=== PATIENT | male | born 1935 | race Caucasian/White ===

== ENCOUNTER 2019-11-14 10:29 | Outpatient (CLI) | payer MEDICARE, SELFPAY ==
--- NOTE | ~2019-11-14 | XR_ITS ---
XR chest 2V DATE: 11/14/2019 11:33 INDICATION: Dyspnea on exertion TECHNIQUE: 2 views COMPARISON: 03/11/2019 portable AP chest FINDINGS: Bilateral hyperinflation. No pulmonary infiltrate or consolidation, pleural effusion or pulmonary vascular congestion or pneumo thorax. Heart size is borderline. Coronary artery calcification. Aortic calcification. No hilar or mediastina l enlargement. 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 Osteopenia. IMPRESSION: Bilateral hyperinflation; no active pulmonary disease Reviewed, dictated and finalized at location A.
[2019-11-14 11:09] LABS: Basophils Percent Auto 0.4 % (0.2-1.2); Eosinophils Absolute Auto 0.3 K/mm3 (0-0.3); Eosinophils Percent Auto 4.1 % (0-4.4); Hematocrit 40.1 % (42.0-52.0); Hemoglobin 13.2 g/dL (14.0-18.0); Immature Granulocyte Absolute 0.03 K/mm3 (0.00-0.031); Immature Granulocyte Percent A 0.4 % (0-0.5); Immature Platelet Fraction Pct 6.4 % (0.9-11.2); Lymphocytes Absolute Auto 1.26 K/mm3 (0.9-3.2); Lymphocytes Percent Auto 17.1 % (18.3-44.2); Mean Corpuscular HGB Conc 32.9 g/dl (32-36); Mean Corpuscular Hemoglobin 31.7 pg (26-34); Mean Corpuscular Volume 96.2 fl (80-100); Mean Platelet Volume 11.7 fl (7.4-10.4); Monocytes Absolute Auto 0.7 K/mm3 (0.1-0.6); Monocytes Percent Auto 9.9 % (2.6-8.5); Neutrophils Percent Auto 68.1 % (45.5-73.1); Platelet Count Result 137 k/mm3 (150-375); Red Blood Count 4.17 M/mm3 (4.6-6.20); Red Cell Distribution Width 14.1 % (11.5-14.5); White Blood Count 7.4 K/mm3 (4.5-10.0)
[2019-11-14 11:25] LABS: Blood Urea Nitrogen 59 mg/dL (9-20); Calcium 9.7 mg/dL (8.4-10.2); Carbon Dioxide 24 mmol/L (22-30); Chloride 111 mmol/L (98-107); Estimated Glomerular Filt Rate 41; Glucose 109 mg/dL (75-110); Potassium 5.2 mmol/L (3.4-5.0); Sodium 141 mmol/L (137-145)
[2019-11-14 11:31] LABS: NT Pro B Type Natriuretic Pept 401 PG/ML (5-100)
== END 2019-11-14 10:30 | disposition home or self-care (01) ==
PROVIDERS: PCP Family Medicine; Visit Provider Internal Medicine Cardiovascular Disease
DX: R06.00 Dyspnea, unspecified (principal); R53.83 Other fatigue; N18.3 Chronic kidney disease, stage 3 (moderate)
CPT/HCPCS: 36415; 71046; 80048; 83880; 85025; 85055

== ENCOUNTER 2022-11-03 19:31 | Emergency (ER) | payer MEDICARE, SELFPAY ==
--- NOTE | ~2022-11-03 | CT_ITS ---
Non-contrast Head CT History: Tremor COMPARISON: 03/19/2019 Technique: Axial non-contrast imaging of the brain was performed. Dose reduction technique was used on this scan by utilizing automated exposure control and iterative reconstruction technique. The dose -length product (DLP) was 605.33 mGy-cm. Findings: There is no evidence of intracranial hemorrhage, mass lesion, or acute infarct. Brain par enchyma appears normal. The ventricles and subarachnoid spaces are normal in size. The calvarium ap pears normal. The visualized paranasal sinuses and mastoid air cells are clear. Impression: No significant abnormality seen. Reviewed, dictated and finalized at location . Impression: No significant abnormality seen.
--- NOTE | ~2022-11-03 | CT_ITS ---
EXAMINATION: CT abdomen pelvis w con DATE: 11/03/2022 23:35 INDICATION: Low back pain. Hypotension. TECHNIQUE: Computed tomography (CT) of the abdomen and pelvis was performed with 100 cc Omnipaque 350 intravenous contrast. The dose-length product was 652.30 mGy-cm. Automated exposure control and iter ative reconstruction technique were employed. COMPARISON: CT dated 11/03/2022 FINDINGS: Lung bases are unremarkable. Heart size normal. No significant pleural or pericardial effus ion. There are changes of left total hip arthroplasty with gas in the overlying soft tissues, consist ent with recent surgery. Moderate colonic fecal loading. No obstruction. The liver, pancreas, adrenal glands are unremarkable. There is bilateral renal atrophy. There are zonia cified granulomas of the spleen. Nonobstructive bowel gas pattern. There are bilateral hip arthroplas ties. No free air or free fluid. There is atherosclerosis of the aorta without aneurysm. No lymphaden opathy. No free air or free fluid. Bladder is moderately distended. IMPRESSION: 1. No acute abdominal abnormality. Reviewed, dictated and finalized at location L.
[2022-11-03 20:07] VITALS: BP 100/54; PULSE 57; RESP 20; TEMP 36.7; O2SAT 98
[2022-11-03 20:48] VITALS: BP 110/52; PULSE 56; RESP 18; O2SAT 98
--- NOTE | 2022-11-03 21:43 | ED.GENADULT ---
HPI - General Adult General Chief complaint: Neuro Symptoms/Deficit Stated complaint: tremors in upper extremities Time Seen by Provider: 11/03/22 21:29 History of Present Illness HPI narrative: Patient is a 87-year-old male here for evaluation of bilateral finger twitching x1 day. No known trigger. He states that at random, the finger will have a twitch and then resolved without intervention. Denies history of previous similar sensation. Denies any unilateral weakness, visual changes, headache, nausea, vomiting, seizures, twitching of the face. He also has been having some low back pain underneath his scapula bilaterally. Patient did have a hip replacement yesterday at outside hospital, he received an epidural which was reportedly unsuccessful and he then received propofol. Denies history of reaction to anesthesia. Related Data Home Medications Medication Instructions Recorded Confirmed aspirin 81 mg tablet,delayed 81 mg PO DAILY 03/26/19 09/29/22 release (Adult Low Dose Aspirin) clopidogrel 75 mg tablet 75 mg PO DAILY 03/26/19 09/29/22 metoprolol tartrate 50 mg tablet 50 mg PO Q12H 03/26/19 09/29/22 atorvastatin 80 mg tablet 40 mg PO DAILY 09/27/19 09/29/22 Allergies Allergy/AdvReac Type Severity Reaction Status Date / Time No Known Allergies Allergy Unknown Verified 09/29/22 13:40 Review of Systems Review of Systems: Gen.: Denies fevers or chills Eyes: Denies eye pain or visual change ENT: Denies congestion Respiratory: Denies shortness of breath or cough CV: Denies chest pain or palpitations GI: Denies abdominal pain nausea, emesis or diarrhea denies burning, urgency, frequency or hematuria Musculoskeletal: Denies back pain or muscle pain Neuro: Reports tremors to bilateral hands. Denies numbness, tingling, weakness or focal weakness Skin: Denies rash Except as documented, all other systems reviewed and negative [facility] Past Medical History Medical History BMI 24.0-24.9, adult BMI 25.0-25.9,adult BMI 27.0-27.9,adult Family History Family History Father , JACKLYN WW 2 No problems noted. Mother , Failure to thrive No problems noted. Other Diabetes mellitus Hypertension Social History Social History Smoking status: Former smoker Second hand tobacco smoke exposure: No Alcohol intake: current Substance use: never Substance use type: does not use Living arrangements: with family Occupation/Education: retired Additional occupation/education comments: [employer] Gender identity (if verbalized by the patient): Male Exam Narrative: APPEARANCE: Well appearing, no pain in distress, well-nourished. Head: Normocephalic and atraumatic. EYES: PERRLA/EOMI, conjunctivae clear NOSE: No nasal drainage EARS: External ear normal in appearance THROAT: Oropharynx is clear. Mucous membranes are moist. NECK: Supple. No adenopathy, no masses. RESPIRATORY: Airway patent, respirations nonlabored. Clear to auscultation bilaterally, no rales, rhonchi, wheezing. CARDIOVASCULAR: Regular rate and rhythm without murmurs, rubs, or gallops. ABDOMINAL: Normoactive bowel sounds. Soft, nontender, nondistended. No rebound tenderness or guarding. MUSCULOSKELETAL: There is no tenderness to palpation along the C, T or L-spine. Extremities are warm and well-perfused. Moves all extremities well. No edema. NEURO: Very faint intermittent twitch of the bilateral upper extremities at the fingers. SKIN: Skin is warm and dry. No rashes. PSYCHIATRIC: Normal affect/mood. Course Vital Signs Vital signs: Vital Signs Temperature 98.1 F 11/03/22 20:07 Pulse Rate 57 L 11/03/22 20:07 Respiratory Rate 20 11/03/22 20:07 Blood Pressure 100/54 L 11/03/22 20:07 Pulse Oxime
[2022-11-03 22:05] VITALS: BP 114/46; PULSE 62; RESP 19; O2SAT 98
[2022-11-03] MEDS: SODIUM CHLORIDE 0.9% IV 1,000 ML 999 ML IV CONT ×2 (22:09→23:03)
[2022-11-03 22:16] LABS: Basophils Percent Auto 0.3 % (0.2-1.2); Eosinophils Absolute Auto 0.3 K/mm3 (0-0.3); Eosinophils Percent Auto 2.6 % (0-4.4); Hematocrit 31.2 % (42.0-52.0); Hemoglobin 10.3 g/dL (14.0-18.0); Immature Granulocyte Absolute 0.03 K/mm3 (0.00-0.031); Immature Granulocyte Percent A 0.3 % (0-0.5); Lymphocytes Absolute Auto 1.15 K/mm3 (0.9-3.2); Mean Corpuscular Volume 96.9 fl (80-100); Mean Platelet Volume 11.2 fl (7.4-10.4); Neutrophils Absolute Auto 7.2 K/mm3 (1.3-6.7); Neutrophils Percent Auto 74.8 % (45.5-73.1); Platelet Count Result 109 k/mm3 (150-375); Red Blood Count 3.22 M/mm3 (4.6-6.20); Red Cell Distribution Width 14.4 % (11.5-14.5); White Blood Count 9.6 K/mm3 (4.5-10.0)
[2022-11-03 22:33] LABS: Alanine Aminotransferase 18 U/L (6-50); Albumin Level 3.5 g/dL (3.5-5.1); Alkaline Phosphatase 69 U/L (38-126); Anion Gap 7 mmol/L (8-16); Aspartate Amino Transferase 35 U/L (17-59); Bilirubin,Total 0.8 mg/dL (0.2-1.3); Blood Urea Nitrogen 35 mg/dL (9-20); Calcium 8.1 mg/dL (8.4-10.2); Carbon Dioxide 22 mmol/L (22-30); Chloride 107 mmol/L (98-107); Estimated CRCL calculation 25 ml/min; Estimated Glomerular Filt Rate 34; Glucose 114 mg/dL (65-110); Phosphorus 4.6 mg/dL (2.5-4.5); Potassium 4.2 mmol/L (3.4-5.0); Sodium 136 mmol/L (137-145)
[2022-11-03 22:42] LABS: INR 1.2; Prothrombin Time 15.8 Seconds (11.1-14.7)
[2022-11-03 23:51] VITALS: BP 120/63; PULSE 77; RESP 14; TEMP 36.6; O2SAT 98
[2022-11-04 01:26] VITALS: BP 119/58; PULSE 73; RESP 12; TEMP 37.1; O2SAT 98
== END 2022-11-04 01:27 | disposition home or self-care (01) ==
PROVIDERS: Emergency Provider Physician Assistant; PCP Family Medicine
DX: R25.3 Fasciculation (principal); Z98.890 Other specified postprocedural states; Z96.642 Presence of left artificial hip joint; Z79.82 Long term (current) use of aspirin; Z79.02 Long term (current) use of antithrombotics/antiplatelets; Z87.891 Personal history of nicotine dependence
CPT/HCPCS: 36415; 70450; 74177; 80053; 83735; 84100; 85025; 85610; 85730; 86850; 86900; 86901; 96360; 96361; 99284; J7030; Q9967

== ENCOUNTER 2022-11-10 10:26 | Outpatient (CLI) | payer MEDICARE, SELFPAY ==
--- NOTE | ~2022-11-10 | US_ITS ---
EXAMINATION: US venous doppler [facility] DATE: 11/10/2022 11:03 INDICATION: Left lower limb pain one week post hip surgery TECHNIQUE: Grayscale ultrasound images without and with compression and Doppler ultrasound images of the left lower extremity veins were obtained. COMPARISON: None. FINDINGS: The visualized portions of left common femoral vein, profunda (deep) femoral vein, femoral vein, popl iteal vein, posterior tibial veins, gastrocnemius vein, lesser saphenous vein and greater saphenous v ein outflow are patent. IMPRESSION: 1. No deep venous thrombosis in the left lower limb. Reviewed, dictated and finalized at location A.
== END 2022-11-10 10:27 | disposition home or self-care (01) ==
PROVIDERS: PCP Family Medicine; Visit Provider Orthopaedic Surgery
DX: M79.662 Pain in left lower leg (principal)
CPT/HCPCS: 93971

== ENCOUNTER 2022-11-14 15:20 | Emergency (ER) | payer MEDICARE, SELFPAY ==
[2022-11-14] VITALS (8 sets, daily range): BP systolic 113–158; BP diastolic 38–99; PULSE 82–94; RESP 17–19; TEMP 36.9–37.1; O2SAT 98–100
--- NOTE | ~2022-11-14 | XR_ITS ---
Left Hip Technique: Portable AP view Clinical History: Status post reduction Findings: Patient is status post left hip arthroplasty. Previously noted arthroplasty dislocation has been successfully reduced. Hardware alignment is now satisfactory. No acute osseous fracture seen. S urgical skin denisa are noted. Impression: Successful reduction of previously noted left hip arthroplasty dislocation. Reviewed, dictated and finalized at location M. Impression: Successful reduction of previously noted left hip arthroplasty dislocation.
--- NOTE | ~2022-11-14 | XR_ITS ---
AP view of the pelvis Clinical history: Pain Findings: Bilateral hip arthroplasties are present. There is superior dislocation of the left femoral head component from the left acetabular cup component. No dislocation of the right arthroplasty seen . No acute osseous fracture identified. Soft tissues are unremarkable. Impression: Superior dislocation of the left femoral arthroplasty component from the left acetabular cup. Right hip arthroplasty appears unremarkable. No acute osseous fracture. Reviewed, dictated and finalized at location M. Impression: Superior dislocation of the left femoral arthroplasty component from the left a cetabular cup. Right hip arthroplasty appears unremarkable. No acute osseous fracture.
[2022-11-14] MEDS: fentaNYL CITRATE INJ (*CRX) 100 MCG/2 ML VIAL 50 MCG IV PUSH (15:42)
[2022-11-14 15:51] LABS: Basophils Absolute Auto 0.1 K/mm3 (0.0-0.1); Basophils Percent Auto 0.3 % (0.2-1.2); Eosinophils Absolute Auto 0.4 K/mm3 (0-0.3); Eosinophils Percent Auto 2.3 % (0-4.4); Hematocrit 25.9 % (42.0-52.0); Hemoglobin 8.3 g/dL (14.0-18.0); Immature Granulocyte Absolute 0.18 K/mm3 (0.00-0.031); Lymphocytes Absolute Auto 0.74 K/mm3 (0.9-3.2); Lymphocytes Percent Auto 4.3 % (18.3-44.2); Mean Corpuscular Hemoglobin 31.8 pg (26-34); Mean Corpuscular Volume 99.2 fl (80-100); Mean Platelet Volume 9.3 fl (7.4-10.4); Monocytes Absolute Auto 1.2 K/mm3 (0.1-0.6); Monocytes Percent Auto 6.6 % (2.6-8.5); Neutrophils Absolute Auto 14.9 K/mm3 (1.3-6.7); Neutrophils Percent Auto 85.5 % (45.5-73.1); Platelet Count Result 213 k/mm3 (150-375); Red Blood Count 2.61 M/mm3 (4.6-6.20); Red Cell Distribution Width 15.6 % (11.5-14.5); White Blood Count 17.4 K/mm3 (4.5-10.0)
--- NOTE | 2022-11-14 15:57 | ED.GENADULT ---
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 Coronel, who is brought in by EMS with left hip pain and possible dislocation. The patient states he was seated on the toilet when he bent forward and felt a pop and severe pain in the left hip. He describes it as dull, rated 8/10 and without radiation. He denies weakness/numbness of the leg. Related Data Home Medications Medication Instructions Recorded Confirmed aspirin 81 mg tablet,delayed 81 mg PO DAILY 03/26/19 09/29/22 release (Adult Low Dose Aspirin) clopidogrel 75 mg tablet 75 mg PO DAILY 03/26/19 09/29/22 metoprolol tartrate 50 mg tablet 50 mg PO Q12H 03/26/19 09/29/22 atorvastatin 80 mg tablet 40 mg PO DAILY 09/27/19 09/29/22 Allergies Allergy/AdvReac Type Severity Reaction Status Date / Time No Known Allergies Allergy Unknown Verified 09/29/22 13:40 Review of Systems Review of Systems: CONSTITUTIONAL: Denies fever, chills, or sweats. CARDIOVASCULAR: Denies chest pain, palpitations, or edema. RESPIRATORY: Denies cough or dyspnea. GASTROINTESTINAL: Denies abdominal pain, nausea, vomiting, or diarrhea. GENITOURINARY: Denies dysuria or hematuria. SKIN: Denies rash or itching. MUSCULOSKELETAL: Left hip pain denies back pain, or myalgia. NEUROLOGIC: Denies headache, numbness, dizziness, or weakness. PSYCHIATRIC: Denies anxiety or depression. [facility] Past Medical History Medical History (Updated 11/14/22 @ 18:53 by Jean Lund MD) BMI 24.0-24.9, adult BMI 25.0-25.9,adult BMI 27.0-27.9,adult CKD (chronic kidney disease) CVA (cerebral vascular accident) Hypothyroidism Screening for prostate cancer Surgical History Surgical History (Updated 11/14/22 @ 16:00 by Jean Lund MD) Status post left hip replacement Status post right hip replacement Family History Family History Father , JACKLYN WW 2 No problems noted. Mother , Failure to thrive No problems noted. Other Diabetes mellitus Hypertension Social History Social History Smoking status: Former smoker Second hand tobacco smoke exposure: No Alcohol intake: current Substance use: never Substance use type: does not use Living arrangements: with family Occupation/Education: retired Additional occupation/education comments: [employer] Gender identity (if verbalized by the patient): Male Exam Narrative: GENERAL: Well-developed, well-nourished, in moderate distress due to pain HEAD: Normocephalic, atraumatic. EYES: PERRLA and EOMI. ENT: Nares clear, no rhinorrhea or epistaxis. Mucous membranes moist. Oropharynx without tonsillar hypertrophy exudate or other lesions. CHEST: Clear to auscultation. No respiratory distress. No wheezes rales or rhonchi HEART: Regular rate and rhythm. No murmur heard. Normal peripheral pulses. ABDOMEN: Soft, nontender, nondistended, normal active bowel sounds. EXTREMITIES: Left hip shortened and internally rotated compared to the right. There are bandages with small amount of dried blood noted to the posterior lateral aspect of the left hip. Range of motion at the toes, ankle and knee intact. No edema. SKIN: Warm, dry, no rash. NEURO: No focal deficits. Alert and oriented x3. Sensation intact bilaterally PSYCH: Normal mood and affect. Course Course Emergency Course: 16:40 - X-ray demonstrates a posteriorly dislocated left prosthetic hip. I discussed the findings with the patient's surgeon, Dr. Coronel and [facility], who agrees with attempt to reduce the hip in the emergency dep
[2022-11-14 16:00] LABS: Alanine Aminotransferase 21 U/L (6-50); Albumin Level 3.4 g/dL (3.5-5.1); Alkaline Phosphatase 91 U/L (38-126); Anion Gap 5 mmol/L (8-16); Aspartate Amino Transferase 23 U/L (17-59); Blood Urea Nitrogen 24 mg/dL (9-20); Calcium 8.2 mg/dL (8.4-10.2); Carbon Dioxide 22 mmol/L (22-30); Chloride 110 mmol/L (98-107); Estimated CRCL calculation 31 ml/min; Estimated Glomerular Filt Rate 44; Glucose 134 mg/dL (65-110); Potassium 4.3 mmol/L (3.4-5.0); Sodium 137 mmol/L (137-145)
[2022-11-14 16:04] LABS: INR 2.8; Prothrombin Time 31.4 Seconds (11.1-14.7)
[2022-11-14 16:11] LABS: Platelet Estimate Adequate (Adequate)
[2022-11-14 16:12] LABS: Anisocytosis 1+ (NORMAL); Poikilocytosis 1+ (NORMAL)
[2022-11-14 16:13] LABS: Schistocytes None Seen (NORMAL)
--- NOTE | 2022-11-14 18:17 | PC.NURSE ---
Conscious sedation started at 1732, Dr. Lund, this RN, and [facility], in room. Time out done at 173. 173: 25 mcg fentanyl given IVP. 1738: 40mg propofol IVP given by Dr. Lund. 1742: 20mg propofol given IVP. 174: 20mg propofol given IVP. 1748: reduction completed. Xray called to bedside. 1L NS bolus running. Pt tolerated procedure well. Upon finishing he was AOx4, awake and alert and in 0/10 pain.
== END 2022-11-14 19:29 | disposition home or self-care (01) ==
PROVIDERS: Emergency Provider Preventive Medicine Aerospace Medicine; PCP Family Medicine
DX: S73.015A Posterior dislocation of left hip, initial encounter (principal); M25.552 Pain in left hip; E03.9 Hypothyroidism, unspecified; N18.9 Chronic kidney disease, unspecified; Z96.643 Presence of artificial hip joint, bilateral; Z87.891 Personal history of nicotine dependence
CPT/HCPCS: 27265; 36415; 72170; 73501; 80053; 85025; 85610; 99285; J2704; J3010; J7030

== ENCOUNTER 2022-11-16 16:21 | Emergency (ER) | payer MEDICARE, SELFPAY ==
--- NOTE | ~2022-11-16 | XR_ITS ---
EXAM: XR abdomen obstructive series DATE: 11/16/2022 19:49 HISTORY: Abdominal distention POSSIBLE URINARY RETENTION . COMPARISON: CT abdomen pelvis 11/03/2022. FINDINGS: Bilateral interstitial opacities. Streaky bibasilar opacities, likely atelectasis/scar no organomegaly. Normal bowel gas pattern Pelvic phleboliths. Scattered vascular calcifications. Severe degenerative change in the lumbar spine. Partially visualized uncomplicated appearing bilateral hip a rthroplasties. IMPRESSION: No radiographic evidence of obstruction or ileus. Reviewed, dictated and finalized at location K.
[2022-11-16 16:25] VITALS: BP 102/50; PULSE 79; RESP 16; TEMP 36.8; O2SAT 99
--- NOTE | 2022-11-16 17:18 | PC.NURSE ---
flores cath irrigated by Deanna MORGAN. she reports non difficulty with irrigation and is draining via gravity without difficulty
--- NOTE | 2022-11-16 18:28 | ED.GENADULT ---
HPI - General Adult General Chief complaint: Urogenital-Male Stated complaint: flores cath not draining Time Seen by Provider: 11/16/22 17:18 History of Present Illness HPI narrative: 87-year-old male presented the ED for evaluation of his urinary Flores was not draining and patient was having abdominal bloating. Patient was recently seen in the ED for a dislocated hip and this was reduced. Related Data Home Medications Medication Instructions Recorded Confirmed aspirin 81 mg tablet,delayed 81 mg PO DAILY 03/26/19 09/29/22 release (Adult Low Dose Aspirin) clopidogrel 75 mg tablet 75 mg PO DAILY 03/26/19 09/29/22 metoprolol tartrate 50 mg tablet 50 mg PO Q12H 03/26/19 09/29/22 atorvastatin 80 mg tablet 40 mg PO DAILY 09/27/19 09/29/22 Allergies Allergy/AdvReac Type Severity Reaction Status Date / Time No Known Allergies Allergy Unknown Verified 09/29/22 13:40 Review of Systems Review of Systems: All systems reviewed & are unremarkable except as noted in HPI and below PMFSH Past Medical History Medical History BMI 24.0-24.9, adult BMI 25.0-25.9,adult BMI 27.0-27.9,adult CKD (chronic kidney disease) CVA (cerebral vascular accident) Hypothyroidism Screening for prostate cancer Surgical History Surgical History Status post left hip replacement Status post right hip replacement Family History Family History Father , JACKLYN WW 2 No problems noted. Mother , Failure to thrive No problems noted. Other Diabetes mellitus Hypertension Social History Social History Smoking status: Former smoker Second hand tobacco smoke exposure: No Alcohol intake: current Substance use: never Substance use type: does not use Living arrangements: with family Occupation/Education: retired Additional occupation/education comments: . [employer] Gender identity (if verbalized by the patient): Male Exam Narrative: APPEARANCE: Well appearing, no pain, no distress, well-nourished. HEAD: normocephalic, atraumatic. EYES: PERRLA/EOMI, conjunctivae clear. NOSE: Normal no drainage NECK: Supple. No adenopathy, no masses. RESPIRATORY: Airway patent, respirations nonlabored. Clear to auscultation bilaterally, no rales, rhonchi, wheezing. CARDIOVASCULAR: Regular rate and rhythm without murmurs rubs or gallops. ABDOMINAL: Abdominal distention without tenderness, normal bowel sounds MUSCULOSKELETAL: Moves all extremities. Strength/ROM intact, No edema, No calf tenderness. NEURO: Alert. Cranial nerves II through XII intact. Grossly intact SKIN: Warm, dry. Normal Color Course Course Emergency Course: 87-year-old male presented ED for evaluation of Flores catheter dysfunction. Patient's Flores catheter was exchanged, UA does show evidence of infection and patient was started on antibiotics. Patient was also complaining of some abdominal bloating. X-ray was ordered and showed no evidence of obstruction. Patient and family were updated on the results of the work-up and treatment plan. All questions concerns were addressed and patient was well-appearing at time of discharge from the emergency department. Vital Signs Vital signs: Vital Signs Temperature 98.3 F 11/16/22 16:25 Pulse Rate 79 11/16/22 16:25 Respiratory Rate 16 11/16/22 16:25 Blood Pressure 102/50 L 11/16/22 16:25 Pulse Oximetry 99 11/16/22 16:25 Oxygen Delivery Room Air 11/16/22 16:25 Temperature 98.3 F 11/16/22 16:25 Pulse Rate 83 11/16/22 20:53 Respiratory Rate 16 11/16/22 20:53 Blood Pressure 126/58 L 11/16/22 20:53 Pulse Oximetry 93 11/16/22 20:53 Oxygen Delivery Room Air 11/16/22 16:25 Medical Decision Making Differential Diagnosis Dif
[2022-11-16 18:54] LABS: Appearance Urine Turbid (Clear); Bacteria Urine 4+ /hpf; Bilirubin Urine Negative (Negative); Blood Urine 3+ (Negative); Color Urine Yellow (Yellow); Glucose Urine UA Negative (Negative); Ketones Urine Negative (Negative); Leukocyte Esterase Ur 3+ LEU/UL (Negative); Need Manual Microscopic Reviewed; Nitrate Urine Negative (Negative); Protein Urine 1+ mg/dL (Negative); Specific Grav Ur 1.018 (1.001-1.035); Squamous Epithelial Cell Urine None seen /hpf (Few); WBC Urine 21-50 /hpf
[2022-11-16 18:59] LABS: Add Urine Microscopic? YES
[2022-11-16 19:14] VITALS: BP 129/59; PULSE 79; RESP 15; O2SAT 93
[2022-11-16] MEDS: CEPHALEXIN 500 MG CAPSULE PO (20:05)
[2022-11-16 20:53] VITALS: BP 126/58; PULSE 83; RESP 16; O2SAT 93
== END 2022-11-16 20:57 | disposition home or self-care (01) ==
PROVIDERS: Emergency Provider Emergency Medicine; PCP Family Medicine
DX: T83.9XXA Unspecified complication of genitourinary prosthetic device, implant and graft, initial encounter (principal); N39.0 Urinary tract infection, site not specified; E03.9 Hypothyroidism, unspecified; N18.9 Chronic kidney disease, unspecified; Z86.73 Personal history of transient ischemic attack (TIA), and cerebral infarction without residual deficits; Z87.891 Personal history of nicotine dependence
CPT/HCPCS: 74019; 81001; 87077; 87086; 87186; 99283; A9270

== ENCOUNTER 2022-11-16 21:51 | Emergency (ER) | payer MEDICARE, SELFPAY ==
--- NOTE | ~2022-11-16 | XR_ITS ---
Left Hip Technique: Portable AP view Clinical History: Status post reduction COMPARISON: 11/16/2022 at 10:12 PM Findings: Previously noted left hip arthroplasty dislocation has been successfully reduced. Alignment of hardware is now satisfactory. No acute osseous fracture seen. Soft tissues are unremarkable. Impression: Successful reduction of previously noted left hip arthroplasty dislocation. Reviewed, dictated and finalized at location . Impression: Successful reduction of previously noted left hip arthroplasty dislocation.
--- NOTE | ~2022-11-16 | XR_ITS ---
EXAM: XR hip LT 2V w AP pelvis DATE: 11/16/2022 22:23 HISTORY: dislocation . COMPARISON: 11/14/2022. FINDINGS: Decreased mineralization. Degenerative changes in the lumbar spine and pubic symphysis. Th e femoral component of a left hip or blastic is dislocated superiorly. No hardware fracture. No perih ardware lucency or fracture. Partially visualized, uncomplicated appearing right hip arthroplasty. IMPRESSION: Dislocated left hip arthroplasty. Reviewed, dictated and finalized at location K.
--- NOTE | 2022-11-16 22:40 | ED.LOWEXIN ---
HPI - Extremity Injury (Lower) General Chief Complaint: Extremity Injury, Lower Stated Complaint: right hip dislocation Time Seen by Provider: 11/16/22 21:54 History of Present Illness HPI Narrative: Patient presents with left hip pain when he he was getting out of a car, felt a pop. He had just had his hip dislocation 2 days ago reduced here. Related Data Home Medications Medication Instructions Recorded Confirmed aspirin 81 mg tablet,delayed 81 mg PO DAILY 03/26/19 09/29/22 release (Adult Low Dose Aspirin) clopidogrel 75 mg tablet 75 mg PO DAILY 03/26/19 09/29/22 metoprolol tartrate 50 mg tablet 50 mg PO Q12H 03/26/19 09/29/22 atorvastatin 80 mg tablet 40 mg PO DAILY 09/27/19 09/29/22 Allergies Allergy/AdvReac Type Severity Reaction Status Date / Time No Known Allergies Allergy Unknown Verified 09/29/22 13:40 Review of Systems Review of Systems: CONST: No fever. HEENT: No sore throat C/V: No chest pain RESP: No cough GI: No abdominal pain : No dysuria. M/S: Left hip pain SKIN: No rash. NEURO: [No focal numbness or weakness] PSYCH: [No depression] [facility] Past Medical History Medical History BMI 24.0-24.9, adult BMI 25.0-25.9,adult BMI 27.0-27.9,adult CKD (chronic kidney disease) CVA (cerebral vascular accident) Hypothyroidism Screening for prostate cancer Surgical History Surgical History Status post left hip replacement Status post right hip replacement Family History Family History Father , JACKLYN WW 2 No problems noted. Mother , Failure to thrive No problems noted. Other Diabetes mellitus Hypertension Social History Social History Smoking status: Former smoker Second hand tobacco smoke exposure: No Alcohol intake: current Substance use: never Substance use type: does not use Living arrangements: with family Occupation/Education: retired Additional occupation/education comments: [employer] Gender identity (if verbalized by the patient): Male Exam Narrative: EXAMINATION OF ORGAN SYSTEMS/BODY AREAS: Constitutional: Vital signs per nursing GENERAL:[No acute distress, non-toxic appearing.] HEAD: Normal with no signs of head trauma. EYES: EOMI, conjunctiva normal ENT: Hearing grossly intact LUNGS: Nonlabored breathing. HEART: [Regular rate and rhythm] ABD: [Soft], [nontender to palpation] EXT: Obvious shortening of left leg with pain SKIN: [No rashes or lesions.] NEURO: [Alert and oriented x 3. No gross focal sensory or strength deficits.] PSYCH: Normal affect Course Vital Signs Vital signs: Vital Signs Pulse Rate 85 11/16/22 23:00 Respiratory Rate 18 11/16/22 23:00 Blood Pressure 147/62 H 11/16/22 23:00 Pulse Oximetry 98 11/16/22 23:00 Pulse Rate 85 11/16/22 23:37 Respiratory Rate 20 11/16/22 23:37 Blood Pressure 123/51 L 11/16/22 23:37 Pulse Oximetry 99 11/16/22 23:37 Oxygen Delivery Nasal Cannula 11/16/22 23:37 Oxygen Flow Rate 2 11/16/22 23:37 Procedures Orthopedic Joint Reduction Joint #1: Orthopedic Joint Reduction Date: 11/17/22 Orthopedic Joint Reduction Time: 23:00 Time Out Performed: Yes Side: left Joint Reduction Location: hip Analgesia: procedural sedation Pre-Procedure Neuro Vascular Exam: normal Technique used: other (Captain Smith) Post-reduction neuro exam: intact and no change Post-reduction vascular: intact and no change Post Reduction X-Ray Obtained: Yes Post Reduction X-Ray Results: reduced Splint Applied: Yes Patient Tolerated Procedure: well and no complications MDM - Extremity Injury (Lower) MDM Narrative Medical deci
[2022-11-16 22:47] LABS: Basophils Percent Auto 0.3 % (0.2-1.2); Eosinophils Absolute Auto 0.1 K/mm3 (0-0.3); Eosinophils Percent Auto 0.6 % (0-4.4); Hematocrit 22.7 % (42.0-52.0); Hemoglobin 7.4 g/dL (14.0-18.0); Immature Granulocyte Absolute 0.22 K/mm3 (0.00-0.031); Immature Granulocyte Percent A 1.7 % (0-0.5); Lymphocytes Absolute Auto 0.44 K/mm3 (0.9-3.2); Lymphocytes Percent Auto 3.3 % (18.3-44.2); Mean Corpuscular HGB Conc 32.6 g/dl (32-36); Mean Corpuscular Hemoglobin 32.3 pg (26-34); Mean Corpuscular Volume 99.1 fl (80-100); Mean Platelet Volume 10.1 fl (7.4-10.4); Monocytes Percent Auto 7.8 % (2.6-8.5); Neutrophils Absolute Auto 11.4 K/mm3 (1.3-6.7); Neutrophils Percent Auto 86.3 % (45.5-73.1); Platelet Count Result 193 k/mm3 (150-375); Red Blood Count 2.29 M/mm3 (4.6-6.20); Red Cell Distribution Width 15.4 % (11.5-14.5); White Blood Count 13.2 K/mm3 (4.5-10.0)
[2022-11-16] MEDS: fentaNYL CITRATE INJ (*CRX) 100 MCG/2 ML VIAL 50 MCG IV PUSH (22:49)
[2022-11-16 23:00] VITALS: BP 147/62; PULSE 85; RESP 18; O2SAT 98
[2022-11-16 23:01] LABS: Anion Gap 10 mmol/L (8-16); Blood Urea Nitrogen 35 mg/dL (9-20); Calcium 8.2 mg/dL (8.4-10.2); Carbon Dioxide 18 mmol/L (22-30); Chloride 100 mmol/L (98-107); Estimated CRCL calculation 33 ml/min; Estimated Glomerular Filt Rate 48; Glucose 135 mg/dL (65-110); Potassium 4.1 mmol/L (3.4-5.0); Sodium 128 mmol/L (137-145)
--- NOTE | 2022-11-16 23:01 | PC.NURSE ---
Pt to have reduction of left hip. Informed consent signed at this time.
--- NOTE | 2022-11-16 23:06 | PC.NURSE ---
Doctor Otto at bedside for pt signing of informed consent
[2022-11-16 23:15] VITALS: BP 125/52; PULSE 87; RESP 19; O2SAT 99
[2022-11-16 23:18] VITALS: BP 128/49; PULSE 82; RESP 17; O2SAT 98
--- NOTE | 2022-11-16 23:21 | PC.NURSE ---
60mg Propofol pushed 2317 by
[2022-11-16 23:22] VITALS: BP 121/51; PULSE 86; RESP 20; O2SAT 100
--- NOTE | 2022-11-16 23:27 | PC.NURSE ---
Hip was reduced and assumed to be in place by 2319 by
--- NOTE | 2022-11-16 23:28 | PC.NURSE ---
Robbi called at 2321 to do post procedure imaging.
[2022-11-16 23:37] VITALS: BP 123/51; PULSE 85; RESP 20; O2SAT 99
--- NOTE | 2022-11-16 23:41 | PC.NURSE ---
Pt fully awake at this time. Pt has no complaints of post procedure pain. Son at bedside.
--- NOTE | 2022-11-16 23:43 | PC.NURSE ---
Pt placed on 2L o2 before procedure. Pt taken off o2 at this time. O2 100%
[2022-11-16 23:52] VITALS: BP 128/59; PULSE 91; RESP 13; O2SAT 97
--- NOTE | 2022-11-17 00:47 | PC.NURSE ---
THIS TECH WENT IN TO PLACE KNEE IMMOBILIZER TO LEFT LEG PER EDP ORDER. PER PT SON, PT AND SON FEEL THE CURRENT HIP BRACE WORKS, THEY JUST DIDNT REALIZE IT WAS NOT TIGHTENED ENOUGH WHEN HIP WENT OUT OF PLACE AGAIN . PT WOULD PREFER TO CONTINUE USING THE CURRENT HIP BRACE VS KNEE IMMOBILIZER. RELAYED THIS INFORMATION TO EDP DR. VALLECILLO.
[2022-11-17 01:35] VITALS: BP 147/64; PULSE 96; RESP 20; O2SAT 94
== END 2022-11-17 01:40 | disposition home or self-care (01) ==
PROVIDERS: Emergency Provider Emergency Medicine; PCP Family Medicine
DX: S73.005A Unspecified dislocation of left hip, initial encounter (principal); N18.9 Chronic kidney disease, unspecified; E03.9 Hypothyroidism, unspecified; Z86.73 Personal history of transient ischemic attack (TIA), and cerebral infarction without residual deficits; Z87.891 Personal history of nicotine dependence; X50.0XXA Overexertion from strenuous movement or load, initial encounter
CPT/HCPCS: 27265; 36415; 73501; 73502; 74019; 80048; 81001; 85025; 87077; 87086; 87186; 99285; A9270; J3010; J7030

== ENCOUNTER 2022-11-19 10:22 | Observation (INO) | payer MEDICARE, SELFPAY ==
[2022-11-19] VITALS (11 sets, daily range): BP systolic 88–149; BP diastolic 41–65; PULSE 76–93; RESP 14–22; TEMP 36.6–36.9; O2SAT 95–99; BMI 25.8
--- NOTE | ~2022-11-19 | XR_ITS ---
EXAMINATION: XR small bowel follow through DATE: 11/22/2022 14:57 INDICATION: Anemia. TECHNIQUE: Oral contrast was administered, and a time course of radiographs of the abdomen was obtain ed. Fluoroscopy of the small bowel was performed. Fluoroscopy exposure time was 0.1 minutes. The tota l number of images was 12. COMPARISON: CT abdomen and pelvis 11/03/2022 FINDINGS: There are no dilated loops of bowel. There is no abnormal mass or stricture. The terminal ileum is no rmal. Transit time from the stomach to proximal colon was approximately 45 minutes. There are bilater al hip arthroplasties. IMPRESSION: 1. Normal small bowel series. Reviewed, dictated and finalized at location A.
--- NOTE | 2022-11-19 11:30 | ED.RECABL ---
HPI - Recheck/Abnormal Lab/Rx General Chief Complaint: Recheck/Abnormal Lab/Rx Stated Complaint: anemic Time Seen by Provider: 11/19/22 11:29 Source: patient and family Mode of arrival: ambulatory Limitations: no limitations History of Present Illness HPI narrative: Patient is a status post left hip replacement on November 02, [address] Coronel at [facility]. Patient had dislocated left hip twice since. Today patient was a scheduled for hip replacement at [facility], in the preop preparation, hemoglobin found to be 6.4, patient was asked to go to [facility] for further evaluation. Patient is on Xarelto which stopped 3 days ago for surgery. Patient also on baby aspirin once a day. He drinks alcohol occasionally he denied any history of GI bleed, last routine colonoscopy was a few months ago by Dr. Coates. Patient denies any fever, chills, nausea, vomiting, abdominal pain, dizziness, lightheadedness, shortness of breath or chest pain. Patient denied history of blood transfusion. Blood work-up today at [facility] showed hemoglobin of 6.4, hematocrit 19.3, RBCs of 2.09 Related Data Home Medications Medication Instructions Recorded Confirmed aspirin 81 mg tablet,delayed 81 mg PO DAILY 03/26/19 11/19/22 release (Adult Low Dose Aspirin) metoprolol tartrate 50 mg tablet 75 mg PO Q12H 03/26/19 11/19/22 atorvastatin 80 mg tablet 40 mg PO DAILY 09/27/19 11/19/22 Colace 100 mg PO BID 11/19/22 11/19/22 celecoxib 200 mg capsule 200 mg PO BID PRN Pain (Scale 11/19/22 11/19/22 Score 1-3) cyanocobalamin (vitamin B-12) 1,000 mcg PO DAILY 11/19/22 11/19/22 famotidine 20 mg tablet 20 mg PO BID 11/19/22 11/19/22 gabapentin 100 mg capsule 200 mg PO Q8-10H 11/19/22 11/19/22 lisinopril 20 mg tablet 20 mg PO DAILY 11/19/22 11/19/22 rivaroxaban 10 mg tablet (Xarelto) 10 mg PO DAILY 11/19/22 11/19/22 tamsulosin 0.4 mg capsule (Flomax) 0.4 mg PO BID 11/19/22 11/19/22 Allergies Allergy/AdvReac Type Severity Reaction Status Date / Time No Known Allergies Allergy Unknown Verified 11/19/22 11:15 Review of Systems Review of Systems: All systems reviewed & are unremarkable except as noted in HPI and below PMFSH Past Medical History Medical History (Updated 11/19/22 @ 19:06 by Cristopher Flores MD) Acute on chronic anemia Bladder retention BMI 24.0-24.9, adult BMI 25.0-25.9,adult BMI 27.0-27.9,adult CKD (chronic kidney disease) CVA (cerebral vascular accident) Hip dislocation, left Hypothyroidism Occult blood in stools Screening for prostate cancer Surgical History Surgical History Status post left hip replacement Status post right hip replacement Family History Family History Father , JACKLYN WW 2 No problems noted. Mother , Failure to thrive No problems noted. Other Diabetes mellitus Hypertension Social History Social History Years smoked: 40 Smoking status: Former smoker Second hand tobacco smoke exposure: No Alcohol intake: current Substance use: never Substance use type: does not use Lack of Transportation: No Lack of Food: Never True Current Housing: I Have Housing Concerned About Future Housing: No Difficulty Paying Gas/Electric Bills: No Difficulty Paying for Meds: No Currently Unemployed: YES Education: High School Diploma/GED Difficulty w/ Childcare or Family Care: No Living arrangements: with family Occupation/Education: retired Additional occupation/education comments: [employer] Gender identity (if verbalized by the patient): Male Spiritual care concerns: No Exam Narrative: General appearance: Well-developed, well-nourished Skin: Normal color Head: Normocephalic, nontraumatic Eyes: Clear conjunctiva ENT: Oropharynx norm
[2022-11-19] MEDS: PANTOPRAZOLE SODIUM IV 40 MG VIAL IV PUSH (11:58)
[2022-11-19] MEDS: ONDANSETRON INJ 4 MG/2 ML VIAL IV PUSH (11:58)
[2022-11-19 12:20] LABS: Basophils Percent Auto 0.5 % (0.2-1.2); Eosinophils Absolute Auto 0.3 K/mm3 (0-0.3); Eosinophils Percent Auto 4.3 % (0-4.4); Immature Granulocyte Absolute 0.28 K/mm3 (0.00-0.031); Immature Granulocyte Percent A 4.3 % (0-0.5); Lymphocytes Percent Auto 13.8 % (18.3-44.2); Mean Corpuscular Hemoglobin 31.5 pg (26-34); Mean Corpuscular Volume 98.5 fl (80-100); Monocytes Percent Auto 15.5 % (2.6-8.5); Neutrophils Percent Auto 61.6 % (45.5-73.1); Nucleated Red Blood Cells Absolute Auto 0.1 K/mm3 (0.0-0.012); Nucleated Red Blood Cells Perc 0.9 % (0.0-0.2); Platelet Count Result 226 k/mm3 (150-375); Red Blood Count 2.03 M/mm3 (4.6-6.20); Red Cell Distribution Width 16.1 % (11.5-14.5); White Blood Count 6.5 K/mm3 (4.5-10.0)
[2022-11-19 12:26] LABS: Hemoglobin 6.4 g/dL (14.0-18.0)
[2022-11-19 12:31] LABS: Alanine Aminotransferase 48 U/L (6-50); Albumin Level 3.3 g/dL (3.5-5.1); Alkaline Phosphatase 156 U/L (38-126); Anion Gap 7 mmol/L (8-16); Aspartate Amino Transferase 80 U/L (17-59); Bilirubin,Total 2.3 mg/dL (0.2-1.3); Blood Urea Nitrogen 34 mg/dL (9-20); Calcium 8.4 mg/dL (8.4-10.2); Carbon Dioxide 22 mmol/L (22-30); Chloride 109 mmol/L (98-107); Estimated CRCL calculation 33 ml/min; Estimated Glomerular Filt Rate 48; Glucose 128 mg/dL (65-110); INR 1.3; Magnesium 2.2 mg/dL (1.6-2.3); Potassium 4.1 mmol/L (3.4-5.0); Prothrombin Time 16.9 Seconds (11.1-14.7); Sodium 138 mmol/L (137-145)
[2022-11-19 13:31] LABS: Hematocrit 20.1 % (42.0-52.0)
[2022-11-19 13:33] LABS: Hemoglobin 6.4 g/dL (14.0-18.0)
[2022-11-19] MEDS: SODIUM CHLORIDE 0.9% IV 250 ML 30 ML IV CONT (14:07)
--- NOTE | 2022-11-19 14:12 | WPDGICN ---
Assessment and Plan Assessment and plan (1) Acute on chronic anemia: Code(s): D64.9 - Anemia, unspecified Status: Acute Assessment and Plan: symptomatic anemia and + FOBT xarelgay has been on hold iv protonix egd and colonoscopy Tuesday (bowel prep Tuesday) with Dr Munoz- he is requesting him as his provider since he has done his colonoscopies in the past. (2) Occult blood in stools: Code(s): R19.5 - Other fecal abnormalities Status: Acute Assessment and Plan: monitor for obvious signs of bleeding transfusion, keep hgb>7 (3) CKD (chronic kidney disease): Code(s): N18.9 - Chronic kidney disease, unspecified Status: Acute Assessment and Plan: creat 1.4 stable (4) Chronic left hip pain: Code(s): M25.552 - Pain in left hip; G89.29 - Other chronic pain Status: Acute (5) Hip dislocation, left: Code(s): S73.005A - Unspecified dislocation of left hip, initial encounter Status: Acute Assessment and Plan: at some point will require new surgery (6) Bladder retention: Code(s): R33.9 - Retention of urine, unspecified Status: Acute Assessment and Plan: flores in place GI Consult Note Consult date/time: 11/19/22 14:12 Reason for consult: acute on chronic anemia, FOBT HPI: Adama Villafuerte is a 87 year old male with post left hip replacement on November 02, [address] Coronel at [facility] since he had dislocated left hip twice and finally today he was scheduled for hip replacement at [facility] but preop evaluation noted hemoglobin 6.4 and he was told to come to [facility] for further evaluation.? Patient is on Xarelto which stopped 3 days ago for surgery, also baby aspirin once a day.? I found last colonoscopy [address] Munoz in records, no findings, patient thinks that had another one last year but could not find in records. He has seen senior technical program manager 2020 because normocytic anemia (hgb 12). He denies overt gib, no melena but occult blood in stools by ER was positive. He has been experiencing shortness of breath on admission, also bloated and not eating much since yesterday. He does not remember having EGD. Few days ago flores catheter placed because urinary retention. Review of Systems Constitutional: Constitutional: Reports fatigue Eyes: Eyes: Denies blurry vision ENT: Reports Normal hearing present Cardiovascular: Cardiovascular: Denies chest pain Respiratory: Respiratory: Reports dyspnea on exertion Gastrointestinal: Gastrointestinal: Denies melena and Reports bloating Genitourinary: Comments: urinary retention and now flores in place Musculoskeletal: Musculoskeletal: Reports arthralgias Integumentary/Breasts: Skin/Breast: Denies rash Neurologic: Denies Abnormal speech present Psychiatric: Psychiatric: Denies behavioral changes [facility] Past Medical History Medical History (Updated 11/19/22 @ 14:17 by Fer Julio MD) Acute on chronic anemia Bladder retention BMI 24.0-24.9, adult BMI 25.0-25.9,adult BMI 27.0-27.9,adult CKD (chronic kidney disease) CVA (cerebral vascular accident) Hip dislocation, left Hypothyroidism Occult blood in stools Screening for prostate cancer Surgical History Surgical History Status post left hip replacement Status post right hip replacement Family History Family History Father , JACKLYN WW 2 No problems noted. Mother , Failure to thrive No problems noted. Other Diabetes mellitus Hypertension Social History Social History Smoking status: Former smoker Second hand tobacco smoke exposure: No Alcohol intake: current Substance use: never Substance use type: does not use Living arrangements: with family Occupation/Education: retired
--- NOTE | 2022-11-19 17:59 | PM.IMHP ---
H&P: HPI History of Present Illness Date/Time: 11/19/22 17:59 Chief Complaint: Abnormal labs Narrative: This is an 87-year-old male patient who had a left hip replacement on November 02, [address] Coronel at [facility]. The patient came home from the hospital and twisted trying to get out of the car and dislocated his hip. The hip was put back into place and then the patient will back home and which can Danaed popped his hip out of place again. The patient was scheduled to have that same left hip replaced today by Dr. Coronel. The patient had preop labs drawn and his hemoglobin was found to be 6.4. The patient was on Xarelto which was stopped 3 days ago for surgery. The patient was also on a baby aspirin once a day. The patient denies any fever chills or any nausea vomiting. The patient denies having any history of any blood transfusion. Blood workup from [facility] showed hemoglobin was 6.4 hematocrit 19.3. GI has been consulted. His Xarelto was to be continued to be on hold. The patient was asymptomatic with his anemia and he was found to be positive for fecal occult blood. He has had colonoscopies by Dr. Rinaldi in the past and is scheduled to have colonoscopy on Tuesday. A Stratton catheter was placed because the patient was having urinary retention. The patient's last colonoscopy was 2014. The patient denies any shortness of breath or any nausea vomiting or diarrhea. Patient was given IV fluids, Zofran Protonix and received 2 units of packed red blood cells. His H&H was 6.4 and 20.1 upon arrival to ER today. After he had the blood transfusion he was 8.7 and 26.4. Will repeat the labs in the a.m.. His BUN is 34 and creatinine 1.4 which is comparable to his previous labs. GFR is 48 which is at his baseline. His blood sugars 128. AST is 80 alkaline phosphatase 156. On 11/16/2022 the patient was found have a UTI. The patient is being admitted to observation status on the date of service 11/19/2022 Review of Systems Review of Systems: All systems reviewed & are unremarkable except as noted in HPI and below Constitutional: Constitutional: Reports as per HPI and Reports no additional constitutional complaints Eyes: Eyes: Reports as per HPI and Reports no additional eye complaints ENT: Reports system reviewed and no additional complaints, except as documented and Reports Normal hearing present Cardiovascular: Cardiovascular: Reports no additional cardiovascular complaints Respiratory: Respiratory: Reports no additional respiratory complaints and Reports no additional respiratory complaints Gastrointestinal: Gastrointestinal: Reports as per HPI and Reports no additional gastrointestinal complaints Musculoskeletal: Musculoskeletal: Reports no additional musculoskeletal complaints Integumentary/Breasts: Skin/Breast: Reports system reviewed and no additional complaints, except as docu and Reports as per HPI Neurologic: Reports system reviewed and no additional complaints, except as documented, Reports as per HPI and Reports Normal hearing present Psychiatric: Psychiatric: Reports no additional psychiatric complaints and Reports as per HPI Endocrine: Endocrine: Reports no additional endocrine complaints Hematologic/Lymphatic: Hematologic/Lymphatic: Reports no additional hematologic/lymphatic complaints Allergic/Immunologic: Allergic/Immunologic: Reports no additional allergic/immunologic complaints [facility] Past Medical History Medical History (Updated 11/20/22 @ 00:34 by Nae Chau NP) Acute on chronic anemia Bladder retention BMI 24.0-24.9, adult BMI 25.0-25.9,adult BMI 27.0-27.9,adult BPH (benign prostatic hyperplasia) CKD (chronic kidney disease) CVA (cerebral vascular accident) Hip dislocation, left Hypertension Hypothyroidism Occult blood in stools Screening for prostate cancer Surgical History Surgical History (Updated 11/20/22 @ 00:26 by Nae Chau NP) H/O colonoscopy H/O heart artery kathie
[2022-11-19 20:56] LABS: Hematocrit 26.4 % (42.0-52.0); Hemoglobin 8.7 g/dL (14.0-18.0)
--- NOTE | 2022-11-19 21:21 | PC.NURSE ---
Pt HGB was 6.4. 4 units of blood were ordered with a H&H scheduled after the second unit finished. New HGB is 8.7. Nae Chau called and notified of new lab result. Verbal orders to hold off on other 2 units of blood at this time. H&H ordered to be checked at 0700.
[2022-11-20] VITALS (7 sets, daily range): BP systolic 113–139; BP diastolic 49–65; PULSE 74–90; RESP 16–20; TEMP 36.4–36.9; O2SAT 95–97
[2022-11-20 01:44] LABS: Hematocrit 26.5 % (42.0-52.0); Hemoglobin 8.8 g/dL (14.0-18.0)
[2022-11-20] MEDS: CEFEPIME 2 GM/NS 50 ML 2 GM/50 ML BAG IVPB ×3 (02:04→22:31)
[2022-11-20] MEDS: SODIUM CHLORIDE 0.9% IV 1,000 ML 125 ML IV CONT (02:04)
[2022-11-20 05:58] LABS: Hematocrit 25.3 % (42.0-52.0); Hemoglobin 8.3 g/dL (14.0-18.0)
[2022-11-20] MEDS: LEVOTHYROXINE SODIUM 50 MCG TABLET PO (06:21)
[2022-11-20] MEDS: GABAPENTIN 100 MG CAPSULE 200 MG PO ×3 (06:21→22:30)
[2022-11-20] MEDS: CYANOCOBALAMIN 1,000 MCG TABLET 1000 MCG PO (08:11)
[2022-11-20] MEDS: lisinopriL 20 MG TABLET PO (08:11)
[2022-11-20] MEDS: DOCUSATE SODIUM 100 MG CAPSULE PO ×2 (08:12→22:30)
[2022-11-20] MEDS: amLODIPine BESYLATE 5 MG TABLET 10 MG PO (08:12)
[2022-11-20] MEDS: TAMSULOSIN HCL 0.4 MG CAPSULE PO ×2 (08:12→17:25)
[2022-11-20] MEDS: METOPROLOL TARTRATE 25 MG TABLET 75 MG PO ×2 (08:12→22:30)
[2022-11-20] MEDS: ATORVASTATIN 40 MG TABLET PO (08:12)
[2022-11-20] MEDS: PANTOPRAZOLE SODIUM IV 40 MG VIAL IV PUSH (10:00)
--- NOTE | 2022-11-20 10:42 | P.PNIM_ITS ---
Progress Note: A&P Assessment and Plan (1) UTI (urinary tract infection): Qualifiers: Urinary tract infection type: site unspecified Hematuria presence: without hematuria Qualified Code(s): N39.0 - Urinary tract infection, site not specified Code(s): N39.0 - Urinary tract infection, site not specified Status: Acute Assessment and Plan: * UA from 11/16/22 was infectious, and did grown raoultella planticola, serratia marcescens * Was on Keflex. * Recollect urine * Continue cefepime for now * No complaints of urinary dysfunction * Trend urine output (2) Hip dislocation, left: Qualifiers: Encounter type: initial encounter Qualified Code(s): S73.005A - Unspecified dislocation of left hip, initial encounter Code(s): S73.005A - Unspecified dislocation of left hip, initial encounter Status: Acute Assessment and Plan: * dislocated his hip 2 times since his surgery. * Scheduled for surgical intervention on 11/19/22 however will need to reschedule * Steri-Strips are dry and intact to left hip without drainage. * Continue with brace * Fall precautions (3) Bladder retention: Code(s): R33.9 - Retention of urine, unspecified Status: Acute Assessment and Plan: * Notable retention * Stratton catheter is in place. * Trend urine output * Continue home flomax * Voiding trial before discharge (4) Hypothyroidism: Qualifiers: Hypothyroidism type: acquired Qualified Code(s): E03.9 - Hypothyroidism, unspecified Code(s): E03.9 - Hypothyroidism, unspecified Status: Acute Assessment and Plan: * Continue with levothyroxine. * Check thyroid level in am (5) BPH (benign prostatic hyperplasia): Qualifiers: Lower urinary tract symptom presence: symptoms present Lower urinary tract symptom detail: incomplete bladder emptying Qualified Code(s): N40.1 - Benign prostatic hyperplasia with lower urinary tract symptoms; R39.14 - Feeling of incomplete bladder emptying Code(s): N40.0 - Benign prostatic hyperplasia without lower urinary tract symptoms Status: Acute Assessment and Plan: * Continue with Flomax. * Trend urine ouput * the cause for the urinary retention * Void trial soon (6) Hypertension: Qualifiers: Hypertension type: primary hypertension Qualified Code(s): I10 - Essential (primary) hypertension Code(s): I10 - Essential (primary) hypertension Status: Acute Assessment and Plan: * BP is stable at 134/61 * Continue with amlodipine and lisinopril * Trend BP * Adjust therapy as indicated (7) Acute GI bleeding: Code(s): K92.2 - Gastrointestinal hemorrhage, unspecified Status: Acute Assessment and Plan: * H/H at admission was 6.4/20.1 * Currently stable at 8.3/25.3 * GI consulted * occult blood positive * hold Xarelto, Celebrex, and aspirin * 2 unis of PRBC given 11/19/22 * Continue protonix * Continue to trend H/H * EGD/Colonoscopy planned for Tuesday (8) Acute on chronic anemia: Code(s): D64.9 - Anemia, unspecified Status: Acute Assessment and Plan: * See above * Transfuse if Hemoglobin is <7.
--- NOTE | 2022-11-20 10:42 | PM.IMPN ---
Progress Note: A&P Assessment and Plan (1) UTI (urinary tract infection): Qualifiers: Urinary tract infection type: site unspecified Hematuria presence: without hematuria Qualified Code(s): N39.0 - Urinary tract infection, site not specified Code(s): N39.0 - Urinary tract infection, site not specified Status: Acute Assessment and Plan: UA from 11/16/22 was infectious, and did grown raoultella planticola, serratia marcescens Was on Keflex. Recollect urine Continue cefepime for now No complaints of urinary dysfunction Trend urine output (2) Hip dislocation, left: Qualifiers: Encounter type: initial encounter Qualified Code(s): S73.005A - Unspecified dislocation of left hip, initial encounter Code(s): S73.005A - Unspecified dislocation of left hip, initial encounter Status: Acute Assessment and Plan: dislocated his hip 2 times since his surgery. Scheduled for surgical intervention on 11/19/22 however will need to reschedule Steri-Strips are dry and intact to left hip without drainage. Continue with brace Fall precautions (3) Bladder retention: Code(s): R33.9 - Retention of urine, unspecified Status: Acute Assessment and Plan: Notable retention Stratton catheter is in place. Trend urine output Continue home flomax Voiding trial before discharge (4) Hypothyroidism: Qualifiers: Hypothyroidism type: acquired Qualified Code(s): E03.9 - Hypothyroidism, unspecified Code(s): E03.9 - Hypothyroidism, unspecified Status: Acute Assessment and Plan: Continue with levothyroxine. Check thyroid level in am (5) BPH (benign prostatic hyperplasia): Qualifiers: Lower urinary tract symptom presence: symptoms present Lower urinary tract symptom detail: incomplete bladder emptying Qualified Code(s): N40.1 - Benign prostatic hyperplasia with lower urinary tract symptoms; R39.14 - Feeling of incomplete bladder emptying Code(s): N40.0 - Benign prostatic hyperplasia without lower urinary tract symptoms Status: Acute Assessment and Plan: Continue with Flomax. Trend urine ouput the cause for the urinary retention Void trial soon (6) Hypertension: Qualifiers: Hypertension type: primary hypertension Qualified Code(s): I10 - Essential (primary) hypertension Code(s): I10 - Essential (primary) hypertension Status: Acute Assessment and Plan: BP is stable at 134/61 Continue with amlodipine and lisinopril Trend BP Adjust therapy as indicated (7) Acute GI bleeding: Code(s): K92.2 - Gastrointestinal hemorrhage, unspecified Status: Acute Assessment and Plan: H/H at admission was 6.4/20.1 Currently stable at 8.3/25.3 GI consulted occult blood positive hold Xarelto, Celebrex, and aspirin 2 unis of PRBC given 11/19/22 Continue protonix Continue to trend H/H EGD/Colonoscopy planned for Tuesday (8) Acute on chronic anemia: Code(s): D64.9 - Anemia, unspecified Status: Acute Assessment and Plan: See above Transfuse if Hemoglobin is <7.0 Time Spent With Patient Time: 56 minutes Time with patient: Greater than 35 minutes Subjective Date/time seen: 11/20/22 10:15 Interval history: 11/20/22 1015 Patient is doing ok today. He does have a urinary catheter which he stated was placed to see if he was having hematuria. He told the nurse it was for a UTI. However it is draining a clear yellow urine. He denies any chest pain, shortness of breath, nausea, vomiting, diarrhea, constipation. H/H is stable. Will get an EGD/Colonoscopy on Tuesday. Did walk patient to the bathroom and a wheeled walker. Gait steady. 11/19/22? 17:59 This is an 87-year-old male patient who had a
[2022-11-20 11:50] LABS: IFOB Positive Control Positive; Immunochemical Fecal Occult Bl Positive (N)
[2022-11-20 13:11] LABS: Hematocrit 25.7 % (42.0-52.0); Hemoglobin 8.3 g/dL (14.0-18.0)
[2022-11-20 13:22] LABS: Alanine Aminotransferase 41 U/L (6-50); Albumin Level 3.2 g/dL (3.5-5.1); Alkaline Phosphatase 122 U/L (38-126); Anion Gap 9 mmol/L (8-16); Aspartate Amino Transferase 58 U/L (17-59); Bilirubin,Total 2.2 mg/dL (0.2-1.3); Blood Urea Nitrogen 21 mg/dL (9-20); Calcium 8.1 mg/dL (8.4-10.2); Carbon Dioxide 21 mmol/L (22-30); Chloride 108 mmol/L (98-107); Estimated CRCL calculation 38 ml/min; Estimated Glomerular Filt Rate 57; Glucose 143 mg/dL (65-110); Potassium 3.9 mmol/L (3.4-5.0); Sodium 138 mmol/L (137-145)
[2022-11-20 13:29] LABS: Appearance Urine Clear (Clear); Bacteria Urine None Seen /hpf; Bilirubin Urine 1+ (Negative); Blood Urine Negative (Negative); Color Urine Dark Yellow (Yellow); Glucose Urine UA Negative (Negative); Ketones Urine Trace mg/dL (Negative); Leukocyte Esterase Ur 1+ LEU/UL (Negative); Nitrate Urine Negative (Negative); Protein Urine 1+ mg/dL (Negative); Specific Grav Ur 1.018 (1.001-1.035); Squamous Epithelial Cell Urine Occasional /hpf (Few); pH Urine 5.5 (5.0-9.0)
[2022-11-20 13:38] LABS: Add Urine Microscopic? YES
[2022-11-20 22:30] LABS: Hematocrit 25.9 % (42.0-52.0); Hemoglobin 8.5 g/dL (14.0-18.0)
[2022-11-21 05:58] VITALS: BP 132/62; PULSE 78; RESP 20; TEMP 36.7; O2SAT 93
[2022-11-21 06:09] LABS: Basophils Absolute Auto 0.1 K/mm3 (0.0-0.1); Basophils Percent Auto 0.5 % (0.2-1.2); Eosinophils Absolute Auto 0.6 K/mm3 (0-0.3); Hemoglobin 8.3 g/dL (14.0-18.0); Immature Granulocyte Percent A 6.4 % (0-0.5); Lymphocytes Absolute Auto 1.56 K/mm3 (0.9-3.2); Lymphocytes Percent Auto 16.7 % (18.3-44.2); Mean Corpuscular HGB Conc 31.9 g/dl (32-36); Mean Corpuscular Hemoglobin 30.4 pg (26-34); Mean Corpuscular Volume 95.2 fl (80-100); Mean Platelet Volume 9.6 fl (7.4-10.4); Neutrophils Absolute Auto 5.6 K/mm3 (1.3-6.7); Neutrophils Percent Auto 59.4 % (45.5-73.1); Nucleated Red Blood Cells Perc 0.2 % (0.0-0.2); Platelet Count Result 232 k/mm3 (150-375); Red Blood Count 2.73 M/mm3 (4.6-6.20); Red Cell Distribution Width 16.7 % (11.5-14.5); White Blood Count 9.4 K/mm3 (4.5-10.0)
[2022-11-21 06:21] LABS: Alanine Aminotransferase 39 U/L (6-50); Alkaline Phosphatase 115 U/L (38-126); Anion Gap 5 mmol/L (8-16); Aspartate Amino Transferase 51 U/L (17-59); Bilirubin,Total 2.1 mg/dL (0.2-1.3); Blood Urea Nitrogen 19 mg/dL (9-20); Calcium 8.1 mg/dL (8.4-10.2); Carbon Dioxide 25 mmol/L (22-30); Chloride 107 mmol/L (98-107); Estimated CRCL calculation 41 ml/min; Estimated Glomerular Filt Rate > 60; Glucose 107 mg/dL (65-110); Magnesium 1.9 mg/dL (1.6-2.3); Potassium 4.1 mmol/L (3.4-5.0); Sodium 137 mmol/L (137-145)
[2022-11-21] MEDS: GABAPENTIN 100 MG CAPSULE 200 MG PO ×3 (06:22→21:48)
[2022-11-21] MEDS: LEVOTHYROXINE SODIUM 50 MCG TABLET PO (06:22)
[2022-11-21 07:37] LABS: Free T4 Free Thyroxine Reflex 1.08 ng/dL (0.78-2.19)
[2022-11-21] MEDS: PANTOPRAZOLE SODIUM IV 40 MG VIAL IV PUSH (08:08)
[2022-11-21] MEDS: ATORVASTATIN 40 MG TABLET PO (08:08)
[2022-11-21] MEDS: METOPROLOL TARTRATE 25 MG TABLET 75 MG PO ×2 (08:08→20:37)
[2022-11-21] MEDS: amLODIPine BESYLATE 5 MG TABLET 10 MG PO (08:08)
[2022-11-21] MEDS: DOCUSATE SODIUM 100 MG CAPSULE PO ×2 (08:08→20:45)
[2022-11-21] MEDS: TAMSULOSIN HCL 0.4 MG CAPSULE PO ×2 (08:08→18:20)
[2022-11-21] MEDS: CEFEPIME 2 GM/NS 50 ML 2 GM/50 ML BAG IVPB ×2 (08:09→20:46)
[2022-11-21] MEDS: CYANOCOBALAMIN 1,000 MCG TABLET 1000 MCG PO (08:09)
[2022-11-21] MEDS: lisinopriL 20 MG TABLET PO (08:09)
[2022-11-21 08:45] LABS: Total Triiodothyronine (T3) 0.67 NG/ML (0.97-1.69)
--- NOTE | 2022-11-21 10:30 | PM.IMPN ---
Progress Note: A&P Assessment and Plan (1) UTI (urinary tract infection): Qualifiers: Urinary tract infection type: site unspecified Hematuria presence: without hematuria Qualified Code(s): N39.0 - Urinary tract infection, site not specified Code(s): N39.0 - Urinary tract infection, site not specified Status: Acute Assessment and Plan: UA from 11/16/22 was infectious, and did grown raoultella planticola, serratia marcescens Was on Keflex. Recollect urine Repeat UA appears to be better, does show 1+ leukocyte esterase, 6-10 WBC, no bacteria Did take 3 days of outpatient antibiotics Continue cefepime for now No complaints of urinary dysfunction Trend urine output (2) Hip dislocation, left: Qualifiers: Encounter type: initial encounter Qualified Code(s): S73.005A - Unspecified dislocation of left hip, initial encounter Code(s): S73.005A - Unspecified dislocation of left hip, initial encounter Status: Acute Assessment and Plan: dislocated his hip 2 times since his surgery. Scheduled for surgical intervention on 11/19/22 however will need to reschedule Steri-Strips are dry and intact to left hip without drainage. Continue with brace Fall precautions (3) Bladder retention: Code(s): R33.9 - Retention of urine, unspecified Status: Acute Assessment and Plan: Notable retention Stratton catheter is in place. Trend urine output Continue home flomax Voiding trial underway today Bladder scan as indicated (4) Hypothyroidism: Qualifiers: Hypothyroidism type: acquired Qualified Code(s): E03.9 - Hypothyroidism, unspecified Code(s): E03.9 - Hypothyroidism, unspecified Status: Acute Assessment and Plan: Continue with levothyroxine. TSH 6.440, T4-1.08, T3 0.67 increase levothyroxine to 75 mcg daily Recheck TSH in 6 weeks (5) BPH (benign prostatic hyperplasia): Qualifiers: Lower urinary tract symptom presence: symptoms present Lower urinary tract symptom detail: incomplete bladder emptying Qualified Code(s): N40.1 - Benign prostatic hyperplasia with lower urinary tract symptoms; R39.14 - Feeling of incomplete bladder emptying Code(s): N40.0 - Benign prostatic hyperplasia without lower urinary tract symptoms Status: Acute Assessment and Plan: Continue with Flomax. Trend urine ouput the cause for the urinary retention Void trial underway (6) Hypertension: Qualifiers: Hypertension type: primary hypertension Qualified Code(s): I10 - Essential (primary) hypertension Code(s): I10 - Essential (primary) hypertension Status: Acute Assessment and Plan: BP is stable at 132/62 Continue with amlodipine and lisinopril Trend BP Adjust therapy as indicated (7) Acute GI bleeding: Code(s): K92.2 - Gastrointestinal hemorrhage, unspecified Status: Acute Assessment and Plan: H/H at admission was 6.4/20.1 Currently stable at 8.3/26.0 GI consulted occult blood positive hold Xarelto, Celebrex, and aspirin 2 unis of PRBC given 11/19/22 Continue protonix Continue to trend H/H EGD/Colonoscopy planned for Tuesday (8) Acute on chronic anemia: Code(s): D64.9 - Anemia, unspecified Status: Acute Assessment and Plan: See above Transfuse if Hemoglobin is <7.0 Received 2 unit of PRBC on admission 11/19/22 Time Spent With Patient Time: 53 minutes Time with patient: Greater than 35 minutes Subjective Date/time seen: 11/21/22 10:30 Interval history: 11/21/22 1030 Patient is resting in bed comfortably. When I walked in his son was in there and patient was sleeping. Patient did agree to allow me to talk to him while his son was present. Currently the sal
--- NOTE | 2022-11-21 10:30 | P.PNIM_ITS ---
Progress Note: A&P Assessment and Plan (1) UTI (urinary tract infection): Qualifiers: Urinary tract infection type: site unspecified Hematuria presence: without hematuria Qualified Code(s): N39.0 - Urinary tract infection, site not specified Code(s): N39.0 - Urinary tract infection, site not specified Status: Acute Assessment and Plan: * UA from 11/16/22 was infectious, and did grown raoultella planticola, serratia marcescens * Was on Keflex. * Recollect urine * Repeat UA appears to be better, does show 1+ leukocyte esterase, 6-10 WBC, no bacteria * Did take 3 days of outpatient antibiotics * Continue cefepime for now * No complaints of urinary dysfunction * Trend urine output (2) Hip dislocation, left: Qualifiers: Encounter type: initial encounter Qualified Code(s): S73.005A - Unspecified dislocation of left hip, initial encounter Code(s): S73.005A - Unspecified dislocation of left hip, initial encounter Status: Acute Assessment and Plan: * dislocated his hip 2 times since his surgery. * Scheduled for surgical intervention on 11/19/22 however will need to reschedule * Steri-Strips are dry and intact to left hip without drainage. * Continue with brace * Fall precautions (3) Bladder retention: Code(s): R33.9 - Retention of urine, unspecified Status: Acute Assessment and Plan: * Notable retention * Stratton catheter is in place. * Trend urine output * Continue home flomax * Voiding trial underway today * Bladder scan as indicated (4) Hypothyroidism: Qualifiers: Hypothyroidism type: acquired Qualified Code(s): E03.9 - Hypothyroidism, unspecified Code(s): E03.9 - Hypothyroidism, unspecified Status: Acute Assessment and Plan: * Continue with levothyroxine. * TSH 6.440, T4-1.08, T3 0.67 * increase levothyroxine to 75 mcg daily * Recheck TSH in 6 weeks (5) BPH (benign prostatic hyperplasia): Qualifiers: Lower urinary tract symptom presence: symptoms present Lower urinary tract symptom detail: incomplete bladder emptying Qualified Code(s): N40.1 - Benign prostatic hyperplasia with lower urinary tract symptoms; R39.14 - Feeling of incomplete bladder emptying Code(s): N40.0 - Benign prostatic hyperplasia without lower urinary tract symptoms Status: Acute Assessment and Plan: * Continue with Flomax. * Trend urine ouput * the cause for the urinary retention * Void trial underway (6) Hypertension: Qualifiers: Hypertension type: primary hypertension Qualified Code(s): I10 - Essential (primary) hypertension Code(s): I10 - Essential (primary) hypertension Status: Acute Assessment and Plan: * BP is stable at 132/62 * Continue with amlodipine and lisinopril * Trend BP * Adjust therapy as indicated (7) Acute GI bleeding: Code(s): K92.2 - Gastrointestinal hemorrhage, unspecified Status: Acute Assessment and Plan: * H/H at admission was 6.4/20.1 * Currently stable at 8.3/26.0 * GI consulted * occult blood positive * hold Xarelto, Celebrex, and aspirin * 2 unis of PRBC given 11/19/22 * Continue protonix * Continue to trend H/H * EGD/Colonosc
[2022-11-21 14:00] VITALS: BP 119/54; PULSE 66; RESP 16; TEMP 36.7; O2SAT 96
[2022-11-21] MEDS: BISACODYL 5 MG TABLET EC 20 MG PO (18:20)
[2022-11-21] MEDS: polyethylene glycoL 3350 238 GM BOTTLE PO (18:32)
[2022-11-21 20:00] VITALS: PULSE 82; RESP 16; O2SAT 97
[2022-11-21 20:37] VITALS: PULSE 66
[2022-11-21 21:17] VITALS: BP 126/56; PULSE 82; RESP 16; TEMP 37.5; O2SAT 97
[2022-11-22] VITALS (8 sets, daily range): BP systolic 92–151; BP diastolic 46–76; PULSE 77–95; RESP 16–21; TEMP 36.6–38; O2SAT 96–98
[2022-11-22] MEDS: GABAPENTIN 100 MG CAPSULE 200 MG PO ×3 (06:26→21:30)
[2022-11-22] MEDS: LEVOTHYROXINE SODIUM 75 MCG TABLET PO (06:26)
[2022-11-22 06:42] LABS: Basophils Absolute Auto 0.1 K/mm3 (0.0-0.1); Basophils Percent Auto 0.6 % (0.2-1.2); Eosinophils Absolute Auto 0.7 K/mm3 (0-0.3); Eosinophils Percent Auto 7.1 % (0-4.4); Hematocrit 30.2 % (42.0-52.0); Hemoglobin 9.5 g/dL (14.0-18.0); Immature Granulocyte Absolute 0.62 K/mm3 (0.00-0.031); Lymphocytes Absolute Auto 1.27 K/mm3 (0.9-3.2); Lymphocytes Percent Auto 12.3 % (18.3-44.2); Mean Corpuscular HGB Conc 31.5 g/dl (32-36); Mean Corpuscular Hemoglobin 30.6 pg (26-34); Mean Corpuscular Volume 97.4 fl (80-100); Mean Platelet Volume 9.6 fl (7.4-10.4); Monocytes Absolute Auto 0.9 K/mm3 (0.1-0.6); Monocytes Percent Auto 8.8 % (2.6-8.5); Neutrophils Absolute Auto 6.7 K/mm3 (1.3-6.7); Neutrophils Percent Auto 65.2 % (45.5-73.1); Platelet Count Result 270 k/mm3 (150-375); White Blood Count 10.3 K/mm3 (4.5-10.0)
[2022-11-22 06:52] LABS: Alanine Aminotransferase 46 U/L (6-50); Albumin Level 3.5 g/dL (3.5-5.1); Alkaline Phosphatase 135 U/L (38-126); Anion Gap 7 mmol/L (8-16); Aspartate Amino Transferase 60 U/L (17-59); Bilirubin,Total 2.1 mg/dL (0.2-1.3); Blood Urea Nitrogen 16 mg/dL (9-20); Carbon Dioxide 23 mmol/L (22-30); Chloride 109 mmol/L (98-107); Estimated CRCL calculation 41 ml/min; Estimated Glomerular Filt Rate > 60; Glucose 120 mg/dL (65-110); Potassium 3.8 mmol/L (3.4-5.0); Sodium 139 mmol/L (137-145)
[2022-11-22] MEDS: CEFEPIME 2 GM/NS 50 ML 2 GM/50 ML BAG IVPB ×2 (08:37→21:32)
--- NOTE | 2022-11-22 10:30 | P.PNIM_ITS ---
Progress Note: A&P Assessment and Plan (1) UTI (urinary tract infection): Qualifiers: Urinary tract infection type: site unspecified Hematuria presence: without hematuria Qualified Code(s): N39.0 - Urinary tract infection, site not specified Code(s): N39.0 - Urinary tract infection, site not specified Status: Acute Assessment and Plan: * UA from 11/16/22 was infectious, and did grown raoultella planticola, serratia marcescens * Was on Keflex. * Recollect urine * Repeat UA appears to be better, does show 1+ leukocyte esterase, 6-10 WBC, no bacteria * urine culture still pending * Did take 3 days of outpatient antibiotics * Continue cefepime for now * No complaints of urinary dysfunction * Trend urine output (2) Hip dislocation, left: Qualifiers: Encounter type: initial encounter Qualified Code(s): S73.005A - Unspecified dislocation of left hip, initial encounter Code(s): S73.005A - Unspecified dislocation of left hip, initial encounter Status: Acute Assessment and Plan: * dislocated his hip 2 times since his surgery. * Scheduled for surgical intervention on 11/19/22 however will need to reschedule * Steri-Strips are dry and intact to left hip without drainage. * Continue with brace * Fall precautions (3) Bladder retention: Code(s): R33.9 - Retention of urine, unspecified Status: Acute Assessment and Plan: * Notable retention * Stratton catheter is in place. * Trend urine output * Continue home flomax * Voiding trial unsuccessful * Bladder scan as indicated * Add proscar (4) Hypothyroidism: Qualifiers: Hypothyroidism type: acquired Qualified Code(s): E03.9 - Hypothyroidism, unspecified Code(s): E03.9 - Hypothyroidism, unspecified Status: Acute Assessment and Plan: * Continue with levothyroxine. * TSH 6.440, T4-1.08, T3 0.67 * increase levothyroxine to 75 mcg daily * Recheck TSH in 6 weeks (5) BPH (benign prostatic hyperplasia): Qualifiers: Lower urinary tract symptom presence: symptoms present Lower urinary tract symptom detail: incomplete bladder emptying Qualified Code(s): N40.1 - Be nign prostatic hyperplasia with lower urinary tract symptoms; R39.14 - Feeling of incomplete bladder emptying Code(s): N40.0 - Benign prostatic hyperplasia without lower urinary tract symptoms Status: Acute Assessment and Plan: * Continue with Flomax. * Trend urine ouput * the cause for the urinary retention * Void trial unsuccessful * add proscar (6) Hypertension: Qualifiers: Hypertension type: primary hypertension Qualified Code(s): I10 - Essential (primary) hypertension Code(s): I10 - Essential (primary) hypertension Status: Acute Assessment and Plan: * BP is stable at 116/50 * Continue with amlodipine and lisinopril * Trend BP * Adjust therapy as indicated (7) Acute GI bleeding: Code(s): K92.2 - Gastrointestinal hemorrhage, unspecified Status: Acute Assessment and Plan: * H/H at admission was 6.4/20.1 * Currently stable at 9.5/30.2 * GI consulted * occult blood positive * hold Xarelto, Celebrex, and aspirin * 2 unis of PRBC given 11/19/
--- NOTE | 2022-11-22 10:30 | PM.IMPN ---
Progress Note: A&P Assessment and Plan (1) UTI (urinary tract infection): Qualifiers: Urinary tract infection type: site unspecified Hematuria presence: without hematuria Qualified Code(s): N39.0 - Urinary tract infection, site not specified Code(s): N39.0 - Urinary tract infection, site not specified Status: Acute Assessment and Plan: UA from 11/16/22 was infectious, and did grown raoultella planticola, serratia marcescens Was on Keflex. Recollect urine Repeat UA appears to be better, does show 1+ leukocyte esterase, 6-10 WBC, no bacteria urine culture still pending Did take 3 days of outpatient antibiotics Continue cefepime for now No complaints of urinary dysfunction Trend urine output (2) Hip dislocation, left: Qualifiers: Encounter type: initial encounter Qualified Code(s): S73.005A - Unspecified dislocation of left hip, initial encounter Code(s): S73.005A - Unspecified dislocation of left hip, initial encounter Status: Acute Assessment and Plan: dislocated his hip 2 times since his surgery. Scheduled for surgical intervention on 11/19/22 however will need to reschedule Steri-Strips are dry and intact to left hip without drainage. Continue with brace Fall precautions (3) Bladder retention: Code(s): R33.9 - Retention of urine, unspecified Status: Acute Assessment and Plan: Notable retention Stratton catheter is in place. Trend urine output Continue home flomax Voiding trial unsuccessful Bladder scan as indicated Add proscar (4) Hypothyroidism: Qualifiers: Hypothyroidism type: acquired Qualified Code(s): E03.9 - Hypothyroidism, unspecified Code(s): E03.9 - Hypothyroidism, unspecified Status: Acute Assessment and Plan: Continue with levothyroxine. TSH 6.440, T4-1.08, T3 0.67 increase levothyroxine to 75 mcg daily Recheck TSH in 6 weeks (5) BPH (benign prostatic hyperplasia): Qualifiers: Lower urinary tract symptom presence: symptoms present Lower urinary tract symptom detail: incomplete bladder emptying Qualified Code(s): N40.1 - Benign prostatic hyperplasia with lower urinary tract symptoms; R39.14 - Feeling of incomplete bladder emptying Code(s): N40.0 - Benign prostatic hyperplasia without lower urinary tract symptoms Status: Acute Assessment and Plan: Continue with Flomax. Trend urine ouput the cause for the urinary retention Void trial unsuccessful add proscar (6) Hypertension: Qualifiers: Hypertension type: primary hypertension Qualified Code(s): I10 - Essential (primary) hypertension Code(s): I10 - Essential (primary) hypertension Status: Acute Assessment and Plan: BP is stable at 116/50 Continue with amlodipine and lisinopril Trend BP Adjust therapy as indicated (7) Acute GI bleeding: Code(s): K92.2 - Gastrointestinal hemorrhage, unspecified Status: Acute Assessment and Plan: H/H at admission was 6.4/20.1 Currently stable at 9.5/30.2 GI consulted occult blood positive hold Xarelto, Celebrex, and aspirin 2 unis of PRBC given 11/19/22 Continue protonix Continue to trend H/H EGD/Colonoscopy planned for Tuesday (8) Acute on chronic anemia: Code(s): D64.9 - Anemia, unspecified Status: Acute Assessment and Plan: See above Transfuse if Hemoglobin is <7.0 Received 2 unit of PRBC on admission 11/19/22 Time Spent With Patient Time: 38 minutes Time with patient: Greater than 35 minutes Subjective Date/time seen: 11/22/22 14:33 Interval history: 11/22/22 1030 Patient is doing now. Patient was unsuccessful with voiding trial. He denies any current chest pain, shortness a breath, nausea, v
--- NOTE | 2022-11-22 12:18 | WPDANESEPPF ---
Anes - Initial Pre Proc Eval Procedure: Operation Date: 11/22/22 13:00 Proposed Procedures p Esophagogastroduodenoscopy & Colonoscopy - Rigoberto Munoz MD Date/Time: 11/22/22 12:18 Surgeon: Connie Mcarthur DO Pre Op Diagnosis: GI Bleed/Anemia/Anticoagulated Patient Data Age: 87 Gender: M Height: 1.73 m Weight: 77 kg Last Vital Signs Temp 100.4 F H 11/22/22 05:22 Pulse 79 11/22/22 05:22 Resp 16 11/22/22 05:22 BP 110/49 L 11/22/22 05:22 Pulse Ox 97 11/22/22 05:22 O2 Del Method Room Air 11/21/22 20:00 FiO2 21 11/21/22 20:00 Allergies Allergy/AdvReac Type Severity Reaction Status Date / Time No Known Allergies Allergy Unknown Verified 11/22/22 12:12 Home Medications Medication Instructions Recorded Confirmed Type aspirin 81 mg tablet,delayed 81 mg PO DAILY 03/26/19 11/22/22 History release (Adult Low Dose Aspirin) metoprolol tartrate 50 mg tablet 75 mg PO Q12H 03/26/19 11/22/22 History atorvastatin 80 mg tablet 40 mg PO DAILY 09/27/19 11/22/22 History amlodipine 5 mg tablet 10 mg PO DAILY #1 tablet 11/21/19 11/22/22 Rx levothyroxine 50 mcg tablet 50 mcg PO DAILY #90 tabs 11/17/21 11/22/22 Rx cephalexin 500 mg capsule 500 mg PO Q8H 7 days #21 caps 11/16/22 11/22/22 Rx Colace 100 mg PO BID 11/19/22 11/22/22 History celecoxib 200 mg capsule 200 mg PO BID PRN Pain (Scale 11/19/22 11/22/22 History Score 1-3) cyanocobalamin (vitamin B-12) 1,000 mcg PO DAILY 11/19/22 11/22/22 History famotidine 20 mg tablet 20 mg PO BID 11/19/22 11/22/22 History gabapentin 100 mg capsule 200 mg PO Q8-10H 11/19/22 11/22/22 History lisinopril 20 mg tablet 20 mg PO DAILY 11/19/22 11/22/22 History rivaroxaban 10 mg tablet (Xarelto) 10 mg PO DAILY 11/19/22 11/22/22 History tamsulosin 0.4 mg capsule (Flomax) 0.4 mg PO BID 11/19/22 11/22/22 History Laboratory Tests 11/19/22 11/22/22 12:10 06:20 WBC 10.3 H K/mm3 (4.5-10.0) RBC 3.10 L M/mm3 (4.6-6.20) Hgb 9.5 L g/dL (14.0-18.0) Hct 30.2 L % (42.0-52.0) MCV 97.4 fl (80-100) MCH 30.6 pg (26-34) MCHC 31.5 L g/dl (32-36) RDW 17.0 H % (11.5-14.5) Plt Count 270 k/mm3 (150-375) MPV 9.6 fl (7.4-10.4) Immature Gran % (Auto) 6.0 H % (0-0.5) Neut % (Auto) 65.2 % (45.5-73.1) Lymph % (Auto) 12.3 L % (18.3-44.2) [place] % (Auto) 8.8 H % (2.6-8.5) Eos % (Auto) 7.1 H % (0-4.4) Baso % (Auto) 0.6 % (0.2-1.2) Lymph # (Auto) 1.27 K/mm3 (0.9-3.2) Gooding # (Auto) 0.9 H K/mm3 (0.1-0.6) Eos # (Auto) 0.7 H K/mm3 (0-0.3) Baso # (Auto) 0.1 K/mm3 (0.0-0.1) Abs Immat Gran (auto) 0.62 H K/mm3 (0.00-0.031) Absolute Neuts (auto) 6.7 K/mm3 (1.3-6.7) Absolute Nucleated RBC 0.0 K/mm3 (0.0-0.012) Nucleated RBC % 0.0 % (0.0-0.2) Sodium 139 mmol/L (137-145) Potassium 3.8 mmol/L (3.4-5.0) Chloride 109 H mmol/L (98-107) Carbon Dioxide 23 mmol/L (22-30) Anion Gap 7 L mmol/L (8-16) BUN 16 mg/dL (9-20) Creatinine 1.10 mg/dL (0.7-1.3) Estim Creat Clear Calc 41 ml/min Estimated GFR > 60 (59 - ) Glucose 120 H mg/dL (65-110) Calcium 9.0 mg/dL (8.4-10.2) Magnesium 2.0 mg/dL (1.6-2.3) Total Bilirubin 2.1 H mg/dL (0.2-1.3) AST 60 H U/L (17-59) ALT 46 U/L (6-50) Alkaline Phosphatase 135 H U/L (38-126) Total Protein 7.0 g/dL (6.3-8.2) Albumin 3.5 g/dL (3.5-5.1) Crossmatch See Detail Patient hx anesthesia problems: none Family hx anesthesia problems: none Results Review: All pre-operative results and documents have been reviewed as part of the pre-operative evaluation. [facility] Past Medical History Medical History (Updated 11/20/22 @ 11:26 by ANDERSON Bautista) Acute on chronic anemia Bladder retention BMI
[2022-11-22] MEDS: LACTATED RINGERS 1,000 ML 150 ML IV CONT (12:21)
--- NOTE | 2022-11-22 12:40 | SUR.OPER ---
EGD start 1242 end 1243, Colonoscopy start 1242
[2022-11-22 13:27] LABS: Iron 71 ug/dL (49-181)
[2022-11-22 13:36] LABS: Percent Iron Saturation 27 % (20-50)
[2022-11-22 14:37] LABS: Folic Acid 6.8 ng/mL (2.76->20); Vitamin B12 > 1000.0 pg/mL (239-931)
[2022-11-22] MEDS: TAMSULOSIN HCL 0.4 MG CAPSULE PO (16:07)
[2022-11-22] MEDS: FINASTERIDE 5 MG TABLET PO (16:08)
[2022-11-22] MEDS: CYANOCOBALAMIN 1,000 MCG TABLET 1000 MCG PO (16:08)
[2022-11-22] MEDS: amLODIPine BESYLATE 5 MG TABLET 10 MG PO (16:08)
[2022-11-22] MEDS: ATORVASTATIN 40 MG TABLET PO (16:08)
[2022-11-22] MEDS: DOCUSATE SODIUM 100 MG CAPSULE PO ×2 (16:08→21:30)
[2022-11-22] MEDS: lisinopriL 20 MG TABLET PO (16:09)
[2022-11-22] MEDS: PANTOPRAZOLE SODIUM IV 40 MG VIAL IV PUSH (16:09)
[2022-11-22] MEDS: METOPROLOL TARTRATE 25 MG TABLET 75 MG PO (21:30)
[2022-11-22] MEDS: ACETAMINOPHEN 325 MG TABLET 650 MG PO (21:30)
[2022-11-23 06:00] VITALS: BP 136/78; PULSE 86; RESP 18; TEMP 37.7; O2SAT 97
[2022-11-23] MEDS: LEVOTHYROXINE SODIUM 75 MCG TABLET PO (06:18)
[2022-11-23] MEDS: GABAPENTIN 100 MG CAPSULE 200 MG PO (06:18)
--- NOTE | 2022-11-23 08:30 | WPDGIPROGNO ---
Progress Note: A&P Assessment and Plan (1) Anemia: Qualifiers: Anemia type: unspecified type Qualified Code(s): D64.9 - Anemia, unspecified Code(s): D64.9 - Anemia, unspecified Status: Acute Assessment and Plan: Anemia appears to be from non GI source. Small-bowel follow-through was unremarkable. As were colonoscopy an EGD. Internal hemorrhoids may account for occult blood in stool but unlikely to contribute to anemia. Hematology evaluation may be considered. Okay to discharge from GI perspective. (2) Occult blood in stools: Code(s): R19.5 - Other fecal abnormalities Status: Acute Assessment and Plan: No significant active bleeding. Occult blood in stool likely from internal hemorrhoids. Subjective Date/time seen: 11/23/22 08:30 Interval history: Patient alert comfortable this morning. Tolerating diet. Offers no complaints. Review of Systems Review of Systems: Review of systems noncontributory. Exam Narrative: Physical exam reveals patient be lying in bed comfortable at rest. HEENT exam with no icterus. Lungs are clear. Heart without murmur. Abdomen bowel sounds present soft nontender. Objective Data Vital Signs Vital Signs: Vital Signs - 24 hr 11/22/22 12:00 11/22/22 13:02 11/22/22 13:12 Temperature 97.8 F Pulse Rate 85 77 85 Respiratory Rate 18 21 H 19 Blood Pressure 151/63 H 92/47 L 107/76 Pulse Oximetry 98 98 98 Oxygen Delivery Room Air Room Air Room Air 11/22/22 13:22 11/22/22 20:55 11/22/22 21:30 Temperature 100.3 F H 100.3 F H Pulse Rate 80 95 Respiratory Rate 17 16 Blood Pressure 116/50 L 118/46 L Pulse Oximetry 96 97 Oxygen Delivery Room Air 11/22/22 21:30 11/22/22 22:20 11/23/22 06:00 Temperature 99.7 F H 100 F H Pulse Rate 95 86 Respiratory Rate 18 Blood Pressure 136/78 Pulse Oximetry 97 Oxygen Delivery Intake/Output Intake/Output: Intake & Output 11/20/22 11/21/22 11/22/22 11/23/22 23:59 23:59 23:59 23:59 Intake Total 710 1610 300 550 Output Total 6690 9885 2725 800 Balance -1140 155 -6435 -250 Meds/Results Medications: Active Medications Generic Name Dose Route Start Last Admin Trade Name Freq PRN Reason Stop Dose Admin Acetaminophen 650 mg 11/19/22 12:44 11/22/22 21:30 Acetaminophen 325 Mg Tablet PO 650 mg Q4H PRN Administration Mild Pain (1-3) or Fever Amlodipine Besylate 10 mg 11/20/22 09:00 11/22/22 16:08 Amlodipine Besylate 5 Mg Tablet PO 10 mg DAILY RADHA Administration Atorvastatin Calcium 40 mg 11/20/22 09:00 11/22/22 16:08 Atorvastatin 40 Mg Tablet PO 40 mg DAILY RADHA Administration Cyanocobalamin 1,000 mcg 11/20/22 09:00 11/22/22 16:08 Cyanocobalamin 1,000 Mcg Tablet PO 1,000 mcg QAM RADHA Administration Docusate Sodium 100 mg 11/20/22 09:00 11/22/22 21:30 Docusate Sodium 100 Mg Capsule PO 100 mg Q12HR RADHA Administration Finasteride 5 mg 11/22/22 09:00 11/22/22 16:08 Finasteride 5 Mg Tablet PO 5 mg QAM RADHA Administration Gabapentin 200 mg 11/20/22 06:00 11/23/22 06:18 Gabapentin 100 Mg Capsule PO 200 mg Q8HR RADHA Administration Cefepime HCl 2 gm in 50 mls @ 100 mls/hr 11/20/22 01:00 11/22/22 21:32 Maxipime 2 Gm/Ns 50 Ml IVPB 100 mls/hr Q12HR RADHA Administration Levothyroxine Sodium 75 mcg 11/22/22 06:30 11/23/22 06:18 Levothyroxine Sodium 75 Mcg Tablet PO 75 mcg DAILY@0630 RADHA Administration Lisinopril 20 mg 11/20/22 09:00 11/22/22 16:09 Lisinopril 20 Mg Tablet PO 20 mg DAILY RADHA Administration Metoprolol Tartrate 75 mg 11/20/22 09:00 11/22/22 21:30 Metoprolol Tartrate 25 Mg Tablet PO 75 mg Q12HR RADHA Administration Ondansetron HCl 4 mg 11/19/22 12:44 Ondansetron Inj 4 Mg/2 Ml Vial IV PUSH Q4H PRN Nausea Pantoprazole Sodium 40 mg 11/20/22 09:00 11/22/22 16:09 Pantoprazole Sodium Iv 40 Mg Vial IV
[2022-11-23 08:57] VITALS: PULSE 92
[2022-11-23] MEDS: METOPROLOL TARTRATE 25 MG TABLET 75 MG PO (08:57)
[2022-11-23] MEDS: TAMSULOSIN HCL 0.4 MG CAPSULE PO (08:57)
[2022-11-23] MEDS: DOCUSATE SODIUM 100 MG CAPSULE PO (08:57)
[2022-11-23] MEDS: CEFEPIME 2 GM/NS 50 ML 2 GM/50 ML BAG IVPB (09:05)
[2022-11-23] MEDS: lisinopriL 20 MG TABLET PO (09:49)
[2022-11-23] MEDS: amLODIPine BESYLATE 5 MG TABLET 10 MG PO (09:49)
[2022-11-23] MEDS: FINASTERIDE 5 MG TABLET PO (09:50)
[2022-11-23] MEDS: ATORVASTATIN 40 MG TABLET PO (09:50)
[2022-11-23] MEDS: CYANOCOBALAMIN 1,000 MCG TABLET 1000 MCG PO (09:50)
[2022-11-23] MEDS: PANTOPRAZOLE SODIUM IV 40 MG VIAL IV PUSH (09:50)
--- NOTE | 2022-11-23 10:00 | P.DS_ITS ---
DS: Admitting Diagnosis Discharge Date 11/23/22 1000 Admitting Diagnosis Hip dislocation, Anemia, Gi bleed, BPH with retention DS: Discharge Diagnosis Discharge Diagnosis (1) UTI (urinary tract infection): Qualifiers: Hematuria presence: without hematuria Urinary tract infection type: site unspecified Qualified Code(s): N39.0 - Urinary tract infection, site not specified Code(s): N39.0 - Urinary tract infection, site not specified Status: Acute Assessment and Plan: * UA from 11/16/22 was infectious, and did grown raoultella planticola, serratia marcescens * Was on Keflex. * Recollect urine * Repeat UA appears to be better, does show 1+ leukocyte esterase, 6-10 WBC, no bacteria * urine culture still pending * Did take 3 days of outpatient antibiotics * Continue cefepime for now * No complaints of urinary dysfunction * Trend urine output (2) Hip dislocation, left: Qualifiers: Encounter type: initial encounter Qualified Code(s): S73.005A - Unspecified dislocation of left hip, initial encounter Code(s): S73.005A - Unspecified dislocation of left hip, initial encounter Status: Acute Assessment and Plan: * dislocated his hip 2 times since his surgery. * Scheduled for surgical intervention on 11/19/22 however will need to reschedule * Steri-Strips are dry and intact to left hip without drainage. * Continue with brace * Fall precautions (3) Bladder retention: Code(s): R33.9 - Retention of urine, unspecified Status: Acute Assessment and Plan: * Notable retention * Stratton catheter is in place. * Trend urine output * Continue home flomax * Voiding trial unsuccessful * Bladder scan as indicated * Add proscar (4) Hypothyroidism: Qualifiers: Hypothyroidism type: acquired Qualified Code(s): E03.9 - Hypothyroidism, unspecified Code(s): E03.9 - Hypothyroidism, unspecified Status: Acute Assessment and Plan: * Continue with levothyroxine. * TSH 6.440, T4-1.08, T3 0.67 * increase levothyroxine to 75 mcg daily * Recheck TSH in 6 weeks (5) BPH (benign prostatic hyperplasia): Qualifiers: Lower urinary tract symptom detail: incomplete bladder emptying Lower urinary tract symptom presence: symptoms present Qualified Code(s): N40.1 - Benign prostatic hyperplasia with lower urinary tract symptoms; R39.14 - Feeling of incomplete bladder emptying Code(s): N40.0 - Benign prostatic hyperplasia without lower urinary tract symptoms Status: Acute Assessment and Plan: * Continue with Flomax. * Trend urine ouput * the cause for the urinary retention * Void trial unsuccessful * add proscar (6) Hypertension: Qualifiers: Hypertension type: primary hypertension Qualified Code(s): I10 - Essential (primary) hypertension Code(s): I10 - Essential (primary) hypertension Status: Acute Assessment and Plan: * BP is stable at 116/50 * Continue with amlodipine and lisinopril * Trend BP * Adjust therapy as indicated (7) Acute GI bleeding: Code(s): K92.2 - Gastrointestinal hemorrhage, unspecified Status: Acute Assessment and Plan: * H/H at admission was 6.4/20.1
--- NOTE | 2022-11-23 10:00 | PM.DS ---
DS: Admitting Diagnosis Discharge Date 11/23/22 1000 Admitting Diagnosis Hip dislocation, Anemia, Gi bleed, BPH with retention DS: Discharge Diagnosis Discharge Diagnosis (1) UTI (urinary tract infection): Qualifiers: Hematuria presence: without hematuria Urinary tract infection type: site unspecified Qualified Code(s): N39.0 - Urinary tract infection, site not specified Code(s): N39.0 - Urinary tract infection, site not specified Status: Acute Assessment and Plan: UA from 11/16/22 was infectious, and did grown raoultella planticola, serratia marcescens Was on Keflex. Recollect urine Repeat UA appears to be better, does show 1+ leukocyte esterase, 6-10 WBC, no bacteria urine culture still pending Did take 3 days of outpatient antibiotics Continue cefepime for now No complaints of urinary dysfunction Trend urine output (2) Hip dislocation, left: Qualifiers: Encounter type: initial encounter Qualified Code(s): S73.005A - Unspecified dislocation of left hip, initial encounter Code(s): S73.005A - Unspecified dislocation of left hip, initial encounter Status: Acute Assessment and Plan: dislocated his hip 2 times since his surgery. Scheduled for surgical intervention on 11/19/22 however will need to reschedule Steri-Strips are dry and intact to left hip without drainage. Continue with brace Fall precautions (3) Bladder retention: Code(s): R33.9 - Retention of urine, unspecified Status: Acute Assessment and Plan: Notable retention Stratton catheter is in place. Trend urine output Continue home flomax Voiding trial unsuccessful Bladder scan as indicated Add proscar (4) Hypothyroidism: Qualifiers: Hypothyroidism type: acquired Qualified Code(s): E03.9 - Hypothyroidism, unspecified Code(s): E03.9 - Hypothyroidism, unspecified Status: Acute Assessment and Plan: Continue with levothyroxine. TSH 6.440, T4-1.08, T3 0.67 increase levothyroxine to 75 mcg daily Recheck TSH in 6 weeks (5) BPH (benign prostatic hyperplasia): Qualifiers: Lower urinary tract symptom detail: incomplete bladder emptying Lower urinary tract symptom presence: symptoms present Qualified Code(s): N40.1 - Benign prostatic hyperplasia with lower urinary tract symptoms; R39.14 - Feeling of incomplete bladder emptying Code(s): N40.0 - Benign prostatic hyperplasia without lower urinary tract symptoms Status: Acute Assessment and Plan: Continue with Flomax. Trend urine ouput the cause for the urinary retention Void trial unsuccessful add proscar (6) Hypertension: Qualifiers: Hypertension type: primary hypertension Qualified Code(s): I10 - Essential (primary) hypertension Code(s): I10 - Essential (primary) hypertension Status: Acute Assessment and Plan: BP is stable at 116/50 Continue with amlodipine and lisinopril Trend BP Adjust therapy as indicated (7) Acute GI bleeding: Code(s): K92.2 - Gastrointestinal hemorrhage, unspecified Status: Acute Assessment and Plan: H/H at admission was 6.4/20.1 Currently stable at 9.5/30.2 GI consulted occult blood positive hold Xarelto, Celebrex, and aspirin 2 unis of PRBC given 11/19/22 Continue protonix Continue to trend H/H EGD/Colonoscopy planned for Tuesday (8) Acute on chronic anemia: Code(s): D64.9 - Anemia, unspecified Status: Acute Assessment and Plan: See above Transfuse if Hemoglobin is <7.0 Received 2 unit of PRBC on admission 11/19/22 DS: Summary Hospital Course Hospital Course: patient is an 87-year-old male with past medical history of 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
== END 2022-11-23 12:25 | disposition home or self-care (01) ==
LOC: ANHED 11:40 → ANH3MEDSUR 15:15
PROVIDERS: Internal Medicine Gastroenterology; Nurse Practitioner; Physician Assistant; Admitting Provider Student in an Organized Health Care Education/Training Program; Emergency Provider Emergency Medicine; PCP Family Medicine; Visit Provider Chiropractor
PROC: 0DJ08ZZ Inspection of Upper Intestinal Tract, Via Natural or Artificial Opening Endoscopic (ICD-10-PCS; CPT 43235; principal; 2022-11-22 13:00)
DX: I12.9 Hypertensive chronic kidney disease with stage 1 through stage 4 chronic kidney disease, or unspecified chronic kidney disease (principal); D63.1 Anemia in chronic kidney disease; N18.9 Chronic kidney disease, unspecified; R19.5 Other fecal abnormalities; K64.8 Other hemorrhoids; S73.005A Unspecified dislocation of left hip, initial encounter; K92.2 Gastrointestinal hemorrhage, unspecified; N39.0 Urinary tract infection, site not specified; N40.1 Benign prostatic hyperplasia with lower urinary tract symptoms; R33.9 Retention of urine, unspecified; Z96.0 Presence of urogenital implants; E03.9 Hypothyroidism, unspecified; G89.29 Other chronic pain; M25.552 Pain in left hip; F10.90 Alcohol use, unspecified, uncomplicated; Z79.01 Long term (current) use of anticoagulants; Z79.891 Long term (current) use of opiate analgesic; Z79.82 Long term (current) use of aspirin; Z79.899 Other long term (current) drug therapy; Z86.73 Personal history of transient ischemic attack (TIA), and cerebral infarction without residual deficits
CPT/HCPCS: 43235; 45378; 36415; 36430; 74250; 80053; 81001; 82274; 82607; 82728; 82746; 83540; 83550; 83605; 83735; 84439; 84443; 84480; 85014; 85018; 85025; 85610; 85730; 86850; 86900; 86901; 86923; 87086; 96365; 96366; 96375; 96376; 97161; 97165; 99285; A9270; C9113; G0378; J0692; J2405; J2704; J7030; J7050; J7120; P9016

== ENCOUNTER 2022-12-02 17:43 | Emergency (ER) | payer MEDICARE, SELFPAY ==
[2022-12-02] VITALS (14 sets, daily range): BP systolic 119–163; BP diastolic 50–110; PULSE 76–84; RESP 11–21; TEMP 36.6–37.2; O2SAT 99–100
--- NOTE | ~2022-12-02 | XR_ITS ---
EXAMINATION: XR hip LT 2V w AP pelvis DATE: 12/02/2022 18:06 INDICATION: Left hip dislocation. Left hip pain. TECHNIQUE: An anteroposterior view of the pelvis and 2 views of left hip were obtained. COMPARISON: Left hip radiograph 11/16/2022 FINDINGS: There is a total right hip arthroplasty in near-anatomic alignment. There is a dislocated t otal left hip arthroplasty. The femoral component demonstrates lateral and proximal displacement rela tive to the acetabular cup. No periprosthetic lucency to suggest loosening or infection. No fracture. There is moderate lumbar spondylosis. IMPRESSION: 1. Dislocated total left hip arthroplasty. 2. Total right hip arthroplasty in near-anatomic alignment. Reviewed, dictated and finalized at location E.
--- NOTE | ~2022-12-02 | XR_ITS ---
EXAMINATION: XR hip LT 1V DATE: 12/02/2022 18:49 INDICATION: Left hip dislocation status post reduction. TECHNIQUE: A single view of left hip was obtained. COMPARISON: Left hip radiographs at 5:59 PM FINDINGS: There is a total left hip arthroplasty in near-anatomic alignment. No fracture. No peripros thetic lucency to suggest loosening or infection. There is moderate lumbar spondylosis. IMPRESSION: 1. Total left hip arthroplasty in near-anatomic alignment. Reviewed, dictated and finalized at location E.
--- NOTE | 2022-12-02 18:11 | ED.LOWEXIN ---
HPI - Extremity Injury (Lower) General Chief Complaint: Extremity Injury, Lower <Abby Wyatt PA-C - Last Filed: 12/02/22 19:45> Stated Complaint: poss hip dislocation <Abby Wyatt PA-C - Last Filed: 12/02/22 19:45> Time Seen by Provider: 12/02/22 17:54 <Abby Wyatt PA-C - Last Filed: 12/02/22 19:45> Source: patient and family <Abby Wyatt PA-C - Last Filed: 12/02/22 19:45> Mode of arrival: EMS <RAFAEL Donovan Last Filed: 12/02/22 19:45> Limitations: no limitations <Abby Wyatt PA-C - Last Filed: 12/02/22 19:45> History of Present Illness HPI Narrative: This is an 87-year-old male that presents to the emergency department for left hip injury sustained just prior to arrival. Reports he had shifted his weight while on the toilet and felt a pop in his left hip. He recently had this hip replaced and has had several dislocations since. Reports this feels similar. Denies numbness. <Abby Wyatt PA-C - Last Filed: 12/02/22 19:45> Related Data Home Medications: Home Medications Medication Instructions Recorded Confirmed aspirin 81 mg tablet,delayed 81 mg PO DAILY 03/26/19 11/25/22 release (Adult Low Dose Aspirin) metoprolol tartrate 50 mg tablet 75 mg PO Q12H 03/26/19 11/25/22 atorvastatin 80 mg tablet 40 mg PO DAILY 09/27/19 11/25/22 Colace 100 mg PO BID 11/19/22 11/25/22 celecoxib 200 mg capsule 200 mg PO BID PRN Pain (Scale 11/19/22 11/25/22 Score 1-3) cyanocobalamin (vitamin B-12) 1,000 mcg PO DAILY 11/19/22 11/25/22 gabapentin 100 mg capsule 200 mg PO Q8-10H 11/19/22 11/25/22 lisinopril 20 mg tablet 20 mg PO DAILY 11/19/22 11/25/22 rivaroxaban 10 mg tablet (Xarelto) 10 mg PO DAILY 11/19/22 11/25/22 tamsulosin 0.4 mg capsule (Flomax) 0.4 mg PO BID 11/19/22 11/25/22 <Abby Wyatt PA-C - Last Filed: 12/02/22 19:45> Allergies/Adverse Reactions: Allergies Allergy/AdvReac Type Severity Reaction Status Date / Time No Known Allergies Allergy Unknown Verified 12/02/22 17:54 <Abby Wyatt PA-C - Last Filed: 12/02/22 19:45> Review of Systems Review of Systems: CONSTITUTIONAL: Denies fever MUSCULOSKELETAL: Reports joint pain, and myalgia. NEUROLOGIC: Denies numbness <RAFAEL Donovan Last Filed: 12/02/22 19:45> All systems reviewed & are unremarkable except as noted in HPI and below <Abby Wyatt PA-C - Last Filed: 12/02/22 19:45> PENDING SALE TO [facility] Past Medical History Medical History: Medical History Acute on chronic anemia Bladder retention BMI 24.0-24.9, adult BMI 25.0-25.9,adult BMI 27.0-27.9,adult BPH (benign prostatic hyperplasia) CKD (chronic kidney disease) CVA (cerebral vascular accident) Hip dislocation, left Hypertension Hypothyroidism Occult blood in stools Screening for prostate cancer <Abby Wyatt PA-C - Last Filed: 12/02/22 19:45> Surgical History Surgical History: Surgical History H/O colonoscopy H/O heart artery stent X2 H/O hernia repair History of incision and drainage Abscess to thigh S/P rotator cuff repair Bilateral S/P tonsillectomy and adenoidectomy Status post left hip replacement Status post right hip replacement <RAFAEL Donovan Last Filed: 12/02/22 19:45> Family History Family History: Family History (Updated 11/25/22 @ 09:02 by LINDSAY Adrian) Father , JACKLYN WW 2 No problems noted. Mother , Failure to thrive Other Diabetes mellitus Hypertension <Abby Wyatt PA-C - Last Filed: 12/02/22 19:45> Social History Social History: Social History Social History: The patient resides with his . 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 The patient has 2 children. His is th
--- NOTE | 2022-12-02 18:44 | PC.NURSE ---
Timeout performed at 1830, pre sedation assessment performed. MD/PA at bedside. Dr. Arroyo gave 80mg Propofol at 1835, Procedure completed at 1837. Portable xray obtained. Pt arousable upon calling at 1840.
[2022-12-02] MEDS: SODIUM CHLORIDE 0.9% IV 1,000 ML 999 ML (18:46)
--- NOTE | 2022-12-02 19:30 | PC.NURSE ---
Pt able to get up with his own brace and used a walker to ambulate with a steady gait
== END 2022-12-02 20:01 | disposition home or self-care (01) ==
PROVIDERS: Emergency Provider Physician Assistant; PCP Family Medicine
DX: S73.005A Unspecified dislocation of left hip, initial encounter (principal); E03.9 Hypothyroidism, unspecified; I12.9 Hypertensive chronic kidney disease with stage 1 through stage 4 chronic kidney disease, or unspecified chronic kidney disease; N18.9 Chronic kidney disease, unspecified; Z87.891 Personal history of nicotine dependence; X58.XXXA Exposure to other specified factors, initial encounter; Y92.002 Bathroom of unspecified non-institutional (private) residence as the place of occurrence of the external cause
CPT/HCPCS: 27265; 73501; 73502; 99285; J2704; J7030

== ENCOUNTER 2022-12-13 12:48 | Outpatient (CLI) | payer MEDICARE, SELFPAY ==
--- NOTE | ~2022-12-13 | XR_ITS ---
XR hip LT 1V DATE: 12/13/2022 13:26 INDICATION: Left hip pain TECHNIQUE: 2 crosstable lateral views of left hip COMPARISON: 12/02/2022 left hip FINDINGS: This is a single crosstable lateral and complete radiographic examination of the left hip. No anteroposterior view is provided. Status post left total hip arthroplasty. No fracture or dislocation is evident. IMPRESSION: Limited examination Reviewed, dictated and finalized at location B. IMPRESSION: Limited examination
[2022-12-13 14:29] LABS: Basophils Percent Auto 0.8 % (0.2-1.2); Eosinophils Absolute Auto 0.3 K/mm3 (0-0.3); Eosinophils Percent Auto 6.2 % (0-4.4); Hematocrit 34.4 % (42.0-52.0); Hemoglobin 10.9 g/dL (14.0-18.0); Immature Granulocyte Absolute 0.04 K/mm3 (0.00-0.031); Immature Granulocyte Percent A 0.8 % (0-0.5); Lymphocytes Absolute Auto 0.95 K/mm3 (0.9-3.2); Lymphocytes Percent Auto 18.5 % (18.3-44.2); Mean Corpuscular HGB Conc 31.7 g/dl (32-36); Mean Corpuscular Hemoglobin 30.5 pg (26-34); Mean Corpuscular Volume 96.4 fl (80-100); Mean Platelet Volume 10.5 fl (7.4-10.4); Monocytes Absolute Auto 0.5 K/mm3 (0.1-0.6); Monocytes Percent Auto 10.5 % (2.6-8.5); Neutrophils Absolute Auto 3.3 K/mm3 (1.3-6.7); Neutrophils Percent Auto 63.2 % (45.5-73.1); Platelet Count Result 174 k/mm3 (150-375); Red Blood Count 3.57 M/mm3 (4.6-6.20); White Blood Count 5.1 K/mm3 (4.5-10.0)
== END 2022-12-13 12:49 | disposition home or self-care (01) ==
PROVIDERS: PCP Family Medicine; Visit Provider Orthopaedic Surgery
DX: M25.552 Pain in left hip (principal)
CPT/HCPCS: 36415; 73501; 85025

== ENCOUNTER 2023-03-07 14:07 | Outpatient (CLI) | payer MEDICARE, SELFPAY ==
[2023-03-07 14:34] LABS: Basophils Percent Auto 0.4 % (0.2-1.2); Eosinophils Absolute Auto 0.3 K/mm3 (0-0.3); Eosinophils Percent Auto 5.9 % (0-4.4); Hematocrit 36.7 % (42.0-52.0); Hemoglobin 11.8 g/dL (14.0-18.0); Immature Granulocyte Absolute 0.01 K/mm3 (0.00-0.031); Immature Granulocyte Percent A 0.2 % (0-0.5); Lymphocytes Absolute Auto 1.09 K/mm3 (0.9-3.2); Lymphocytes Percent Auto 20.2 % (18.3-44.2); Mean Corpuscular HGB Conc 32.2 g/dl (32-36); Mean Corpuscular Volume 96.3 fl (80-100); Mean Platelet Volume 10.7 fl (7.4-10.4); Monocytes Absolute Auto 0.5 K/mm3 (0.1-0.6); Monocytes Percent Auto 8.5 % (2.6-8.5); Neutrophils Absolute Auto 3.5 K/mm3 (1.3-6.7); Neutrophils Percent Auto 64.8 % (45.5-73.1); Platelet Count Result 154 k/mm3 (150-375); Red Blood Count 3.81 M/mm3 (4.6-6.20); Red Cell Distribution Width 14.8 % (11.5-14.5); White Blood Count 5.4 K/mm3 (4.5-10.0)
[2023-03-07 15:26] LABS: Anion Gap 8 mmol/L (8-16); Blood Urea Nitrogen 28 mg/dL (9-20); Calcium 9.7 mg/dL (8.4-10.2); Carbon Dioxide 28 mmol/L (22-30); Chloride 103 mmol/L (98-107); Estimated Glomerular Filt Rate 57; Glucose 127 mg/dL (65-110); Potassium 4.6 mmol/L (3.4-5.0); Sodium 139 mmol/L (137-145)
[2023-03-08 07:27] LABS: Iron 97 ug/dL (49-181)
== END 2023-03-07 14:08 | disposition home or self-care (01) ==
LOC: ANHLAB 14:10
PROVIDERS: PCP Family Medicine; Visit Provider Internal Medicine Hematology & Oncology
DX: D64.9 Anemia, unspecified (principal)
CPT/HCPCS: 36415; 80048; 82728; 83540; 85025

== ENCOUNTER 2023-03-20 04:42 | Emergency (ER) | payer MEDICARE, SELFPAY ==
[2023-03-20] VITALS (8 sets, daily range): BP systolic 123–145; BP diastolic 58–80; PULSE 82–97; RESP 16–23; TEMP 37.7–37.8; O2SAT 96–98
--- NOTE | ~2023-03-20 | XR_ITS ---
XR chest 1V portable DATE: 03/20/2023 06:09 INDICATION: Covid TECHNIQUE: Portable upright AP views on 03/20/2023 at 0542 hours COMPARISON: 11/09/2021 view chest FINDINGS: Borderline heart size. Aortic calcification. No hilar or mediastinal enlargement. No pulmonary infiltrate or consolidation, pleural effusion or pulmonary vascular congestion or pneumo thorax is detected. Diffuse osteopenia. 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 Probable left rotator cuff atrophy. Degenerative change at the right acromioclavicular joint. Mild dextroscoliosis of the thoracic spine. Degenerative spurring of the thoracic spine. IMPRESSION: Borderline heart size Aortic atherosclerosis No active pulmonary disease Reviewed, dictated and finalized at location A.
--- NOTE | 2023-03-20 05:18 | ECG_ITS ---
Measurements Intervals Flanagan Rate: 86 P: 66 NE: 172 QRS: -31 QRSD: 84 T: 51 QT: 325 QTc: 389 Interpretive Statements SINUS RHYTHM BASELINE ARTIFACT LEFT AXIS DEVIATION [QRS AXIS < -30] BORDERLINE ECG COMPARED TO ECG 03/19/2019 18:43:42 LEFT-AXIS DEVIATION NOW PRESENT Electronically Signed On 03-20-2023 13:43:59 CDT by Peng Abernathy M.D.
[2023-03-20] MEDS: SODIUM CHLORIDE 0.9% IV 500 ML 999 ML IV CONT (05:33)
--- NOTE | 2023-03-20 05:39 | ED.URI ---
HPI - URI/Sore Throat General Chief Complaint: Upper Respiratory Infection Stated Complaint: COVID+ yesterday, getting worse Time Seen by Provider: 03/20/23 05:01 Source: patient and family Mode of arrival: ambulatory Limitations: no limitations History of Present Illness HPI Narrative: 88-year-old male who was diagnosed with COVID-19 at home yesterday presenting to emergency department today for flu-like symptoms. Patient reports a significant sore throat, body aches, chills, fatigue, generalized weakness. He was coming in hoping to be admitted because he is not feeling well and is having trouble caring for himself at home. No chest pain or shortness of breath. All other symptoms and complaints are negative as per ROS. Related Data Home Medications Medication Instructions Recorded Confirmed aspirin 81 mg tablet,delayed 81 mg PO DAILY 03/26/19 12/06/22 release (Adult Low Dose Aspirin) atorvastatin 80 mg tablet 40 mg PO DAILY 09/27/19 12/06/22 Colace 100 mg PO BID 11/19/22 12/06/22 celecoxib 200 mg capsule 200 mg PO BID PRN Pain (Scale 11/19/22 12/06/22 Score 1-3) cyanocobalamin (vitamin B-12) 1,000 mcg PO DAILY 11/19/22 12/06/22 gabapentin 100 mg capsule 200 mg PO Q8-10H 11/19/22 12/06/22 lisinopril 20 mg tablet 20 mg PO DAILY 11/19/22 12/06/22 rivaroxaban 10 mg tablet (Xarelto) 10 mg PO DAILY 11/19/22 12/06/22 tamsulosin 0.4 mg capsule (Flomax) 0.4 mg PO BID 11/19/22 12/06/22 metoprolol tartrate 50 mg tablet 37.5 mg PO Q12H 12/06/22 12/06/22 Allergies Allergy/AdvReac Type Severity Reaction Status Date / Time No Known Allergies Allergy Unknown Verified 12/06/22 10:22 Review of Systems Review of Systems: All systems reviewed & are unremarkable except as noted in HPI and below PMFSH Past Medical History Medical History Acute on chronic anemia Bladder retention BMI 24.0-24.9, adult BMI 25.0-25.9,adult BMI 27.0-27.9,adult BPH (benign prostatic hyperplasia) CKD (chronic kidney disease) CVA (cerebral vascular accident) Hip dislocation, left Hypertension Hypothyroidism Occult blood in stools Screening for prostate cancer Surgical History Surgical History H/O colonoscopy H/O heart artery stent X2 H/O hernia repair History of incision and drainage Abscess to thigh S/P rotator cuff repair Bilateral S/P tonsillectomy and adenoidectomy Status post left hip replacement Status post right hip replacement Family History Family History Father , JACKLYN WW 2 No problems noted. Mother , Failure to thrive Other Diabetes mellitus Hypertension Social History Social History Social History: The patient resides with his . 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 Code status full code Years smoked: 40 Smoking status: Former smoker Second hand tobacco smoke exposure: No Alcohol intake: current Substance use: never Substance use type: does not use Lack of Transportation: No Lack of Food: Never True Current Housing: I Have Housing Concerned About Future Housing: No Difficulty Paying Gas/Electric Bills: No Difficulty Paying for Meds: No Currently Unemployed: YES Education: High School Diploma/GED Difficulty w/ Childcare or Family Care: No Living arrangements: with family Occupation/Education: retired Additional occupation/education comments: [employer] Gender identity (if verbalized by the patient): Male Spiritual care concerns: No Exam Narrative: Constitutional: Generally well appearing, no acute distress Head: Atraumatic, no defo
[2023-03-20 05:40] LABS: Basophils Percent Auto 0.2 % (0.2-1.2); Eosinophils Percent Auto 0.2 % (0-4.4); Hematocrit 35.1 % (42.0-52.0); Immature Granulocyte Absolute 0.03 K/mm3 (0.00-0.031); Immature Granulocyte Percent A 0.5 % (0-0.5); Lymphocytes Absolute Auto 0.79 K/mm3 (0.9-3.2); Lymphocytes Percent Auto 12.4 % (18.3-44.2); Mean Corpuscular HGB Conc 31.3 g/dl (32-36); Mean Corpuscular Hemoglobin 30.3 pg (26-34); Mean Corpuscular Volume 96.7 fl (80-100); Monocytes Absolute Auto 0.5 K/mm3 (0.1-0.6); Monocytes Percent Auto 8.3 % (2.6-8.5); Neutrophils Percent Auto 78.4 % (45.5-73.1); Platelet Count Result 114 k/mm3 (150-375); Red Blood Count 3.63 M/mm3 (4.6-6.20); Red Cell Distribution Width 14.6 % (11.5-14.5); White Blood Count 6.4 K/mm3 (4.5-10.0)
[2023-03-20] MEDS: IBUPROFEN 400 MG TABLET PO (05:48)
[2023-03-20] MEDS: BENZOCAINE/MENTHOL (*BKC) 18 EA LOZENGE 1 LOZENGE PO (05:48)
[2023-03-20 05:52] LABS: Alanine Aminotransferase 21 U/L (6-50); Albumin Level 3.8 g/dL (3.5-5.1); Alkaline Phosphatase 87 U/L (38-126); Anion Gap 6 mmol/L (8-16); Aspartate Amino Transferase 33 U/L (17-59); Bilirubin,Total 0.8 mg/dL (0.2-1.3); Blood Urea Nitrogen 20 mg/dL (9-20); Carbon Dioxide 24 mmol/L (22-30); Chloride 105 mmol/L (98-107); Estimated CRCL calculation 37 ml/min; Estimated Glomerular Filt Rate 57; Glucose 112 mg/dL (65-110); Potassium 3.7 mmol/L (3.4-5.0); Sodium 135 mmol/L (137-145)
[2023-03-20 06:14] LABS: Strep Group A RT-PCR NOT DETECTED (Negative)
[2023-03-20 06:16] LABS: Influenza A QL RT-PCR Negative (Negative); Influenza B QL RT-PCR Negative (Negative); RSV RNA, RT-PCR Negative (Negative); SARS-CoV-2 RNA PCR Positive (Negative)
[2023-03-20 06:48] LABS: Procalcitonin 0.1 ng/mL
== END 2023-03-20 06:54 | disposition home or self-care (01) ==
PROVIDERS: Emergency Provider Emergency Medicine; PCP Family Medicine
DX: U07.1 COVID-19 (principal); I12.9 Hypertensive chronic kidney disease with stage 1 through stage 4 chronic kidney disease, or unspecified chronic kidney disease; N18.9 Chronic kidney disease, unspecified; E03.9 Hypothyroidism, unspecified; Z87.891 Personal history of nicotine dependence
CPT/HCPCS: 36415; 71045; 80053; 84145; 85025; 87637; 87651; 93005; 96360; 99283; A9270; J7040

== ENCOUNTER 2023-11-15 12:30 | Outpatient (RCR) | payer MEDICARE, SELFPAY ==
--- NOTE | 2023-09-08 13:56 | PTOPEVAL1 ---
Assessment and note entered by Salbador Rockwell Evaluation Information Assessment Status Evaluation Diagnosis s/p L THR revision Onset 02/01/24 Subjective Information Pt. reports that he underwent a L THR revision in January. He reports he had his initial THR in October of 2022, but experienced 3 dislocations. He reports that he has noticed increasing pain in the left thigh since surgery. He reports that he is noticing weakness in the left leg, and cannot push himself up off the ground with the left leg. he states that pain is all located in the front of the left thigh. He states that trying to lift his left leg to get into the car or put his pants on has become difficult. He reports that his goal is to reduce the pain in the left thigh and be able to lift the left leg without discomfort. Reported Pain Level Pain Score 1: Self Report Assessment PT Clinical Summary Pt. is an 88 year old male who enters the clinic with left thigh pain s/p left hip revision. He presents with impaired l.e. strength, impaired hip mobility, impaired gait and functional decline. Continued skilled PT is indicated in order to improve these areas to assist with improved comfort with IADL performance. Plan of Care Interventions Electrical Stimulation,Gait Training,Hot Pack/Cold Pack,Manual Therapy,Neuro Re-education, Therapeutic Activities,Therapeutic Exercise PT Services Indicated Yes Treatment Frequency and 2x/week x 10 visits Duration These treatments will address the objective and functional deficits as defined above. The patient will be advanced safely and appropriately in order for the patient to progress towards his/her prior level of function. Additional exercises will be introduced and as well as a comprehensive home exercise program upon discharge, if needed, ?to ensure carryover of functional gains achieved in the clinic. This treatment plan has been reviewed and agreement upon by the patient.
--- NOTE | 2023-09-08 13:58 | OPREHPOC ---
Outpatient Therapy Plan of Care This is a Multidisciplinary Plan of Care that may contain components documented by all disciplines (PT, OT, and ST.) PT Problem 1 PT Problem #1 Knowledge Deficit PT Goal 1 Goal Pt. will be independent with a HEP addressing strength and mobility Target Visit 2 PT Problem 2 PT Problem #2 Pain PT Goal 1 Goal Pt. will report pain level at 2/10 at worst with lifting the l.e. into bed or into the car Target Visit 10 PT Problem 3 PT Problem #3 Impaired Strength PT Goal 1 Goal Pt. will be able to lift the left l.e. into bed without use of the u.e. to assist PT Problem 4 PT Problem #4 Impaired Functional Mobil PT Goal 1 Goal pt. will ambulate with equal right and left stance time for distance of 800' without increase in left thigh pain.
--- NOTE | 2023-10-18 11:02 | PTOPPROG ---
Assessment and note entered by Sarah Dunn, PT Progress Report Assessment Status Progress Diagnosis s/p L THR revision Onset 02/01/24 Subjective Information feel like leg is better; is able to lift into the car and bed without using his arms --sometimes, but when more pain, use arms to move his leg; have been doing the standing exercises; not sure how much he should be walking or doing; dr did not give him any restrictions for now. Educated: activity as tolerated , walk and do things as pain and strength allows--monitor pain and not do too much; PAIN: range of 0-5/10; distal quad hurts; increase with lifting L LE into bed or into car with walking, pain 2/10 at worst decrease pain: muscle cream--arthritis cream over knee have not used heat/ice, instruct on PRN use sometimes when quad hurts, will have pain in anterior and lateral L hip; Assessment PT Clinical Summary Adama has received 10 PT sessions. Compared to the initial evaluation: pain from 1-6/ 10 to 0-5/10; LE functional scale, self rating score from 65% to 58% limitation in activity level gait with equal step length and stance phase, with pain increase to 2/10; increase strength L hip, able to move leg onto mat without use of UE's but still decreased strength--supine SLR x 4 reps and single leg standing x 4 seconds. Tightness over anterior hip-quad with hip extension 0' and prone knee flexion 90'; education for HEP and gait pattern. The goals were partially met. Continue PT treatment. Plan of Care Interventions Gait Training,Hot Pack/Cold Pack,Manual Therapy, Neuro Re-education,Patient Education, Therapeutic Activities,Therapeutic Exercise, Ultrasound,Other Other Interventions taping PT Services Indicated Yes Treatment Frequency and 2x/wk for 8 more visits Duration These treatments will address the objective and functional deficits as defined above. The patient will be advanced safely and appropriately in order for the patient to progress towards his/her prior level of function. Additional exercises will be introduced and as well as a comprehensive home exercise program upon discharge, if needed, ?to ensure carryover of functio
--- NOTE | 2023-11-15 13:22 | PTOPDC ---
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; Reported Pain Level Pain Score Self Report Additional Pain Score Comments pain range in the past week 0-7/10; discomfort, tender to touch, bruised over L mid quad and lateral- upper thigh; with daily activities, move about 30-40 minutes, then sit and rest 10-15 minutes then go back to doing things ---due to L thigh pain; increase pain: with daily routine about 4 PM notice hurting more and have to stop for the day decrease pain: sit, rest, tylenol PRN; arthritis cream; have problems getting L leg into car--picking foot up into car; do OK getting out of car walking does not increase his pain Assessment PT Clinical Summary Adama has received 17 PT sessions. Compared to the last progress report: pain from 0-5/10 to 0-7/10; self assessment with LE functional scale with 58% to 44% limitation in activity level; increase strength of L hip and knee with mat exercises and single leg standing; does not use his UE to move L leg, but still causes pain with into car and on/off mat; walking on level surface in dept 750' did not increase his pain; increase flexibility of anterior hip/ quad; continues to have spasm and tenderness over mid quad muscle belly, but less than it was; education completed for HEP and pain management techniques. The goals were partially met. Discharge PT. He is to follow up with in Jan. Plan of Care PT Services Indicated No
== END 2023-11-15 13:55 | disposition home or self-care (01) ==
LOC: ANHPT 12:30
PROVIDERS: PCP Family Medicine
DX: Z47.1 Aftercare following joint replacement surgery (principal); Z96.641 Presence of right artificial hip joint
CPT/HCPCS: 97014; 97110; 97112; 97140; 97161; 97530; G0283

== ENCOUNTER 2023-11-23 09:16 | Outpatient (CLI) | payer MEDICARE, SELFPAY ==
--- NOTE | 2023-11-23 11:30 | NEURO_ITS ---
Impression: # Complains of right hand being sensitive. Not diabetic. # Mild right Carpal Tunnel Syndrome. # Left ulnar sensory neuropathy. # Normal needle/EMG exam. Nerve Conduction Studies Anti Sensory Summary Table Stim Site NR Peak (ms) P-T Amp (?V) Site1 Site2 Delta-P (ms) Dist (cm) Osmar (m/s) Left Median Anti Sensory (2-3nd Digit) Wrist 3.9 15.9 Wrist 2-3nd Digit 3.9 14.0 36 Wrist 3.6 27.4 Wrist 2-3nd Digit 3.9 14.0 36 Right Median Anti Sensory (2-3nd Digit) Wrist 3.8 17.6 Wrist 2-3nd Digit 3.8 14.0 37 Wrist 4.0 14.0 Wrist 2-3nd Digit 3.8 14.0 37 Left Radial Anti Sensory (Base 1st Digit) Wrist 2.7 5.9 Wrist Base 1st Digit 2.7 0.0 Right Radial Anti Sensory (Base 1st Digit) Wrist 3.5 6.3 Wrist Base 1st Digit 3.5 0.0 Left Ulnar Anti Sensory (5th Digit) NO RESPONSE Wrist NR Wrist 5th Digit 14.0 Right Ulnar Anti Sensory (5th Digit) Wrist 3.3 10.4 Wrist 5th Digit 3.3 14.0 42 Motor Summary Table Stim Site NR Onset (ms) O-P Amp (mV) Site1 Site2 Delta-0 (ms) Dist (cm) Osmar (m/s) Left Median Motor (Abd Poll Brev) Wrist 3.8 1.9 Elbow Wrist 5.0 28.0 56 Elbow 8.8 2.1 Right Median Motor (Abd Poll Brev) Wrist 4.3 2.9 Elbow Wrist 5.1 28.0 55 Elbow 9.4 2.0 Left Ulnar Motor (Abd Dig Minimi) Wrist 2.7 5.9 A Elbow Wrist 5.7 31.0 54 A Elbow 8.4 4.1 Right Ulnar Motor (Abd Dig Minimi) Wrist 2.7 6.5 A Elbow Wrist 5.7 31.0 54 A Elbow 8.4 5.2 F Wave Studies NR F-Lat (ms) L-R F-Lat (ms) Left Median (Mrkrs) (Abd Poll Brev) 31.61 1.03 Right Median (Mrkrs) (Abd Poll Brev) 30.57 1.03 Left Ulnar (Mrkrs) (Abd Dig Min) 31.64 0.14 Right Ulnar (Mrkrs) (Abd Dig Min) 31.78 0.14 EMG Side Muscle Nerve Root Ins Act Fibs Amp Dur Recrt Comment Right 1stDorInt Ulnar C8-T1 Nml Nml Nml Nml Nml Right Ext Indicis Radial (Post Int) C7-8 Nml Nml Nml Nml Nml Right Ext Digitorum Radial (Post Int) C7-8 Nml Nml Nml Nml Nml Right BrachioRad Radial C5-6 Nml Nml Nml Nml Nml Right PronatorTeres Median C6-7 Nml Nml Nml Nml Nml Right Abd Poll Brev Median C8-T1 Nml Nml Nml Nml Nml Right ABD Dig Min Ulnar C8-T1 Nml Nml Nml Nml Nml Left 1stDorInt Ulnar C8-T1 Nml Nml Nml Nml Nml Left Ext Indicis Radial (Post Int) C7-8 Nml Nml Nml Nml Nml Left Ext Digitorum Radial (Post Int) C7-8 Nml Nml Nml Nml Nml Left BrachioRad Radial C5-6 Nml Nml Nml Nml Nml Left PronatorTeres Median C6-7 Nml Nml Nml Nml Nml Left Abd Poll Brev Median C8-T1 Nml Nml Nml Nml Nml Left ABD Dig Min Ulnar C8-T1 Nml Nml Nml Nml Nml MTDD
== END 2023-11-23 09:17 | disposition home or self-care (01) ==
LOC: ANHNEURO 09:17
PROVIDERS: PCP Family Medicine; Visit Provider Nurse Practitioner Family
DX: R20.0 Anesthesia of skin (principal); R20.2 Paresthesia of skin; G56.01 Carpal tunnel syndrome, right upper limb; G56.22 Lesion of ulnar nerve, left upper limb
CPT/HCPCS: 95886; 95911

== ENCOUNTER 2024-01-09 10:16 | Outpatient (CLI) | payer MEDICARE, SELFPAY ==
[2024-01-09 10:39] LABS: Basophils Percent Auto 0.7 % (0.2-1.2); Eosinophils Absolute Auto 0.3 K/mm3 (0-0.3); Eosinophils Percent Auto 5.3 % (0-4.4); Hematocrit 38.2 % (42.0-52.0); Hemoglobin 12.8 g/dL (14.0-18.0); Immature Granulocyte Absolute 0.02 K/mm3 (0.00-0.031); Immature Granulocyte Percent A 0.4 % (0-0.5); Lymphocytes Absolute Auto 1.15 K/mm3 (0.9-3.2); Lymphocytes Percent Auto 20.5 % (18.3-44.2); Mean Corpuscular HGB Conc 33.5 g/dl (32-36); Mean Corpuscular Hemoglobin 32.1 pg (26-34); Mean Corpuscular Volume 95.7 fl (80-100); Mean Platelet Volume 9.7 fl (7.4-10.4); Monocytes Absolute Auto 0.5 K/mm3 (0.1-0.6); Monocytes Percent Auto 8.2 % (2.6-8.5); Neutrophils Absolute Auto 3.6 K/mm3 (1.3-6.7); Neutrophils Percent Auto 64.9 % (45.5-73.1); Platelet Count Result 141 k/mm3 (150-375); Red Blood Count 3.99 M/mm3 (4.6-6.20); Red Cell Distribution Width 13.4 % (11.5-14.5); White Blood Count 5.6 K/mm3 (4.5-10.0)
[2024-01-09 15:54] LABS: Iron 148 ug/dL (49-181)
[2024-01-09 16:00] LABS: Anion Gap 10 mmol/L (4-12); Blood Urea Nitrogen 29 mg/dL (9-20); Calcium 9.4 mg/dL (8.4-10.2); Carbon Dioxide 27 mmol/L (22-30); Chloride 104 mmol/L (98-107); Estimated Glomerular Filt Rate 52; Glucose 107 mg/dL (65-110); Potassium 4.2 mmol/L (3.4-5.0); Sodium 141 mmol/L (137-145)
[2024-01-09 16:05] LABS: Percent Iron Saturation 54 % (20-50)
[2024-01-09 17:13] LABS: Folic Acid > 20.0 ng/mL (2.76->20)
== END 2024-01-09 10:17 | disposition home or self-care (01) ==
LOC: ANHLAB 10:26
PROVIDERS: PCP Family Medicine; Visit Provider Internal Medicine Hematology & Oncology
DX: D64.9 Anemia, unspecified (principal)
CPT/HCPCS: 36415; 80048; 82607; 82728; 82746; 83540; 83550; 85025

== ENCOUNTER 2024-01-30 09:48 | Emergency (ER) | payer MEDICARE, SELFPAY ==
--- NOTE | ~2024-01-30 | XR_ITS ---
EXAMINATION: XR chest 2V DATE: 01/30/2024 10:07 INDICATION: 10 days of cough and chest congestion TECHNIQUE: frontal and lateral views of the chest were obtained. COMPARISON: Chest radiograph dated 03/20/2023 FINDINGS: Calcified left lower lobe nodule projecting over the left hemidiaphragm consistent with old granuloma tous disease. The lungs remain otherwise clear with no focal airspace opacities, pulmonary edema, ple ural effusion or pneumothorax. The cardiomediastinal silhouette is normal. bridging osteophytes at mu ltiple levels consistent with diffuse idiopathic skeletal hyperostosis (DISH). IMPRESSION: 1. No acute cardiopulmonary disease. Reviewed, dictated and finalized at location B.
--- NOTE | 2024-01-30 09:49 | ED.URI ---
HPI - URI/Sore Throat General Chief Complaint: Upper Respiratory Infection Stated Complaint: Chest Congestion/Cough Time Seen by Provider: 01/30/24 09:49 Source: patient Mode of arrival: ambulatory Limitations: no limitations History of Present Illness HPI Narrative: Devan is an 88-year-old male patient presenting to the clinic today with complaints of chest congestion and cough times 7-10 days. He reports cough is productive at times with some white phlegm. Denies any shortness of breath currently. States he has been taking Delsym for his symptoms without relief. No fever or chills. Denies any chest pain. Former smoker. Related Data Home Medications Medication Instructions Recorded Confirmed aspirin 81 mg tablet,delayed 81 mg PO DAILY 03/26/19 01/30/24 release (Adult Low Dose Aspirin) atorvastatin 80 mg tablet 40 mg PO DAILY 09/27/19 01/30/24 ascorbic acid (vitamin C) 500 mg mg PO 06/21/23 10/28/23 capsule cholecalciferol (vitamin D3) 50 50 mcg PO DAILY 06/21/23 10/28/23 mcg (2,000 unit) capsule cyanocobalamin (vitamin B-12) 250 250 mcg PO DAILY 06/21/23 01/30/24 mcg tablet (Vitamin B-12) clopidogrel 75 mg tablet 75 mg PO DAILY 07/28/23 01/30/24 ferrous sulfate, dried 160 mg (50 160 mg PO DAILY 07/28/23 01/30/24 mg iron) tablet,extended release folic acid 1 mg tablet 1 mg PO DAILY 07/28/23 01/30/24 mirabegron 25 mg tablet,extended 25 mg PO DAILY 07/28/23 01/30/24 release 24 hr (Myrbetriq) coenzyme Q10 200 mg capsule (Co 200 mg PO DAILY 01/30/24 01/30/24 Q-10) dsjenzjfkxsy-incsjpiv-xroaey tablet 1 tablet PO DAILY 01/30/24 01/30/24 vitamins A,C,V-ybzq-afggdg 2,148 1 tablet PO HS 01/30/24 01/30/24 mcg-113 mg-45 mg-17.4 mg tablet (PreserVision AREDS) Allergies Allergy/AdvReac Type Severity Reaction Status Date / Time No Known Allergies Allergy Unknown Verified 01/30/24 09:54 Review of Systems Review of Systems: Pertinent positives per HPI. Patient denies any fever, chills, rash, headache, visual changes, dizziness, runny nose, sore throat, shortness of breath, chest pain, palpitations, nausea, vomiting, diarrhea, constipation, abdominal pain, or any urinary issues. [facility] Past Medical History Medical History Acute on chronic anemia Bladder retention BPH (benign prostatic hyperplasia) CKD (chronic kidney disease) COVID-19 CVA (cerebral vascular accident) Hip dislocation, left Hypertension Hypothyroidism Occult blood in stools Screening for prostate cancer UTI (urinary tract infection) Vasomotor rhinitis Surgical History Surgical History H/O colonoscopy H/O heart artery stent X2 H/O hernia repair History of incision and drainage Abscess to thigh S/P rotator cuff repair Bilateral S/P tonsillectomy and adenoidectomy Status post left hip replacement Status post right hip replacement Family History Family History Father , JACKLYN WW 2 , Onset Age: 34 JACKLYN WW1 Mother , Failure to thrive Arthritis Other Diabetes mellitus Hypertension Social History Social History Social History: The patient resides by himself. 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 Code status full code Years smoked: 40 Smoking status: Former smoker Second hand tobacco smoke exposure: No Alcohol intake: current Substance use: never Substance use type: does not use Do You Feel Safe in your Home?: Yes Lack of Transportation: No Lack of Food: Never True Current Housing: I Have Housing Concerned About Future Housing: No Difficulty P
[2024-01-30 09:53] VITALS: BP 120/99; PULSE 88; RESP 16; TEMP 36.3; O2SAT 100
[2024-01-30 10:02] VITALS: BP 120/99; PULSE 88; RESP 16; TEMP 36.3; O2SAT 100
== END 2024-01-30 10:21 | disposition home or self-care (01) ==
PROVIDERS: Emergency Provider Nurse Practitioner Family; PCP Family Medicine
DX: J40 Bronchitis, not specified as acute or chronic (principal); Z87.891 Personal history of nicotine dependence; I12.9 Hypertensive chronic kidney disease with stage 1 through stage 4 chronic kidney disease, or unspecified chronic kidney disease; N18.9 Chronic kidney disease, unspecified; N40.0 Benign prostatic hyperplasia without lower urinary tract symptoms; E03.9 Hypothyroidism, unspecified; Z86.73 Personal history of transient ischemic attack (TIA), and cerebral infarction without residual deficits; Z95.5 Presence of coronary angioplasty implant and graft; Z96.643 Presence of artificial hip joint, bilateral; Z79.82 Long term (current) use of aspirin
CPT/HCPCS: 71046; 99213; G0463

== ENCOUNTER 2024-02-06 09:49 | Emergency (ER) | payer MEDICARE, SELFPAY ==
[2024-02-06 10:00] VITALS: BP 121/79; PULSE 89; RESP 16; TEMP 36.7; O2SAT 98
--- NOTE | 2024-02-06 10:16 | ED.GENADULT ---
HPI - General Adult General Chief complaint: Upper Respiratory Infection Stated complaint: Chest Congestion Time Seen by Provider: 02/06/24 10:16 Source: patient, RN notes reviewed and old records reviewed Mode of arrival: ambulatory Limitations: no limitations History of Present Illness HPI narrative: 88-year-old male returns to the [facility] with continued chest congestion, cough, intermittent shortness of breath that really has not improved since he was evaluated here in clinic. Was evaluated on 01/29, 1 week ago, was prescribed azithromycin, prednisone and an inhaler. Patient states the symptoms are worse at night and when he gets tired. Onset (ago): week(s) (2-3) Related Data Home Medications Medication Instructions Recorded Confirmed aspirin 81 mg tablet,delayed 81 mg PO DAILY 03/26/19 02/06/24 release (Adult Low Dose Aspirin) atorvastatin 80 mg tablet 40 mg PO DAILY 09/27/19 02/06/24 ascorbic acid (vitamin C) 500 mg 500 mg PO DIRECTED 06/21/23 02/06/24 capsule cholecalciferol (vitamin D3) 50 50 mcg PO DAILY 06/21/23 02/06/24 mcg (2,000 unit) capsule cyanocobalamin (vitamin B-12) 250 250 mcg PO DAILY 06/21/23 02/06/24 mcg tablet (Vitamin B-12) clopidogrel 75 mg tablet 75 mg PO DAILY 07/28/23 02/06/24 ferrous sulfate, dried 160 mg (50 160 mg PO DAILY 07/28/23 02/06/24 mg iron) tablet,extended release folic acid 1 mg tablet 1 mg PO DAILY 07/28/23 02/06/24 mirabegron 25 mg tablet,extended 25 mg PO DAILY 07/28/23 02/06/24 release 24 hr (Myrbetriq) coenzyme Q10 200 mg capsule (Co 200 mg PO DAILY 01/30/24 02/06/24 Q-10) berqbgovhjyj-sdmvdxsz-vfshgv tablet 1 tablet PO DAILY 01/30/24 02/06/24 vitamins A,C,B-twtn-xpjorl 2,148 1 tablet PO HS 01/30/24 02/06/24 mcg-113 mg-45 mg-17.4 mg tablet (PreserVision AREDS) Allergies Allergy/AdvReac Type Severity Reaction Status Date / Time No Known Allergies Allergy Unknown Verified 02/06/24 09:55 Review of Systems Review of Systems: All systems reviewed & are unremarkable except as noted in HPI and below Constitutional: Constitutional: Reports no additional constitutional complaints Eyes: Eyes: Reports no additional eye complaints ENT: Reports system reviewed and no additional complaints, except as documented Cardiovascular: Cardiovascular: Reports as per HPI, Denies chest pain, Denies pedal edema, Denies edema, Denies leg edema and Reports dyspnea Respiratory: Respiratory: Reports as per HPI, Reports chest congestion, Reports cough and Reports dyspnea Gastrointestinal: Gastrointestinal: Reports no additional gastrointestinal complaints, Denies abdominal pain, Denies nausea and Denies vomiting Musculoskeletal: Musculoskeletal: Reports no additional musculoskeletal complaints Integumentary/Breasts: Skin/Breast: Reports system reviewed and no additional complaints, except as docu Neurologic: Reports system reviewed and no additional complaints, except as documented Psychiatric: Psychiatric: Reports no additional psychiatric complaints Allergic/Immunologic: Allergic/Immunologic: Reports no additional allergic/immunologic complaints PMFSH Past Medical History Medical History Acute on chronic anemia Bladder retention BPH (benign prostatic hyperplasia) CKD (chronic kidney disease) COVID-19 CVA (cerebral vascular accident) Hip dislocation, left Hypertension Hypothyroidism Occult blood in stools Screening for prostate cancer UTI (urinary tract infection) Vasomotor rhinitis Surgical History Surgical History H/O colonoscopy H/O heart artery stent X2 H/O hernia repair History of incision and drainage Abscess to thigh S/P rotator cuff repair Bilateral S/P tonsillectomy and adenoidectomy Status post left hip replacement Status post right hip replacement Family History Family History (Reviewed 02/06/24 @ 10:29 by Rosemarie Orourke
== END 2024-02-06 10:39 | disposition left against medical advice (07) ==
PROVIDERS: Emergency Provider Nurse Practitioner; PCP Family Medicine
DX: R09.89 Other specified symptoms and signs involving the circulatory and respiratory systems (principal); R06.00 Dyspnea, unspecified; Z87.891 Personal history of nicotine dependence; N40.0 Benign prostatic hyperplasia without lower urinary tract symptoms; I12.9 Hypertensive chronic kidney disease with stage 1 through stage 4 chronic kidney disease, or unspecified chronic kidney disease; N18.9 Chronic kidney disease, unspecified; Z86.73 Personal history of transient ischemic attack (TIA), and cerebral infarction without residual deficits; E03.9 Hypothyroidism, unspecified; Z95.5 Presence of coronary angioplasty implant and graft; Z96.643 Presence of artificial hip joint, bilateral; Z79.82 Long term (current) use of aspirin
CPT/HCPCS: 99211; G0463

== ENCOUNTER 2024-02-15 02:29 | Day surgery (SDC) | payer MEDICARE, SELFPAY ==
[2024-02-08 13:34] VITALS: BMI 25.1
--- NOTE | 2024-02-08 13:42 | PC.NURSE ---
Report to the Outpatient Waiting Room, entrance under the green pavilion located off [facility], at time _0930_ on date _[id number]_. Planned Procedure Time: _1130_.? Time changes happen often and if your time is changed the preop area will call you the afternoon before. - You and your visitor will be asked to self-screen and do not enter if you have any COVID symptoms. Please call surgeon if you need to reschedule. - A mask is optional within the hospital at this time. Patients may have clear liquids (water, carbonated beverages, clear teas, apple juice) with a maximum of 20 ounces until 330am then nothing to drink until after surgery. - No food from midnight until time of surgery and no smoking Take only the following medications with a SIP of water on the morning of surgery: ___Levothyroxine and Metoprolol DO NOT STOP ANY OF YOUR OTHER PRESCRIPTION MEDICATIONS PRIOR TO SURGERY EXCEPT THE FOLLOWING Medications to discontinue per physician All vitamins and supplements Date to take last [phone] _Please contact Dr Leary's office to inquire as to stopping Clopidogrel. Please no make-up, nail bahraini, hairspray, perfume, deodorant, or body powder the day of surgery.? No jewelry (including any body piercings) or valuables the day of surgery, leave them at home.? Please take a shower or bath the night before, or the morning of, surgery with an antibacterial soap.? Wear comfortable, loose fitting clothing.? - Jewelry must be removed prior to entering the operating room.? Rings and piercings that are not removed may be cut off. - The hospital will not accept responsibility for valuables.? - Please leave all valuables, including medications, at home the day of surgery. If you are going home after surgery, a licensed national van truck driver must drive you home.? - NO public transportation without another adult if you receive anesthesia. - We recommend that an adult stay with you for 24 hours following discharge. - We also recommend that you do not drive, make important decision, drink alcoholic beverages, or take any drugs that were not prescribed by your health care provider for at least 24 hours after your discharge time. Follow any additional instructions given to you from your surgeon. Telephone instructions given to __Glen__and asked if any additional questions and then verbalized understanding. Patient advised to call surgeon office or pre surgery nurse liaison [phone] if any additional questions.
--- NOTE | 2024-02-15 07:17 | PM.HPGS ---
History of Present Illness History of Present Illness Chief complaint: Carpal Tunnel Left, Lesion Ulnar Nerve Left Narrative: Patient seen and examined in pre-operative holding area. No interval change in medical history or symptoms. Patient recalls previous discussion of benefits and alternatives to procedure. Continues to desire to proceed with left endoscopic possible open carpal tunnel release and left cubital tunnel release. Reviewed procedure, post-op expectations and risks including but not limited to bleeding, infection, injury to tendon/nerve/vessel, decreased hand function, stiffness, RSD, no change or worsening of symptoms. I discussed the possible use of assistants and their participation in the case. Patient stated understanding and signed the consent form wishing to proceed. Review of Systems Review of Systems: All systems reviewed & are unremarkable except as noted in HPI and below PMFSH Past Medical History Medical History Acute on chronic anemia Bladder retention BPH (benign prostatic hyperplasia) CKD (chronic kidney disease) COVID-19 CVA (cerebral vascular accident) Hip dislocation, left Hypertension Hypothyroidism Occult blood in stools Screening for prostate cancer UTI (urinary tract infection) Vasomotor rhinitis Surgical History Surgical History H/O colonoscopy H/O heart artery stent X2 H/O hernia repair History of incision and drainage Abscess to thigh S/P rotator cuff repair Bilateral S/P tonsillectomy and adenoidectomy Status post left hip replacement Status post right hip replacement Family History Family History Father , JACKLYN WW 2 , Onset Age: 34 JACKLYN WW1 Mother , Failure to thrive Arthritis Other Diabetes mellitus Hypertension Social History Social History Social History: The patient resides by himself. 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 The patient has 2 children. His is the durable power research attorney for healthcare. Code status full code Smoking packs per day: 0.75 Smoking cigarettes per day: 15.0 Years smoked: 18 Smoking pack-years: 13.50 Smoking status: Former smoker Tobacco type: cigarettes Second hand tobacco smoke exposure: No Smoking end date: 02/08/84 Alcohol intake: current Substance use: never Substance use type: does not use Do You Feel Safe in your Home?: Yes Lack of Transportation: No Lack of Food: Never True Current Housing: I Have Housing Concerned About Future Housing: No Difficulty Paying Gas/Electric Bills: No Difficulty Paying for Meds: No Currently Unemployed: YES Education: High School Diploma/GED Difficulty w/ Childcare or Family Care: No Living arrangements: with family Occupation/Education: retired Additional occupation/education comments: [employer] Gender identity (if verbalized by the patient): Male Spiritual care concerns: No Meds Home Medications and Allergies Home Medications Medication Instructions Recorded Confirmed Type aspirin 81 mg tablet,delayed 81 mg PO DAILY 03/26/19 02/08/24 History release (Adult Low Dose Aspirin) atorvastatin 80 mg tablet 40 mg PO DAILY 09/27/19 02/08/24 History finasteride 5 mg tablet (Proscar) 5 mg PO QAM #30 tabs 11/23/22 02/08/24 Rx ascorbic acid (vitamin C) 500 mg 500 mg PO DIRECTED 06/21/23 02/08/24 History capsule cholecalciferol (vitamin D3) 50 50 mcg PO DAILY 06/21/23 02/08/24 History mcg (2,000 unit) capsule cyanocobalamin (vitamin B-12) 250 250 mcg PO DAILY 06/21/23 02/08/24 History mcg tablet (Vitamin B-12) metoprolol tartrate 25 mg tab
--- NOTE | 2024-02-15 07:18 | P.OP_ITS ---
Procedure Note - Detailed Date of Procedure 02/15/24 Pre-op Diagnosis left carpal and cubital tunnel syndrome Post-op Diagnosis Same Procedure Performed left ectr and CuTR Surgeon Cristobal Leary MD Electrical Machinist brina ochoa pa-c Anesthesia MAC Description of Procedure INFORMED CONSENT: The patient was seen and examined and marked in the pre-op area.? The patient signed the consent form. PROCEDURE IN DETAIL:The patient taken back to OR on the stretcher in supine position. Time out performed with anesthesia, surgeon and staff agreeing on patient's name site and surgery to be performed SCDs were placed on the lower extremities and inflated. A tourniquet was placed on {left} upper extremity and antibiotics given IV After anesthesia administered sedation I injected 10cc 1%lido with epi and 0.5% marcaine plain at the operative sites The?{left upper extremity}?was prepped and draped in sterile fashion the??{left upper extremity} was? exsanguinated with Esmarch bandage and tourniquet inflated to 250mmHg I made a transverse incision in the {left} volar distal wrist crease through skin and dermis with 15 blade scalpel.? Littler scissors spread down to antebrachial fascia. A small incision was made in antebrachial fascia allowing access to Carpal tunnel. I proceeded with sequential dilation staying in line with the ring finger and hugging the hook of the hamate.? I then used the synovial elevator to free any adhesions from the underside of the transverse carpal ligament. Next I was able to insert the Microaire endoscopic carpal tunnel device with direct visualization of the transverse fibers on the monitor and proceeded with complete segmental I next proceeded with making a longitudinal incision between two heads for flexor carpi ulnaris at end of {left} cubital tunnel with 15 blade scalpel.? Littler scissors were used to spread down to FCU fascia.? An incision was made in FCU fascia and ulnar nerve identified exiting cubital tunnel.? I proceeded with complete retrograde release of the cubital tunnel including 7cm proximal for the intermuscular septum.? The nerve appeared healthy with visible vaso nervorum.? There was no subluxation on full elbow range of motion. ? I irrigated with normal saline and closure with 3-0 vicryl for dermis and 4-0 monocryl for subcuticular. The incisions were covered with Dermabond then 4x4s, quynh, and a posterior elbow and volar wrist splint for patient safety, security and comfort and secured with monika bandages after the tourniquet was let down noting the hand was warm and well perfused.? Patient awaken from anesthesia and transferred to recovery in stable condition Complications - none EBL- 1cc Disposition - home in stable conditions Brina Ochoa PA-C was essential for positioning, retraction, closure and dressing placement G Billing Surgery - Charge Forward: Surgery Billing ([id number] same for brina cota )
[2024-02-15 10:30] VITALS: BP 152/80; PULSE 80; RESP 16; TEMP 36.1; O2SAT 99; BMI 25.0
[2024-02-15] MEDS: LACTATED RINGERS 1,000 ML 30 ML IV CONT (10:45)
--- NOTE | 2024-02-15 10:47 | WPDANESEPPF ---
Anes - Initial Pre Proc Eval Procedure: Operation Date: 02/15/24 12:15 Proposed Procedures p Left Endoscopic Carpal Tunnel Release, Possible Open, Left Cubital Tunnel Release - Cristobal Leary MD Date/Time: 02/15/24 10:47 Surgeon: Cristobal Leary MD Pre Op Diagnosis: Carpal Tunnel Left, Lesion Ulnar Nerve Left Patient Data Age: 88 Gender: M Height: 1.75 m Weight: 77.3 kg Allergies Allergy/AdvReac Type Severity Reaction Status Date / Time No Known Allergies Allergy Unknown Verified 02/08/24 13:31 Home Medications Medication Instructions Recorded Confirmed Type aspirin 81 mg tablet,delayed 81 mg PO DAILY 03/26/19 02/08/24 History release (Adult Low Dose Aspirin) atorvastatin 80 mg tablet 40 mg PO DAILY 09/27/19 02/08/24 History finasteride 5 mg tablet (Proscar) 5 mg PO QAM #30 tabs 11/23/22 02/08/24 Rx ascorbic acid (vitamin C) 500 mg 500 mg PO DIRECTED 06/21/23 02/08/24 History capsule cholecalciferol (vitamin D3) 50 50 mcg PO DAILY 06/21/23 02/08/24 History mcg (2,000 unit) capsule cyanocobalamin (vitamin B-12) 250 250 mcg PO DAILY 06/21/23 02/08/24 History mcg tablet (Vitamin B-12) metoprolol tartrate 25 mg tablet 12.5 mg PO BID #90 tabs 06/21/23 02/08/24 Rx clopidogrel 75 mg tablet 75 mg PO DAILY 07/28/23 02/08/24 History ferrous sulfate, dried 160 mg (50 160 mg PO DAILY 07/28/23 02/08/24 History mg iron) tablet,extended release folic acid 1 mg tablet 1 mg PO DAILY 07/28/23 02/08/24 History mirabegron 25 mg tablet,extended 25 mg PO DAILY 07/28/23 02/08/24 History release 24 hr (Myrbetriq) levothyroxine 75 mcg tablet 75 mcg PO DAILY@0630 #90 tabs 11/13/23 02/08/24 Rx (Synthroid) tamsulosin 0.4 mg capsule (Flomax) 0.4 mg PO DAILY #90 caps 11/29/23 02/08/24 Rx albuterol sulfate 90 mcg/actuation 2 puff inhalation Q4-6H PRN 01/30/24 02/08/24 Rx aerosol inhaler shortness of breath or wheezing 30 days #8.5 grams coenzyme Q10 200 mg capsule (Co 200 mg PO DAILY 01/30/24 02/08/24 History Q-10) zotnaizidmbm-kmtsbwfa-ruokyi tablet 1 tablet PO DAILY 01/30/24 02/08/24 History vitamins A,C,O-btzx-upwmjo 2,148 1 tablet PO HS 01/30/24 02/08/24 History mcg-113 mg-45 mg-17.4 mg tablet (PreserVision AREDS) tramadol 50 mg tablet 50 mg PO Q6H PRN pain #12 tabs 02/15/24 Rx Patient hx anesthesia problems: none Family hx anesthesia problems: none Results Review: All pre-operative results and documents have been reviewed as part of the pre-operative evaluation. [facility] Past Medical History Medical History Acute on chronic anemia Bladder retention BPH (benign prostatic hyperplasia) CKD (chronic kidney disease) COVID-19 CVA (cerebral vascular accident) Hip dislocation, left Hypertension Hypothyroidism Occult blood in stools Screening for prostate cancer UTI (urinary tract infection) Vasomotor rhinitis Surgical History Surgical History H/O colonoscopy H/O heart artery stent X2 H/O hernia repair History of incision and drainage Abscess to thigh S/P rotator cuff repair Bilateral S/P tonsillectomy and adenoidectomy Status post left hip replacement Status post right hip replacement Family History Family History Father , JACKLYN WW 2 , Onset Age: 34 JACKLYN WW1 Mother , Failure to thrive Arthritis Other Diabetes mellitus Hypertension Social History Social History Social History: The patient resides by himself. 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 His is the durable power environmental attorney for healthcare. Code status full code Smoking packs per day: 0.75 Smoking cigarettes pe
[2024-02-15] MEDS: ceFAZolin 2 GM/D5W 50 ML 2 GM/50 ML BAG IVPB (10:58)
[2024-02-15] MEDS: LIDO 1%/EPINEPHRINE 1:100,000 20 ML VIAL 9 ML INFILTRATE (11:09)
[2024-02-15 11:31] VITALS: BP 125/71; PULSE 72; RESP 15; O2SAT 99
--- NOTE | 2024-02-15 11:46 | SUR.PHASEII ---
Addendum entered by Natacha Biggs RN 02/15/24 11:58: Pt education provided. Original Note: MD Leary contacted regarding when pt can resume blood thinners. Pt can resume blood thinners tonight per MD Leary.
[2024-02-15 11:57] VITALS: BP 149/78; PULSE 72; RESP 16; O2SAT 99
[2024-02-15 12:06] VITALS: BP 165/78; PULSE 64; RESP 16; O2SAT 100
== END 2024-02-15 12:07 | disposition home or self-care (01) ==
PROVIDERS: PCP Family Medicine; Visit Provider Plastic Surgery
PROC: 01N54ZZ Release Median Nerve, Percutaneous Endoscopic Approach (ICD-10-PCS; CPT 29848; principal; 2024-02-15 12:15)
DX: G56.02 Carpal tunnel syndrome, left upper limb (principal); G56.22 Lesion of ulnar nerve, left upper limb; I12.9 Hypertensive chronic kidney disease with stage 1 through stage 4 chronic kidney disease, or unspecified chronic kidney disease; N18.9 Chronic kidney disease, unspecified; D64.9 Anemia, unspecified; E03.9 Hypothyroidism, unspecified; N40.0 Benign prostatic hyperplasia without lower urinary tract symptoms; Z95.5 Presence of coronary angioplasty implant and graft; Z79.82 Long term (current) use of aspirin; Z79.02 Long term (current) use of antithrombotics/antiplatelets; Z79.51 Long term (current) use of inhaled steroids; Z87.891 Personal history of nicotine dependence
CPT/HCPCS: 29848; 64718; J0690; J2704; J3010; J7120

== ENCOUNTER 2024-06-18 10:48 | Emergency (ER) | payer MEDICARE, SELFPAY ==
--- NOTE | ~2024-06-18 | XR_ITS ---
EXAMINATION: XR chest 2V DATE: 06/18/2024 11:52 INDICATION: Cough TECHNIQUE: frontal and lateral views of the chest were obtained. 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 The lungs remain otherwise clear with no new airspace opacities, pulmonary edema, pleural effusion or pneumothorax. Size is normal. Prior coronary artery stenting. Mild to moderate thoracic s pondylosis with bridging osteophytes at multiple levels consistent with diffuse idiopathic skeletal h yperostosis (DISH). Narrowing at the left subacromial space consistent with likely left rotator cuff tear. IMPRESSION: 1. No acute cardiopulmonary disease. Reviewed, dictated and finalized at location B. UTER SYSTEMS INTEGRATOR
[2024-06-18 11:01] VITALS: BP 148/62; PULSE 105; RESP 18; TEMP 36.8; O2SAT 99
--- NOTE | 2024-06-18 11:10 | ED.URI ---
HPI - URI/Sore Throat General Chief Complaint: Upper Respiratory Infection Stated Complaint: Cough, Sore Throat, Fever Time Seen by Provider: 06/18/24 11:10 Source: patient, RN notes reviewed and old records reviewed Mode of arrival: ambulatory Limitations: no limitations History of Present Illness HPI Narrative: Patient presents with complaints cough and sore throat as well as elevated temperature over the past couple of days. He reports that symptoms began yesterday or the day before. Said that he became worried because his temperature did reach 99.5, and this is unusual for him. Patient weighs lb daily, checks vital Signs weekly. When he notices something unusual, he will check more often. That was the case in this situation. He reports the cough is minimally productive, not painful. Says that sore throat is only present with the cough. He does report that he has a little more tired than usual, has been taking multiple yauy-lbi-esmlzkm medications with good results. He is not in any distress, including respiratory distress Related Data Home Medications ?Medication ?Instructions ?Recorded ?Confirmed ?Last Taken ?Type aspirin 81 mg tablet,delayed 81 mg PO DAILY 03/26/19 02/15/24 02/12/24 History release (Adult Low Dose Aspirin) atorvastatin 80 mg tablet 40 mg PO DAILY 09/27/19 02/08/24 Unknown History ascorbic acid (vitamin C) 500 mg 500 mg PO DIRECTED 06/21/23 02/15/24 02/12/24 History capsule cholecalciferol (vitamin D3) 50 50 mcg PO DAILY 06/21/23 02/15/24 02/12/24 History mcg (2,000 unit) capsule cyanocobalamin (vitamin B-12) 250 250 mcg PO DAILY 06/21/23 02/15/24 02/12/24 History mcg tablet (Vitamin B-12) clopidogrel 75 mg tablet 75 mg PO DAILY 07/28/23 02/15/24 02/12/24 History ferrous sulfate, dried 160 mg (50 160 mg PO DAILY 07/28/23 02/15/24 02/12/24 History mg iron) tablet,extended release folic acid 1 mg tablet 1 mg PO DAILY 07/28/23 02/08/24 Unknown History mirabegron 25 mg tablet,extended 25 mg PO DAILY 07/28/23 02/08/24 Unknown History release 24 hr (Myrbetriq) coenzyme Q10 200 mg capsule (Co 200 mg PO DAILY 01/30/24 02/15/24 02/12/24 History Q-10) stpxrjpcheyk-plcyyciw-jnptol tablet 1 tablet PO DAILY 01/30/24 02/15/24 02/12/24 History vitamins A,C,M-jlai-zzluxd 2,148 1 tablet PO HS 01/30/24 02/15/24 02/12/24 History mcg-113 mg-45 mg-17.4 mg tablet (PreserVision AREDS) Allergies Allergy/AdvReac Type Severity Reaction Status Date / Time No Known Allergies Allergy Unknown Verified 06/18/24 11:09 Review of Systems Review of Systems: All systems reviewed & are unremarkable except as noted in HPI and below Constitutional: Constitutional: Reports no additional constitutional complaints, Reports fever(s) and Reports lethargy ENT: Reports system reviewed and no additional complaints, except as documented, Reports nasal congestion, Reports nasal discharge and Reports sore throat Cardiovascular: Cardiovascular: Reports no additional cardiovascular complaints Respiratory: Respiratory: Reports no additional respiratory complaints and Reports cough Gastrointestinal: Gastrointestinal: Reports no additional gastrointestinal complaints [facility] Past Medical History Medical History COVID-19 Vasomotor rhinitis BPH (benign prostatic hyperplasia) UTI (urinary tract infection) Hypertension Bladder retention Hip dislocation, left Occult blood in stools Acute on chronic anemia Screening for prostate cancer Hypothyroidism CKD (chronic kidney disease) CVA (cerebral vascular accident) Surgical History Surgical History S/P rotator cuff repair Bilateral History of incision and drainage Abscess to thigh H/O colonoscopy H/O heart artery stent X2 H/O hernia repair S/P tonsillectomy and adenoidectomy Status post right hip replacement Status post left hip replacement Family History Family History Father , JACKLYN WW 2 , Onset Age: 34 JACKLYN WW1 Mother , Failure to thrive Arthritis Other Diabetes mellitus Hypertension Social History Social History Social History: The patient resides by himself. 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 The patient has 2 children. His is the durable power litigation attorney for healthcare. Code status full code Smoking packs per day: 0.75 Smoking cigarettes per day: 15.0 Years smoked: 18 Smoking pack-years: 13.50 Smoking status: Former smoker Tobacco type: cigarettes Second hand tobacco smoke exposure: No Smoking end date: 02/08/84 Alcohol intake: current Substance use: never Substance use type: does not use Do You Feel Safe in your Home?: Yes Lack of Transportation: No Lack of Food: Never True Current Housing: I Have Housing Concerned About Future Housing: No Difficulty Paying Gas/Electric Bills: No Difficulty Paying for Meds: No Currently Unemployed: YES Education: High School Diploma/GED Difficulty w/ Childcare or Family Care: No Living arrangements: with family Occupation/Education: retired Additional occupation/education comments: [employer] Gender identity (if verbalized by the patient): Male Spiritual care concerns: No Comments At the time of my signature, I reviewed and agree with the nursing past medical, surgical, social, and family history. There is no relevant family history pertinent to the patient complaint. Exam Const: General: cooperative, no acute distress, alert and awake Orientation/consciousness: oriented to person, oriented to place and oriented to time HENMT: Head: normal to inspection Mouth: Yes moist mucous membranes Resp: Effort & Inspection: normal respiratory effort and able to speak in complete sentences Auscultation: clear to auscultation bilaterally, no crackles, no rales, no rhonchi, no wheezes and diminished lung sounds on the left in the lower lung jaramillo Cardio: Palpation: normal PMI Rate: regular rate Rhythm: regular rhythm Heart sounds: S1 normal heart sound present and S2 normal heart sound present Neuro: General: oriented to person, oriented to place and oriented to time Cranial nerves: Yes CN's II-XII intact bilaterally Psych: Appearance: grossly normal Thought process: Normal thought process present Insight: Good insight present (Psych) Judgement: Good judgement present (Psych) Course Course Level of Care: Express Care Visit Vital Signs Vital signs: Vital Signs Temperature 98.3 F 06/18/24 11:01 Pulse Rate 105 H 06/18/24 11:01 Respiratory Rate 18 06/18/24 11:01 Blood Pressure 148/62 H 06/18/24 11:01 Pulse Oximetry 99 06/18/24 11:01 Oxygen Delivery Room Air 06/18/24 11:01 Temperature 98.3 F 06/18/24 11:01 Pulse Rate 105 H 06/18/24 11:01 Respiratory Rate 18 06/18/24 11:01 Blood Pressure 148/62 H 06/18/24 11:01 Pulse Oximetry 99 06/18/24 11:01 Oxygen Delivery Room Air 06/18/24 11:01 Reviewed MDM - URI/Sore Throat MDM Narrative Medical decision making narrative: patient nontoxic appearing, no distress. Negative COVID, negative flu, negative strep. Culture pending. Chest x-ray without acute findings. Will treat symptomatically. Strict emergency department precautions discussed with the patient. Discharge instructions reviewed with patient, as well as provided in writing per nursing staff. The instructions also include specific and strict return/GO TO THE ER as well as f/u information. All questions have been answered, and the patient deny any further questions with discharge and discharge plan. Some parts of this dictation were generated by voice recognition software and may contain typographical and/or grammatical inaccuracies. Differential Diagnosis Differential diagnosis: Likely upper respiratory infection, otitis media, viral infection, bronchitis, influenza and pharyngitis Medical Records Attestation: I reviewed the patient's medical records. Lab Data Attestation: I reviewed the patient's lab results. Imaging Data Attestation: I personally reviewed and interpreted this imaging study as follows: Radiologist's impression: [address] [address] XRay Report Signed Patient: Adama Villafuerte : 1935 MR#: [id number] Age: 89 Acct:[id number] Loc: [facility] ADM Date: 06/18/24Attending Dr: Ordering Physician: Zuelika Cordova FNP Date of Service: 06/18/24 Procedure(s): XR chest 2V Accession Number(s): [id number] cc: Zuleika Cordova FNP; Clemente Sommer MD~ EXAMINATION: XR chest 2V DATE: 06/18/2024 11:52 INDICATION: Cough TECHNIQUE: frontal and lateral views of the chest were obtained. COMPARISON: Chest radiograph dated 01/30/2024 FINDINGS: Slight left lower lobe nodule projecting over the left hemidiaphragm consistent with old granulomatous disease. The lungs remain otherwise clear with no new airspace opacities, pulmonary edema, pleural effusion or pneumothorax. Size is normal. Prior coronary artery stenting. Mild to moderate thoracic spondylosis with bridging osteophytes at multiple levels consistent with diffuse idiopathic skeletal hyperostosis (DISH). Narrowing at the left subacromial space consistent with likely left rotator cuff tear. IMPRESSION: 1. No acute cardiopulmonary disease. Reviewed, dictated and finalized at location B. DULING AGENT Please be advised this is a medical document. It is intended for supv-ji-ohtq communication. It is written in medical language and may contain unfamiliar abbreviations or verbiage. Medical documents are intended to carry relevant information, facts as evident, and the clinical opinion of the practitioner at the time of the encounter. This report may have been done utilizing a voice recognition system. Attempts have been made to correct errors. However, there may be uncorrected grammatical, spelling, and recognition errors present. The file time of this note does not necessarily represent the time of service. Dictated By: Lenard Barlow MD 06/18/24 1153 Signed By: <Electronically signed by Lenard Barlow MD in OV> 06/18/24 1156 Discharge Plan Discharge Clinical Impression: Upper respiratory infection Qualifiers: URI type: unspecified viral URI Qualified Code(s): J06.9 - Acute upper respiratory infection, unspecified Patient Disposition: Home, Self-Care Condition: Stable Instructions: Antibiotic Form, Viral Syndrome (ED) Additional Instructions: take medications as prescribed. Follow with primary care provider. Emergency department for new or worse symptoms Patient Language: [place] Citizen Prescriptions: New albuterol sulfate [Ventolin HFA] 90 mcg/actuation HFA aerosol inhaler 2 puff inhalation QID PRN (Reason: shortness of breath or wheezing) Qty: 8.5 0RF benzonatate 200 mg capsule 200 mg PO TID PRN (Reason: cough) Qty: 30 0RF No Action PreserVision AREDS 2,148 mcg-113 mg-45 mg-17.4mg Tablet 1 tablet PO HS Rx Instructions: administer with AM and PM meals hyktlvaqtbya-lvreuwiq-kmuwiz Tablet 1 tablet PO DAILY coenzyme Q10 [Co Q-10] 200 mg Capsule 200 mg PO DAILY aspirin [Adult Low Dose Aspirin] 81 mg tablet,delayed release (DR/EC) 81 mg PO DAILY atorvastatin 80 mg tablet 40 mg PO DAILY Patient Comments: Manged by Kerwin Myrbetriq 25 mg tablet extended release 24 hr 25 mg PO DAILY clopidogrel 75 mg tablet 75 mg PO DAILY ferrous sulfate, dried 160 mg (50 mg iron) tablet extended release 160 mg PO DAILY folic acid 1 mg tablet 1 mg PO DAILY cyanocobalamin (vitamin B-12) [Vitamin B-12] 250 mcg tablet 250 mcg PO DAILY ascorbic acid (vitamin C) 500 mg capsule 500 mg PO DIRECTED Rx Instructions: Daily cholecalciferol (vitamin D3) 50 mcg (2,000 unit) capsule 50 mcg PO DAILY metoprolol tartrate 25 mg tablet 12.5 mg PO BID Qty: 90 0RF finasteride [Proscar] 5 mg Tablet 5 mg PO QAM Qty: 30 0RF levothyroxine [Synthroid] 75 mcg tablet 75 mcg PO DAILY@0630 Qty: 90 0RF tamsulosin [Flomax] 0.4 mg capsule 0.4 mg PO DAILY Qty: 90 1RF Follow-up/Referrals: Clemente Sommer MD [Primary Care Provider] -
--- OUTSIDE RECORDS SUMMARY | 2024-06-18 11:54 | XMS_ITS | Encounter Summary ---
Author Organization [facility] Address [address] [place] [id number] Care Team Providers Care Systems Applications Programming Lead Name Role Phone Clemente Sommer MD Primary Care Provider + [phone] Unknown, Notinfile Primary Care Provider Unavail able Clemente Sommer MD Primary Care Provider + [phone] Encounter Details Date Type Department Care Team (Late st Contact Info) Description 09/30/2016 Orders Only [facility] ProviderHusam MD [address] [place] [id number] Social History Tobacco Use Types Packs/Day Years Used Date Smoking Tobacco: Former Alcohol Use Standard Drinks/Week Comments Yes 0 (1 standard drink = 0.6 oz pur e alcohol) Sex and Gender Information Value Date Recorded Sex Assigned at Not on file Legal Sex Male 3:46 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 Historical Provider [facility] Final Result documented in this encounter Visit Diagnoses Not on filedocumented in this encounter Care Teams Systems Applications Programming Lead Relationship Specialty Start Date End Date Clemente Sommer MD PCP - General 08/20/16 03/18/19 Unknown, Notinfile PCP - General 03/19/19 04/12/19 Clemente Sommer MD PCP - General Family Medicine 04/13/19 documented as of this encounter
--- OUTSIDE RECORDS SUMMARY | 2024-06-18 11:54 | XMS_ITS | Clinical Summary ---
Author Organization [facility] [place] [address] Address [address] [place] [address] Care Team Providers Care Supervisor [employer] Name Role Phone Clemente Sommer MD Primary Care Provider + [phone] Allergies No known active allergies Medications tamsulosin (FLOMAX) 0.4 mg extended release capsule Take 1 capsule (0.4 mg total) by mouth 2 (two) times a day 0 Active levothyroxine (SYNTHROID) 75 mcg tablet Take 1 tablet (75 mcg total) by mouth plate mill mill hand before breakfast Active ferrous sulfate 325 mg (65 mg of elemental iron) tablet Take 162.2 mg by mouth every morning 3 Active aspirin 81 mg enteric coated tabletIndicatio ns:Deep Vein Thrombosis Prevention Take 1 tablet (81 mg total) by mouth 2 (two) times a day 60 tablet 3 Active finasteride (PROSCAR) 5 mg tablet Take 1 tablet (5 mg total) by mouth daily 3 Active atorvastatin (LIPITOR) 80 mg tablet Take 1 tablet by mouth once daily 90 tablet 2 4 Active Myrbetriq 25 mg tablet extended release 24 hr Take 1 tablet (25 mg total) by mouth daily 4 Active cyanocobalamin (Vitamin B-12) 250 mcg tablet Take 1 tablet (250 mcg total) by mouth daily Active vit A/vit C/vit E/zinc/copper (PRESERVISION AREDS ORAL) Take by mouth Acti ve mv-min/folic/K1 /lycopen/lutein (CENTRUM SILVER ULTRA MEN'S ORAL) Take by mouth Active coenzyme Q10 200 mg capsule Take 1 capsule (200 mg total) by mouth daily Active cholecalciferol (Vitamin D3) 2000 unit capsule 1 capsule (2,000 Units total) Active clopidogreL (PLAVIX) 75 mg tabletIndicatio ns: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 (HCC) Take 1 tablet by mouth once daily 90 tablet 4 Active metoprolol tartrate (LOPRESSOR) 25 mg immediate release tabletIndicatio ns:Coronary artery disease involving kenaitze coronary artery of kenaitze heart without angina pectoris Take 0.5 tablets (12.5 mg total) by mouth 2 (two) times a day 60 tablet 2 5 Active folic acid (FOLVITE) 1 mg tablet Take 1 tablet (1 mg total) by mouth daily 4 Active ascorbic acid (ascorbic acid with adam hips) 500 mg tablet,chewable Acti ve metoprolol tartrate (LOPRESSOR) 25 mg immediate release tabletIndicatio ns:Coronary artery disease involving kenaitze coronary artery of kenaitze heart without angina pectoris Take 0.5 tablets (12.5 mg total) by mouth 2 (two) times a day 3 05/30/19 25 Discontinu ed(Reorder ) ascorbic acid (ascorbic acid with adam hips) 500 mg tablet,chewable 05/31/19 25 Discontinu ed(Therapy completed) nitroglycerin (NITROSTAT) 0.4 mg SL tabletIndicatio ns:Coronary artery disease involving kenaitze coronary artery of kenaitze heart without angina pectoris Place 1 tablet (0.4 mg total) under the tongue every 5 (five) minutes as needed for chest pain 25 tablet 2 4 05/31/19 25 Discontinu ed(Therapy completed) Active Problems Problem Noted Date Diagnosed Date Vitreomacular adhesion of both eyes 06/05/2024 Sensorineural hearing loss, unilateral, right ear, with restricted hearing on the contralateral side 07/05/2023 Hearing loss 02/11/2023 Hypothyroidism 02/11/2023 Metabolic syndrome 02/11/2023 History of revision of total replacement of left hip joint 01/31/2023 Bilateral primary osteoarthr itis of first carpometacarpal joints 01/18/2023 Cerebral infarction 01/18/2023 Overview (01/18/2023): Jul 05, 2022 Entered By: JOSSE ONEILL Comment: rt cva mild in 2018 Difficulty in walking, not elsewhere classified 01/18/2023 Sensorineural hearing loss, bilateral 01/18/2023 Failure of left total hip arthroplasty Tear film insufficiency 12/20/2022 Calcium pyrophosphate deposition disease 022 PVC's (premature ventricular contractions) 03/20 Chronic anemia 05/06/2020 Other dietary vitamin B12 deficiency anemia 04/22 Chronic fatigue 02/15/2020 Sinus pause 06/07/2019 Diet-controlled diabetes mellitus ([facility]) 03/24 History of CVA (cerebrovascular accident) 2018 Corneal edema 07/28/2018 Pinguecula 02/14/2018 Blepharitis 09/14/2017 Dry eyes 09/14/2017 Preoperative cardiovascular examination 09/13/19 18 S/P coronary artery stent placement 11/02/2016 Coronary artery disease invo lving kenaitze coronary artery of kenaitze heart without angina pectoris 09/22/2016 Overview (10/15/2016): Coronary artery disease involving kenaitze coronary artery of kenaitze heart with other form of angina pectoris Dyspnea on exertion 09/22/2016 Overview (10/15/2016): LOPEZ (dyspnea on exertion) Meibomian gland dysfunction 06/11/2016 Rheumatoid arthritis of wrist ([facility]) 12/22/19 16 Arthritis 11/11/2015 Muscle pain 06/10/2015 Overview (08/27/2016): Myalgia Unstable angina pectoris ([facility]) 01/03/2015 Overview (08/27/2016): Unstable angina Chronic kidney disease, stage III (moderate) Overview (08/27/2016): CKD (chronic kidney disease) stage 3, GFR 30-59 ml/min History of tobacco use 01/03/2015 Overview (08/27/2016): History of tobacco abuse Abnormal cardiovascular stress test 01/03/2015 Overview (08/27/2016): Abnormal stress test Hypertension associated with diabetes 01/03/2015 Overview (08/27/2016): HTN (hypertension), benign Mixed diabetic hyperlipidemi a associated with type 2 diabetes mellitus ([facility]) 01/03/2015 Overview (08/27/2016): Dyslipidemia Nonexudative age-related macular degeneration Resolved Problems Problem Noted Date Diagnosed Date Resolved Date Dyslipidemia associated with type 2 diabetes mellitus ([facility]) 06/07/2019 03/20/2021 Chronic coronary artery disease 02/18/2015 04/02/2022 Overview (08/27/2016): CAD (coronary artery disease) Presence of stent in coronary artery 02/18/2015 04/02/2022 Overview (08/27/2016): S/P coronary artery stent placement Encounters Date Type Department Care Team Description 06/05/2024 10:30 AM GROUND SYSTEMS ENGINEER Office Visit [facility] Orthopaedic Surgery [address] [address] [place] [address] Malick Infante MD History of revision of total replacement of left hip joint (Primary Dx) 05/31/2024 11:30 AM GROUND SYSTEMS ENGINEER Office Visit [facility] Medical Group Cardiology [address] [place] [address] Stacie Coombs NP Coronary artery disease involving kenaitze coronary artery of kenaitze heart without angina pectoris (Primary Dx); Essential hypertension; Glucose intolerance (impaired glucose tolerance); PVC's (premature ventricular contractions); History of CVA (cerebrovascular accident) from Last 3 Months Immunizations Name Administration Dates Next Due H1N1 All Forms 05/13/2009 Influenza, Trivalent, High D ose, Split, Preservative Free, Intramuscular 04/13/2019 Influenza, Unspecified 04/14/2019,2016,03/14/2015,03/01,05/03/2013,03/23/2012,02/16/2011 ,03/11/2010,02/12/2009 Moderna SARS-CoV-2 Monovalen t Vaccination (12+ YRS) 04/02/2022,09/11/2021,03/19/2021,08/01,07/08/2020 Pneumococcal Conjugate PCV 13 07/02/2015 Pneumococcal, Unspecified 02/20/2005 Td, Unspecified 05/05/2009 Tdap 01/09/2019,04/22/2009 ZOSTER LIVE 09/02/2009 Surgical History Surgery Date Site/Laterality Comments HIP SURGERY 05/23/2017 - 05/22/2018 Right HIP SURGERY 11/02/2022 Left JOINT REPLACEMENT Tight 12/12/17Left 11/02/2322 left 01/21 06/14 VASECTOMY 08/29/64 ABDOMINAL SURGERY Left hernia 03/14/72. Right hernia Medical History Medical History Date Comments Hypertension Coronary artery disease Dyslipidemia Stroke (HCC) 02/2019 Diabetes mellitus (HCC) 02/2019 Diet con trolled Arthritis Unk Family History Medical History Relation Name Comments Other Father wwII; Arthritis Mother Winifered Hearing loss Mother Winifered Hypertension Mother Winifered Other Mother Winifered Unknown; Anesthesia problems Neg Hx Relation Name Status Comments Father Mother Winifered Social History Tobacco Use Types Packs/Day Years Used Date Smoking Tobacco: Former Cigarettes Q uit: 1983 Smokeless Tobacco: Never Chew Tobacco Cessation:Counseling Given: Not Answered Comments:No tobacco since November 1983 (40 yrs use) Alcohol Use Standard Drinks/Week Comments Yes 0 (1 standard drink = 0.6 oz pur e alcohol) OASIS D0700: Social Isolation Answer Da te Recorded Frequency of experiencing loneliness or isolatio n Never 03/30/2023 OASIS A1250: Transportation Answer Date Recorded Lack of Transportation (Medical) No 03/30/2023 Lack of Transportation (Non-Medical) No 03/30/2023 Patient Unable or Declines to Respond No 03/30/2023 OASIS B1300: Health Literacy Answer Yeison e Recorded Frequency of needing help to read materials from doctor or pharmacy Rarely 03/30/2023 PHQ-2 Answer Date Recorded PHQ-2 Score 0 03/19/2019 Personal Safety Answer Date Recorded Have you ever been in or are you currently in a harmful physical or emotional relationship or is someone making you feel afraid or unsafe? Denies 01/31/2023 Sex and Gender Information Value Date Recorded Sex Assigned at Not on file Legal Sex Male 3:46 AM GROUND SYSTEMS ENGINEER Gender Identity Male 03/07/2020 6:16 PM CDT Sexual Orientation Straight 03/07/2020 6: 16 PM CDT Obstetrics History Last Filed Vital Signs Vital Sign Reading Time Taken Comments Blood Pressure 116/60 05/31/2024 12:02 PM GROUND SYSTEMS ENGINEER Pulse 80 05/31/2024 12:02 PM GROUND SYSTEMS ENGINEER Temperature 36.6 ??C (97.9 ??F) 03/30/2023 11:[address] Respiratory Rate 18 03/30/2023 11:30 AM GROUND SYSTEMS ENGINEER Oxygen Saturation 97% 05/31/2024 12:02 PM GROUND SYSTEMS ENGINEER Inhaled Oxygen Concentration - - Weight 78.9 kg (174 lb) 05/31/2024 12:02 PM GROUND SYSTEMS ENGINEER Height 172.7 cm (5' 8 ) 05/31/2024 12:02 PM GROUND SYSTEMS ENGINEER Body Mass Index 26.46 05/31/2024 12:02 PM GROUND SYSTEMS ENGINEER Plan of Treatment Health Maintenance Due Date Last Done Comments Albumin Creatinine Ratio, Urine 1936 Dilated Eye Exam 1936 Foot Exam 1936 Hepatitis B Screening 1954 Well Visit 65+ 2001 Zoster Vaccine (2 of 3) 10/28/2009 09/02/2009 Pneumococcal vaccine 65+ (2 of 2 - PPSV23 or PCV20) 08/27/2015 07/02/2015, 02/20/2005 Depression Screening 03/19/2020 03/19/2019, 03/19/20 19 Hemoglobin A1C 07/22/2023 01/21/2023, 03/19/2019 Covid-19 Vaccine (2023-2 5 season) 2024 04/02/2022, 09/11/2021, 03/19/2021, Additional history exists Influenza Vaccine (#1) 2024 9, 04/13/2019, 02/23/2017, Additional history exists Lipid Panel 02/01/2024 01/31/2023, 03/23, 03/20/2021, Additional history exists eGFR 02/01/2024 01/31/2023, 09/0 05/2022, 11/14/2019, Additional history exists Fall Risk Assessment 02/02/2024 02/01/2023 DTaP/Tdap/Td Vaccine (4 - Td or Tdap) 01/09/2029 01/09/2019, 05/05/2009, 04/22/2009 Medical Devices Implanted Type Area Delivery Coordinator Device Identifier Shelf Expiration Date Model / Serial / Lot Cardiac Stents N/A: Heart [employer] Liner Acetabular Hip Vitamin E G7 [place] Vivacit E 36mm Polyethylene Size I [id number] - [id number] Implanted:Qty: 1 on 01/31/2023 by Malick Infante MD at [facility] Left: Hip [employer] 11/11/2026 [id number] / / [id number] [employer] G7 66mm Multihole Hip I Hemisphere Offset Shell Acetabular [id number] - [id number] Implanted:Qty: 1 on 01/31/2023 by Malick Infante MD at [facility] Left: Hip [employer] [id number] 08/30/2030 [id number] / / [id number] [employer] Trilogy 6.5mm 40mm Self Tap Hip Acetabular Cortical Screw Bone [id number] - [id number] Implanted:Qty: 1 on 01/31/2023 by Malick Infante MD at [facility] Left: Hip [employer] [id number] 09/22/2032 [id number] / / [id number] [employer] Trilogy 6.5mm 15mm Self Tap Screw Bone [id number] - [id number] Implanted:Qty: 1 on 01/31/2023 by Malick Infante MD at [facility] Left: Hip [employer] [id number] 09/22/2032 [id number] / / [id number] [employer] Trilogy 6.5mm 15mm Self Tap Screw Bone [id number] - [id number] Implanted:Qty: 1 on 01/31/2023 by Malick Infante MD at [facility] Left: Hip [employer] [id number] 09/22/2032 [id number] / / [id number] [employer] Trilogy 6.5mm 20mm Self Tap Screw Bone [id number] - [id number] Implanted:Qty: 1 on 01/31/2023 by Malick Infante MD at [facility] Left: Hip [employer] [id number] 10/01/2032 [id number] / / [id number] [employer] Trilogy 6.5mm 20mm Self Tap Screw Bone [id number] - [id number] Implanted:Qty: 1 on 01/31/2023 by Malick Infante MD at [facility] Left: Hip [employer] [id number] 03/04/2032 [id number] / / [id number] [employer] Trilogy 6.5mm 40mm Self Tap Hip Acetabular Cortical Screw Bone [id number] - [id number] Implanted:Qty: 1 on 01/31/2023 by Malick Infante MD at [facility] Left: Hip [employer] [id number] 09/22/2032 [id number] / / [id number] [employer] G7 [place] 36mm Type 1 Modular Hip +9mm Offset Head Femoral Cocr [id number] - [id number] Implanted:Qty: 1 on 01/31/2023 by Malick Infante MD at [facility] Left: Hip [employer] [id number] 03/18/2032218597 / / [id number] Procedures Procedure Name Priority Date/Time Associated Diagnosis Comments EGFR Timed 01/31/2023 9:06 PM CDT LIPID PANEL Timed 01/31/2023 9:06 PM CDT HEMOGLOBIN A1C Routine 01/21/2023 5:45 PM CDT Preoperative testing Type 2 diabetes mellitus without complication, without long-term current use of insulin (CMS/HCC) (HCC) from Last 3 Months or Most Recently Relevant to Health Maintenance Results * (ABNORMAL) eGFR (01/31/2023 9:06 PM CDT) eGFR 56(L) 90 - 130 mL/min/1. 73 m2 [facility] Comment: Interpretive Data Reference Interval Normal ?>/= 90 mL/min/1.73m2 Mildly decreased* ? 60 - 89 mL/min/1.73m2 Mildly to moderately decreased ?45 - 59 mL/min/1.73m2 Moderately to severely decreased ??30 - 44 mL/min/1.73m2 Severely decreased ?15 - 29 mL/min/1.73m2 Kidney Failure ?< 15 ??mL/min/1.73m2 *Relative to young adult level Estimated glomerular filtration rate is determined by the 2020 CKD-EPI equation recommended by the National Kidney Foundation (A Unifying Approach to GFR Estimation: Recommendations of the NKF-ASK Task Force on Reassessing the Inclusion of Race in Diagnosing Kidney Disease, JASN 2020). The CKD-EPI equation should not be used for patients with unstable renal function and has not been validated in children and those over 70. Current interpretive data was last reviewed 2021. Blood 01/31/2023 9:06 PM CDT 01/31/2023 10:07 PM CDT us Malick Infante MD LAB BLOOD ORDERABLES Final Result [facility] [place] [address] * (ABNORMAL) Lipid panel (01/31/2023 9:06 PM CDT) Cholesterol 84 30 - 199 mg/dL [facility] HEALY Comment: Interpretive Data Ages < or = 19 years ??Acceptable: ? <170 mg/dL ??Borderline high: ??170-199 mg/dL ??High: ? >or= 200 mg/dL Ages > or = 20 years ??Desirable: ?<200 mg/dL ??Borderline high: ??200-239 mg/dL ??High: ? >or= 240 mg/dL Literature References: 1. Expert Panel on Integrated Guidelines for Cardiovascular Health and Risk Reduction in Children and Adolescents. Pediatrics 2011;128:S213 2. NCEP Expert Panel. Circulation 2004;110:227 Current Interpretive Data was last revised on 2018. Triglycerides 65 <=149 mg/dL [facility] Comment: Interpretive Data Ages < or = 9 years ??Acceptable: ? <75 mg/dL ??Borderline high: ??75-99 mg/dL ??High: ? >or= 100 mg/dL Ages 10 to 20 years ??Acceptable: ? <90 mg/dL ??Borderline high: ??90-129 mg/dL ??High: ? >or= 130 mg/dL Ages > or = 20 years ??Desirable: ?<150 mg/dL ??Borderline high: ??150-199 mg/dL ??High: ? 200-499 mg/dL ?Very high: ?? >or= 499 mg/dL Literature References: 1. Expert Panel on Integrated Guidelines for Cardiovascular Health and Risk Reduction in Children and Adolescents. Pediatrics 2011;128:S213 2. NCEP Expert Panel. Circulation 2004;110:227 Current Interpretive Data was last revised on 2018. HDL 28(L) >=40 mg/dL [facility] WIL[facility]LM Comment: Interpretive Data Ages < or = 19 years ??Acceptable: ? >45 mg/dL ??Borderline low: ?? 40-45 mg/dL ??Low: ? <40 mg/dL Ages > or = 20 years ??Desirable: ?>or= 60 mg/dL ??Low: ? <40 mg/dL Literature References: 1. Expert Panel on Integrated Guidelines for Cardiovascular Health and Risk Reduction in Children and Adolescents. Pediatrics 2011;128:S213 2. NCEP Expert Panel. Circulation 2004;110:227 Current Interpretive Data was last revised on 2018. LDL, calculated 43 <=129 mg/dL [facility] Comment: Interpretive Data Ages < or = 19 years ??Acceptable: ? <110 mg/dL ??Borderline high: ??110-129 mg/dL ??High: ?>or= 130 mg/dL Ages > or = 20 years ??Optimal: ? <100 mg/dL ??Near optimal: ?100-129 mg/dL ??Borderline high: ?? 130-159 mg/dL ??High: ?>160 mg/dL Literature References: 1. Expert Panel on Integrated Guidelines for Cardiovascular Health and Risk Reduction in Children and Adolescents. Pediatrics 2011;128:S213 2. NCEP Expert Panel. Circulation 2004;110:227 Current Interpretive Data was last revised on 2018. Non-HDL Cholesterol 56 mg/dL [facility] Comment: Interpretive Data Ages < or = 19 years ??Acceptable: ?<120 mg/dL ??Borderline high: ??120-144 mg/dL ??High: ?>145 mg/dL Ages > or = 20 years ??When triglycerides are >200 mg/dL, Non-HDL cholesterol is a secondary target of ? therapy with treatment goals that are 30 mg/dL greater than the LDL cholesterol target. ? Literature References: 1. Expert Panel on Integrated Guidelines for Cardiovascular Health and Risk Reduction in Children and Adolescents. Pediatrics 2011;128:S213 2. NCEP Expert Panel. Circulation 2004;110:227 Current Interpretive Data was last revised on 2018. Chol/HDL ratio 3 [facility] Blood 01/31/2023 9:06 PM CDT 01/31/2023 10:07 PM CDT us Malick Infante MD LAB BLOOD ORDERABLES Final Result Performing Organization Address City[facility] Co de Phone Number [facility] Department [place] [address] * (ABNORMAL) Hemoglobin A1c (01/21/2023 5:45 PM CDT) Hgb A1C 5.8(H) 4.0 - 5.6 % [facility] ARDON Estimated Average Glucose 120 mg/dL [facility] Comment: The ADA recommends reporting an estimated Average Glucose (eAG) with all Hemoglobin A1c results using the equation derived from a study of 507 normal and diabetic adults. ??Minority populations were underrepresented and children were not included. ?? (Diabetes Care 31:7502-9321, 2008). ??The eAG is not equivalent to a fasting glucose. The ADA recommends reporting an estimated Average Glucose (eAG) with all Hemoglobin A1c results using the equation derived from a study of 507 normal and diabetic adults. ??Minority populations were underrepresented and children were not included. ??(Diabetes Care 31:7684-5762, 2008). ??The eAG is not equivalent to a fasting glucose. Blood 01/21/2023 5:45 PM CDT 01/21/2023 5:57 PM CDT Bryce Tyler NP LAB BLOOD ORDERABLES Fin al Result Performing Organization Address City/[facility]/ZIP Co de Phone Number [facility] [address] [facility] Department [place] [address] from Last 3 Months or Most Recently Relevant to Health Maintenance Insurance MEDICARE [facility] MED[facility] Address: [place] [address] [facility] Address: [place] [address] MEDICARE [facility] Address: [place] [address] MEDICARE [facility] Address: [address] [address] Advance Directives For more information, please contact: [phone] * Full Code (Latest Code Status on File) Date Activated Date Inactivated Comments 01/31/2023 3:20 PM 02/01/2023 10:04 PM * Full Code Date Activated Date Inactivated Comments 03/19/2019 10:01 PM 03/21/2019 1:11 AM Care Teams Supervisor [employer] Relationship Specialty Start Date End Date Clemente Sommer MD PCP - General Family Medicine 04/13/19
--- OUTSIDE RECORDS SUMMARY | 2024-06-18 11:54 | XMS_ITS | Encounter Summary ---
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 This section includes the names of all active insurance providers for the patient. Insurance Provider Type of Coverage Plan Name Start of Policy Coverage End of Policy Coverage Group Number Member ID Insurance Provider's Telephone Number Policy Jeronimo's Name Patient's Relationship to Policy Jeronimo MEDICARE (WNR) MEDICARE (M) PART A Feb 20, 2001 PART A [id number] [phone] SATISH DUMONT PATIENT MEDICARE (WNR) MEDICARE (M) PART B Feb 20, 2001 PART B [id number] CHRIS DUMONTN PATIENT MEDICARE (WNR) MEDICARE (M) PART A Feb 20, 2001 PART A [id number] CHRIS DUMONTN PATIENT MEDICARE (WNR) MEDICARE (M) PART B Feb 20, 2001 PART B [id number] DUMONT, SATISH PATIENT Selected Encounter This section includes the information on record at [place] for the Encounter. Date/Time Encounter Type Encounter Description Reason Provider Source Aug 17, 2023 11:30 AM OFFICE O/P EST MOD 30 MIN PRIMARY CARE/MEDICINE ICD-10-CM I10 Essential (primary) hypertension JOSSE OENILL Priyanka Encounter Template Text not used by [place] Assessments - Encounter Diagnoses This section includes the primary and secondary diagnoses documented for the Encounter. Date/Time Primary/Secondary Diagnosis Diagnosis Name Provider Source Aug 17, 2023 11:30 AM PRIMARY Essential (primary) hypertension JOSSE ONEILL [facility] Aug 17, 2023 11:30 AM SECONDARY Cerebral infarction, unspecified [facility] Aug 17, 2023 11:30 AM SECONDARY Coronary atherosclerosis due to calcified coronary lesion [facility] Aug 17, 2023 11:30 AM SECONDARY Rheumatoid arthritis with rheumatoid factor, unspecified [facility] Aug 17, 2023 11:30 AM SECONDARY Type 2 diabetes mellitus without complications [facility] Plan of Treatment: Future Appointments (+ 6 months) and Future Tests (+/- 45 days) The Plan of Treatment section includes future care activities for the patient from all [place] treatmentfacilities. This section includes future appointments and future orders which are active, pending or scheduled. Future Appointments This section includes appointments that were scheduled to occur 6 months from the date of the Encounter, up to a maximum of 20 appointments. The data comes from all [place] treatment facilities. Appointment Date/Time Appointment Type Appointme nt Facility Name Sep 07, 2023 10:00 AM AMBULATORY - MEDICINE [facility] Vital Signs: All taken on the encounter date This section contains inpatient and outpatient Vital Signs collected on the date of the Encounter. Date/Time Temperature Pulse Blood Pressure Respiratory Rate SP02 Pain Height Weight Body Mass Index Source Aug 17, 2023 11:13 AM 112/69 [facility] Aug 17, 2023 10:58 AM 98.2 81 150/80 18 [address] [facility] Social History: Smoking Status (Most current) and Tobacco Use (All prior to encounter date) This section includes the most current, and the historical, smoking and tobacco- related health factors from the [place] facility where the Encounter took place. Current Smoking Status This section includes the most current smoking, or tobacco-related health factor, from the [place] facility where the Encounter took place. Date/Time Current Smoking Status Dacia lin Aug 17, 2023 11:30 AM VA-TOBACCO FORMER USER [facility] Tobacco Use History This section includes a history of the smoking, or tobacco-related health factors, that were collected on or before the date of the Encounter. The data comes from the [place] facility where the Encounter took place. Date/Time Smoking Status/Tobacco Use Comment F acility Aug 17, 2023 11:30 AM VA-TOBACCO QUIT 15 YRS OR MORE [facility] Jul 05, 2022 02:00 PM VA-TOBACCO NEVER USED [facility] Jun 05, 2020 02:30 PM VA-TOBACCO FORMER USER [facility] Jun 05, 2020 02:30 PM VA-TOBACCO QUIT 15 YRS OR MORE [facility] Dec 19, 2018 11:51 AM VA-TOBACCO FORMER USER [facility] Dec 19, 2018 11:51 AM VA-TOBACCO QUIT 15 YRS OR MORE [facility] Mar 01, 2017 09:59 AM QUIT TOBACCO >7 YEARS AGO [facility] Advance Directives: All historical and current Section Date Range: From patient's date of to the date document was created. This section includes ALL of a patient's completed or amended [place] Advance and Rescinded Directives. The entries below indicate that a directive exists for the patient, but an actual copy is not included with this document. The data comes from all [facility]. Date Advance Directives Provider Source Jan 15, 2016 ADVANCE DIRECTIVE DISCUSSION BILL TURK [facility] Encounter Notes: All associated encounter notes This section contains the clinical notes associated to the Encounter. Date/Time Encounter Note(s) Provider Source Aug 17, 2023 11:19 AM PRIMARY CARE NOTE: LOCAL TITLE: PRIMARY CARE PROVIDER ESTABLISHED VISIT [facility] STANDARD TITLE: PRIMARY CARE NOTE DATE OF NOTE: AUG 17, 2023@11:19 ENTRY DATE: AUG 17, 2023@11:19:11 AUTHOR: JOSSE ONEILL EXP COSIGNER: URGENCY: STATUS: COMPLETED PRIMARY CARE PROVIDER ESTABLISHED VISIT [facility] Has ADDENDA Patient is: ESTABLISHED Chief Complaint / Hx of present illness Outside providers: Review of Systems:see PHI Past Medical History: 1) Essential hypertension (SNOMED CT 21531837) 2) Hyperlipidemia 3) Hearing Loss, Bilateral 4) Hypothyroidism 5) Dysmetabolic Syndrome X (ICD-9-CM 277.7) 6) Type 2 diabetes mellitus 7) Coronary atherosclerosis 8) Rheumatoid arthritis 9) Cerebral infarction comment: rt cva mild in 2019 Director Of Strategic Initiatives History: NA G P post menopausal/LMP: Last PAP: History of abn PAP: HRT hx: History of familial breast/speech therapist cancer: Hx of hysterectomy: Past Surgical History: reviewed Family History: reviewed Outpatient Medications: Active Outpatient Medications (including Supplies): Active Non-VA Medications Status 1) Non-VA AMLODIPINE BESYLATE 2.5MG TAB 2.5MG BY MOUTH ACTIVE ONCE A DAY 2) Non-VA ASPIRIN 81MG EC TAB 81MG BY MOUTH ONCE A DAY ACTIVE 3) Non-VA ATORVASTATIN CALCIUM 80MG TAB 80MG BY MOUTH ACTIVE EVERY MORNING 4) Non-VA CLOPIDOGREL BISULFATE 75MG TAB 75MG BY MOUTH ACTIVE ONCE A DAY 5) Non-VA CYANOCOBALAMIN 1000MCG TAB 1000MCG BY MOUTH ACTIVE ONCE A DAY 6) Non-VA FINASTERIDE 5MG TAB 5MG BY MOUTH ONCE A DAY ACTIVE 7) Non-VA LEVOTHYROXINE NA (SYNTHROID) 75MCG TAB 75MCG ACTIVE BY MOUTH EVERY MORNING BEFORE A MEAL 8) Non-VA METOPROLOL TARTRATE 25MG TAB 37.5MG BY MOUTH ACTIVE TWICE A DAY 9) Non-VA MULTIVIT/OPHTH AREDS2/LUTE/ZEAX CAP/TAB 1 ACTIVE CAP/TAB BY MOUTH TWICE A DAY WITH MEAL(S) 10) Non-VA NITROGLYCERIN 0.4MG SL TAB 0.4MG UNDER THE ACTIVE TONGUE ONE-TIME NEEDED 11) Non-VA TAMSULOSIN HCL 0.4MG CAP 0.4MG BY MOUTH EVERY ACTIVE EVENING Allergies: Patient has answered NKA Objective: Physical Exam: VSD - Detailed Vitals Date Vital Measurement Qualifiers 08/17/2023 11:13 BP 112/69 08/17/2023 10:58 Temp F (C) 98.2 (36.8) Pulse 81 Respir 18 Ht in (cm) 70 (177.80) Wt lbs (kg)[BMI] 170.1 (77.16)[24] Pain 0 POx (L/Min)(%) 97 General: Alert and oriented. NAD. Head: Atraumatic. Normocephalic. Eyes: Conjunctiva clear. Nasal: Normal mucosa without discharge. Mouth/Throat: Oral mucosa is pink and moist. Neck: Supple. Cardiovascular: Regular rate and rhythm. No murmurs or extra heart sounds appreciated on auscultation. Respiratory: Breathing is nonlabored on room air. Lungs are clear to auscultation bilaterally. Abdomen: Abdomen is soft, nontender, and non-distended. Extremities: No edema. Neurologic: CN II-XII grossly intact. No focal deficits. LAST CBC/DIFF DONE WITHIN 8 WEEKS: No data available LAB CUMULATIVE SELECTED 2 Collection DT Spec CHOL TRIG CalcLDL HDL a 07/05/2022 13:40 PLASM 126 161 H 60 34 L b 09/23/2020 09:34 PLASM 157 131 83 48 COMMENTS: a. No hemolysis noted. b. No hemolysis noted. PSA PC STL No data available for: PROST. SPECIFIC AG.(PB-STL) No data available for: CREATININE UREA NITROGEN GLUCOSE SODIUM POTASSIUM CHLORIDE CARBON DIOXIDE CALCIUM PROTEIN ALBUMIN TOTAL BILIRUBIN ALKALINE PHOSPHATASE AST/SGOT ALT/SGPT EGFR (CKD-EPI 2020) No data available No data available for: COLONOSCOPY CONSULT REPORT STL SLT - Lab Tests Selected Collection DT Specimen Test Name Result Units Ref Range 07/05/2022 13:40 BLOOD HGA1C 6.2 H % 4.0 - 6.0 09/23/2020 09:34 BLOOD HGA1C 6.3 H % 4.0 - 6.0 07/02/2015 13:52 BLOOD HGA1C 5.8 % 4.0 - 6.0 Assessment/ plan: PT WITH CAD , HX OF lft CVA , HTN , HLD , HYPOTHYROIDISM , RHEUMATOID ARTHRITIS, BPH , AMBER 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 I have explained that HIV testing is recommended for all adults, even if all risk factors are absent. Medication Reconciliation Opt STL: I have reviewed the patient's medication list (including active outpatient prescriptions dispensed from this [facility] (local) and dispensed from another [place] or [facility] facility (remote) as well as inpatient orders (local pending and active), local clinic medications, locally documented non-VA medications, and local prescriptions that have or been discontinued in the past 90 days.) with the patient and/or his/her care-cement rubber. Handwritten corrections, additions and/or deletions were made to the list, as appropriate. Corrected Outpatient Medication List was provided to the patient/caregiver. PAVE Foot Check: A complete foot check was completed at this encounter. VISUAL INSPECTION: Includes inspection for skin breaks, deformity, erythema, trauma, pallor on elevation, dependent rubor, nail deformities, extensive callus and pitting edema. Visual exam results: Normal Comment: nad PEDAL PULSES: Includes palpation of dorsalis and posterior tibial pulses and signs/symptoms of vascular compromise like pain, pallor, parasthesia or paralysis. Present (even if diminished) Comment: nad SENSORY CHECK: Includes 10 gram Monofilament (Pierson-Bindu) test of sensation. Intact (Greater than or equal to 80% of sites checked) Abnormal (Less than 80% of sites checked): Intact Comment: nad LOW-RISK: LOW RISK INFORMATION PROVIDED: 1. Advised patient not to walk barefoot. 2. Explained the importance of daily foot checks for changes. 3. Stressed the importance of daily foot hygiene, including bathing and complete drying. The patient verbalized understanding and was offered a detailed handout on diabetic foot care. /gilmar/ JOSSE ONEILL STAFF PHYSICIAN Signed: 08/17/2023 11:30 08/17/2023 ADDENDUM STATUS: COMPLETED CC ; fu on chr medicalconditions doing well / close fu with civilian pcp , psychologist private practice [facility] - bothers his quads - no acute issues /gilmar/ JOSSE ONEILL STAFF PHYSICIAN Signed: 08/17/2023 11:31 JOSSE ONEILL [facility] Aug 17, 2023 11:03 AM NURSING NOTE: LOCAL TITLE: V15 PACT FACE TO FACE NOTE STL STANDARD TITLE: NURSING NOTE DATE OF NOTE: AUG 17, 2023@11:03 ENTRY DATE: AUG 17, 2023@11:03:27 AUTHOR: ANUJA OTT EXP COSIGNER: URGENCY: STATUS: COMPLETED Provider Visit: Patient Identifiers : Full Name Date of Reason for visit: Established Follow-Up Mode of Arrival: Ambulatory Allergy Review: Patient has answered NKA Allergy list reviewed and remains current. Recent Vital Signs: Temperature: 98.2 F [36.8 C] (08/17/2023 10:58) Pulse: 81 (08/17/2023 10:58) Respiration: 18 (08/17/2023 10:58) B/P: 150/80 (08/17/2023 10:58) Pain: 0 (08/17/2023 10:58) Wt: 170.1 lb [77.16 kg] (08/17/2023 10:58) Ht: 70 in [177.8 cm] (08/17/2023 10:58) BMI: 24.5 POX: 97% (08/17/2023 10:58) Repeat BP 112/69 PERSONAL HEALTH INVENTORY Notes: No data available for PHI note titles PERSONAL HEALTH INVENTORY - MAP: 04/16/2019 Phis What Do You Live For to live past 89 and to take care of his What matters most to you in your life right now? - 's Response: Live past 89 years old Would you like to discuss any personal problem, family problem, alcohol use, drug use, or a mental or emotional illness? No [facility] ([facility]), please select appointment type: Face to face: Yes- Done Contact provided Primary Care phone number and encouraged to call if any questions or concerns. Review that after hours nurse line [phone] and emergency room are available 13/12 for patient use. Contact verbalized good understanding. Suicide Screen: C-SSRS Screening [place]-Suicide Severity Rating Scale (C-SSRS Screener) 1. Over the past month, have you wished you were or wished you could go to sleep and not wake up? No 2. Over the past month, have you had any actual thoughts of killing yourself? No 3. Over the past month, have you been thinking about how you might do this? Response not required due to responses to other questions. 4. Over the past month, have you had these thoughts and had some intention of acting on them? Response not required due to responses to other questions. 5. Over the past month, have you started to work out or worked out the details of how to kill yourself? Response not required due to responses to other questions. 6. If yes, at any time in the past month did you intend to carry out this plan? Response not required due to responses to other questions. 7. In your lifetime, have you ever done anything, started to do anything, or prepared to do anything to end your life (for example, collected pills, obtained a gun, gave away valuables, went to the roof but didn't jump)? No 8. If YES, was this within the past 3 months? Response not required due to responses to other questions. Alcohol Use Screen (AUDIT-C): Alcohol Screen: SCREEN FOR ALCOHOL (AUDIT-C) An alcohol screening test (AUDIT-C) was negative (score=1). 1. How often did you have a drink containing alcohol in the past year? Consider a drink to be a 12 ounce can or bottle of regular beer, 8 ounces of malt liquor, a 5 ounce glass of table wine, or a 1.5 ounce shot of liquor (like scotch, gin, or vodka). Monthly or less 2. How many drinks containing alcohol did you have on a typical day when you were drinking in the past year? One or two drinks 3. How often did you have six or more drinks on one occasion in the past year? Never Frail/Elderly Screen: ADL Screen - Frias Index of [place] in Activities of Daily Living Bathing: (3 Points) Receives no assistance (gets in and out of tub by self, if tub is usual means of bathing) Dressing: (3 Points) Gets clothes and gets completely dressed without assistance. Toileting: (3 Points) Goes to toilet room , cleans self, and arranges clothes without assistance (may use object for support such as cane, walker, or wheelchair, and may manage own night bedpan or commode, emptying same next morning) Transferring: (3 Points) Moves in and out of bed and in and out of chair without assistance (may be using object for support, such as cane or walker) Continence: (3 Points) Controls urination and bowel movement completely by self Feeding: (3 Points) Feeds self without assistance Total Score: 18 Points 18 = High (patient independent) 6 = Low (patient very dependent) IADL Screen - Richie Instrumental Activities of Daily Living Scale Ability to use telephone: (1 point) Operates Telephone on own initiative; looks up and dials numbers. Shopping: (1 point) Takes care of all shopping needs independently. Food preparation: (1 point) Plans, prepares, and serves adequate meals independently. Housekeeping: (1 point) Performs light daily tasks such as dishwashing, bed making. Laundry: (1 point) Does personal laundry completely. Mode of transportation: (1 point) Travels independently on public transportation or drives own car. Responsibility for own medications: (1 point) Is responsible for taking medications in correct dosages at correct times. Ability to handle finances: (1 point) Manages financial matters independently (budgets, writes checks, pays rent and bills, goes to bank); collects and keeps track of income. Total score: 8 points 8 = High function, independent 0 = Low function, dependent Falls Screen: No falls within the past 12 months. Incontinence Screen: No incontinence. Homelessness/Food Insecurity Screen: In the past 2 months, have you been living in stable housing that you own, rent, or stay in as part of a household? Yes - Living in stable housing. Are you worried or concerned that in the next 2 months you may NOT have stable housing that you own, rent, or stay in as part of a household? No - Not worried about housing near future [facility] [place] reports the following: Within the past 12 months, you worried whether your food would run out before you got money to buy more. Never true Within the past 12 months, the food you bought just didn't last and you didn't have money to get more. Never true Tobacco Use Screening: The patient is a former tobacco user. The patient quit fifteen or more years ago. Depression Screening: Perform PHQ-2 A PHQ-2 screen was performed. The score was 0 which is a negative screen for depression. Over the past two weeks, how often have you been bothered by the following problems? 1. Little interest or pleasure in doing things Not at all 2. Feeling down, depressed, or hopeless Not at all /gilmar/ ANUJA OTT LPN LICENSED PRACTICAL NURSE Signed: 08/17/2023 11:13 ANUJA OTT [facility]
--- OUTSIDE RECORDS SUMMARY | 2024-06-18 11:54 | XMS_ITS | Patient Health Summary ---
Author Organization [facility] Address [address] [place] [address] Care Team Providers Care Storm Chaser Name Role Phone Clemente Sommer MD Primary Care Provider [phone] Note from [facility],non-owned Affiliates and Associated Physician Practices is amultiple site organization consisting of ambulatory clinics and hospital sitesin [place], [place], [place] and [place]. This disclosure is being madepursuant to the Care Everywhere program and may not contain all information available regarding this patient. Last updated 18.[facility] [employer] Allergies No known active allergies Immunizations * INFLUENZA VACCINE, HIGH-DOSE, QUADR. (FLUZONE HIGH-DOSE QUADRIVALENT; 65Y+), 0.7 ML (HD-IIV4)(Given 02/21/2018, 02/23/2017) Social History Tobacco Use Types Packs/Day Years Used Date Smoking Tobacco: Never Assessed Sex and Gender Information Value Date Recorded Sex Assigned at Not on file Gender Identity Not on file Sexual Orientation Not on file Procedures * DERMATOPATHOLOGY(Performed 12/16/2011) Results * PATHOLOGY TISSUE FOR DERMATOLOGY (12/16/2011 12:00 AM CDT) Result CASE: [id number] PATIENT: ADAMA TAI PATHOLOGIC DIAGNOSIS: Right leg: EPIDERMAL NECROSIS with focal ulceration SUPERFICIAL AND DEEP PERIVASCULAR LYMPHOCYTIC INFILTRATE WITH EOSINOPHILS (see microscopic description and comment) CLINICAL DATA: Changing enlarging suspicious. GROSS DESCRIPTION: Received is one formalin filled container labeled with the patient's name and designated right leg. The specimen consists of a [id number] piece of skin. The margin is inked green. The specimen is bisected lengthwise and submitted in 1 cassette. Jar 0. MICROSCOPIC DESCRIPTION: The epidermis is focally necrotic and covered with a scale-crust. A focal ulcer is seen. There is fibrin at the base. Within the underlying dermis there is a superficial and deep, wedge-shaped, perivascular and interstitial infiltrate of lymphocytes with eosinophils. COMMENT: These histological findings are consistent with an arthropod bite reaction. Clinicopathological correlation is recommended. Final Diagnosis performed by Lizett [place] M.D. Electronically signed 12/17/2011 1:01:25PM [facility] Comment: Performed at: Dermatopathology Laboratory [facility] Department of Dermatology [address] [place] [address], Room [address] [place] [address] Phone number: [phone] Toll Free: [phone] FAX: [phone] 12/16/2011 12/16/2011 Clemente Sommer MD LAB - PATHOLOGY/CYTO LOGY ORDERABLES [facility] [address] [place] [address]. 5[address] Floor Lab [address] [phone] Care Teams Storm Chaser Relationship Specialty Start Date End Date Clemente Sommer MD [address] [place] [address] PCP - General Family Medicine 02/23/17
--- OUTSIDE RECORDS SUMMARY | 2024-06-18 11:54 | XMS_ITS | Encounter Summary ---
Author Name [facility] Organization [facility] Address [address] [place] [address] Care Team Providers Care Fountain Operator Name Role Phone JOSSE ONEILL Primary [...] PART A Feb 20, 2001 PART A [id number] [phone] CHRIS DUMONTN PATIENT MEDICARE (WNR) MEDICARE (M) PART B Feb 20, 2001 PART B [id number] DUMONTCHRISN PATIENT MEDICARE (WNR) MEDICARE (M) PART A Feb 20, 2001 PART A [id number] DUMONTCHRISN PATIENT MEDICARE (WNR) MEDICARE (M) PART B Feb 20, 2001 PART B [id number] SATISH DUMONT PATIENT Selected Encounter This section includes the information on record at [place] for the Encounter. Date/Time Encounter Type Encounter Description Reason Provider Source Apr 23, 2024 02:34 PM HEARING AID REPAIR/MODIFYIN G AUDIOLOGY ICD-10-CM H90.3 Sensorineural hearing loss, bilateral MARIAJOSE GARCIA Priyanka Encounter Template Text not used by [place] Assessments - Encounter Diagnoses This section includes the primary and secondary diagnoses documented for the Encounter. Date/Time Primary/Secondary Diagnosis Diagnosis Name Provider Source Apr 23, 2024 03:58 PM PRIMARY Sensorineural hearing loss, bilateral ROBLES TREJO [facility] Plan of Treatment: Future Appointments (+ 6 months) and Future Tests (+/- 45 days) The Plan of Treatment section includes future care activities for the patient [facility] [place] [facility] This section includes future appointments and future orders which are active, pending or scheduled. Future Appointments This section includes appointments that were scheduled to occur 6 months from the date of the Encounter, up to a maximum of 20 appointments. The data comes from all [place] treatment facilities. Appointment Date/Time Appointment Type Appointme nt Facility Name Aug 16, 2024 10:00 AM AMBULATORY - MEDICINE [facility] Social History: Smoking Status (Most current) and Tobacco Use (All prior to encounter date) This section includes the most current, and the historical, smoking and tobacco- related health factors from the [place] facility where the Encounter took place. Current Smoking Status This section includes the most current smoking, or tobacco-related health factor, from the [place] facility where the Encounter took place. Date/Time Current Smoking Status Comment Esha lin Jul 02, 2015 12:51 PM QUIT TOBACCO >7 YEARS AGO [facility] Tobacco Use History This section includes a history of the smoking, or tobacco-related health factors, that were collected on or before the date of the Encounter. The data comes from the [place] facility where the Encounter took place. Date/Time Smoking Status/Tobacco Use Comment Roxann yoo Mar 14, 2014 10:11 AM QUIT TOBACCO >7 YEARS AGO [facility] Advance Directives: All historical and current Section Date Range: From patient's date of to the date document was created. This section includes ALL of a patient's completed or amended [place] Advance and Rescinded Directives. The entries below indicate that a directive exists for the patient, but an actual copy is not included with this document. The data comes from all [place] facilities. Date Advance Directives Provider Source Jan 15, 2016 ADVANCE DIRECTIVE DISCUSSION [facility]ILL [facility] Encounter Notes: All associated encounter notes This section contains the clinical notes associated to the Encounter. Date/Time Encounter Note(s) Provider Source Apr 23, 2024 02:34 PM AUDIOLOGY MEDICAL HEALTH RESEARCHER NOTE: LOCAL TITLE: HEARING AIDS STL STANDARD TITLE: AUDIOLOGY MEDICAL HEALTH RESEARCHER NOTE DATE OF NOTE: APR 23, 2024@14:34 ENTRY DATE: APR 23, 2024@14:34:21 AUTHOR: ROBLES TREJO COSIGNER: MARIAJOSE GARCIA URGENCY: STATUS: COMPLETED SUBJECT: audio HEARING AIDS STL Has ADDENDA HEARING AID CHECK: [facility] mailed the following [place] issued aid(s): 07/04/23 SONOVA PHONAK VIRTO P90 CA R [id number] 07/04/23 SONOVA PHONAK VIRTO P90 CA L [id number] PHONE: REPORTED PROBLEM: No note attached. Left shell is cracked open. REPAIR ACTIONS: Did not do anything to left aid. General cleaning for right aid, including wax trap replacement. Right aid chimes when turning on, but does not amplify sound. Sending in both aids for repair. They are under warranty until 06/15/26. PLAN Called [facility]. Did not pickling solution maker and automatic voicemail said call could not be completed [x] Both aids sent in for repair; hearing aid will be mailed to [facility] following repair direct from [facility]; ETA approximately 2-3 weeks. Address: [address] [place] [address] [place] [address] has context menu /lorenza TREJO Catia Designer, HPT Signed: 04/23/2024 15:59 /gilmar/ Farideh ORTIZ Staff Dinkey Skinner, Surgery Service Cosigned: 04/24/2024 07:45 04/24/2024 ADDENDUM STATUS: COMPLETED The information above has been reviewed by this provider. I am in agreement with the action plan as outlined. /gilmar/ Farideh ORTIZ Staff Dinkey Skinner, Surgery Service Signed: 04/24/2024 07:45 04/26/2024 ADDENDUM STATUS: COMPLETED Pt called for status update of hearing aids. Returned call to pt to advise aids were sent for repair on Apr 23. ETA is 2-3 wks. Able to reach pt on cell phone: Verified address while on phone: [facility] [place] [address] /gilmar/ Farideh ORTIZ Staff Dinkey Skinner, Surgery Service Signed: 04/26/2024 10:27 05/14/2024 ADDENDUM STATUS: COMPLETED Pt called and his aids will no longer pair for BT following repair. Called pt to provide [employer] BT hotline: [phone]. If the BT hotline is unable to tell him how to restore BT, he will possibly need to have e2e wireless restored in office which requires Asst 1 appt. Cell phone did not allow messages. Attempted home phone and no answer, no machine. /es/ Farideh ORTIZ Staff Dinkey Skinner, Surgery Service Signed: 05/14/2024 10:00 [facility]
--- OUTSIDE RECORDS SUMMARY | 2024-06-18 11:54 | XMS_ITS | Continuity of Care Document ---
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 It does not include entries that were removed or entered in error. 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 22 Condition [facility] Cerebral infarction Active Condition Jul 05, 2022 Entered By: FRANKLIN ONEILL I Comment: rt cva mild in 2018 [facility] Coronary atherosclerosis Active Condition [facility] Dysmetabolic Syndrome X (ICD-9-CM 277.7) Active Condition [facility] Essential hypertension (SNOMED CT 07345936) Active Condition [facility] Hearing Loss, Bilateral Active Condition [facility] Hyperlipidemia Active Condition [facility] Hypothyroidism Active Condition [facility] Rheumatoid arthritis Active Condition [facility] Type 2 diabetes mellitus Active Condition [facility] Colonoscopy Inactive Condition 03/01/2017 May 05, 2009 Entered By: John ALEXANDRE Comment: to be repeated 2008 [facility] Impaired FASTING Glucose (ICD-9-CM 790.21) Inactive Condition 03/01/2017 [facility] Diagnosis: ICD-10-CM H90.3 Sensorineural hearing loss, bilateral Active Diagnosis [facility] Diagnosis: ICD-10-CM M05.9 Rheumatoid arthritis with rheumatoid factor, unspecified Active Diagnosis [facility] Diagnosis: ICD-10-CM Z13.5 Encounter for screening for eye and ear disorders Active Diagnosis [facility] Diagnosis: ICD-10-CM I10 Essential (primary) hypertension Active Diagnosis [facility] Diagnosis: ICD-10-CM H90.A32 Mix cndct/snrl hear loss,uni,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 Medication Details Route Status Patient Instructions Prescription Expires Prescription Number Last Dispense Date Ordering Provider Order Date Order Qty Source AMLODIPINE BESYLATE 2.5MG TAB TAKE ONE TABLET BY MOUTH ONCE A DAY ORAL ACTIVE TITI MARTEL 2020 [facility] ASPIRIN 81MG TAB,EC TAKE ONE TABLET BY MOUTH ONCE A DAY ORAL ACTIVE MELITON ALEXANDRE 2008 [facility] ATORVASTATI N CA 80MG TAB TAKE ONE TABLET BY MOUTH EVERY MORNING ORAL ACTIVE TITI MARTEL 2020 [facility] CLOPIDOGREL BISULFATE 75MG TAB TAKE ONE TABLET BY MOUTH ONCE A DAY ORAL ACTIVE YOHANA DURAN 2015 [facility] CYANOCOBALA MIN 1000MCG TAB TAKE ONE TABLET BY MOUTH ONCE A DAY ORAL ACTIVE TITI MARTEL 2020 [facility] FINASTERIDE 5MG TAB TAKE ONE TABLET BY MOUTH ONCE A DAY ORAL ACTIVE INNONI I 2022 [facility] LEVOTHYROXI NE NA 75MCG TAB (SYNTHROID) TAKE ONE TABLET BY MOUTH EVERY MORNING BEFORE A MEAL ORAL ACTIVE NINO,NI I 2022 [facility] METOPROLOL TARTRATE 25MG TAB TAKE ONE-HALF TABLET BY MOUTH TWICE A DAY ORAL ACTIVE NINONI I 2023 [facility] MULTIVIT/OP HTH AREDS2/LUTE IN/ZEAXANTH IN CAP/TAB TAKE 1 CAP/TAB BY MOUTH BID WM ORAL ACTIVE Irena'TITI PANTOJA A 2020 [facility] NITROGLYCER IN 0.4MG TAB,SUBLING UAL DISSOLVE ONE TABLET UNDER THE TONGUE ONE-TIME NEEDED SUBLIN GUAL ACTIVE ROSAS GERONIMO 2016 [facility] TAMSULOSIN HCL 0.4MG CAP TAKE 1 CAPSULE BY MOUTH EVERY EVENING ORAL ACTIVE Irena'TITI PANTOJAA A 2020 [facility] Immunizations Combined list of available immunizations from the Department of Defense and Veterans 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 Immunization Series Date Given Administered By Site Reaction Lot Number CVX Code Drug Beam Press Operator Status Comments Source COVID-19 (MODERNA), MRNA, LNP-S, PF, 100 MCG/0.5ML DOSE OR 50 MCG/0.25ML DOSE 5 2021 207 complet ed Lot#: [id number] Mfr: MODERNA [employer] COVID-19 (MODERNA), MRNA, LNP-S, PF, 100 MCG/0.5ML DOSE OR 50 MCG/0.25ML DOSE 4 2021 207 complet ed Lot#: [id number] Mfr: Changel[employer]. [facility] COVID-19 (MODERNA), MRNA, LNP-S, PF, 100 MCG/0.5ML DOSE OR 50 MCG/0.25ML DOSE 3 2020 207 complet ed Mfr: [employer]. [facility] COVID-19 (MODERNA), MRNA, LNP-S, PF, 100 MCG/0.5 ML DOSE 2 2020 207 complet ed MOD; [id number]; 1 [facility] COVID-19 (MODERNA), MRNA, LNP-S, PF, 100 MCG/0.5 ML DOSE 1 2020 207 complet ed MOD; [id number]; 1 [facility] INFLUENZA, UNSPECIFIED FORMULATION 2018 88 complet ed [facility] INFLUENZA, HIGH DOSE SEASONAL 2018 135 complet ed Partner: [facility]. Administe red by: RONI FLEMING (EAP=[phone]). Partner 4 Lot#: [id number] Mfr: San[employer]i P[employer]; Dosage: 0.5 [facility] TDAP 2018 115 complet ed Right Deltoid [facility] INFLUENZA, UNSPECIFIED FORMULATION 2016 88 complet ed [facility] PNEUMOCOCCAL CONJUGATE PCV 13 2015 133 complet ed [facility] INFLUENZA, UNSPECIFIED FORMULATION 2014 88 complet ed [facility] INFLUENZA, UNSPECIFIED FORMULATION 2013 88 complet ed [facility] INFLUENZA, UNSPECIFIED FORMULATION 2012 88 complet ed [facility] INFLUENZA, UNSPECIFIED FORMULATION 2011 88 complet ed [facility] INFLUENZA, UNSPECIFIED FORMULATION 2010 88 complet ed [facility] INFLUENZA, UNSPECIFIED FORMULATION 2009 88 complet ed [facility] ZOSTER LIVE 2009 121 complet ed [facility] NOVEL INFLUENZA-H1N 1-09, ALL FORMULATIONS 2008 128 complet ed [facility] TD(ADULT) UNSPECIFIED FORMULATION 2008 139 complet ed Left Deltoid [facility] TDAP 2008 115 complet ed [facility] INFLUENZA, UNSPECIFIED FORMULATION 2008 88 complet ed [facility] PNEUMOCOCCAL, UNSPECIFIED FORMULATION 2004 109 complet ed HARSHAL S Results Combined list of recent chemistry, hematology and other laboratory results from Department of Defense and Veterans Affairs, ranging from 15 months to all on record, depending upon the facility. Order Name Results Value Reference Range Date Interpretation Specimen Comments Source GLUCOSE,B LOOD-poct (STL) GLUCOSE [MASS/VOLUM E] IN BLOOD BY AUTOMATED TEST STRIP 104 mg/dL 72 - 99 07/05 H Specimen Type: BLOOD Comment: Test Performed by: [id number] Meter #: [id number] Ordering Provider: FRANKLIN ONEILL I Report Released Date/Time: Jul 05, 2022 04:14 PM Reporting Lab: [address] [address] Performing Lab: [address] [address] [facility] CBC LEUKOCYTES [#/VOLUME] IN BLOOD BY AUTOMATED COUNT 6.4 10*3/u L 3.6 - 11.2 07/05 Specimen Type: BLOOD No comment entered. Ordering Provider: RADHA MIRELES Report Released Date/Time: Jun 30, 2022 01:49 PM Reporting Lab: [address] [address] Performing Lab: [address] [address] [facility] CBC ERYTHROCYTE S [#/VOLUME] IN BLOOD BY AUTOMATED COUNT 4.39 10*6/u L 4.10 - 5.70 07/05 Specimen Type: BLOOD No comment entered. Ordering Provider: RADHA MIRELES Report Released Date/Time: Jun 30, 2022 01:49 PM Reporting Lab: [address] [address] Performing Lab: [address] [address] [facility] CBC HEMOGLOBIN [MASS/VOLUM E] IN BLOOD 13.6 g/dL 13.1 - 16.8 07/05 Specimen Type: BLOOD No comment entered. Ordering Provider: RADHA MIRELES Report Released Date/Time: Jun 30, 2022 01:49 PM Reporting Lab: [address] [address] Performing Lab: [address] [address] [facility] CBC HEMATOCRIT [VOLUME FRACTION] OF BLOOD 41.7 38.2 - 48.4 07/05 Specimen Type: BLOOD No comment entered. Ordering Provider: RADHA MIRELES Report Released Date/Time: Jun 30, 2022 01:49 PM Reporting Lab: [address] [address] Performing Lab: [address] [phone] [place] [address] CBC MCV [ENTITIC VOLUME] BY AUTOMATED COUNT 95.0 fL 80.0 - 100.0 07/05 Specimen Type: BLOOD No comment entered. Ordering Provider: RADHA MIRELES Report Released Date/Time: Jun 30, 2022 01:49 PM Reporting Lab: [address] [address] Performing Lab: [address] [phone] [place] [address] CBC MCH [ENTITIC MASS] BY AUTOMATED COUNT 31.0 pg 27.0 - 34.0 07/05 Specimen Type: BLOOD No comment entered. Ordering Provider: RADHA MIRELES Report Released Date/Time: Jun 30, 2022 01:49 PM Reporting Lab: [address] [address] Performing Lab: [address] [address] [facility] CBC MCHC [MASS/VOLUM E] BY AUTOMATED COUNT 32.6 g/dL 33.0 - 36.0 07/05 L Specimen Type: BLOOD No comment entered. Ordering Provider: RADHA MIRELES Report Released Date/Time: Jun 30, 2022 01:49 PM Reporting Lab: [address] [address] Performing Lab: [address] [address] [facility] CBC PLATELETS [#/VOLUME] IN BLOOD BY AUTOMATED COUNT 137 10*3/u L 150 - 400 07/05 L Specimen Type: BLOOD No comment entered. Ordering Provider: RADHA MIRELES Report Released Date/Time: Jun 30, 2022 01:49 PM Reporting Lab: [facility] [address] [place] [phone] Performing Lab: [facility] [address] [place] [phone] [place] [address] CBC PLATELET MEAN VOLUME [ENTITIC VOLUME] IN BLOOD BY AUTOMATED COUNT 12.0 fL 7.5 - 11.2 07/05 H Specimen Type: BLOOD No comment entered. Ordering Provider: RADHA MIRELES Report Released Date/Time: Jun 30, 2022 01:49 PM Reporting Lab: [facility] [address] [place] [phone] Performing Lab: [address] [phone] [place] [address] CBC ERYTHROCYTE DISTRIBUTIO N WIDTH [RATIO] BY AUTOMATED COUNT 13.6 11.8 - 15.1 07/05 Specimen Type: BLOOD No comment entered. Ordering Provider: RADHA MIRELES Report Released Date/Time: Jun 30, 2022 01:49 PM Reporting Lab: [facility] [address] [place] [phone] Performing Lab: [facility] [address] [place] [phone] [place] [address] CBC LYMPHOCYTES /100 LEUKOCYTES IN BLOOD BY AUTOMATED COUNT 20 07/05 Specimen Type: BLOOD No comment entered. Ordering Provider: RADHA MIRELES Report Released Date/Time: Jun 30, 2022 01:49 PM Reporting Lab: [facility] [address] [place] [phone] Performing Lab: [address] CBC MONOCYTES/1 00 LEUKOCYTES IN BLOOD BY AUTOMATED COUNT 7 07/05 Specimen Type: BLOOD No comment entered. Ordering Provider: RADHA MIRELES Report Released Date/Time: Jun 30, 2022 01:49 PM Reporting Lab: [facility] [address] [facility] [address] Performing Lab: [facility] [address] [facility] [address] [facility] CBC NEUTROPHILS /100 LEUKOCYTES IN BLOOD BY AUTOMATED COUNT 66 07/05 Specimen Type: BLOOD No comment entered. Ordering Provider: RADHA MIRELES Report Released Date/Time: Jun 30, 2022 01:49 PM Reporting Lab: [facility] [address] [facility] [phone] Performing Lab: [address] [address] [facility] CBC EOSINOPHILS /100 LEUKOCYTES IN BLOOD BY AUTOMATED COUNT 6 07/05 Specimen Type: BLOOD No comment entered. Ordering Provider: RADHA MIRELES Report Released Date/Time: Jun 30, 2022 01:49 PM Reporting Lab: [facility] [address] [place] [phone] Performing Lab: [address] [address] [facility] CBC BASOPHILS/1 00 LEUKOCYTES IN BLOOD BY AUTOMATED COUNT 1 07/05 Specimen Type: BLOOD No comment entered. Ordering Provider: RADHA MIRELES Report Released Date/Time: Jun 30, 2022 01:49 PM Reporting Lab: [facility] [address] [place] [phone] Performing Lab: [facility] [address] [place] [phone] [facility] CBC LYMPHOCYTES [#/VOLUME] IN BLOOD BY AUTOMATED COUNT 1.29 10*3/u L 0.77 - 4.50 07/05 Specimen Type: BLOOD No comment entered. Ordering Provider: RADHA MIRELES Report Released Date/Time: Jun 30, 2022 01:49 PM Reporting Lab: [facility] [address] [place] [phone] Performing Lab: [facility] [address] [place], [place] [phone] [facility] CBC MONOCYTES [#/VOLUME] IN BLOOD BY AUTOMATED COUNT 0.46 10*3/u L 0.19 - 1.50 07/05 Specimen Type: BLOOD No comment entered. Ordering Provider: RADHA MIRELES Report Released Date/Time: Jun 30, 2022 01:49 PM Reporting Lab: [place] [phone] Performing Lab: [place] [id number] CBC NEUTROPHILS [#/VOLUME] IN BLOOD BY AUTOMATED COUNT 4.19 10*3/u L 2.10 - 8.00 07/05 Specimen Type: BLOOD No comment entered. Ordering Provider: RADHA MIRELES Report Released Date/Time: Jun 30, 2022 01:49 PM Reporting Lab: [address] [address] Performing Lab: [place] [phone] [facility] CBC EOSINOPHILS [#/VOLUME] IN BLOOD BY AUTOMATED COUNT 0.36 10*3/u L 0.00 - 0.60 07/05 Specimen Type: BLOOD No comment entered. Ordering Provider: RADHA MIRELES Report Released Date/Time: Jun 30, 2022 01:49 PM Reporting Lab: [address] [address] Performing Lab: [address] [address] [facility] CBC BASOPHILS [#/VOLUME] IN BLOOD BY AUTOMATED COUNT 0.03 10*3/u L 0.00 - 0.20 07/05 Specimen Type: BLOOD No comment entered. Ordering Provider: RADHA MIRELES Report Released Date/Time: Jun 30, 2022 01:49 PM Reporting Lab: [address] [address] Performing Lab: [address] [place] [address] [facility] COMPREHEN SIVE METABOLIC PANEL CREATININE [MASS/VOLUM E] IN SERUM OR PLASMA 1.55 mg/dL 0.7 - 1.3 07/05 H Specimen Type: PLASMA Comment: No hemolysis noted. Ordering Provider: RADHA MIRELES Report Released Date/Time: Jun 30, 2022 01:49 PM Reporting Lab: [place] [phone] Performing Lab: [address] [address] [facility] COMPREHEN SIVE METABOLIC PANEL UREA NITROGEN [MASS/VOLUM E] IN SERUM OR PLASMA 24 mg/dL 9 - 25 07/05 Specimen Type: PLASMA Comment: No hemolysis noted. Ordering Provider: RADHA MIRELES Report Released Date/Time: Jun 30, 2022 01:49 PM Reporting Lab: [address] [address] Performing Lab: [address] [address] [facility] COMPREHEN SIVE METABOLIC PANEL GLUCOSE [MASS/VOLUM E] IN SERUM OR PLASMA 101 mg/dL 72 - 99 07/05 H Specimen Type: PLASMA Comment: No hemolysis noted. Ordering Provider: RADHA MIRELES Report Released Date/Time: Jun 30, 2022 01:49 PM Reporting Lab: [address] [address] Performing Lab: [facility] [address] [place] [phone] [facility] COMPREHEN SIVE METABOLIC PANEL SODIUM [MOLES/VOLU ME] IN SERUM OR PLASMA 143 meq/L 136 - 145 07/05 Specimen Type: PLASMA Comment: No hemolysis noted. Ordering Provider: RADHA MIRELES Report Released Date/Time: Jun 30, 2022 01:49 PM Reporting Lab: [address] [address] Performing Lab: [facility] [address] [facility] [address] [facility] COMPREHEN SIVE METABOLIC PANEL POTASSIUM [MOLES/VOLU ME] IN SERUM OR PLASMA 4.5 meq/L 3.5 - 5 07/05 Specimen Type: PLASMA Comment: No hemolysis noted. Ordering Provider: RADHA MIRELES Report Released Date/Time: Jun 30, 2022 01:49 PM Reporting Lab: [facility] [address] [facility] [address] Performing Lab: [facility] [address] [facility] [address] [facility] COMPREHEN SIVE METABOLIC PANEL CHLORIDE [MOLES/VOLU ME] IN SERUM OR PLASMA 107 meq/L 98 - 107 07/05 Specimen Type: PLASMA Comment: No hemolysis noted. Ordering Provider: RADHA MIRELES Report Released Date/Time: Jun 30, 2022 01:49 PM Reporting Lab: [facility] [address] [place] [phone] Performing Lab: [facility] [address] [place] [phone] [facility] COMPREHEN SIVE METABOLIC PANEL CARBON DIOXIDE, TOTAL [MOLES/VOLU ME] IN SERUM OR PLASMA 26 meq/L 22 - 31 07/05 Specimen Type: PLASMA Comment: No hemolysis noted. Ordering Provider: RADHA MIRELES Report Released Date/Time: Jun 30, 2022 01:49 PM Reporting Lab: [facility] [address] [facility] [address] Performing Lab: [facility] [address] [facility] [address] [facility] COMPREHEN SIVE METABOLIC PANEL CALCIUM [MASS/VOLUM E] IN SERUM OR PLASMA 9.5 mg/dL 8.4 - 10.4 07/05 Specimen Type: PLASMA Comment: No hemolysis noted. Ordering Provider: RADHA MIRELES Report Released Date/Time: Jun 30, 2022 01:49 PM Reporting Lab: [facility] [address] [place] [phone] Performing Lab: [facility] [address] [place] [phone] [facility] COMPREHEN SIVE METABOLIC PANEL PROTEIN [MASS/VOLUM E] IN SERUM OR PLASMA 7.1 g/dL 6 - 8.6 07/05 Specimen Type: PLASMA Comment: No hemolysis noted. Ordering Provider: RADHA MIRELES Report Released Date/Time: Jun 30, 2022 01:49 PM Reporting Lab: [address] [address] Performing Lab: [place] [phone] COMPREHEN SIVE METABOLIC PANEL ALBUMIN [MASS/VOLUM E] IN SERUM OR PLASMA 4.3 g/dL 3.4 - 5 07/05 Specimen Type: PLASMA Comment: No hemolysis noted. Ordering Provider: RADHA MIRELES Report Released Date/Time: Jun 30, 2022 01:49 PM Reporting Lab: [address] [address] Performing Lab: [place] [phone] [place] [address] COMPREHEN SIVE METABOLIC PANEL BILIRUBIN.T OTAL [MASS/VOLUM E] IN SERUM OR PLASMA 0.7 mg/dL 0.2 - 1.2 07/05 Specimen Type: PLASMA Comment: No hemolysis noted. Ordering Provider: RADHA MIRELES Report Released Date/Time: Jun 30, 2022 01:49 PM Reporting Lab: [address] [address] Performing Lab: [place] [phone] [place] [address] COMPREHEN SIVE METABOLIC PANEL ALKALINE PHOSPHATASE [ENZYMATIC ACTIVITY/VO LUME] IN SERUM OR PLASMA 108 U/L 40 - 150 07/05 Specimen Type: PLASMA Comment: No hemolysis noted. Ordering Provider: RADHA MIRELES Report Released Date/Time: Jun 30, 2022 01:49 PM Reporting Lab: [facility] [address] [facility] [address] Performing Lab: [facility] [address] [facility] [address] [facility] COMPREHEN SIVE METABOLIC PANEL ASPARTATE AMINOTRANSF ERASE [ENZYMATIC ACTIVITY/VO LUME] IN SERUM OR PLASMA 20 U/L 5 - 34 07/05 Specimen Type: PLASMA Comment: No hemolysis noted. Ordering Provider: RADHA MIRELES Report Released Date/Time: Jun 30, 2022 01:49 PM Reporting Lab: [facility] [address] [facility] [address] Performing Lab: [facility] [address] [place] [phone] [place] [address] COMPREHEN SIVE METABOLIC PANEL ALANINE AMINOTRANSF ERASE [ENZYMATIC ACTIVITY/VO LUME] IN SERUM OR PLASMA 24 U/L 8 - 40 07/05 Specimen Type: PLASMA Comment: No hemolysis noted. Ordering Provider: RADHA MIRELES Report Released Date/Time: Jun 30, 2022 01:49 PM Reporting Lab: [facility] [address] [place] [phone] Performing Lab: [facility] [address] [facility] [address] [facility] COMPREHEN SIVE METABOLIC PANEL GLOMERULAR FILTRATION RATE/1.73 SQ M.PREDICTED [VOLUME RATE/AREA] IN SERUM, PLASMA OR BLOOD BY CREATININE- BASED FORMULA (CKD-EPI 2020) 43.3 <60 - 60 07/05 Specimen Type: PLASMA Comment: No hemolysis noted. Ordering Provider: RADHA MIRELES Report Released Date/Time: Jun 30, 2022 01:49 PM Reporting Lab: [facility] [address] [facility] [address] Performing Lab: [facility] [address] [place] [phone] [facility] HGA1C HEMOGLOBIN A1C/HEMOGLO BIN.TOTAL IN BLOOD 6.2 4.0 - 6.0 07/05 H Specimen Type: BLOOD No comment entered. Ordering Provider: RADHA MIRELES Report Released Date/Time: Jun 30, 2022 01:49 PM Reporting Lab: [facility] [address] [place] [phone] Performing Lab: [address] [address] [facility] LIPID PANEL (STL) CHOLESTEROL [MASS/VOLUM E] IN SERUM OR PLASMA 126 mg/dL 0 - 200 07/05 Specimen Type: PLASMA Comment: No hemolysis noted. Ordering Provider: RADHA MIRELES Report Released Date/Time: Jun 30, 2022 01:49 PM Reporting Lab: [address] [address] Performing Lab: [address] [address] [facility] LIPID PANEL (L) TRIGLYCERID E [MASS/VOLUM E] IN SERUM OR PLASMA 161 mg/dL 0 - 150 07/05 H Specimen Type: PLASMA Comment: No hemolysis noted. Ordering Provider: RADHA MIRELES Report Released Date/Time: Jun 30, 2022 01:49 PM Reporting Lab: [address] [address] Performing Lab: [address] [address] [facility] LIPID PANEL (STL) CHOLESTEROL IN LDL [MASS/VOLUM E] IN SERUM OR PLASMA BY CALCULATION 60 mg/dL 07/05 Specimen Type: PLASMA Comment: No hemolysis noted. Ordering Provider: RADHA MIRELES Report Released Date/Time: Jun 30, 2022 01:49 PM Reporting Lab: [address] [phone] Performing Lab: [address] [address] [facility] LIPID PANEL (STL) CHOLESTEROL IN HDL [MASS/VOLUM E] IN SERUM OR PLASMA 34 mg/dL 40 07/05 L Specimen Type: PLASMA Comment: No hemolysis noted. Ordering Provider: RADHA MIRELES Report Released Date/Time: Jun 30, 2022 01:49 PM Reporting Lab: [facility] [address] [facility] [address] Performing Lab: [facility] [address] [facility] [address] [facility] Vital Signs Combined list of inpatient and outpatient Vital Signs from Department of Defense and Veterans Affairs, ranging from 12 months to all on record, depending upon the facility. Vital Sign Value Date Comments Source SYSTOLIC BLOOD PRESSURE 135 09/07/2023 09:55:26 [facility] DIASTOLIC BLOOD PRESSURE 77 09/07/2023 09:55:26 [facility] PULSE OXIMETRY 96 09/07/2023 09:55:26 [facility] WEIGHT 171 09/07/2023 09:55:26 [facility] BMI 25kg/m2 09/07/2023 09:55:26 [facility] PAIN 3 09/07/2023 09:55:26 [facility] TEMPERATURE 98.2 09/07/2023 09:55:26 [facility] PULSE 74 09/07/2023 09:55:26 [facility] RESPIRATION 16 09/07/2023 09:55:26 [facility] SYSTOLIC BLOOD PRESSURE 150 08/17/2023 10:58:48 [facility] DIASTOLIC BLOOD PRESSURE 80 08/17/2023 10:58:48 [facility] PULSE OXIMETRY 97 08/17/2023 10:58:48 [facility] WEIGHT 170.1 08/17/2023 10:58:48 [facility] BMI 24kg/m2 08/17/2023 10:58:48 [facility] PAIN 0 08/17/2023 10:58:48 [facility] HEIGHT 70 08/17/2023 10:58:48 [facility] TEMPERATURE 98.2 08/17/2023 10:58:48 [facility] PULSE 81 08/17/2023 10:58:48 [facility] RESPIRATION 18 08/17/2023 10:58:48 [facility] Encounters Combined list of: 1) Encounters from Department of Veterans Affairs facilities going back up to thelast 18 months. 2) Encounters from the Department of Defense facilities going back up to 280 months. Location Location Details Encounter Type Encounter Number Reason For Visit Attending Provider ADM Date DC Date Status Disposition Source [facility] Outpatient Encounter [id number] 01/12 [facility] OFFICE O/P EST MOD 30-39 MIN [id number] Diagnos is: ICD-10- CM I10 Essenti al (primar y) hyperte nsion<b r/> MARY ONEILL HI 01/13 [facility] Outpatient Encounter [id number] PARISA WATKINS R 01/[address] 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
ALBERTO MEJÍA 03/[address] [facility] HC PRO PHONE CALL 5-10 MIN [id number] Diagnos is: ICD-10- CM H90.3 Sensori neural hearing loss, bilater al
KIERRA CHAPMAN 04/[address] 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
AUDREY GARCIA M 05/09 [facility] TYMPANOMET RY & REFLEX THRESH [id number] Diagnos is: ICD-10- CM H90.A21 Snsrnrl hear loss, uni, r ear, with rstrcd hear cntra side
AUDREY GARCIA M 05/[address] [facility] Outpatient Encounter [id number] 05/[address] [facility] HEARING SERVICE [id number] Diagnos is: ICD-10- CM H90.3 Sensori neural hearing loss, bilater al
KIERRA CHAPMAN 07/[address] [facility] IMG RTA DETCJ/MNTR DS STAFF [id number] Diagnos is: ICD-10- CM Z13.5 Encount er for screeni ng for eye and ear disorde rs
MARY ONEILL 08/[address] [facility] Outpatient Encounter [id number] 08/16 [facility] IMG RTA DETCJ/MNTR DS STAFF [id number] Diagnos is: ICD-10- CM Z13.5 Encount er for screeni ng for eye and ear disorde rs
KERON BRADY 08/16 [facility] OFFICE O/P EST MOD 30 MIN [id number] Diagnos is: ICD-10- CM I10 Essenti al (primar y) hyperte nsion<b r/> NINO,NID HI 08/16 [facility] Outpatient Encounter [id number] Diagnos is: ICD-10- CM Z13.5 Encount er for screeni ng for eye and ear disorde rs
TIFFANI BANUELOS SAYRA R 08/[address] [facility] OFFICE O/P EST HI 40 MIN [id number] Diagnos is: ICD-10- CM 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, unspeci fied
ALBERTO MEJÍA M 09/06 [facility] Outpatient Encounter [id number] GROVER MARCUM M 01/[address] [facility] Outpatient Encounter [id number] PARISA WATKINS R 01/[address] [facility] HEARING AID REPAIR/MOD IFYING [id number] Diagnos is: ICD-10- CM H90.3 Sensori neural hearing loss, bilater al
AUDREY GARCIA M 04/23 [facility] Social History Combined list of available smoking, tobacco, and other social history from Department of Defense and [facility] 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 Social History Type Response Date Comment Sour e Tobacco smoking status NHIS VA-TOBACCO FORMER USER 08/17/2023 [facility] History of tobacco use VA-TOBACCO QUIT 15 YRS OR MORE 08/17/2023 [facility] History of tobacco use VA-TOBACCO NEVER USED 07/05/2022 [facility] History of tobacco use VA-TOBACCO FORMER USER 06/05/2020 [facility] History of tobacco use [place]-TO[place] QUIT 15 YRS OR MORE 12/19/2018 [facility] History of tobacco use QUIT TOBACCO >7 YEARS AGO 03/01/2017 [facility] History of tobacco use QUIT TOBACCO >7 YEARS AGO 08/30/2016 [facility] History of tobacco use QUIT TOBACCO >7 YEARS AGO 07/02/2015 [facility] History of tobacco use QUIT TOBACCO >7 YEARS AGO 03/14/2014 [facility] History of tobacco use QUIT TOBACCO >7 YEARS AGO 05/05/2009 [facility] Plan of Care List of future care activities from Department of [facility] 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 Additional future care activities may be listed in the Assessment and Plan section. Date/Time Care Activity Care Activity Detail Facili ty 08/16/2024 AMBULATORY - MEDICINE AMBULATORY - MEDICI [facility] Advance Directives List of completed, amended, or rescinded Advance Directives on record at Department of Veterans 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 An actual copy of the Directive is not included. Date Advance Directive Provider Source 01/15/2016 ADVANCE DIRECTIVE DISCUSSION BILL [facility]
--- OUTSIDE RECORDS SUMMARY | 2024-06-18 11:54 | XMS_ITS | Encounter Summary ---
Author Organization [facility] Address [address] [place] [address] Phone Care Team Providers Care Cloth Washer Operator Name Role Phone Clemente Sommer MD Primary Care Provider Encounter Details Date Type Department Care Team (Late st Contact Info) Description 02/09/[address] [facility] Orthopaedic Surgery [address] [place] [address] Malick Infante MD [address] [facility] [address] [place] [address] Social History Tobacco Use Types Packs/Day Years Used Date Smoking Tobacco: Former Cigarettes Q uit: 1984 Smokeless Tobacco: Former Chew Alcohol Use Standard Drinks/Week Comments Yes 0 (1 standard drink = 0.6 oz pur e alcohol) OASIS D0700: Social Isolation Answer Da te Recorded Frequency of experiencing loneliness or isolatio n Never 02/03/2023 OASIS A1250: Transportation Answer Date Recorded Lack of Transportation (Medical) No 02/03/2023 Lack of Transportation (Non-Medical) No 02/03/2023 Patient Unable or Declines to Respond No 02/03/2023 OASIS B1300: Health Literacy Answer Yeison e Recorded Frequency of needing help to read materials from doctor or pharmacy Rarely 02/03/2023 PHQ-2 Answer Date Recorded PHQ-2 Score 0 03/19/2019 Personal Safety Answer Date Recorded Have you ever been in or are you currently in a harmful physical or emotional relationship or is someone making you feel afraid or unsafe? Denies 01/31/2023 Sex and Gender Information Value Date Recorded Sex Assigned at Not on file Legal Sex Male 3:46 AM [employer] Gender Identity Male 03/07/2020 6:16 PM CDT Sexual Orientation Straight 03/07/2020 6: 16 PM CDT documented as of this encounter Plan of Treatment Not on file documented as of this encounter Visit Diagnoses Not on filedocumented in this encounter Care Teams Cloth Washer Operator Relationship Specialty Start Date End Date Clemente Sommer MD PCP - General Family Medicine 04/13/19 documented as of this encounter
--- OUTSIDE RECORDS SUMMARY | 2024-06-18 11:55 | XMS_ITS | Continuity of Care Document ---
Author Organization 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 Name Role Phone Tai JOY, Connie Unavailable Unavailable Allergies, Adverse Reactions, Alerts Substance Reaction Status Criticality No Known Allergies Active No Inform ation Medications Medication Instructions Dosage Effective Dates (start - stop) Status Comments Vitamin B-12 100 mcg tablet take 1 by oral route every day 1 - Active PreserVision AREDS-2 250 mg-200 unit-40 mg-1 mg capsule take 1 capsule by buccal route 2 times every day 1 capsule - Active aspirin 81 mg tablet,delayed release take 1 tablet by oral route every day 81 MG - Active amlodipine 2.5 mg tablet take 1 tablet by oral route every day 2.5 MG - Active tamsulosin 0.4 mg capsule take 1 capsule by oral route every day 1/2 hour following the same meal each day 0.4 MG - Active Plavix 75 mg tablet take 1 tablet by ora l route every day 75 MG - Active Nitrostat 0.[address] 1 tablet by sublingual route at 1st sign of attack; may repeat every 5 minutes up to 3 tabs; if norelief seek medical help 0.4 MG - Active lisinopril 20 mg tablet take 1 tablet by oral route every day 20 MG - Active atorvastatin 40 mg tablet take 1 tablet by oral route every day 40 MG - Active Tirosint 50 mcg capsule take 1 capsule by oral route every day 50 MCG - Active metoprolol succinate ER 50 mg tablet,extended release 24 hr take 1 tablet by oral route every day 50 MG - Active Procedures Procedure Date No Charge Optomap Fundus Photos 024 Fundus Photography W/ Report Eye Exam & Treatment Fundus Photography W/ Report Eye Exam & Treatment No Charge Optomap Fundus Photos 021 Eye Exam & Treatment Eye Exam & Treatment Visual Field Examination(s) Eye Exam & Treatment Corneal Pachymetry No Charge Refraction Office/outpatient Visit, Est Corneal Pachymetry Office/outpatient Visit, Est No Charge Pachymetry Post-op Follow-up Visit No Charge Pachymetry Post-op Follow-up Visit No Charge Refraction No Charge Pachymetry Post-op Follow-up Visit No Charge Pachymetry No Charge Refraction No Charge GDX Retina Post-op Follow-up Visit No Charge GDX Retina Post-op Follow-up Visit Remove Cataract, Post Op Care 8 Remove Cataract, Insert Lens,Comanaged N IOLMaster-Professional No Charge Refraction Post-op Follow-up Visit Post-op Follow-up Visit Remove Cataract, Post Op Care 8 Remove Cataract, Insert Lens,Comanaged O IOLMaster-Professional No Charge Refraction No Charge Orbscan Office/outpatient Visit, Est IOLMaster-Technical No Charge Refraction Eye Exam & Treatment Eye Exam & Treatment Eye Exam & Treatment Dilated Macular Exam Performed 15 Counseling For Antioxidant Supplements J Eye Exam & Treatment Dilated Macular Exam Performed 14 Counseling For Antioxidant Supplements J Eye Exam & Treatment Dilated Macular Exam Performed 13 Counseling For Antioxidant Supplements M Eye Exam & Treatment Counseling For Antioxidant Supplements F Office/outpatient Visit, [facility] Advance Directives Directive Yes / No Effective Date File Name Other Directive No N/A N/A WARNING:The information contained in this section is historical and is provided for information only and does not constitute a legal document or any assurance that the information is still accurate. Please verify the information with the gutierrez of the legal document before using it for clinical purposes. Encounters Encounter Description Practice Location Reason(s) For Visit Diagnoses Date Provider Providers Copied on Encounter [facility], [address], [place], [place], [address], tel:[phone] SEC [place] Professional diabetic eye exam (chief complaint) PrediabetesNe xdtve age-related mclr degn, bilateral, early dry stageMechanic al ectropion of lower eyelids of both eyesDry eye syndrome, bilateralOthe r secondary cataract, bilateralVitr eomacular adhesion of both eyes 4 Tai Rosales. [facility] [email or web address], [address], [place], [place], [address], . tel:[phone] Referring Provider: Connie Lujan [place] L, [id number] [address], [place], [address] . tel:[phone] [facility], [address], [place], [place], [address], tel:[phone] SEC [place] Professional Complete Exam (chief complaint) Type 2 diab with mild nonp rtnop without mclr edema, r eyeNexdtve age-related mclr degn, bilateral, early dry stagePresence of intraocular lens 3 Tai OD Connie. [address] [employer], [address], [place], [place], [address], [place]. tel:[phone] Referring Provider: [place] Lu[place], [address], [place], [address] . tel:[phone] [facility], [address] [place], [place] [address], [place], [place], [address], [place] tel:[phone] SEC [place] Professional Complete Exam (chief complaint) Drusen (degenerative ) of macula, bilateralPres ence of intraocular lensPrediabet esDry eye syndrome, bilateral 2 Jonah Burgos. [address] [employer], [address], [place], [place], [address], [place]. tel:[phone] Referring Provider: Aubrey Celaya, [address], [place], [address] . tel:[phone] [facility], [facility] [address], [place], [place], [address], [place] tel:[phone] SEC [place] Professional Complete Exam (chief complaint) PrediabetesDr usen (degenerative ) of macula, bilateralPres ence of intraocular lensPunctate keratitis, bilateralMech anical ectropion of lower eyelids of both eyesMechanica l ectropion of left lower eyelid 1 Jonah Burgos. [address] [employer], [address], [place], [place], [address], [place]. tel:[phone] Referring Provider: Aubrey Celaya, [address], [place], [address] . tel:[phone] [facility], [address], [place], [place], [address], [place] tel:[phone] SEC [place] Professional Complete Exam (chief complaint) Presence of intraocular lensRPE mottling of maculaPunctat e keratitis, bilateralDrus en (degenerative ) of macula, right eye Nov-0 9-202 0 Jonah Burgos. [address] [facility], [address], [place], [place], [address], [place]. tel:[phone] Referring Provider: Aubrey Celaya, [address], [place], [address] . tel:[phone] [facility], [address] [place] [address] [address], [place], [place], [address], [place] tel:[phone] SEC [facility] Jonathon No Information Oct-2 0 Laura Ziegler. [facility] [address], [address], [place], [place], [address], [place]. tel:[phone] [facility], [address] [place] [address] [address], [place], [place], [address], tel:[phone] SEC Marvin BARRIOS Professional Complete Exam (chief complaint) Presence of intraocular lensHistory of strokeRPE mottling of macula 9 Jonah Burgos. [address] [facility], [address], [place], [place], [address], [place]. tel:[phone] Referring Provider: Aubrey Celaya, [address] [facility] [address], [place], [address] . tel:[phone] Office/outpa tient Visit, Est [facility], [address] [place] [address] [address], [place], [place], [address], [place] tel:[phone] SEC [place] SOPH[place] Professional cornea check (chief complaint) Corneal edema of right eye 0 9 Jonah Burgos. [address], [address], [place], [place], [address], [place]. tel:[phone] Referring Provider: Aubrey Celaya, [address] [facility] [address], [place], [address] . tel:[phone] Office/outpa tient Visit, Est [facility], [address], [place], [place], [address], [place] tel:[phone] SEC Marvin BARRIOS Professional Follow up visit (chief complaint) Corneal edema of right eye 9 Jonah Burgos. [address], [address], [place], [place], [address], [place]. tel:[phone] Referring Provider: Aubrey Celaya, [address], [place], [address] . tel:[phone] [facility], [address], [place], [place], [address], [place] tel:[phone] SEC Marvin BARRIOS Professional Cornea edema f/u (chief complaint) Encounter for examination following surgery 9 Jonah Burgos. [address], [place], [place], [address], [place]. tel:[phone] Referring Provider: Aubrey Celaya, [address], [place], [address] . tel:[phone] [facility], [address], [place], [place], [address], [place] tel:[phone] SEC Marvin BARRIOS Professional 2 wk Cornea check (chief complaint) Encounter for examination following surgery 9 Jonah Burgos. [address], [place], [place], [address], [place]. tel:[phone] Referring Provider: Aubrey Celaya, [address], [place], [address] . tel:[phone] [facility], [address], [place], [place], [address], [place] tel:[phone] SEC [place] Professional Post-Op (chief complaint) No Information 0 9 Jordan OD Osmar. [address] [facility], [address] [facility], [place], [address], [place]. tel:[phone] Referring Provider: Aubrey Celaya, [address] [facility] [address], [place], [address] . tel:[phone] [facility] Eye [facility] [place], [address] [place] [address] [address], [place], [place], [address], tel:[phone] SEC [place] Professional 2 wk CE PO (chief complaint) No Information 8 Jonah Burgos. [address] [facility] [address], [place], [place], [address], [place]. tel:[phone] Referring Provider: Aubrey Celaya, [address] [facility] [address], [place], [address] . tel:[phone] [facility], [address] [place] [address] [address], [place], [place], [address], [place] tel:[phone] SEC [place] Professional 1 week s/p PCIOL (chief complaint) No Information 8 Jordan OD Osmar. [address] [facility], [address] [place] [address], [place], [address], [place]. tel:[phone] Referring Provider: Aubrey Celaya, [address] [employer] [facility] [address], [place], [address] . tel:[phone] [facility], [address] [place] [address] [address], [place], [place], [address], [place] tel:[phone] SEC [place] Professional 1 day s/p PCIOL (chief complaint) No Information 8 Jordan OD Osmar. [address] [facility], [address] [place] [address], [place], [address], [place]. tel:[phone] Referring Provider: Aubrey Celaya, [address] [facility] [address], [place], [address] . tel:[phone] [facility] Eye [facility] [place], [address], [place], [place], [address], [place] tel:[phone] [facility] No Information 8 Jonah Burgos. [address], [place], [place], [address], [place]. tel:[phone] Referring Provider: Aubrey Celaya, [address], [place], [address] . tel:[phone] [facility] Eye [facility] [place], [address] [address], [place], [place], [address], tel:[phone] SEC Antionephillip Holt No Information 8 Jonah Burgos. [address], [address], [address], [place]. tel:[phone] Referring Provider: Aubrey Celaya, [address], [place], [address] . tel:[phone] [facility], [address], [place], [place], [address], [place] tel:[phone] [place] Professional Post-Op (chief complaint) No Information 8 Jordan Prasad. [address] [place] [address], [address], [place]. tel:[phone] Referring Provider: Aubrey Celaya, [address], [place], [address] . tel:[phone] [facility] Eye [facility] [place], [address] [address], [place], [place], [address], [place] tel:[phone] [place] Professional 1 week p/o PCIOL (chief complaint) No Information 8 Jordan Cashic. [facility], [address] [place] [address], [address], [place]. tel:[phone] Referring Provider: Aubrey Celaya, [address] [facility] [address], [place], [address] . tel:[phone] [facility], [address], [place], [place], [address], [place] tel:[phone] SEC Marvin BARRIOS Professional Post-Op (chief complaint) No Information 0 - 8 Jordan Prasad. [address] [facility], [address] [facility], [place], [address], [place]. tel:[phone] Referring Provider: Aubrey Celaya, [address] [facility] [address], [place], [address] . tel:[phone] [facility], [address], [place], [place], [address], [place] tel:[phone] [facility] No Information 3 8 Jonah Burgos. [address] [facility], [address], [place], [place], [address], [place]. tel:[phone] Referring Provider: Aubrey Celaya, [address] [facility] [address], [place], [address] . tel:[phone] [facility], [address], [place], [place], [address], [place] tel:[phone] SEC Antione Reyes No Information 3 0 8 Jonah Burgos. [address] [facility], [address], [place], [place], [address], [place]. tel:[phone] Referring Provider: Aubrey Celaya, [address] [facility] [address], [place], [address] . tel:[phone] Office/outpa tient Visit, Est [facility], [address], [place], [place], [address], [place] tel:[phone] SEC [place] Professional 6 mo CAT check (chief complaint) No Information 8 Jonah Burgos. [address] [facility], [address], [place]. tel:[phone] Referring Provider: Aubrey Celaya, [address] [facility] [address], [place], [address] . tel:[phone] [facility], [address] [place] [address] [address], [place], [place], [address], [place] tel:[phone] SEC [place] Professional Complete Exam (chief complaint) No Information 8 Seven Collier. [address] [place], [facility], . tel:[phone] Referring Provider: Paul Lopez, [address] [facility], [place], [address] . tel:[phone] [facility], [address] [place] [address] [address], [place], [place], [address], [place] tel:[phone] SEC [place] Professional No Information 8 Seven Collier. [address] [place], [facility], . tel:[phone] [facility], [address] [place] [address] [address], [place], [place], [address], [place] tel:[phone] [place] Professional Complete Exam (chief complaint) No Information 7 Batsheva Miller. [address] [facility], [address], [place]. tel:[phone] Referring Provider: Paul Lopez, [address] [facility] [place], [address] . tel:[phone] [facility] Eye [facility] [place], [address] [place] [address] [address], [place], [place], [address], [place] tel:[phone] SEC [place] Professional No Information 6 Jonah uBrgos. [address], [place], [place], [address], [place]. tel:[phone] [facility] Eye [facility] [place], [address], [place], [place], [address], [place] tel:[phone] [place] Professional Difficulty reading (chief complaint) No Information 5 Wankum Paul. [address], [place], [place], [address], [place]. tel:[phone] [facility], [address] [place] [address] [address], [place], [place], [address], [place] tel:[phone] SEC [place] Professional Dry eyes (chief complaint) No Information 4 Wankum Paul. [address], [address], [place], [place], [address], [place]. tel:[phone] [facility], [address] [place] [address] [address], [place], [place], [address], [place] tel:[phone] SEC [place] Professional eyes doing well, without complaint. (chief complaint) No Information 3 Wankum Paul. [address], [place], [place], [address], [place]. tel:[phone] [facility] Eye [facility] [place], [address] [address], [place], [place], [address], [place] tel:[phone] [place] Professional No Information 0 Wankum Paul. [address], [place], [place], [address], [place]. tel:[phone] Office/outpa tient Visit, [facility] [place], [address], [place], [place], [address], [place] tel:[phone] SEC Marvin BARRIOS Professional No Information 9 Batsheva Miller. [address] [facility], [address], [place], [place], [address], [place]. tel:[phone] Family History Family Member Type Diagnosis Age At Onset Maternal grandmother Problem (finding) Diabetes mellit Payers Payer name Insurance type Covered green party ID Authorrenny burciaga(s) AARP Medicare Complete CI [id number] Social History Type Description Quantity Date Captured Comments Alcohol Use Details 2 beers monthly Caffeine Use Details 1 cup per day Tobacco Use Status Ex-cigarette smoker 024 Smoking Status Former smoker Smoking Tobacco Use Details Cigarette: Age Started: 12, Age Stopped: 51, Years Used 40 Cigarette: No Details Available Sex Male Sexual Orientation Don't Know Gender Identity Male Chief Complaint And Reason For Visit From encounter dated '04/13/2024 10:00'. diabetic eye exam (chief complaint). Description: The 89 year old patient presents for a complete exam. Patient is pseudo ou. Monitoring AMD ou. Patient denies any changes in vision ou. Reason For Referral Reason For Referral No Information Plan Of Treatment Date Type Action Status Goal Tobacco cessation counseling completed Patient Education Learning About YAG Lase r Capsulotomy completed Patient Education Learning About Retinal Drusen completed Patient Education Learning About Retinal Drusen completed Patient Education Learning About Your Eye s completed Patient Education Learning About Your Eye s completed Patient Education Learning About Your Eye s completed History Of Present Illness Encounter Date Complaint History Of Prese nt Illness diabetic eye exam The 89 year ol d patient presents for a complete exam. Patient is pseudo ou. Monitoring AMD ou. Patient denies any changes in vision ou. Complete Exam The 88 year old patient presents for a complete diabetic exam ou. Patient is pseudo ou. Patient takes no medication for diabetes. Patient denies any changes in vision ou. Last A1c 5.9. He checks his blood sugars every Tuesday. Complete Exam The 87 year old patient presents for evaluation of Complete Exam in the right eye and left eye. Pt is Pre DM x 10 yrs, followed by PCP, pt reports BS was 104 on Tuesday and A1C was 5.8 one mo ago. Pt reports stable VA, OU, DV and NV, since last appt. Pt reports he doesn't use any gtts, OU. Complete Exam The 86 year old male presents for a complete exam ou. Patient is pseudo ou. Patient is prediabetic and A1C rubs 5.9-6.1. Patient states he doesn't think he is seeing as well with OD. Complete Exam The 85 year old male presents for evaluation of Complete Exam in the right eye and left eye. Patient is pseudo ou. Patient denies any changes in vision ou. Complete Exam The 84 year old male presents for a complete exam ou monitoring IOLs ou. Patient had a very small stroke last month. Patient states his left side was numb. Patient denies any changes in vision. cornea check The 83 year old male presents for a 2 month cornea check ou. Patient is not using any drops. Patient states OS is doing good and c/o OD is blurry. Follow up visit The 83 year old male presents for a 5 week cornea check OD. Patient is using Pred bid OD, Johan 128 qid OD and Johan oint. qid OD. Patient states vision OD is still blurry and doesn't see much improvement. Cornea edema f/u The 83 year old male presents for evaluation of Cornea edema f/u in the right eye. Hx of PC IOL OU, AMD OU, and Corneal edema OD. Pt using Pred OD tid, Johan 12 gtts qid OD and Johan 128 justin OD qid. Pt states vision is still very blurry OD, there may be minimal improvement x 3 wks. 2 wk Cornea check The 83 year ol d male presents for evaluation of 2 wk Cornea check in the right eye. Pt reports he is using Pred TID OD, Johan 128 gtts OD and Johan 128 justin OD. Pt reports OD might be seeing a teeny tiny little bit better, but still not good. Pt denies any pain, irritation or discomfort today, OU. Post-Op The 83 year old male presents for a 1 month post op CE OS. Patient states OS is doing good. Patient is finished with drops. Patient is using johan 128 OD and johan 128 oint OD. 2 wk CE PO The 83 year old male presents for evaluation of 2 wk CE PO in the left eye. Pt reports he is using Pred QD OS and Ketorolac TID OS. Pt reports he never used the AFT because he doesn't think his OD is dry, he thinks it has to be something else. Pt reports he can see a lot better, OS, since CE. Pt denies any pain, irritation or discomfort today, OU. 1 week s/p PCIOL The 83 year old male presents for evaluation of 1 week s/p PCIOL in the left eye. Patient states VA seems pretty good with the left eye. Patients using Pred, Vig, and ket as directed. 1 day s/p PCIOL The 83 year old male presents for evaluation of 1 day s/p PCIOL in the left eye. Patient states he is doing well with the left eye. Patient instructed to use Pred, Ketorolac, and Vig as well as eye shield. Patient finished all p/o gtts yesterday for the right eye. Post-Op The 83 year old male presents for a 2 week post op CE OD with phaco IOL. Patient is using Pred, Vigamox and Ketorolac tid OD. Patient states OD is doing good. Patient wishes to proceed with CE OS because of blurry/decreased vision and patient notices a difference between eyes. 1 week p/o PCIOL The 83 year old male presents for evaluation of 1 week p/o PCIOL in the right eye. Patient states he was hoping his VA would be clearer than it is but colors are brighter. Patient using Pred Ket, and Vig as directed. Post-Op The 83 year old male presents for a 1 day post op CE with phaco IOL OD. Patient is using Pred and Vigamox qid OD and Ketorolac tid OD. Patient denies any pain or discomfort. 6 mo CAT check The 82 year old male presents for evaluation of 6 mo CAT check in the right eye and left eye. Pt denies any ocular Sx or injuries, OU. Hx of CAT OU, AMD OU, and Blepharitis OU. Pt reports he has trouble with reading street signs and is bothered by glare from lights, OU, x several mos. Pt reports he doesn't use any gtts and no pain, irritation or discomfort today, OU. Pt reports he believes he is ready to have CE now.Pt takes Flomax. Complete Exam The 82 year old male presents for evaluation of Complete Exam in the right eye and left eye. Hx Cataracts OU, AMD OU. Pt taking Ocuvite vitamins PO BID. Pt states VA may have decrease a small amount. States he does have some glare around headlights at night. Pt states no other problems OU Complete Exam The 81 year old male presents for Complete Exam ou monitoring cataracts. Patient denies any changes in vision ou. Difficulty reading The 79 year o ld male presents for a complete exam. Patient denies any changes in vision. Patient states eyes been itching and watering x 2 weeks. Dry eyes Patient presents for a complete exam. Patient takes Presurevision. Patient uses ATs prn. Functional Status Date Functional Assessmen t No Information Instructions Date Instruction Additional Infor zaheer Impression/Plan Impression/Plan Impression/Plan Impression/Plan Impression/Plan Impression/Plan Impression/Plan Impression/Plan Impression/Plan Impression/Plan Impression/Plan Related to Encou nter for examination following surgery Impression/Plan 2 weeks or sooner PRN Related to Encounter for examination following surgery Impression/Plan Related to Encou nter for examination following surgery 1 week or sooner PRN Related to Encounter for examination following surgery Impression/Plan Related to Encou nter for examination following surgery Impression/Plan Related to Encou nter for examination following surgery 1 week or sooner PRN Related to Encounter for examination following surgery Impression/Plan Related to Encou nter for examination following surgery 1 week or sooner PRN Related to Encounter for examination following surgery Impression/Plan Related to Encou nter for examination following surgery Educational material given Relat ed to Age-related nuclear cataract, bilateral Impression/Plan Impression/Plan Impression/Plan Related to 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 for Complete Exam. Impression/Plan - Di scussed diagnosis in detail with patient. Discussed cataracts with pt and treatment options. pt also understands at this time vision does not qualify to have CE with insurance coverage. Macular degeneration, dry type with stable vision. Will continue to monitor vision and the patient has been instructed to call with any vision changes. Continue AREDS 2 formula. Apply warm compresses and massage eyelids every morning for MGD. Return to clinic in 1 year for complete exam or sooner with any problems. - Cataracts account for the patient's complaints. No treatment currently recommended. The patient will monitor vision changes and contact us with any decrease in vision. Macular degeneration, dry type with stable vision. Will continue to monitor vision and the patient has been instructed to call with any vision changes. Use Zaditor or Alaway for allergy relief. Return in 1 year for complete exam or sooner with any problems. Related to See list of assessments above - Return in 1 year w armando Herman M.D. for Complete Exam Related to See list of assessments above NS - Educational material given Related to NS - 1 year Related to See l ist of assessments above - Cataracts diagnosi s discussed with pt No treatment currently recommended. The patient will monitor vision changes and contact us with any decrease in vision. RTC in 1 year. Educational materials provided:about today's exam. 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
--- OUTSIDE RECORDS SUMMARY | 2024-06-18 11:55 | XMS_ITS | Referral Summary ---
Author Organization [place] [address] Address [address] [place] [address] Care Team Providers Care Industrial Hire Sales Assistant Name Role Phone Clemente Sommer MD Primary Care Provider Encounters Date Type Department Care Team Description 06/05/2024 10:30 AM CURRICULUM AND ASSESSMENT COORDINATOR Office Visit 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 (Primary Dx); Essential hypertension; Glucose intolerance (impaired glucose tolerance); PVC's (premature ventricular contractions); History of CVA (cerebrovascular accident) from Last 3 Months Allergies No known active allergies Medications tamsulosin (FLOMAX) 0.4 mg extended release capsule Take 1 capsule (0.4 mg total) by mouth 2 (two) times a day 0 Active levothyroxine (SYNTHROID) 75 mcg tablet Take 1 tablet (75 mcg total) by mouth bend sorter before breakfast Active ferrous sulfate 325 mg [...] 75 mg tabletIndicatio ns:Coronary artery disease of salt river artery of salt river heart with stable angina pectoris (HCC) Take 1 tablet by mouth once daily 90 tablet 4 Active metoprolol tartrate (LOPRESSOR) 25 mg immediate release tabletIndicatio ns:Coronary artery disease involving salt river coronary 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 Take 0.5 tablets (12.5 mg total) by mouth 2 (two) times a day 60 tablet 2 5 Active folic acid (FOLVITE) 1 mg tablet Take 1 tablet (1 mg total) by mouth daily 4 Active ascorbic acid (ascorbic acid with daam hips) 500 mg tablet,chewable Acti ve metoprolol tartrate (LOPRESSOR) 25 mg immediate release tabletIndicatio ns:Coronary artery disease involving salt river coronary 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 Take 0.5 tablets (12.5 mg total) by mouth 2 (two) times a day 3 05/30/19 25 Discontinu ed(Reorder ) ascorbic acid (ascorbic acid with adam hips) 500 mg tablet,chewable 05/31/19 25 Discontinu ed(Therapy completed) nitroglycerin (NITROSTAT) 0.4 mg SL tabletIndicatio ns:Coronary artery disease involving salt river coronary 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 Place 1 tablet [...] JOSSE ONEILL Comment: rt cva mild in 2019 Difficulty in walking, not elsewhere classified 01/18/2023 Sensorineural hearing loss, bilateral 01/18/2023 Failure of left total hip arthroplasty Tear film insufficiency 12/20/2022 Calcium pyrophosphate deposition disease 022 PVC's (premature ventricular contractions) 03/20 Chronic anemia 05/06/2020 Other dietary vitamin B12 deficiency anemia 04/22 Chronic fatigue 02/15/2020 Sinus pause 06/07/2019 Diet-controlled diabetes mellitus (CMS/HCC) 03/24 History of CVA (cerebrovascular accident) 2018 Corneal edema 07/28/2018 Pinguecula 02/14/2018 Blepharitis 09/14/2017 Dry eyes 09/14/2017 Preoperative cardiovascular examination 09/13/19 18 S/P coronary artery stent placement 11/02/2016 Coronary artery disease invo lving salt river coronary 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 09/22/2016 Overview (10/15/2016): Coronary artery disease involving salt river coronary artery of salt river heart with other form of angina pectoris Dyspnea on exertion 09/22/2016 Overview (10/15/2016): LOPEZ (dyspnea on exertion) Meibomian gland dysfunction 06/11/2016 Rheumatoid arthritis of wrist ([facility]) 12/22/19 16 Arthritis 11/11/2015 Muscle pain 06/10/2015 Overview (08/27/2016): Myalgia Unstable angina pectoris ([facility]) 01/03/2015 Overview (08/27/2016): Unstable angina Chronic kidney disease, stage III (moderate) Overview (08/27/2016): CKD (chronic kidney disease) stage 3, GFR 30-59 ml/min History of tobacco use 01/03/2015 Overview (08/27/2016): History of tobacco abuse Abnormal cardiovascular stress test 01/03/2015 Overview (08/27/2016): Abnormal stress test Hypertension associated with diabetes 01/03/2015 Overview (08/27/2016): HTN (hypertension), benign Mixed diabetic hyperlipidemi a associated with type 2 diabetes mellitus ([facility]) 01/03/2015 Overview (08/27/2016): Dyslipidemia Nonexudative age-related macular degeneration Resolved Problems Problem Noted Date Diagnosed Date Resolved Date Dyslipidemia associated with type 2 diabetes mellitus ([facility]) 06/07/2019 03/20/2021 Chronic coronary artery disease 02/18/2015 04/02/2022 Overview (08/27/2016): CAD (coronary artery disease) Presence of stent in coronary artery 02/18/2015 04/02/2022 Overview (08/27/2016): S/P coronary artery stent placement Immunizations Name Administration Dates Next Due H1N1 All Forms 05/13/2009 Influenza, Trivalent, High D ose, Split, Preservative Free, Intramuscular 04/13/2019 Influenza, Unspecified 04/14/2019,2016,03/14/2015,03/01,05/03/2013,03/23/2012,02/16/2011 ,03/11/2010,02/12/2009 Moderna SARS-CoV-2 Monovalen t Vaccination (12+ YRS) 04/02/2022,09/11/2021,03/19/2021,08/01,07/08/2020 Pneumococcal Conjugate PCV 13 07/02/2015 Pneumococcal, Unspecified 02/20/2005 Td, Unspecified 05/05/2009 Tdap 01/09/2019,04/22/2009 ZOSTER LIVE 09/02/2009 Social History Tobacco Use Types Packs/Day Years [...] on file Legal Sex Male 3:46 AM CURRICULUM AND ASSESSMENT COORDINATOR Gender Identity Male 03/07/2020 6:16 PM CDT Sexual Orientation Straight 03/07/2020 6: 16 PM CDT Last Filed Vital Signs Vital Sign Reading Time Taken Comments Blood Pressure 116/60 05/31/2024 12:02 PM CURRICULUM AND ASSESSMENT COORDINATOR Pulse 80 05/31/2024 12:02 PM CURRICULUM AND ASSESSMENT COORDINATOR Temperature 36.6 ??C (97.9 ??F) 03/30/2023 11:[address] Respiratory Rate 18 03/30/2023 11:30 AM CURRICULUM AND ASSESSMENT COORDINATOR Oxygen Saturation 97% 05/31/2024 12:02 PM CURRICULUM AND ASSESSMENT COORDINATOR Inhaled Oxygen Concentration - - Weight 78.9 kg (174 lb) 05/31/2024 12:02 PM CURRICULUM AND ASSESSMENT COORDINATOR Height 172.7 cm (5' 8 ) 05/31/2024 12:02 PM CURRICULUM AND ASSESSMENT COORDINATOR Body Mass Index 26.46 05/31/2024 12:02 PM CURRICULUM AND ASSESSMENT COORDINATOR Plan of Treatment Not on file Medical Devices Implanted Type Area Cornice Upholsterer Device Identifier Shelf Expiration Date Model / Serial / Lot Cardiac Stents N/A: Heart [employer] Liner Acetabular Hip Vitamin E G7 [place] Vivacit E 36mm Polyethylene Size I [id number] - [id number] Implanted:Qty: 1 on 01/31/2023 by Malick Infante MD at [facility] Left: Hip [employer] 11/11/2026 [id number] / / [id number] [employer] G7 66mm Multihole Hip I Hemisphere Offset Shell Acetabular [id number] - [id number] Implanted:Qty: 1 on 01/31/2023 by Malick Infante MD at [facility] Left: Hip [employer] [id number] 08/30/2030 [id number] / / [id number] [employer] Trilogy 6.5mm 40mm Self Tap Hip Acetabular Cortical Screw Bone [id number] - [id number] Implanted:Qty: 1 on 01/31/2023 by Malick Infante MD at [facility] Left: Hip [employer] [id number] 09/22/2032 [id number] / / [id number] [employer] Trilogy 6.5mm 15mm Self Tap Screw Bone [id number] - [id number] Implanted:Qty: 1 on 01/31/2023 by Malick Infante MD at [facility] Left: Hip [employer] [id number] 09/22/2032 [id number] / / [id number] [employer] Trilogy 6.5mm 15mm Self Tap Screw Bone [id number] - [id number] Implanted:Qty: 1 on 01/31/2023 by Malick Infante MD at [facility] Left: Hip [employer] [id number] 09/22/2032 [id number] / / [id number] [employer] Trilogy 6.5mm 20mm Self Tap Screw Bone [id number] - [id number] Implanted:Qty: 1 on 01/31/2023 by Malick Infante MD at [facility] Left: Hip [employer] [id number] 10/01/2032 [id number] / / [id number] [employer] Trilogy 6.5mm 20mm Self Tap Screw Bone [id number] - [id number] Implanted:Qty: 1 on 01/31/2023 by Malick Infante MD at [facility] Left: Hip [employer] [id number] 03/04/2032 [id number] / / [id number] [employer] Trilogy 6.5mm 40mm Self Tap Hip Acetabular Cortical Screw Bone [id number] - [id number] Implanted:Qty: 1 on 01/31/2023 by Malick Infante MD at [facility] Left: Hip [employer] [id number] 09/22/2032 [id number] / / [id number] [employer] G7 [place] 36mm Type 1 Modular Hip +9mm Offset Head Femoral Cocr [id number] - [id number] Implanted:Qty: 1 on 01/31/2023 by Malick Infante MD at [facility] Left: Hip [employer] [id number] 03/18/2032409021 / / [id number] Procedures Procedure Name Priority Date/Time Associated Diagnosis Comments EGFR Timed 01/31/2023 9:06 PM CDT LIPID PANEL Timed 01/31/2023 9:06 PM CDT HEMOGLOBIN A1C Routine 01/21/2023 5:45 PM CDT Preoperative testing Type 2 diabetes mellitus without complication, without long-term current use of insulin (CMS/HCC) ([facility]) from Last 3 Months or Most Recently [...] BLOOD ORDERABLES Final Result CAMERON HEALY [facility] Department [place] [address] * (ABNORMAL) Lipid panel (01/31/2023 9:06 PM [...] on 2018. HDL 28(L) >=40 mg/dL CAMERON HEALY Comment: Interpretive Data Ages [...] 2018. LDL, calculated 43 <=129 mg/dL [facility] Comment: Interpretive Data Ages < or = [...] on 2018. Non-HDL Cholesterol 56 mg/dL [facility] Comment: Interpretive Data Ages < or = [...] revised on 2018. Chol/HDL ratio 3 [facility] Blood 01/31/2023 9:06 PM CDT 01/31/2023 10:07 PM CDT Malick Infante MD LAB BLOOD ORDERABLES Final Result Performing Organization Address City/[facility] Co de Phone Number CAMERON HEALYH [facility] Department [place] [address] * (ABNORMAL) Hemoglobin A1c (01/21/2023 5:45 PM CDT) Hgb A1C 5.8(H) 4.0 - 5.6 % CAMERON CALDERON Estimated Average Glucose 120 mg/dL CAMERON CALDERON Comment: The ADA recommends reporting an estimated Average Glucose (eAG) with all Hemoglobin A1c results using the equation derived from a study of 507 normal and diabetic adults. ??Minority populations were underrepresented and children were not included. ?? (Diabetes Care 31:2099-2278, 2008). ??The eAG is not equivalent to a fasting glucose. The ADA recommends reporting an estimated Average Glucose (eAG) with all Hemoglobin A1c results using the equation derived from a study of 507 normal and diabetic adults. ??Minority populations were underrepresented and children were not included. ??(Diabetes Care 31:6967-7185, 2008). ??The eAG is not equivalent to a fasting glucose. Blood 01/21/2023 5:45 PM CDT 01/21/2023 5:57 PM CDT Bryce Tyler NP LAB BLOOD ORDERABLES Fin al Result Performing Organization Address City/[facility] Co de Phone Number [facility] [address] [facility]. [place] [address] from Last 3 Months or Most Recently Relevant to Health Maintenance Insurance MEDICARE SOLUTIONS MEDICARE SOLUTIONS MEDICARE SOLUTIONS MEDICARE SOLUTIONS Advance Directives For more information, please contact: [phone] * Full Code (Latest Code Status on File) Date Activated Date Inactivated Comments 01/31/2023 3:20 PM 02/01/2023 10:04 PM * Full Code Date Activated Date Inactivated Comments 03/19/2019 10:01 PM 03/21/2019 1:11 AM Care Teams Industrial Hire Sales Assistant Relationship Specialty Start Date End Date Clemente Sommer MD PCP - General Family Medicine 04/13/19
--- OUTSIDE RECORDS SUMMARY | 2024-06-18 11:55 | XMS_ITS | Clinical Summary ---
Author Organization [facility] Address [address] [place] [phone] Phone Care Team Providers Care Chestnut Tanner Name Role Phone Unavailable Primary Care Provider Unavailabl e Medications Medication Sig Dispensed Refills Start Date End Date Status simvastatin (ZOCOR) 40 MG tablet 06/02/2013 Active multivitamin, adult, (CENTRUM) tablet 06/02/2013 Active levothyroxine (SYNTHROID, LEVOTHROID) 50 MCG tablet 06/02/2013 Active Multiple Vitamins-Minerals (PRESERVISION AREDS) capsule 06/02/2013 Active lisinopril (PRINIVIL,ZESTRIL) 20 MG tablet 06/02/2013 Active aspirin 81 MG chewable tablet 06/02/2013 Active fenofibrate (TRIGLIDE) 160 MG tablet 06/02/2013 Active Coenzyme Q10 (COQ-10) 100 MG capsule 06/02/2013 Active Active Problems Problem Noted Date Diagnosed Date Chronic kidney disease 06/04/2013 Other and unspecified hyperlipidemia 06/04/2013 Overview (08/05/2018): Converted unresolved ICD9, potential mismatch. Essential (primary) hypertension 06/04/2013 Pain in joint 06/04/2013 Social History Tobacco Use Types Packs/Day Years Used Date Smoking Tobacco: Never Assessed Sex and Gender Information Value Date Recorded Sex Assigned at Not on file Gender Identity Not on file Sexual Orientation Not on file Last Filed Vital Signs Vital Sign Reading Time Taken Comments Blood Pressure 108/74 11/05/2013 12:01 AM CDT Pulse 72 11/05/2013 12:01 AM CDT Temperature 36.8 ??C (98.2 ??F) 11/05/2013 12:01 AM C DT Respiratory Rate - - Oxygen Saturation - - Inhaled Oxygen Concentration - - Weight 83 kg (183 lb) 11/05/2013 12:01 AM CDT Height 180.3 cm (5' 11 ) 11/05/2013 12:01 AM CDT Body Mass Index 25.52 11/05/2013 12:01 AM CDT Plan of Treatment Not on file
--- OUTSIDE RECORDS SUMMARY | 2024-06-18 11:55 | XMS_ITS | Clinical Summary ---
Author Organization [facility] [employer] Address [address] [place] [address] Care Team Providers Care Site Lead Name Role Phone Clemente Sommer MD Primary Care Provider [phone] Source Comments [facility],non-owned Affiliates and Associated Physician Practices is amultiple site organization consisting of ambulatory clinics and hospital sitesin [place], [place], [place] and [place]. This disclosure is being madepursuant to the Care Everywhere program and may not contain all information available regarding this patient. Last updated 18.[facility] [employer] Allergies No known active allergies Immunizations Name Administration Dates Next Due INFLUENZA VACCINE, HIGH-DOSE , QUADR. (FLUZONE HIGH-DOSE QUADRIVALENT; 65Y+), 0.7 ML (HD-IIV4) 02/21/2018,02/23/2017 Social History Tobacco Use Types Packs/Day Years Used Date Smoking Tobacco: Never Assessed Sex and Gender Information Value Date Recorded Sex Assigned at Not on file Gender Identity Not on file Sexual Orientation Not on file Plan of Treatment Health Maintenance Due Date Last Done Comments MEDICARE AWV ? 12 MONTHS 1936 DTAP/TDAP/TD VACCINES (1 - Tdap) 1955 PNEUMOCOCCAL VACCINE 50+ (1 of 1 - PCV) 1986 ZOSTER VACCINE (1 of 2) 1986 Respiratory Syncytial Virus (RSV) Vaccine Pt: or over 60 yrs (1 - 1-dose 75+ series) 2011 COVID-19 VACCINE ( - 2023-2 5 season) 2024 INFLUENZA VACCINE (#1) 2024 8, 02/23/2017 DEPRESSION SCREENING 05/23/2024 HEPATITIS B VACCINE Aged Out No longe r eligible based on patient's age to complete this topic HIB VACCINE Aged Out No longer eligi ble based on patient's age to complete this topic HPV VACCINE Aged Out No longer eligi ble based on patient's age to complete this topic MENINGOCOCCAL (Group B) VACCINE Aged Out No longer eligible b ased on patient's age to complete this topic MENINGOCOCCAL VACCINE Aged Out No elliot ky eligible based on patient's age to complete this topic Care Teams Site Lead Relationship Specialty Start Date End Date Clemente Sommer MD [address] [place] [address] PCP - General Family Medicine 02/23/17
--- OUTSIDE RECORDS SUMMARY | 2024-06-18 11:55 | XMS_ITS | Referral Summary ---
Author Organization [facility] Address [address] [place] [address] Care Team Providers Care Investigator Welfare Name Role Phone Clemente Sommer MD Primary Care Provider Source Comments [facility],non-owned Affiliates and Associated Physician Practices is amultiple site organization consisting of ambulatory clinics and hospital sitesin [place], [place], [place] and [place]. This disclosure is being madepursuant to the Care Everywhere program and may not contain all information available regarding this patient. Last updated 18.[facility] [employer] Allergies No known active allergies Immunizations Name Administration Dates Next Due INFLUENZA VACCINE, HIGH-DOSE , QUADR. (FLUZONE HIGH-DOSE QUADRIVALENT; 65Y+), 0.7 ML (HD-IIV4) 02/21/2018,02/23/2017 Social History Tobacco Use Types Packs/Day Years Used Date Smoking Tobacco: Never Assessed Sex and Gender Information Value Date Recorded Sex Assigned at Not on file Gender Identity Not on file Sexual Orientation Not on file Plan of Treatment Not on file Care Teams Investigator Welfare Relationship Specialty Start Date End Date Clemente Sommer MD [address] [place] [address] PCP - General Family Medicine 02/23/17
[2024-06-18 11:56] LABS: EDCOVIDSCREEN Negative (Negative)
--- OUTSIDE RECORDS SUMMARY | 2024-06-18 11:56 | XMS_ITS | Continuity of Care Document ---
Author Organization [employer] [facility] [place] [facility] Address [address] [place] [phone] Phone Care Team Providers Care Business Development Executive Name Role Phone Tai JOY, Connie Unavailable Unavailable Allergies, Adverse Reactions, Alerts Substance Reaction Status Criticality No Known Allergies Active No Inform ation Medications Medication Instructions Dosage Effective Dates (start - stop) Status Comments tamsulosin 0.4 mg capsule take 1 capsule by oral route every day 1/2 hour following the same meal each day 0.4 MG - Active amlodipine 2.5 mg tablet take 1 tablet by oral route every day 2.5 MG - Active aspirin 81 mg tablet,delayed release take 1 tablet by oral route every day 81 MG - Active PreserVision AREDS-2 250 mg-200 unit-40 mg-1 mg capsule take 1 capsule by buccal route 2 times every day 1 capsule - Active Vitamin B-12 100 mcg tablet take 1 by oral route every day 1 - Active atorvastatin 40 mg tablet take 1 tablet by oral route every day 40 MG - Active lisinopril 20 mg tablet take 1 tablet by oral route every day 20 MG - Active Nitrostat 0.[address] 1 tablet by sublingual route at 1st sign of attack; may repeat every 5 minutes up to 3 tabs; if norelief seek medical help 0.4 MG - Active Plavix 75 mg tablet take 1 tablet by ora l route every day 75 MG - Active Tirosint 50 mcg capsule [...] Counseling For Antioxidant Supplements F Office/outpatient Visit, [facility] Advance Directives Directive Yes / No [...] Diagnoses Date Provider Providers Copied on Encounter [facility], [address], [place], [place], [address], tel:[phone] SEC [place] Professional diabetic eye exam (chief complaint) PrediabetesNe xdtve age-related mclr degn, bilateral, early dry stageMechanic al ectropion of lower eyelids of both eyesDry eye syndrome, bilateralOthe r secondary cataract, bilateralVitr eomacular adhesion of both eyes 4 Tai Rosales. [facility] [employer], [address], [place], [place], [address], . tel:[phone] Referring Provider: Connie Lujan OD L, [address], [place], [address] . tel:[phone] [facility], [address], [place], [place], [address], tel:[phone] SEC [place] Professional Complete Exam (chief complaint) Type 2 diab with mild nonp rtnop without mclr edema, r eyeNexdtve age-related mclr degn, bilateral, early dry stagePresence of intraocular lens 3 Tai OD Connie. [address], [address], [place], [place], [address], [place]. tel:[phone] Referring Provider: Connie Lujan [place] L, [address], [place], [address] . tel:[phone] [facility], [address] [place], [place] [address], [place], [place], [address], [place] tel:[phone] SEC [place] Professional Complete Exam (chief complaint) Drusen (degenerative ) of macula, bilateralPres ence of intraocular lensPrediabet esDry eye syndrome, bilateral 2 Jonah Burgos. [address], [address], [place], [place], [address], [place]. tel:[phone] Referring Provider: Aubrey Celaya, [address], [place], [address] . tel:[phone] [facility], [facility] [address], [place], [place], [address], [place] tel:[phone] SEC [place] Professional Complete Exam (chief complaint) PrediabetesDr usen (degenerative ) of macula, bilateralPres ence of intraocular lensPunctate keratitis, bilateralMech anical ectropion of lower eyelids of both eyesMechanica l ectropion of left lower eyelid 1 Jonah Burgos. [address], [address], [place], [place], [address], [place]. tel:[phone] Referring Provider: Aubrey Celaya, [address], [place], [address] . tel:[phone] [facility], [address], [place], [place], [address], [place] tel:[phone] SEC [place] Professional Complete Exam (chief complaint) Presence of intraocular lensRPE mottling of maculaPunctat e keratitis, bilateralDrus en (degenerative ) of macula, right eye Nov-0 9-202 0 Jonah Burgos. [address] [facility], [address], [place], [place], [address], [place]. tel:[phone] Referring Provider: Aubrey Celaya, [address], [place], [address] . tel:[phone] [facility], [address] [place] [address] [address], [place], [place], [address], [place] tel:[phone] SEC [facility] Jonathon No Information Oct-2 0 Laura Ziegler. [facility] [address], [address], [place], [place], [address], [place]. tel:[phone] [facility], [address] [place] [address] [address], [place], [place], [address], tel:[phone] SEC Marvin BARRI[place] Professional Complete Exam (chief complaint) Presence of intraocular lensHistory of strokeRPE mottling of macula 9 Jonah Burgos. [address] [facility], [address], [place], [place], [address], [place]. tel:[phone] Referring Provider: Aubrey Celaya, [address] [facility] [address], [place], [address] . tel:[phone] Office/outpa tient Visit, Est [facility], [address] [place] [address] [address], [place], [place], [address], [place] tel:[phone] SEC [place] SOP[place] Professional cornea check (chief complaint) Corneal edema of right eye 0 9 Jonah Burgos. [address], [address], [place], [place], [address], [place]. tel:[phone] Referring Provider: Aubrey Celaya, [address] [facility] [address], [place], [address] . tel:[phone] Office/outpa tient Visit, [facility], [address], [place], [place], [address], [place] tel:[phone] SEC Marvin BARRIOS Professional Follow up visit (chief complaint) Corneal edema of right eye 9 Jonah Burgos. [address], [place], [place], [address], [place]. tel:[phone] Referring Provider: Aubrey Celaya, [address], [place], [address] . tel:[phone] [facility], [address], [place], [place], [address], [place] tel:[phone] SEC Marvin BARRIOS Professional Cornea edema f/u (chief complaint) Encounter for examination following surgery 9 Jonah Burgos. [address], [place], [place], [address], [place]. tel:[phone] Referring Provider: Aubrey Celaya, [address], [place], [address] . tel:[phone] [facility], [address], [place], [place], [address], [place] tel:[phone] SEC Marvin BARRIOS Professional 2 wk Cornea check (chief complaint) Encounter for examination following surgery 9 Jonah Burgos. [address], [address], [place], [place], [address], [place]. tel:[phone] Referring Provider: Aubrey Celaya, [address], [place], [address] . tel:[phone] [facility], [address], [place], [place], [address], [place] tel:[phone] [place] Professional Post-Op (chief complaint) No Information 0 9 Jordan OD Osmar. [address] [facility], [address] [facility], [place], [address], [place]. tel:[phone] Referring Provider: Aubrey Celaya, [address] [facility] [address], [place], [address] . tel:[phone] [facility], [address] [place] [address] [address], [place], [place], [address], tel:[phone] SEC [place] Professional 2 wk CE PO (chief complaint) No Information 8 Jonah Burgos. [address] [facility] [address], [place], [place], [address], [place]. tel:[phone] Referring Provider: Aubrey Celaya, [address] [facility] [address], [place], [address] . tel:[phone] [facility], [address] [place] [address] [address], [place], [place], [address], [place] tel:[phone] SEC [place] Professional 1 week s/p PCIOL (chief complaint) No Information 8 Jordan OD Osmar. [address] [facility], [address] [place] [address], [place], [address], [place]. tel:[phone] Referring Provider: Aubrey Celaya, [address] [facility] [address], [place], [address] . tel:[phone] [facility], [address] [place] [address] [address], [place], [place], [address], [place] tel:[phone] SEC [place] Professional 1 day s/p PCIOL (chief complaint) No Information 8 Jordan OD Osmar. [address] [facility], [address] [place] [address], [place], [address], [place]. tel:[phone] Referring Provider: Aubrey Celaya, [address] [facility] [address], [place], [address] . tel:[phone] [facility], [address], [place], [place], [address], [place] tel:[phone] [facility] No Information 8 Jonah Burgos. [address], [place], [place], [address], [place]. tel:[phone] Referring Provider: Aubrey Celaya, [address], [place], [address] . tel:[phone] [facility], [address], [place], [place], [address], tel:[phone] SEC Antionephillip Holt No Information 8 Jonah Burgos. [address], [place], [address], [place]. tel:[phone] Referring Provider: Aubrey Celaya, [address], [place], [address] . tel:[phone] [facility], [address], [place], [place], [address], [place] tel:[phone] [place] Professional Post-Op (chief complaint) No Information 8 Jordan Prasad. [address] [place] [address], [address], [place]. tel:[phone] Referring Provider: Aubrey Celaya, [address], [place], [address] . tel:[phone] [facility], [address], [place], [place], [address], [place] tel:[phone] [place] Professional 1 week p/o PCIOL (chief complaint) No Information 8 Jordan Cashic. [facility], [address] [place] [address], [address], [place]. tel:[phone] Referring Provider: Aubrey Celaya, [address] [facility] [address], [place], [address] . tel:[phone] [facility], [address], [place], [place], [address], [place] tel:[phone] SEC Marvin BARRIOS Professional Post-Op (chief complaint) No Information 0 - 8 Jordan Prasad. [address] [facility], [address] [facility], [place], [address], [place]. tel:[phone] Referring Provider: Aubrey Celaya, [address] [facility] [address], [place], [address] . tel:[phone] [facility], [address], [place], [place], [address], [place] tel:[phone] [facility] No Information 3 8 Jonah Burgos. [address] [facility], [address], [place], [place], [address], [place]. tel:[phone] Referring Provider: Aubrey Celaya, [address] [facility] [address], [place], [address] . tel:[phone] [facility], [address], [place], [place], [address], [place] tel:[phone] SEC Antione Reyes No Information 3 0 8 Jonah Burgos. [address] [facility], [address], [place], [place], [address], [place]. tel:[phone] Referring Provider: Aubrey Celaya, [address] [facility] [address], [place], [address] . tel:[phone] Office/outpa tient Visit, [facility], [address], [place], [place], [address], [place] tel:[phone] SEC [place] Professional 6 mo CAT check (chief complaint) No Information 8 Jonah Burgos. [address] [facility] [place], [place], [address], [place]. tel:[phone] Referring Provider: Aubrey Celaya, [address] [facility] [address], [place], [address] . tel:[phone] [facility], [address] [place] [address] [address], [place], [place], [address], [place] tel:[phone] SEC [place] Professional Complete Exam (chief complaint) No Information 8 Seven Collier. [address] [place], [facility], . tel:[phone] Referring Provider: Paul Lopez, [address] [facility] [address], [place], [address] . tel:[phone] [facility], [address] [place] [address] [address], [place], [place], [address], [place] tel:[phone] SEC [place] Professional No Information 8 Seven Collier. [address] [place], [facility], . tel:[phone] [facility], [address] [place] [address] [address], [place], [place], [address], [place] tel:[phone] [place] Professional Complete Exam (chief complaint) No Information 7 Batsheva Miller. [address] [facility] [place], [address], [place]. tel:[phone] Referring Provider: Paul Lopez, [address] [facility] [place], [address] . tel:[phone] [facility], [address] [place] [address] [address], [place], [place], [address], [place] tel:[phone] [place] Professional No Information 6 Jonah Burgos. [address], [place], [place], [address], [place]. tel:[phone] [facility], [address], [place], [place], [address], [place] tel:[phone] [place] Professional Difficulty reading (chief complaint) No Information 5 Wankum Paul. [address], [place], [place], [address], [place]. tel:[phone] [facility], [address] [place] [address] [address], [place], [place], [address], [place] tel:[phone] [place] Professional Dry eyes (chief complaint) No Information 4 Wankum Paul. [address], [place], [place], [address], [place]. tel:[phone] [facility], [address] [place] [address] [address], [place], [place], [address], [place] tel:[phone] [place] Professional eyes doing well, without complaint. (chief complaint) No Information 3 Wankum Paul. [address], [place], [place], [address], [place]. tel:[phone] [facility], [address], [place], [place], [address], [place] tel:[phone] [place] Professional No Information 0 Wankum Paul. [address], [place], [place], [address], [place]. tel:[phone] Office/outpa tient Visit, [facility], [address], [place], [place], [address], [place] tel:[phone] SEC Marvin BARRIOS Professional No Information 9 Batsheva Miller. [address] [facility], [address], [place], [place], [address], [place]. 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 NS - Educational material given Related to NS - Return in 1 year w armando Herman M.D. for Complete Exam Related to See list of assessments above - Cataracts account for the patient's complaints. [...] to See list of assessments above - 1 year Related to See l ist of assessments above - Cataracts diagnosi s discussed with pt No treatment currently recommended. The patient will monitor vision changes and contact us with any decrease in vision. RTC in 1 year. Educational materials provided:about today's exam. Related to See list of assessments above - 1yr dry amd-had mac hemm os few yrs ago but resolved - cont AREDS cataracts Assessments Type Assessment Date assessment Prediabetes [...]
[2024-06-18 11:58] LABS: EDINFLUASCREEN Negative (Negative); EDINFLUBSCREEN Negative (Negative); EDSTREPNEGPOS1 Negative (Negative)
== END 2024-06-18 12:15 | disposition home or self-care (01) ==
PROVIDERS: Emergency Provider Nurse Practitioner Family; PCP Family Medicine
DX: J06.9 Acute upper respiratory infection, unspecified (principal); Z20.822 Contact with and (suspected) exposure to COVID-19; Z87.891 Personal history of nicotine dependence; N40.0 Benign prostatic hyperplasia without lower urinary tract symptoms; I12.9 Hypertensive chronic kidney disease with stage 1 through stage 4 chronic kidney disease, or unspecified chronic kidney disease; N18.9 Chronic kidney disease, unspecified; D64.9 Anemia, unspecified; Z86.73 Personal history of transient ischemic attack (TIA), and cerebral infarction without residual deficits; Z96.643 Presence of artificial hip joint, bilateral; Z86.16 Personal history of COVID-19; Z79.82 Long term (current) use of aspirin
CPT/HCPCS: 71046; 87081; 87426; 87804; 87880; 99213; G0463

== ENCOUNTER 2024-07-12 12:58 | Outpatient (CLI) | payer MEDICARE, SELFPAY ==
--- OUTSIDE RECORDS SUMMARY | 2024-07-12 13:14 | XMS_ITS | Encounter Summary ---
Author Organization [facility] Address [address] [place] [address] Phone Care Team Providers Care Target Network Analyst Name Role Phone Clemente Sommer MD Primary Care Provider Encounter Details Date Type Department Care Team (Late st Contact Info) Description 02/09/2023 Telephone [facility] Orthopaedic Surgery [address] [facility] [address] [place] [address] Malick Infante MD [address] [facility] [address] [place] [address] Social History Tobacco Use Types Packs/Day Years [...] on file 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
--- OUTSIDE RECORDS SUMMARY | 2024-07-12 13:14 | XMS_ITS | Encounter Summary ---
Author Organization [facility] Address [address] [facility] [address] [place] [address] Care Team Providers Care Distributing Clerk Name Role Phone Clemente Sommer MD Primary Care Provider [phone] Unknown, Notinfile Primary Care Provider Unavail able Clemente Sommer MD Primary Care Provider + [phone] Encounter Details Date Type Department Care Team (Late st Contact Info) Description 09/30/2016 Orders Only [facility] ProviderHusam MD [address] [place] [address] Social History Tobacco Use Types Packs/Day Years Used Date Smoking Tobacco: Former Alcohol Use Standard Drinks/Week Comments Yes 0 (1 standard drink = 0.6 oz pur e alcohol) Sex and Gender Information Value Date Recorded Sex Assigned at Not on file 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
--- OUTSIDE RECORDS SUMMARY | 2024-07-12 13:14 | XMS_ITS | Patient Health Summary ---
Author Organization [facility] Address [address] [place] [address] Care Team Providers Care Production Hardener Name Role Phone Clemente Sommer MD Primary Care Provider Note from [facility],non-owned Affiliates and Associated Physician Practices is amultiple site organization consisting of ambulatory clinics and hospital sitesin [place], [place], [place] and [place]. This disclosure is being madepursuant to the Care Everywhere program and may not contain all information available regarding this patient. 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 GROSS DESCRIPTION: Received is one formalin filled container labeled with the patient's name and designated right leg. The specimen consists of a [id number] piece of skin. The margin is inked [...] Lizett Washington M.D. Electronically signed 12/17/2011 1:01:25PM [facility] Comment: Performed at: Dermatopathology Laboratory [facility] Department of Dermatology [address] [place] [address], [address] [place] [address] Phone number: [phone] Toll Free: [phone] FAX: [phone] 12/16/2011 12/16/2011 Clemente Sommer MD LAB - PATHOLOGY/CYTO LOGY ORDERABLES [facility] [address] [place] [address]. 5th Floor Lab [address] [phone] Care Teams Production Hardener Relationship Specialty Start Date End Date Clemente oSmmer MD [address] [place] [address] PCP - General Family Medicine 02/23/17
--- OUTSIDE RECORDS SUMMARY | 2024-07-12 13:15 | XMS_ITS | Continuity of Care Document ---
Author Organization [facility] Address [address] [place] [id number] Phone Care Team Providers Care Mechanic Insulator Name Role Phone Tai JOY, Connie Unavailable [...] Counseling For Antioxidant Supplements F Office/outpatient Visit, [facility] Advance Directives Directive Yes / No [...] Diagnoses Date Provider Providers Copied on Encounter [facility] [employer] [facility], [address], [place], [place], [address], tel:[phone] SEC [place] Professional diabetic eye exam (chief complaint) PrediabetesNe xdtve age-related mclr degn, bilateral, early dry stageMechanic al ectropion of lower eyelids of both eyesDry eye syndrome, bilateralOthe r secondary cataract, bilateralVitr eomacular adhesion of both eyes 4 Tai Rosales. [facility] [address], [address], [place], [place], [address], . tel:[phone] Referring Provider: Connie Lujan [place], [address], [place], [address] . tel:[phone] [facility] [employer] [facility], [address], [place], [place], [address], tel:[phone] SEC [place] Professional Complete Exam (chief complaint) Type 2 diab with mild nonp rtnop without mclr edema, r eyeNexdtve age-related mclr degn, bilateral, early dry stagePresence of intraocular lens 3 Tai OD Connie. [address] [employer] [address] [address], [place], [place], [address], [place]. tel:[phone] Referring Provider: [place], [address] [address] [address], [place], [address] . tel:[phone] [facility], [address] [place], [place] [address], [place], [place], [address], [place] tel:[phone] SEC [place] Professional Complete Exam (chief complaint) Drusen (degenerative ) of macula, bilateralPres ence of intraocular lensPrediabet esDry eye syndrome, bilateral 2 Jnoah Burgos. [address], [address], [place], [place], [address], [place]. tel:[phone] Referring Provider: Aubrey Celaya, [address], [place], [address] . tel:[phone] [facility], [facility] [address], [place], [place], [address], [place] tel:[phone] SEC [place] Professional Complete Exam (chief complaint) PrediabetesDr usen (degenerative ) of macula, bilateralPres ence of intraocular lensPunctate keratitis, bilateralMech anical ectropion of lower eyelids of both eyesMechanica l ectropion of left lower eyelid 1 Jonah Burgos. [address], [address], [place], [place], [address], [place]. tel:[phone] Referring Provider: Aubrey Celaya, [address], [place], [address] . tel:[phone] [facility], [address] [employer] [address], [place], [place], [address], [place] tel:[phone] SEC [place] Professional Complete Exam (chief complaint) Presence of intraocular lensRPE mottling of maculaPunctat e keratitis, bilateralDrus en (degenerative ) of macula, right eye Nov-0 9-202 0 Jonah Burgos. [address] [facility], [address], [place], [place], [address], [place]. tel:[phone] Referring Provider: Aubrey Celaya, [address], [place], [address] . tel:[phone] [facility], [address] [place] [address] [address], [place], [place], [address], [place] tel:[phone] SEC [facility] Jonathon No Information Oct-2 0 Laura Ziegler. [facility] [address], [address], [place], [place], [address], [place]. tel:[phone] [facility], [address] [place] [address] [address], [place], [place], [address], tel:[phone] SEC [place] Professional Complete Exam (chief complaint) Presence of intraocular lensHistory of strokeRPE mottling of macula 9 Jonah Burgos. [address] [facility], [address], [place], [place], [address], [place]. tel:[phone] Referring Provider: Aubrey Celaya, [address] [facility] [address], [place], [address] . tel:[phone] Office/outpa tient Visit, Est [facility], [address] [place] [address] [address], [place], [place], [address], [place] tel:[phone] SEC [place] Professional cornea check (chief complaint) Corneal edema of right eye 0 9 Jonah Burgos. [address], [address], [place], [place], [address], [place]. tel:[phone] Referring Provider: Aubrey Celaya, [address] [facility] [address], [place], [address] . tel:[phone] Office/outpa tient Visit, Est [facility], [address] [address], [place], [place], [address], [place] tel:[phone] SEC [place] Professional Follow up visit (chief complaint) Corneal edema of right eye 9 Jonah Burgos. [address], [address], [place], [place], [address], [place]. tel:[phone] Referring Provider: Aubrey Celaya, [address], [place], [address] . tel:[phone] [facility], [address] [address], [place], [place], [address], [place] tel:[phone] SEC [place] Professional Cornea edema f/u (chief complaint) Encounter for examination following surgery 9 Jonah Burgos. [address], [place], [place], [address], [place]. tel:[phone] Referring Provider: Aubrey Celaya, [address], [place], [address] . tel:[phone] [facility], [address], [place], [place], [address], [place] tel:[phone] SEC [place] BARRI[place] Professional 2 wk Cornea check (chief complaint) Encounter for examination following surgery 9 Jonah Burgos. [address], [place], [place], [address], [place]. tel:[phone] Referring Provider: Aubrey Celaya, [address], [place], [address] . tel:[phone] [facility], [address] [address], [place], [place], [address], [place] tel:[phone] SEC [place] Professional Post-Op (chief complaint) No Information 0 9 Jordan OD Osmar. [address] [facility], [address] [facility], [place], [address], [place]. tel:[phone] Referring Provider: Aubrey Celaya, [address] [facility] [address], [place], [address] . tel:[phone] [facility], [address] [place] [address] [address], [place], [place], [address], tel:[phone] SEC [place] Professional 2 wk CE PO (chief complaint) No Information 8 Jonah Burgos. [address] [facility] [address], [place], [place], [address], [place]. tel:[phone] Referring Provider: Aubrey Celaya, [address] [facility] A, [place], [address] . tel:[phone] [facility], [address] [place] [address] [address], [place], [place], [address], [place] tel:[phone] SEC [place] Professional 1 week s/p PCIOL (chief complaint) No Information 8 Jordan OD Osmar. [address] [facility], [address] [place] [address], [place], [address], [place]. tel:[phone] Referring Provider: Aubrey Celaya, [address] [facility] [address], [place], [address] . tel:[phone] [facility], [address] [place] [address] [address], [place], [place], [address], [place] tel:[phone] SEC [place] Professional 1 day s/p PCIOL (chief complaint) No Information 8 Jordan OD Osmar. [address] [facility], [address] [place] [address], [place], [address], [place]. tel:[phone] Referring Provider: Aubrey Celaya, [address] [facility] [address], [place], [address] . tel:[phone] [facility], [address] [address], [place], [place], [address], [place] tel:[phone] [facility] No Information 8 Jonah Burgos. [address], [place], [place], [address], [place]. tel:[phone] Referring Provider: Aubrey Celaya, [address], [place], [address] . tel:[phone] [facility], [address] [address], [place], [place], [address], tel:[phone] SEC Antionephillip Holt No Information 8 Jonah Burgos. [address], [place], [address], [place]. tel:[phone] Referring Provider: Aubrey Celaya, [address], [place], [address] . tel:[phone] [facility], [address] [address], [place], [place], [address], [place] tel:[phone] SEC [place] Professional Post-Op (chief complaint) No Information 8 Jordan Prasad. [address] [place] [address], [address], [place]. tel:[phone] Referring Provider: Aubrey Celaya, [address], [place], [address] . tel:[phone] [facility], [address] [address], [place], [place], [address], [place] tel:[phone] SEC [place] Professional 1 week p/o PCIOL (chief complaint) No Information 8 Jordan Cashic. [facility], [address] [place] [address], [address], [place]. tel:[phone] Referring Provider: Aubrey Celaya, [address] [facility] [address], [place], [address] . tel:[phone] [facility], [address] [address], [place], [place], [address], [place] tel:[phone] SEC [place] Professional Post-Op (chief complaint) No Information 0 - 8 Jordan Prasad. [address] [facility], [address] [facility], [place], [address], [place]. tel:[phone] Referring Provider: Aubrey Celaya, [address] [facility] [address], [place], [address] . tel:[phone] [facility], [address] [address], [place], [place], [address], [place] tel:[phone] [facility] No Information 3 8 Jonah Burgos. [address] [facility], [address], [place], [place], [address], [place]. tel:[phone] Referring Provider: Aubrey Celaya, [address] [facility] [address], [place], [address] . tel:[phone] [facility], [address] [address], [place], [place], [address], [place] tel:[phone] SEC Antione Reyes No Information 3 0 8 Jonah Burgos. [address] [facility], [address], [place], [place], [address], [place]. tel:[phone] Referring Provider: Aubrey Celaya, [address] [facility] [address], [place], [address] . tel:[phone] Office/outpa tient Visit, Est [facility], [address] [address], [place], [place], [address], [place] tel:[phone] SEC [place] Professional 6 mo CAT check (chief complaint) No Information 8 Jonah Burgos. [address] [facility] [place], [place], [address], [place]. tel:[phone] Referring Provider: Aubrey Celaya, [address] [facility] [address], [place], [address] . tel:[phone] [facility], [address] [place] [address] [address], [place], [place], [address], [place] tel:[phone] SEC [place] Professional Complete Exam (chief complaint) No Information 8 Seven Collier. [address] [place], [facility], . tel:[phone] Referring Provider: Paul Lopez, [address] [facility] A, [place], [address] . tel:[phone] [facility], [address] [place] [address] [address], [place], [place], [address], [place] tel:[phone] SEC [place] Professional No Information 8 Seven Collier. [address] [place], [facility], . tel:[phone] [facility], [address] [place] [address] [address], [place], [place], [address], [place] tel:[phone] SEC [place] Professional Complete Exam (chief complaint) No Information 7 Batsheva Miller. [address] [facility] [place], [place], [address], [place]. tel:[phone] Referring Provider: Paul Lopez, [address] [facility] [place], [address] . tel:[phone] [facility], [address] [place] [address] [address], [place], [place], [address], [place] tel:[phone] SEC [place] Professional No Information 6 Jonah Burgos. [address], [place], [place], [address], [place]. tel:[phone] [facility], [address] [address], [place], [place], [address], [place] tel:[phone] SEC [place] Professional Difficulty reading (chief complaint) No Information 5 Wankum Paul. [address], [address], [place], [place], [address], [place]. tel:[phone] [facility], [address] [place] [address] [address], [place], [place], [address], [place] tel:[phone] SEC [place] Professional Dry eyes (chief complaint) No Information 4 Wankum Paul. [address], [address], [place], [place], [address], [place]. tel:[phone] [facility], [address] [place] [address] [address], [place], [place], [address], [place] tel:[phone] SEC [place] Professional eyes doing well, without complaint. (chief complaint) No Information 3 Wankum Paul. [address], [place], [place], [address], [place]. tel:[phone] [facility], [address] [address], [place], [place], [address], [place] tel:[phone] SEC [place] Professional No Information 0 Wankum Paul. [address], [place], [place], [address], [place]. tel:[phone] Office/outpa tient Visit, [facility], [address] [address], [place], [place], [address], [place] tel:[phone] SEC [place]RI[place] Professional No Information 9 Batsheva Miller. [address] [facility], [address], [place], [place], [address], [place]. tel:[phone] Family History Family Member Type Diagnosis Age At Onset Maternal grandmother Problem (finding) Diabetes mellit Payers Payer name Insurance type Covered libertarian ID Authorrenny burciaga(s) AARP Medicare Complete CI [id number] Social History Type Description Quantity Date Captured [...] Educational material given Related to NS - Cataracts diagnosi s discussed with pt No treatment currently recommended. The patient will monitor vision changes and contact us with any decrease in vision. RTC in 1 year. Educational materials provided:about today's exam. Related to See list of assessments above - 1 year Related to See l ist of assessments above - 2yr dry amd-had [...]
--- OUTSIDE RECORDS SUMMARY | 2024-07-12 13:15 | XMS_ITS | Continuity of Care Document ---
Author Name [facility] Organization [facility] Care Team Providers Care Econometrician Name Role Phone [facility] Unavailable Unavailable Problems Combined list of problems from Department of Defense and 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 It does not include entries that were removed or entered in error. 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 22 Condition [facility] Cerebral infarction Active Condition Jul 05, 2022 Entered By: FRANKLIN ONEILL I Comment: rt cva mild in 2018 [facility] Coronary atherosclerosis Active Condition [facility] Dysmetabolic Syndrome X (ICD-9-CM 277.7) Active Condition [facility] Essential hypertension (SNOMED CT 86330817) Active Condition [facility] Hearing Loss, Bilateral Active Condition [facility] Hyperlipidemia Active Condition [facility] Hypothyroidism Active Condition [facility] Rheumatoid arthritis Active Condition [facility] Type 2 diabetes mellitus Active Condition [facility] Colonoscopy Inactive Condition 03/01/2017 May 05, 2009 Entered By: John ALEXANDRE Comment: to be repeated 2008 [facility] Impaired FASTING Glucose (ICD-9-CM 790.21) Inactive Condition 03/01/2017 [facility] Diagnosis: ICD-10-CM H90.3 Sensorineural hearing loss, bilateral Active Diagnosis [facility] Diagnosis: ICD-10-CM M05.9 Rheumatoid arthritis with rheumatoid factor, unspecified Active Diagnosis [facility] Diagnosis: ICD-10-CM Z13.5 Encounter for screening for eye and ear disorders Active Diagnosis [facility] Diagnosis: ICD-10-CM I10 Essential (primary) hypertension Active Diagnosis [facility] Diagnosis: ICD-10-CM H90.A32 Mix cndct/snrl hear loss,uni,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 Medication Details Route Status Patient Instructions Prescription Expires Prescription Number Last Dispense Date Ordering Provider Order Date Order Qty Source AMLODIPINE BESYLATE 2.5MG TAB TAKE ONE TABLET BY MOUTH ONCE A DAY ORAL ACTIVE TITI MARTEL 2020 [facility] ASPIRIN 81MG TAB,EC TAKE ONE TABLET BY MOUTH ONCE A DAY ORAL ACTIVE MELITON ALEXANDRE 2008 [facility] ATORVASTATI N CA 80MG TAB TAKE ONE TABLET BY MOUTH EVERY MORNING ORAL ACTIVE TITI MARTEL 2020 [facility] CLOPIDOGREL BISULFATE 75MG TAB TAKE ONE TABLET BY MOUTH ONCE A DAY ORAL ACTIVE YOHANA DURAN 2015 [facility] CYANOCOBALA MIN 1000MCG TAB TAKE ONE TABLET BY MOUTH ONCE A DAY ORAL ACTIVE TITI MARTEL 2020 [facility] FINASTERIDE 5MG TAB TAKE ONE TABLET BY MOUTH ONCE A DAY ORAL ACTIVE NINONI I 2022 [facility] LEVOTHYROXI NE NA 75MCG TAB (SYNTHROID) TAKE ONE TABLET BY MOUTH EVERY MORNING BEFORE A MEAL ORAL ACTIVE NINO,NI I 2022 [facility] METOPROLOL TARTRATE 25MG TAB TAKE ONE-HALF TABLET BY MOUTH TWICE A DAY ORAL ACTIVE NINONI I 2023 [facility] MULTIVIT/OP HTH AREDS2/LUTE IN/ZEAXANTH IN CAP/TAB TAKE 1 CAP/TAB BY MOUTH BID WM ORAL ACTIVE Irena'TITI PANTOJA A 2020 [facility] NITROGLYCER IN 0.4MG TAB,SUBLING UAL DISSOLVE ONE TABLET UNDER THE TONGUE ONE-TIME NEEDED SUBLIN GUAL ACTIVE ROSAS GERONIMO 2016 [facility] TAMSULOSIN HCL 0.4MG CAP TAKE 1 CAPSULE BY MOUTH EVERY EVENING ORAL ACTIVE Irena'TITI PANTOJAA A 2020 [facility] Immunizations Combined list of available immunizations from the Department of Defense and Veterans 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 Immunization Series Date Given Administered By Site Reaction Lot Number CVX Code Drug Account Processor Status Comments Source COVID-19 (MODERNA), MRNA, LNP-S, PF, 100 MCG/0.5ML DOSE OR 50 MCG/0.25ML DOSE 5 2021 207 complet ed Lot#: [id number] Mfr: MODERNA [facility]aked. [facility] COVID-19 (MODERNA), MRNA, LNP-S, PF, 100 MCG/0.5ML DOSE OR 50 MCG/0.25ML DOSE 4 2021 207 complet ed Lot#: [id number] Mfr: [employer] Naked. [facility] COVID-19 (MODERNA), MRNA, LNP-S, PF, 100 MCG/0.5ML DOSE OR 50 MCG/0.25ML DOSE 3 2020 207 complet ed Mfr: [employer] Naked. [facility] COVID-19 (MODERNA), MRNA, LNP-S, PF, 100 MCG/0.5 ML DOSE 2 2020 207 complet ed MOD; [id number]; 1 [facility] COVID-19 (MODERNA), MRNA, LNP-S, PF, 100 MCG/0.5 ML DOSE 1 2020 207 complet ed MOD; [id number]; 1 [facility] N INFLUENZA, UNSPECIFIED FORMULATION 2018 88 complet ed [facility] INFLUENZA, HIGH DOSE SEASONAL 2018 135 complet ed Partner: [facility]. Administe red by: RONI FLEMING (WDY=[id number]). Partner 4 Lot#: [id number] Mfr: [employer]; Dosage: 0.5 [facility] TDAP 2018 115 complet ed Right Deltoid [facility] INFLUENZA, UNSPECIFIED FORMULATION 2016 88 complet ed [facility] PNEUMOCOCCAL CONJUGATE PCV 13 2015 133 complet ed [facility] INFLUENZA, UNSPECIFIED FORMULATION 2014 88 complet ed [facility] INFLUENZA, UNSPECIFIED FORMULATION 2013 88 complet ed [facility] INFLUENZA, UNSPECIFIED FORMULATION 2012 88 complet ed [facility] INFLUENZA, UNSPECIFIED FORMULATION 2011 88 complet ed [facility] INFLUENZA, UNSPECIFIED FORMULATION 2010 88 complet ed [facility] INFLUENZA, UNSPECIFIED FORMULATION 2009 88 complet ed [facility] ZOSTER LIVE 2009 121 complet ed [facility] NOVEL INFLUENZA-H1N 1-09, ALL FORMULATIONS 2008 128 complet ed [facility] TD(ADULT) UNSPECIFIED FORMULATION 2008 139 complet ed Left Deltoid [facility] TDAP 2008 115 complet ed [facility] INFLUENZA, UNSPECIFIED FORMULATION 2008 88 complet ed [facility] PNEUMOCOCCAL, UNSPECIFIED FORMULATION 2004 109 complet ed HARSHAL Christine Vital Signs Combined list of inpatient and outpatient Vital Signs from Department of Defense and Veterans Affairs, ranging from 12 months to all on record, depending upon the facility. Vital Sign Value Date Comments Source SYSTOLIC BLOOD PRESSURE 135 09/07/19 24 09:55:26 [facility] DIASTOLIC BLOOD PRESSURE 77 024 09:55:26 [facility] PULSE OXIMETRY 96 09/07/2023 09:55:26 [facility] WEIGHT 171 09/07/2023 09:55:26 [facility] BMI 25 kg/m2 09/07/2023 09:55:26 [facility] PAIN 3 09/07/2023 09:55:26 [facility] TEMPERATURE 98.2 09/07/2023 09:55:26 [facility] PULSE 74 09/07/2023 09:55:26 [facility] RESPIRATION 16 09/07/2023 09:55:26 [facility] SYSTOLIC BLOOD PRESSURE 150 08/17/19 10:58:48 [facility] DIASTOLIC BLOOD PRESSURE 80 024 10:58:48 [facility] PULSE OXIMETRY 97 08/17/2023 10:58:48 [facility] WEIGHT 170.1 08/17/2023 10:58:48 [facility] BMI 24 kg/m2 08/17/2023 10:58:48 [facility] PAIN 0 08/17/2023 10:58:48 [facility] HEIGHT 70 08/17/2023 10:58:48 [facility] TEMPERATURE 98.2 08/17/2023 10:58:48 [facility] PULSE 81 08/17/2023 10:58:48 [facility] RESPIRATION 18 08/17/2023 10:58:48 [facility] Encounters Combined list of: 1) Encounters from Department of Veterans Affairs facilities going backup to the last 18 months, not all VA inpatient encounters are included; 2) Encounters from the Department of Defense facilities going backup to 280 months. Location Location Details Encounter Type Encounter Number Reason For Visit Attending Provider ADM Date DC Date Status Disposition Source [facility] Outpatient Encounter [id number] 01/12 [facility] OFFICE O/P EST MOD 30-39 MIN [id number] Diagnos is: ICD-10- CM I10 Essenti al (primar y) hyperte nsion NINO,NID HI 01/13 [facility] Outpatient Encounter [id number] PARISA WATKINS R 01/17 [facility] OFFICE O/P EST HI 40-54 MIN [id number] Diagnos is: ICD-10- CM M11.80 Other specifi ed crystal arthrop athies, unspeci fied site ALBERTO MEJÍA AMBER M 03/09 [facility] HC PRO PHONE CALL 5-10 MIN [id number] Diagnos is: ICD-10- CM H90.3 Sensori neural hearing loss, bilater al CHAPMANKIERRA RICE K 04/20 [facility] HEARING AID REPAIR/MOD IFYING [id number] Diagnos is: ICD-10- CM H90.A32 Mix cndct/s nrl hear loss,un i,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 AUDREY GARCIA M 05/09 [facility] TYMPANOMET RY & REFLEX THRESH [id number] Diagnos is: ICD-10- CM H90.A21 Snsrnrl hear loss, uni, r ear, with rstrcd hear cntra side AUDREY GARCIA M 05/09 [facility] N [facility] Outpatient Encounter [id number] 05/10 [facility] HEARING SERVICE [id number] Diagnos is: ICD-10- CM H90.3 Sensori neural hearing loss, bilKIERRA Joe 07/04 [facility] IMG RTA DETCJ/MNTR DS STAFF [id number] Diagnos is: ICD-10- CM Z13.5 Encount er for screeni ng for eye and ear disorde rs MARY ONEILL HI 08/16 [facility] Outpatient Encounter [id number] 08/16 [facility] IMG RTA DETCJ/MNTR DS STAFF [id number] Diagnos is: ICD-10- CM Z13.5 Encount er for screeni ng for eye and ear disorde rs KERON BRADY 08/16 [facility] OFFICE O/P EST MOD 30 MIN [id number] Diagnos is: ICD-10- CM I10 Essenti al (primar y) hyperte nsion NINO,NID HI 08/16 [facility] Outpatient Encounter [id number] Diagnos is: ICD-10- CM Z13.5 Encount er for screeni ng for eye and ear disorde rs TIFFANI BANUELOS 08/17 [facility] OFFICE O/P EST HI 40 MIN [id number] Diagnos is: ICD-10- CM 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, unspeci ALBERTO Solomon 09/06 [facility] Outpatient Encounter [id number] GROVER MARCUM 01/03 [facility] Outpatient Encounter [id number] PARISA WATKINS 01/04 [facility] HEARING AID REPAIR/MOD IFYING [id number] Diagnos is: ICD-10- CM H90.3 Sensori neural hearing loss, bilater al AUDREY GARCIA Yomi 04/23 [facility] Outpatient Encounter [id number] 07/06 [facility] Outpatient Encounter [id number] 07[facility]11 [facility] Social History Combined list of available smoking, tobacco, and other social history from Department of Defense and Veterans 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 Social History Type Response Date Comment [facility] e Tobacco smoking status NHIS VA-TOBACCO FORMER USER 08/17/2023 [facility] History of tobacco use HI-TOBACCO QUIT 15 YRS OR MORE 08/17/2023 [facility] History of tobacco use HI-TOBACCO NEVER USED 07/05/2022 [facility] History of tobacco use VA-TOBACCO FORMER USER 06/05/2020 [facility] History of tobacco use VA-TOBACCO FORMER USER 12/19/2018 [facility] History of tobacco use QUIT TOBACCO >7 YEARS AGO 03/01/2017 [facility] History of tobacco use QUIT TOBACCO >7 YEARS AGO 08/30/2016 [facility] History of tobacco use QUIT TOBACCO >7 YEARS AGO 07/02/2015 [facility] History of tobacco use QUIT TOBACCO >7 YEARS AGO 03/14/2014 [facility] History of tobacco use QUIT TOBACCO >7 YEARS AGO 05/05/2009 [facility] Plan of Care List of future care activities from Department of Veterans 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 Additional future care activities may be listed in the Assessment and Plan section. Date/Time Care Activity Care Activity Detail Facili ty 08/13/2024 AMBULATORY - SURGERY AMBULATORY - SURGERY [facility] 08/16/2024 [facility]BULAT[facility] - [facility] Advance Directives List of completed, amended, or rescinded Advance Directives on record at Department of [facility] facilities. An actual copy of the Directive is not included. Date Advance Directive Provider Source 01/15/2016 ADVANCE DIRECTIVE DISCUSSION BILL TURK [facility]
--- OUTSIDE RECORDS SUMMARY | 2024-07-12 13:15 | XMS_ITS | Clinical Summary ---
Author Organization [facility] [place] [address] Address [address] [place] [address] Care Team Providers Care Systems Auditor Name Role Phone Clemente Sommer MD Primary Care Provider + [phone] Allergies No known active allergies Medications tamsulosin (FLOMAX) 0.4 mg extended release capsule Take 1 capsule (0.4 mg total) by mouth 2 (two) times a day 0 Active levothyroxine (SYNTHROID) 75 mcg tablet Take 1 tablet (75 mcg total) by mouth protective signal repairer helper before breakfast Active ferrous sulfate 325 mg [...] 75 mg tabletIndicatio ns:Coronary artery disease of [place] artery of [place] heart with stable angina pectoris (HCC) Take 1 tablet by mouth once daily 90 tablet 4 Active metoprolol tartrate (LOPRESSOR) 25 mg immediate release tabletIndicatio ns:Coronary artery disease involving [place] coronary artery of [place] heart without angina pectoris Take 0.5 tablets (12.5 mg total) by mouth 2 (two) times a day 60 tablet 2 5 Active folic acid (FOLVITE) 1 mg tablet Take 1 tablet (1 mg total) by mouth daily 4 Active ascorbic acid (ascorbic acid with adam hips) 500 mg tablet,chewable Acti ve Active Problems Problem Noted Date Diagnosed Date [...] 01/18/2023 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 12/20/2022 Calcium pyrophosphate deposition [...] placement 11/02/2016 Coronary artery disease invo lving [place] coronary artery of [place] heart without angina pectoris 09/22/2016 Overview (10/15/2016): Coronary artery disease involving [place] coronary artery of [place] heart with other form of angina pectoris Dyspnea on exertion 09/22/2016 Overview (10/15/2016): LOPEZ (dyspnea on exertion) Meibomian gland dysfunction 06/11/2016 Rheumatoid arthritis of wrist ([facility]) 12/22/19 16 Arthritis 11/11/2015 Muscle pain 06/10/2015 Overview (08/27/2016): Myalgia Unstable angina pectoris ([facility]) 01/03/2015 Overview (08/27/2016): Unstable angina Chronic kidney disease, stage III (moderate) Overview (08/27/2016): CKD (chronic kidney disease) stage 3, GFR 30-59 ml/min History of tobacco use 01/03/2015 Overview (08/27/2016): History of tobacco abuse Abnormal cardiovascular stress test 01/03/2015 Overview (08/27/2016): Abnormal stress test Hypertension associated with diabetes 01/03/2015 Overview (08/27/2016): HTN (hypertension), benign Mixed diabetic hyperlipidemi a associated with type 2 diabetes mellitus ([facility]) 01/03/2015 Overview (08/27/2016): Dyslipidemia Nonexudative age-related macular degeneration Resolved Problems Problem Noted Date Diagnosed Date Resolved Date Dyslipidemia associated with type 2 diabetes mellitus ([facility]) 06/07/2019 03/20/2021 Chronic coronary artery disease 02/18/2015 04/02/2022 Overview (08/27/2016): CAD (coronary artery disease) Presence of stent in coronary artery 02/18/2015 04/02/2022 Overview (08/27/2016): S/P coronary artery stent placement Encounters Date Type Department Care Team Description 06/05/2024 10:30 AM SUMMER ASSOCIATE Office Visit [facility] Orthopaedic Surgery [address] [facility] [address] Office [address] [place] [address] Malick Infante MD History of revision of total replacement of left hip joint (Primary Dx) 05/31/2024 11:30 AM SUMMER ASSOCIATE Office Visit [facility] Card[facility] [address] [place] [address] Stacie Coombs NP Coronary artery disease involving [place] coronary artery of [place] heart without angina pectoris (Primary Dx); Essential hypertension; Glucose intolerance (impaired glucose tolerance); PVC's (premature ventricular contractions); History of CVA (cerebrovascular accident) from Last 3 Months Immunizations Immunization Administration Dates Next Due H1N1 All Forms [...] on file Legal Sex Male 3:46 AM SUMMER ASSOCIATE Gender Identity Male 03/07/2020 6:16 PM CDT Sexual Orientation Straight 03/07/2020 6: 16 PM CDT Obstetrics History Last Filed Vital Signs Vital Sign Reading Time Taken Comments Blood Pressure 116/60 05/31/2024 12:02 PM SUMMER ASSOCIATE Pulse 80 05/31/2024 12:02 PM SUMMER ASSOCIATE Temperature 36.6 C (97.9 F) 03/30/2023 11:30 AM SUMMER ASSOCIATE Respiratory Rate 18 03/30/2023 11:30 AM SUMMER ASSOCIATE Oxygen Saturation 97% 05/31/2024 12:02 PM SUMMER ASSOCIATE Inhaled Oxygen Concentration - - Weight 78.9 kg (174 lb) 05/31/2024 12:02 PM SUMMER ASSOCIATE Height 172.7 cm (5' 8 ) 05/31/2024 12:02 PM SUMMER ASSOCIATE Body Mass Index 26.46 05/31/2024 12:02 PM SUMMER ASSOCIATE Plan of Treatment Health Maintenance Due Date Last Done Comments Albumin Creatinine Ratio, Urine 1936 Dilated Eye Exam 1936 Foot Exam 1936 Hepatitis B Screening 1953 Well Visit 65+ 2001 Zoster Vaccine (2 of 3) 10/28/2009 09/02/2009 Pneumococcal vaccine 65+ (2 of 2 - PPSV23) 08/27/2015 07/02/2015, 02/20/2005 Depression Screening 03/19/2020 03/19/2019, 03/19/20 19 Hemoglobin A1C 07/22/2023 01/21/2023, 03/19/2019 Covid-19 Vaccine ( - 2023-2 5 season) 2024 04/02/2022, 09/11/2021, 03/19/2021, Additional history exists Influenza Vaccine (#1) 2024 9, 04/13/2019, 02/23/2017, Additional history exists Lipid Panel 02/01/2024 01/31/2023, 03/23, 03/20/2021, Additional history exists eGFR 02/01/2024 01/31/2023, 0905/2022, 11/14/2019, Additional history exists Fall Risk Assessment 02/02/2024 02/01/2023 DTaP/Tdap/Td Vaccine (4 - Td or Tdap) 01/09/2029 01/09/2019, 05/05/2009, 04/22/2009 Medical Devices Implanted Type Area Patcher Helper Device Identifier Shelf Expiration Date Model / Serial / Lot Cardiac Stents N/A: Heart [employer] Liner Acetabular Hip Vitamin E G7 Minerva Vivacit E 36mm Polyethylene Size I [id number] - [id number] Implanted:Qty: 1 on 01/31/2023 by Malick Infante MD at [facility] Left: Hip [employer] 11/11/2026 [id number] / / [id number] [employer] G7 66mm Multihole Hip I Hemisphere Offset Shell Acetabular [id number] - [id number] Implanted:Qty: 1 on 01/31/2023 by Malick Infante MD at [facility] Left: Hip [employer] [id number] 08/30/2030 [id number] / / [id number] [employer] Trilogy 6.5mm 40mm Self Tap Hip Acetabular Cortical Screw Bone [id number] - [id number] Implanted:Qty: 1 on 01/31/2023 by Malick Infante MD at [facility] Left: Hip [employer] [id number] 09/22/2032 [id number] / / [id number] [employer] Trilogy 6.5mm 15mm Self Tap Screw Bone [id number] - [id number] Implanted:Qty: 1 on 01/31/2023 by Malick Infante MD at [facility] Left: Hip [employer] [id number] 09/22/2032 [id number] / / [id number] [employer] Trilogy 6.5mm 15mm Self Tap Screw Bone [id number] - [id number] Implanted:Qty: 1 on 01/31/2023 by Malick Infante MD at [facility] Left: Hip [employer] [id number] 09/22/2032 [id number] / / [id number] [employer] Trilogy 6.5mm 20mm Self Tap Screw Bone [id number] - [id number] Implanted:Qty: 1 on 01/31/2023 by Malick Infante MD at [facility] Left: Hip [employer] [id number] 10/01/2032 [id number] / / [id number] [employer] Trilogy 6.5mm 20mm Self Tap Screw Bone [id number] - [id number] Implanted:Qty: 1 on 01/31/2023 by Malick Infante MD at [facility] Left: Hip [employer] [id number] 03/04/2032 [id number] / / [id number] [employer] Trilogy 6.5mm 40mm Self Tap Hip Acetabular Cortical Screw Bone [id number] - [id number] Implanted:Qty: 1 on 01/31/2023 by Malick Infante MD at [facility] Left: Hip [employer] [id number] 09/22/2032 [id number] / / [id number] [employer] G7 Minerva 36mm Type 1 Modular Hip +9mm Offset Head Femoral Cocr [id number] - [id number] Implanted:Qty: 1 on 01/31/2023 by Malick Infante MD at [facility] Left: Hip [employer] [id number] 03/18/2032 / / [id number] Procedures Procedure Name Priority Date/Time Associated Diagnosis Comments EGFR Timed 01/31/2023 9:06 PM CDT LIPID PANEL Timed 01/31/2023 9:06 PM CDT HEMOGLOBIN A1C Routine 01/21/2023 5:45 PM CDT Preoperative testing Type 2 diabetes mellitus without complication, without long-term current use of insulin ([facility] ([facility]) from Last 3 Months or Most Recently Relevant to Health Maintenance Results * (ABNORMAL) eGFR (01/31/2023 9:06 PM CDT) eGFR 56(L) 90 - 130 mL/min/1. 73 m2 [facility] Comment: Interpretive Data Reference Interval Normal >/= 90 mL/min/1.73m2 Mildly decreased* 60 - 89 mL/min/1.73m2 Mildly to moderately decreased 45 - 59 mL/min/1.73m2 Moderately to severely decreased 30 - 44 mL/min/1.73m2 Severely decreased 15 - 29 mL/min/1.73m2 Kidney Failure < 15 mL/min/1.73m2 *Relative to young adult level Estimated glomerular [...] Infante MD LAB BLOOD ORDERABLES Final Result [facility] Department [place] [address] * (ABNORMAL) Lipid panel (01/31/2023 9:06 PM CDT) Cholesterol 84 30 - 199 mg/dL [facility] Comment: Interpretive Data Ages < or = 19 years Acceptable: <170 mg/dL Borderline high: 170-199 mg/dL High: >or= 200 mg/dL Ages > or = 20 years Desirable: <200 mg/dL Borderline high: 200-239 mg/dL High: >or= 240 mg/dL Literature References: 1. Expert Panel on Integrated Guidelines for Cardiovascular Health and Risk Reduction in Children and Adolescents. Pediatrics 2011;128:S213 2. NCEP Expert Panel. Circulation 2004;110:227 Current Interpretive Data was last revised on 2018. Triglycerides 65 <=149 mg/dL [facility] Comment: Interpretive Data Ages < or = 9 years Acceptable: <75 mg/dL Borderline high: 75-99 mg/dL High: >or= 100 mg/dL Ages 10 to 20 years Acceptable: <90 mg/dL Borderline high: 90-129 mg/dL High: >or= 130 mg/dL Ages > or = 20 years Desirable: <150 mg/dL Borderline high: 150-199 mg/dL High: 200-499 mg/dL Very high: >or= 499 mg/dL Literature References: 1. Expert Panel on Integrated Guidelines for Cardiovascular Health and Risk Reduction in Children and Adolescents. Pediatrics 2011;128:S213 2. NCEP Expert Panel. Circulation 2004;110:227 Current Interpretive Data was last revised on 2018. HDL 28(L) >=40 mg/dL [facility] Comment: Interpretive Data Ages < or = 19 years Acceptable: >45 mg/dL Borderline low: 40-45 mg/dL Low: <40 mg/dL Ages > or = 20 years Desirable: >or= 60 mg/dL Low: <40 mg/dL Literature References: 1. Expert Panel on Integrated Guidelines for Cardiovascular Health and Risk Reduction in Children and Adolescents. Pediatrics 2011;128:S213 2. NCEP Expert Panel. Circulation 2004;110:227 Current Interpretive Data was last revised on 2018. LDL, calculated 43 <=129 mg/dL [facility] Comment: Interpretive Data Ages < or = 19 years Acceptable: <110 mg/dL Borderline high: 110-129 mg/dL High: >or= 130 mg/dL Ages > or = 20 years Optimal: <100 mg/dL Near optimal: 100-129 mg/dL Borderline high: 130-159 mg/dL High: >160 mg/dL Literature References: 1. Expert Panel on Integrated Guidelines for Cardiovascular Health and Risk Reduction in Children and Adolescents. Pediatrics 2011;128:S213 2. NCEP Expert Panel. Circulation 2004;110:227 Current Interpretive Data was last revised on 2018. Non-HDL Cholesterol 56 mg/dL [facility] Comment: Interpretive Data Ages < or = 19 years Acceptable: <120 mg/dL Borderline high: 120-144 mg/dL High: >145 mg/dL Ages > or = 20 years When triglycerides are >200 mg/dL, Non-HDL cholesterol is a secondary target of therapy with treatment goals that are 30 mg/dL greater than the LDL cholesterol target. Literature References: 1. Expert Panel on Integrated Guidelines for Cardiovascular Health and Risk Reduction in Children and Adolescents. Pediatrics 2011;128:S213 2. NCEP Expert Panel. Circulation 2004;110:227 Current Interpretive Data was last revised on 2018. Chol/HDL ratio 3 [facility] Blood 01/31/2023 9:06 PM CDT 01/31/2023 10:07 PM CDT us Malick Infante MD LAB BLOOD ORDERABLES Final Result [facility] Department [place] [address] * (ABNORMAL) Hemoglobin A1c (01/21/2023 5:45 PM CDT) Hgb A1C 5.8(H) 4.0 - 5.6 % [facility] Estimated Average Glucose 120 mg/dL [facility] Comment: The ADA recommends reporting an estimated Average Glucose (eAG) with all Hemoglobin A1c results using the equation derived from a study of 507 normal and diabetic adults. Minority populations were underrepresented and children were not included. (Diabetes Care 31:2235-1133, 2008). The eAG is not equivalent to a fasting glucose. The ADA recommends reporting an estimated Average Glucose (eAG) with all Hemoglobin A1c results using the equation derived from a study of 507 normal and diabetic adults. Minority populations were underrepresented and children were not included. (Diabetes Care 31:7326-7140, 2008). The eAG is not equivalent to a fasting glucose. Blood 01/21/2023 5:45 PM CDT 01/21/2023 5:57 PM CDT us Bryce Tyler NP LAB BLOOD ORDERABLES Fin al Result [facility] [address] [facility] Department [place] [address] from Last 3 Months or Most Recently Relevant to Health Maintenance Insurance [facility] Address: [address] [address] [facility] Address: [address] [address] [facility] Address: [address] [address] [facility] [facility] Address: [id number] [place] [address] Advance Directives For more information, please contact: [phone] * Full Code (Latest Code Status on File) Date Activated Date Inactivated Comments 01/31/2023 3:20 PM 02/01/2023 10:04 PM * Full Code Date Activated Date Inactivated Comments 03/19/2019 10:01 PM 03/21/2019 1:11 AM Care Teams Systems Auditor Relationship Specialty Start Date End Date Clemente Sommer MD PCP - General Family Medicine 04/13/19
--- OUTSIDE RECORDS SUMMARY | 2024-07-12 13:15 | XMS_ITS | Referral Summary ---
Author Organization [place] [address] Address [address] [facility] [address] [place] [address] Care Team Providers Care Sorority Mother Name Role Phone Clemente Sommer MD Primary Care Provider Encounters Date Type Department Care Team Description 06/05/2024 10:30 AM FRONT END DRUPAL DEVELOPER Office Visit [facility] Orthopaedic Surgery [address] [place] [address] Medical Office Building [address] [place] [address] Malick Infante MD History of revision of total replacement of left hip joint (Primary Dx) 05/31/2024 11:30 AM FRONT END DRUPAL DEVELOPER Office Visit [facility] Cardiology [address] [place] [address] [address] [place] [address] Stacie Coombs NP Coronary artery disease involving [facility] [place] [place] coronary artery of [facility] heart without angina pectoris (Primary Dx); Essential [...] 1 tablet (75 mcg total) by mouth flux core welder before breakfast Active ferrous sulfate 325 mg [...] 75 mg tabletIndicatio ns:Coronary artery disease of [facility] [place] artery of [facility] ir[place] heart with stable angina pectoris (HCC) Take 1 tablet by mouth once daily 90 tablet 4 Active metoprolol tartrate (LOPRESSOR) 25 mg immediate release tabletIndicatio ns:Coronary artery disease involving [facility] [place]ichael ira coronary artery of [facility] [place] ira heart without angina pectoris Take 0.5 tablets [...] 02/15/2020 Sinus pause 06/07/2019 Diet-controlled diabetes mellitus ([facility]) 03/24 History of CVA (cerebrovascular accident) 2018 Corneal edema 07/28/2018 Pinguecula 02/14/2018 Blepharitis 09/14/2017 Dry eyes 09/14/2017 Preoperative cardiovascular examination 09/13/19 18 S/P coronary artery stent placement 11/02/2016 Coronary artery disease invo lving [facility] [place]ichael ira coronary artery of [facility] ir[place] heart without angina pectoris 09/22/2016 Overview (10/15/2016): Coronary artery disease involving [facility] [place] ira coronary artery of [facility] ir[place] heart with other form of angina pectoris Dyspnea on exertion 09/22/2016 Overview (10/15/2016): LOPEZ (dyspnea on exertion) Meibomian gland dysfunction 06/11/2016 Rheumatoid arthritis of wrist ([facility]) 12/22/19 16 Arthritis 11/11/2015 Muscle pain 06/10/2015 Overview (08/27/2016): Myalgia Unstable angina pectoris ([facility]) 01/03/2015 Overview (08/27/2016): Unstable angina Chronic kidney disease, stage III (moderate) Overview (08/27/2016): CKD (chronic kidney disease) stage 3, GFR 30-59 ml/min History of tobacco use 01/03/2015 Overview (08/27/2016): History of tobacco abuse Abnormal cardiovascular stress test 01/03/2015 Overview (08/27/2016): Abnormal stress test Hypertension associated with diabetes 01/03/2015 Overview (08/27/2016): HTN (hypertension), benign Mixed diabetic hyperlipidemi a associated with type 2 diabetes mellitus ([facility]) 01/03/2015 Overview (08/27/2016): Dyslipidemia Nonexudative age-related macular degeneration Resolved Problems Problem Noted Date Diagnosed Date Resolved Date Dyslipidemia associated with type 2 diabetes mellitus ([facility]) 06/07/2019 03/20/2021 Chronic coronary artery disease 02/18/2015 04/02/2022 Overview (08/27/2016): CAD (coronary artery disease) Presence of stent in coronary artery 02/18/2015 04/02/2022 Overview (08/27/2016): S/P coronary artery stent placement Immunizations Immunization Administration Dates Next Due H1N1 [...] on file Legal Sex Male 3:46 AM FRONT END DRUPAL DEVELOPER Gender Identity Male 03/07/2020 6:16 PM CDT Sexual Orientation Straight 03/07/2020 6: 16 PM CDT Last Filed Vital Signs Vital Sign Reading Time Taken Comments Blood Pressure 116/60 05/31/2024 12:02 PM FRONT END DRUPAL DEVELOPER Pulse 80 05/31/2024 12:02 PM FRONT END DRUPAL DEVELOPER Temperature 36.6 C (97.9 F) 03/30/2023 11:30 AM FRONT END DRUPAL DEVELOPER Respiratory Rate 18 03/30/2023 11:30 AM FRONT END DRUPAL DEVELOPER Oxygen Saturation 97% 05/31/2024 12:02 PM FRONT END DRUPAL DEVELOPER Inhaled Oxygen Concentration - - Weight 78.9 kg (174 lb) 05/31/2024 12:02 PM FRONT END DRUPAL DEVELOPER Height 172.7 cm (5' 8 ) 05/31/2024 12:02 PM FRONT END DRUPAL DEVELOPER Body Mass Index 26.46 05/31/2024 12:02 PM FRONT END DRUPAL DEVELOPER Plan of Treatment Not on file Medical Devices Implanted Type Area Sanforizer Device Identifier Shelf Expiration Date Model / Serial / Lot Cardiac Stents N/A: Heart [employer] Liner Acetabular Hip Vitamin E G7 [place] Vivacit E 36mm Polyethylene Size [id number] - [id number] Implanted:Qty: 1 on 01/31/2023 by Malick Infante MD at [facility] Left: Hip [employer] 11/11/2026 [id number] / / [id number] [employer] G7 66mm Multihole Hip I Hemisphere Offset Shell Acetabular [id number] - [id number] Implanted:Qty: 1 on 01/31/2023 by Malick Infante MD at [facility] Left: Hip [employer] [id number] 08/30/2030 [id number] / / [id number] [employer] Trilogy 6.5mm 40mm Self Tap Hip Acetabular Cortical Screw Bone [id number] - [id number] Implanted:Qty: 1 on 01/31/2023 by Malick Infante MD at [facility] Left: Hip [employer] [id number] 09/22/2032 [id number] / / [id number] [employer] Trilogy 6.5mm 15mm Self Tap Screw Bone [id number] - [id number] Implanted:Qty: 1 on 01/31/2023 by Malick Infante MD at [facility] Left: Hip [employer] [id number] 09/22/2032 [id number] / / [id number] [employer] Trilogy 6.5mm 15mm Self Tap Screw Bone [id number] - [id number] Implanted:Qty: 1 on 01/31/2023 by Malick Infante MD at [facility] Left: Hip [employer] [id number] 09/22/2032 [id number] / / [id number] [employer] Trilogy 6.5mm 20mm Self Tap Screw Bone [id number] - [id number] Implanted:Qty: 1 on 01/31/2023 by Malick Infante MD at [facility] Left: Hip [employer] [id number] 10/01/2032 [id number] / / [id number] [employer] Trilogy 6.5mm 20mm Self Tap Screw Bone [id number] - [id number] Implanted:Qty: 1 on 01/31/2023 by Malick Infante MD at [facility] Left: Hip [employer] [id number] 03/04/2032 [id number] / / [id number] [employer] Trilogy 6.5mm 40mm Self Tap Hip Acetabular Cortical Screw Bone [id number] - [id number] Implanted:Qty: 1 on 01/31/2023 by Malick Infante MD at [facility] Left: Hip [employer] [id number] 09/22/2032 [id number] / / [id number] [employer] G7 [place] 36mm Type 1 Modular Hip +9mm Offset Head Femoral Cocr [id number] - [id number] Implanted:Qty: 1 on 01/31/2023 by Malick Infante MD at [facility] Left: Hip [employer] [id number] 03/18/2032139803 / / [id number] Procedures Procedure Name Priority Date/Time Associated Diagnosis Comments EGFR Timed 01/31/2023 9:06 PM CDT LIPID PANEL Timed 01/31/2023 9:06 PM CDT HEMOGLOBIN A1C Routine 01/21/2023 5:45 PM CDT Preoperative testing Type 2 diabetes mellitus without complication, without long-term current use of insulin ([facility]) ([facility]) from Last 3 Months or Most Recently Relevant to Health Maintenance Results * (ABNORMAL) eGFR (01/31/2023 9:06 PM CDT) eGFR 56(L) 90 - 130 mL/min/1. [address] Comment: Interpretive Data Reference Interval Normal [...] Infante MD LAB BLOOD ORDERABLES Final Result [facility] Department [place] [address] * (ABNORMAL) Lipid panel (01/31/2023 9:06 PM CDT) Cholesterol 84 30 - 199 mg/dL [facility] Comment: Interpretive Data Ages < or [...] on 2018. Triglycerides 65 <=149 mg/dL [facility] Comment: Interpretive Data Ages < or [...] revised on 2018. HDL 28(L) >=40 mg/dL [facility] Comment: Interpretive Data Ages < or = [...] on 2018. LDL, calculated 43 <=129 mg/dL [facility] Comment: Interpretive Data Ages < or = [...] revised on 2018. Non-HDL Cholesterol 56 mg/dL [facility] Comment: Interpretive Data Ages < or = [...] last revised on 2018. Chol/HDL ratio 3 [facility] Blood 01/31/2023 9:06 PM CDT 01/31/2023 10:07 PM CDT Malick Infante MD LAB BLOOD ORDERABLES Final Result [facility] Department [place] [address] * (ABNORMAL) Hemoglobin A1c (01/21/2023 5:45 PM CDT) Hgb A1C 5.8(H) 4.0 - 5.6 % [facility] Estimated Average Glucose 120 mg/dL [facility] Comment: The ADA recommends reporting an estimated Average Glucose (eAG) with all Hemoglobin A1c results using the equation derived from a study of 507 normal and diabetic adults. Minority populations were underrepresented and children were not included. (Diabetes Care 31:1251-2483, 2008). The eAG is not equivalent to a fasting glucose. The ADA recommends reporting an estimated Average Glucose (eAG) with all Hemoglobin A1c results using the equation derived from a study of 507 normal and diabetic adults. Minority populations were underrepresented and children were not included. (Diabetes Care 31:1764-1170, 2008). The eAG is not equivalent to a fasting glucose. Blood 01/21/2023 5:45 PM CDT 01/21/2023 5:57 PM CDT Bryce Tyler NP LAB BLOOD ORDERABLES Fin al Result Performing Organization Address [facility] Co de Phone Number [facility] [address] [facility] Department [place] [address] from Last 3 Months or Most Recently Relevant to Health Maintenance Insurance MEDICARE [employer] Member Subscriber Plan / Payer (Ef fective 2022-Present) Name:Adama Tai Relation to Subscriber:Self Name:Adama Tai Payer ID:[id number] (NAIC) Type:[facility] Address: [place] [id number] MEDICARE SOLUTIONS MEDICARE SOLUTIONS Member Subscriber Plan / Payer (Ef fective 2022-Present) Name:Adama Tai Relation to Subscriber:Self Name:Adama Tai Payer ID:[id number] (NAIC) Type:[facility] Address: [address] MEDICARE SOLUTIONS Advance Directives For more information, please contact: [phone] * Full Code (Latest Code Status on File) Date Activated Date Inactivated Comments 01/31/2023 3:20 PM 02/01/2023 10:04 PM * Full Code Date Activated Date Inactivated Comments 03/19/2019 10:01 PM 03/21/2019 1:11 AM Care Teams Sorority Mother Relationship Specialty Start Date End Date Clemente Sommer MD PCP - General Family Medicine 04/13/19
--- OUTSIDE RECORDS SUMMARY | 2024-07-12 13:15 | XMS_ITS | Clinical Summary ---
Author Organization [facility] Address [address] [place] [phone] Phone Care Team Providers Care Security Sergeant Name Role Phone Unavailable Primary Care Provider [...] 72 11/05/2013 12:01 AM CDT Temperature 36.8 C (98.2 F) 11/05/2013 12:01 AM CDT Respiratory Rate - - Oxygen Saturation - - Inhaled Oxygen Concentration - - Weight 83 kg (183 lb) 11/05/2013 12:01 AM CDT Height 180.3 cm (5' 11 ) 11/05/2013 12:01 AM CDT Body Mass Index 25.52 11/05/2013 12:01 AM CDT Plan of Treatment Not on file
--- OUTSIDE RECORDS SUMMARY | 2024-07-12 13:15 | XMS_ITS | Encounter Summary ---
Author Organization [facility] Address [address] [place] [address] Care Team Providers Care Propulsion Generator Repairer Name Role Phone Clemente Sommer MD Primary Care Provider [phone] Encounter Details Date Type Department Care Team (Late st Contact Info) Description 07/10/2024 External Device Data [facility] ABSTRACTION Provider, Abstract NO ADDRESS ON FILE Social History Tobacco Use Types Packs/Day Years Used Date Smoking Tobacco: Former Cigarettes 1 25 0 01/20/1959 - 01/21/1984 Smokeless Tobacco: Former Chew Quit: 01/20/1985 Comments:LITTLE UNDER A PACK Alcohol Use Standard Drinks/Week Comments Yes 2 (1 standard drink = 0.6 oz pur e alcohol) EVERY OTHER WEEKS Sex and Gender Information Value Date Recorded Sex Assigned at Not on file Legal Sex Male 7:59 AM CDT Gender Identity Not on file Sexual Orientation Straight 07/09/2023 1: 09 PM ADVANCED MANUFACTURING ENGINEER documented as of this encounter Plan of Treatment Upcoming Encounters Date Type Department Care Team (Late st Contact Info) Description 07/12/2024 2:15 PM ADVANCED MANUFACTURING ENGINEER Office Visit [facility] Oncology and Hematology - [place] [address] [facility] [address] [place] [address] Philip Del Rio MD [address] [place] [address] documented as of this encounter Visit Diagnoses Not on filedocumented in this encounter Care Teams Propulsion Generator Repairer Relationship Specialty Start Date End Date Clemente Sommer MD [address] [place] [address] PCP - General Family Practice 12/21/19 documented as of this encounter
--- OUTSIDE RECORDS SUMMARY | 2024-07-12 13:15 | XMS_ITS | Clinical Summary ---
Author Organization [facility] Address [address] [place] [address] Care Team Providers Care Concrete Engineering Technician Name Role Phone Clemente Sommer MD Primary Care Provider [phone] Source Comments [facility],non-owned Affiliates and Associated Physician Practices is amultiple site organization consisting of ambulatory clinics and hospital sitesin [place], [place], [place] and [place]. This disclosure is being madepursuant to the Care Everywhere program and may not contain all information available regarding this patient. Last updated 18.[facility] Allergies No known active allergies Immunizations Name [...] Due Date Last Done Comments MEDICARE AWV 12 MONTHS 1935 DTAP/TDAP/TD VACCINES (1 - [...] age to complete this topic Care Teams Concrete Engineering Technician Relationship Specialty Start Date End Date Clemente Sommer MD [address] [place] [address] PCP - General Family Medicine 02/23/17
--- OUTSIDE RECORDS SUMMARY | 2024-07-12 13:15 | XMS_ITS | Encounter Summary ---
Author Name [facility] Address [address] [place] [address] Care Team Providers Care Yarn Hauler Name Role Phone JOSSE ONEILL Primary Care [...] PART A Feb 20, 2001 PART A [id number] TIM SATISH PATIENT MEDICARE (WNR) MEDICARE (M) PART B Feb 20, 2001 PART B [id number] [place] PATIENT MEDICARE (WNR) MEDICARE (M) PART A Feb 20, 2001 PART A [id number] [phone] [place]UM[place] PATIENT MEDICARE (WNR) MEDICARE (M) PART B Feb 20, 2001 PART B [id number] [phone] SAT[place]UM[place] PATIENT Selected Encounter This section includes the information on record at [place] for the Encounter. Date/Time Encounter Type Encounter Description Reason Pro vider Source Jul 11, 2024 02:49 PM Outpatient Encounter ADMIN PAT ACTIVTIES (MASNONCT) IHE Encounter Template Text not used by [place] Plan of Treatment: Future Appointments (+ 6 months) and Future Tests (+/- 45 days) The Plan of Treatment section includes future care activities for the patient from [facility] [place] [facility] This section includes future appointments and future orders which are active, pending or scheduled. Future Appointments This section includes appointments that were scheduled to occur 6 months from the date of the Encounter, up to a maximum of 20 appointments. The data comes from all [facility] facilities. Appointment Date/Time Appointment Type Appointme nt Facility Name Aug 13, 2024 01:30 PM AMBULATORY - SURGERY [facility] Aug 16, 2024 10:00 AM AMBULATORY - MEDICINE [facility] Social History: Smoking Status (Most current) and Tobacco Use (All prior to encounter date) This section includes the most current, and the historical, smoking and tobacco- related health factors from the [place] facility where the Encounter took place. Current Smoking Status This section includes the most current smoking, or tobacco-related health factor, from the [place] facility where the Encounter took place. Date/Time Current Smoking Status Comment Esha lin Jul 02, 2015 12:51 PM QUIT TOBACCO >7 YEARS AGO [facility] Tobacco Use History This section includes a history of the smoking, or tobacco-related health factors, that were collected on or before the date of the Encounter. The data comes from the [place] facility where the Encounter took place. Date/Time Smoking Status/Tobacco Use Comment F acjules Mar 14, 2014 10:11 AM QUIT TOBACCO >7 YEARS AGO [facility] Advance Directives: All historical and current Section Date Range: From patient's date of to the date document was created. This section includes ALL of a patient's completed or amended [place] Advance and Rescinded Directives. The entries below indicate that a directive exists for the patient, but an actual copy is not included with this document. The data comes from all [facility]. Date Advance Directives Provider Source Jan 15, 2016 ADVANCE DIRECTIVE DISCUSSION BILL TURK [facility] Encounter Notes: All associated encounter notes This section contains the clinical notes associated to the Encounter. Date/Time Encounter Note(s) Provider Source Jul 11, 2024 02:49 PM ADMINISTRATIVE NOT E: LOCAL TITLE: ADMINISTRATIVE ST[facility] STANDARD TITLE: ADMINISTRATIVE NOTE DATE OF NOTE: JUL 11, 2024@14:49 ENTRY DATE: JUL 11, 2024@14:50:06 AUTHOR: DONAL VERDIN EXP COSIGNER: URGENCY: STATUS: COMPLETED SUBJECT: AUDIO Spoke to the vet, he was requesting for some NARVAEZ batteries to be mailed to his address on file. Also, I gave him the [facility] number for him to call and order his NARVAEZ supplies in the future. /gilmar/ DONAL VERDIN AMSA Signed: 07/11/2024 14:54 Receipt Acknowledged By: 07/12/2024 07:47 /es/ Farideh Patel, CAROL-A Staff Boat Carpenter, Surgery Service DONAL VERDIN [facility]
--- OUTSIDE RECORDS SUMMARY | 2024-07-12 13:15 | XMS_ITS | Clinical Summary ---
Author Organization [facility] Jana Hicks Address [address] [place] [address] Care Team Providers Care Checkering Machine Operator Name Role Phone Clemente Sommer MD Primary Care Provider [phone] Allergies No known active allergies Medications tamsulosin (FLOMAX) 0.4 mg capsule Take 0.4 mg by mouth. Active fluticasone propionate (FLONASE) 50 mcg/spray [place], Suspension nasal inhaler INSTILL 2 SPRAYS IN EACH NOSTRIL ONCE A DAY FOR ALLERGIES (MUST BE USED DIRECTED FOR MINIMUM OF 21 DAYS TO PROVIDE ADEQUATE BENEFITS) 9 Active clopidogreL (PLAVIX) 75 mg Tablet TAKE 1 TABLET BY MOUTH ONCE DAILY 0 Active atorvastatin (LIPITOR) 80 mg tablet 0 Active aspirin (ECOTRIN EC) 81 mg Tablet, Delayed Release (E.C.) TAKE ONE TABLET BY MOUTH ONCE A DAY 9 Active cyanocobalamin (VITAMIN B-12) 500 mcg tablet Take 250 mcg by mouth. Active metoprolol tartrate (LOPRESSOR) 50 mg tablet Take 12.5 mg by mouth. 1 Active docusate sodium (COLACE) 100 mg capsule Take 100 mg by mouth 2 times daily. Active ferrous sulfate 325 mg (65 mg iron) tablet Take 1 tablet by mouth once daily 90 Tablet 4 Active finasteride (PROSCAR) 5 mg tablet Take 5 mg by mouth. 3 Active levothyroxine 75 mcg tablet Take 75 mcg by mouth. 3 Active folic acid (FOLVITE) 1 mg tablet Take 1 tablet by mouth once daily 90 Tablet 4 Active Active Problems Problem Noted Date Diagnosed Date Chronic anemia 05/06/2020 Other dietary vitamin B12 deficiency anemia 04/22 Encounters Date Type Department Care Team Description 07/10/2024 External Device Data STL ABSTRACTION Provider, Abstract 06/13/2024 External Device Data STL ABSTRACTION Provider, Abstract 06/12/2024 External Device Data STL ABSTRACTION Provider, Abstract 05/19/2024 Refill [facility] Oncology and Hematology - [place] [address] [address] Philip Del Rio MD from Last 3 Months Family History Medical History Relation Name Comments Diabetes Mother Relation Name Status Comments Daughter Alive Father Mother Son Alive Social History Tobacco Use Types Packs/Day Years Used Date Smoking Tobacco: Former Cigarettes 1 25 0 01/20/1959 - 01/21/1984 Smokeless Tobacco: Former Chew Quit: 01/20/1985 Tobacco Cessation:Counseling Given: Not Answered Comments:LITTLE UNDER A PACK Alcohol Use Standard Drinks/Week Comments Yes 2 (1 standard drink = 0.6 oz pur e alcohol) EVERY OTHER WEEKS Sex and Gender Information Value Date Recorded Sex Assigned at Not on file Legal Sex Male 7:59 AM CDT Gender Identity Not on file Sexual Orientation Straight 07/09/2023 1: 09 PM DATA WAREHOUSING ENGINEER Last Filed Vital Signs Vital Sign Reading Time Taken Comments Blood Pressure 123/69 01/10/2024 1:49 PM CDT Pulse 86 01/10/2024 1:49 PM CDT Temperature 36.8 C (98.2 F) 01/10/2024 1:49 PM CDT Respiratory Rate 16 01/10/2024 1:49 PM CDT Oxygen Saturation 95% 01/10/2024 1:49 PM CDT Inhaled Oxygen Concentration - - Weight 78 kg (172 lb) 01/10/2024 1:49 PM CDT Height 177.8 cm (5' 10 ) 11/04/2020 10:15 AM CDT Body Mass Index 24.68 11/04/2020 10:15 AM CDT Plan of Treatment Upcoming Encounters Date Type Department Care Team (Late st Contact Info) Description 07/12/2024 2:15 PM DATA WAREHOUSING ENGINEER Office Visit [facility] Oncology and Hematology - [place] [address] [facility] [address] [place] [address] Philip Del Rio MD [address] [facility] [facility] [address] [place] [address] Health Maintenance Due Date Last Done Comments DIABETES ANNUAL FOOT EXAM 1953 DIABETES MICROALBUMIN ANNUAL SCREEN 1953 LDL CHOLESTEROL ANNUAL 1953 ZOSTER VACCINE (2 of 3) 10/28/2009 09/02/2009 RSV VACCINE (60+ or ) (1 - 1-dose 75+ series) 2011 PNEUMOCOCCAL VACCINE 65+ YEA RS (2 of 2 - PPSV23) 08/27/2015 07/02/2015, 02/20/2005 DIABETES HBA1C Q 6 MONTHS 07/22/2023 01/21/2023 INFLUENZA VACCINE (#1) 2023 , 04/13/2019, 02/21/2018, Additional history exists Medicare Advantage ([place]) Preventative Visit/Annual Wellness Visit 05/23/2024 DIABETES ANNUAL RETINAL EXAM 08/16/2024, 04/12/2023, 04/12/2023, Additional history exists DTAP/TDAP/TD VACCINES (4 - T d or Tdap) 01/09/2029 01/09/2019, 05/05/2009, 04/22/2009 Procedures Procedure Name Priority Date/Time Associated Diagnosis Comments VITAMIN B12 AND FOLATE Routine 07/11/2024 10:48 AM DATA WAREHOUSING ENGINEER Chronic anemia IRON, TIBC, AND PERCENT SATURATION Routine 07/11/2024 10:48 AM DATA WAREHOUSING ENGINEER Chronic anemia FERRITIN Routine 07/11/2024 10:48 AM DATA WAREHOUSING ENGINEER Chronic anemia from Last 3 Months Results * (ABNORMAL) VITAMIN B12 AND FOLATE (07/11/2024 10:48 AM DATA WAREHOUSING ENGINEER) VITAMIN B12 1161(H) 200 - 1100 pg/mL [facility] FOLATE, SERUM >24.0 ng/mL [facility] Comment: Reference Range Low: <3.4 Borderline: 3.4-5.4 Normal: >5.4 Test Performed at: [address] [address] Lazaro Godoy MD Blood 07/11/2024 10:4 8 AM DATA WAREHOUSING ENGINEER 07/11/2024 10:48 AM DATA WAREHOUSING ENGINEER Philip Del Rio MD CHEMISTRY ORDERABLES Final Resu lt Performing Organization Address [facility] Co de Phone Number [facility] [phone] [facility] [employer] [address] * (ABNORMAL) IRON, TIBC, AND PERCENT SATURATION (07/11/2024 10:48 AM DATA WAREHOUSING ENGINEER) [facility] IRON 48(L) 50 - 180 mcg/dL [facility] TIBC 240(L) 250 - 425 mcg/dL (calc) [facility] IRON % SATURATION 20 20 - 48 % (calc) [facility] Comment: Test Performed at: [facility] [address] Lazaro Godoy MD Blood 07/11/2024 10:4 8 AM DATA WAREHOUSING ENGINEER 07/11/2024 10:48 AM DATA WAREHOUSING ENGINEER us Philip Del Rio MD CHEMISTRY ORDERABLES Final Resu lt Performing Organization Address [facility] Co de Phone Number [facility] [phone] [facility] [address] * FERRITIN (07/11/2024 10:48 AM DATA WAREHOUSING ENGINEER) [facility] FERRITIN 140 24 - 380 ng/mL [facility] Comment: Test Performed at: [facility] [address] [place] [address] Lazaro Godoy MD Blood 07/11/2024 10:4 8 AM DATA WAREHOUSING ENGINEER 07/11/2024 10:48 AM DATA WAREHOUSING ENGINEER Philip Del Rio MD CHEMISTRY ORDERABLES Final Resu lt [facility] [phone] [facility] [address] [id number] from Last 3 Months Insurance [facility] [id number] Care Teams Checkering Machine Operator Relationship Specialty Start Date End Date Clemente Sommer MD [address] [place] [address] PCP - General Family Practice 12/21/19
--- OUTSIDE RECORDS SUMMARY | 2024-07-12 13:15 | XMS_ITS | Referral Summary ---
Author Organization [facility] Address [address] [place] [address] Care Team Providers Care Records Management Assistant Name Role Phone Clemente Sommer MD Primary Care Provider Source Comments [facility],non-owned Affiliates and Associated Physician Practices is amultiple site organization consisting of ambulatory clinics and hospital sitesin [place], [place], [place]. This disclosure is being madepursuant to the Care Everywhere program and may not contain all information available regarding this patient. Last updated 18.[facility] [employer] Allergies No known active allergies Immunizations Name [...] of Treatment Not on file Care Teams Records Management Assistant Relationship Specialty Start Date End Date Clemente Sommer MD [address] [place] [address] PCP - General Family Medicine 02/23/17
[2024-07-12 13:19] LABS: Blood Urea Nitrogen 26 mg/dL (8-26); Carbon Dioxide 27 mmol/L (22-30); Chloride 106 mmol/L (98-109); Estimated Glomerular Filt Rate 41; Glucose 112 mg/dL (70-105); Potassium 4.8 mmol/L (3.5-4.9); Sodium 142 mmol/L (138-146)
[2024-07-12 13:19] LABS: Basophils Percent Auto 0.3 % (0.2-1.2); Eosinophils Absolute Auto 0.5 K/mm3 (0-0.3); Eosinophils Percent Auto 7.9 % (0-4.4); Hematocrit 39.1 % (42.0-52.0); Hemoglobin 12.9 g/dL (14.0-18.0); Immature Granulocyte Absolute 0.02 K/mm3 (0.00-0.031); Immature Granulocyte Percent A 0.3 % (0-0.5); Immature Platelet Fraction Pct 4.6 % (0.9-11.2); Lymphocytes Absolute Auto 1.14 K/mm3 (0.9-3.2); Lymphocytes Percent Auto 18.7 % (18.3-44.2); Mean Corpuscular Hemoglobin 31.3 pg (26-34); Mean Corpuscular Volume 94.9 fl (80-100); Mean Platelet Volume 10.6 fl (7.4-10.4); Monocytes Absolute Auto 0.7 K/mm3 (0.1-0.6); Neutrophils Absolute Auto 3.8 K/mm3 (1.3-6.7); Neutrophils Percent Auto 61.8 % (45.5-73.1); Platelet Count Result 139 k/mm3 (150-375); Red Blood Count 4.12 M/mm3 (4.6-6.20); Red Cell Distribution Width 13.6 % (11.5-14.5); White Blood Count 6.1 K/mm3 (4.5-10.0)
== END 2024-07-12 12:59 | disposition home or self-care (01) ==
PROVIDERS: PCP Family Medicine; Visit Provider Internal Medicine Hematology & Oncology
DX: D64.9 Anemia, unspecified (principal)
CPT/HCPCS: 36415; 80047; 85025; 85055

== ENCOUNTER 2024-09-22 10:40 | Outpatient (CLI) | payer MEDICARE, SELFPAY ==
--- NOTE | ~2024-09-22 | MR_ITS ---
MRI of the left femur CLINICAL HISTORY: Pain TECHNIQUE: Coronal T1-weighted and STIR images, sagittal T1-weighted and STIR images, and axial T1-we ighted and STIR images were acquired. FINDINGS: There is susceptibility artifact at the upper femur related to left hip arthroplasty hardwa re. No acute osseous abnormality evident. No bone marrow edema or fracture seen. No evidence for oste omyelitis. No periosteal reaction identified. Visualized musculature unremarkable. No muscle atrophy or edema. No mass lesion or fluid collection s een. Subcutaneous soft tissues are unremarkable. IMPRESSION: Left hip arthroplasty, otherwise unremarkable exam. No significant abnormality seen. Reviewed, dictated and finalized at location .
--- OUTSIDE RECORDS SUMMARY | 2024-09-22 16:20 | XMS_ITS | Encounter Summary ---
Author Organization [facility] Address [address] [place] [address] Phone Care Team Providers Care Home Health Occupational Therapist Name Role Phone Clemente Sommer MD Primary Care Provider Encounter Details Date Type Department Care Team (Late st Contact Info) Description 02/09/2023 Telephone [facility] Orthopaedic Surgery [address] [facility] [address] [place] [address] Malick Infante MD [address] [facility] [address] [place] [address] Social History Tobacco Use Types Packs/Day Years [...] on file Legal Sex Male 3:46 AM ARCHITECTURAL JOB CAPTAIN Gender Identity Male 03/07/2020 6:16 PM CDT Sexual Orientation Straight 03/07/2020 6: 16 PM CDT documented as of this encounter Plan of Treatment Not on file documented as of this encounter Visit Diagnoses Not on filedocumented in this encounter Care Teams Home Health Occupational Therapist Relationship Specialty Start Date End Date Clemente Sommer MD PCP - General Family Medicine 04/13/19 documented as of this encounter
--- OUTSIDE RECORDS SUMMARY | 2024-09-22 16:20 | XMS_ITS | Encounter Summary ---
Author Organization [facility] Address [address] [facility] [address] [place] [address] Care Team Providers Care Local Sales Associate Name Role Phone Clemente Sommer MD Primary Care Provider + [phone] Unknown, Notinfile Primary Care Provider Unavail able Clemente Sommer MD Primary Care Provider + [phone] Encounter Details Date Type Department Care Team (Late st Contact Info) Description 09/30/2016 Orders Only [facility] ProviderHusam MD [address] [place] [address] Social History Tobacco Use Types Packs/Day Years Used Date Smoking Tobacco: Former Alcohol Use Standard Drinks/Week Comments Yes 0 (1 standard drink = 0.6 oz pur e alcohol) Sex and Gender Information Value Date Recorded Sex Assigned at Not on file Legal Sex Male 3:46 AM RANCH COOK Gender Identity Male 03/07/2020 6:16 PM CDT [...] on filedocumented in this encounter Care Teams Local Sales Associate Relationship Specialty Start Date End Date Clemente Sommer MD PCP - General 08/20/16 03/18/19 Unknown, Notinfile PCP - General 03/19/19 04/12/19 Clemente Sommer MD PCP - General Family Medicine 04/13/19 documented as of this encounter
--- OUTSIDE RECORDS SUMMARY | 2024-09-22 16:20 | XMS_ITS | Clinical Summary ---
Author Organization [facility] [address] Address [address] [place] [address] Care Team Providers Care Dielectric Tester Name Role Phone Clemente Sommer MD Primary Care Provider + [phone] Allergies No known active allergies Medications tamsulosin (FLOMAX) 0.4 mg extended release capsule Take 1 capsule (0.4 mg total) by mouth 2 (two) times a day 0 Active levothyroxine (SYNTHROID) 75 mcg tablet Take 1 tablet (75 mcg total) by mouth nutrition services worker before breakfast Active ferrous sulfate 325 mg [...] capsule 1 capsule (2,000 Units total) Active folic acid (FOLVITE) 1 mg tablet Take 1 tablet (1 mg total) by mouth daily 4 Active ascorbic acid (ascorbic acid with adam hips) 500 mg tablet,chewable Acti ve clopidogreL (PLAVIX) 75 mg tabletIndicatio ns:Coronary artery disease of [place] artery of [place] heart with stable angina pectoris Take 1 tablet by mouth once daily 90 tablet 2 5 Active metoprolol tartrate (LOPRESSOR) 25 mg immediate release tabletIndicatio ns:Coronary artery disease involving [place] coronary artery of [place] heart without angina pectoris Take 0.5 tablets (12.5 mg total) by mouth 2 (two) times a day 180 tablet 2 5 Active metoprolol tartrate (LOPRESSOR) 25 mg immediate release tabletIndicatio ns:Coronary artery disease involving [place] coronary artery of [place] heart without angina pectoris Take 0.5 tablets (12.5 mg total) by mouth 2 (two) times a day 60 tablet 2 5 09/05/19 25 Discontinu ed(Reorder ) Active Problems Problem Noted Date Diagnosed Date [...] 02/15/2020 Sinus pause 06/07/2019 Diet-controlled diabetes mellitus 04/13/2019 History of CVA (cerebrovascular accident) 2018 Corneal edema 07/28/2018 Pinguecula 02/14/2018 Blepharitis 09/14/2017 Dry eyes 09/14/2017 Preoperative cardiovascular examination 09/13/19 18 S/P coronary artery stent placement 11/02/2016 Coronary artery disease 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 without angina pectoris 09/22/2016 Overview (10/15/2016): Coronary artery disease involving [place] coronary artery of [place] heart with other form of angina pectoris Dyspnea on exertion 09/22/2016 Overview (10/15/2016): LOPEZ (dyspnea on exertion) Meibomian gland dysfunction 06/11/2016 Rheumatoid arthritis of wrist 12/22/2015 Arthritis 11/11/2015 Muscle pain 06/10/2015 Overview (08/27/2016): Myalgia Unstable angina pectoris 01/03/2015 Overview (08/27/2016): Unstable angina Chronic kidney disease, stage III (moderate) Overview (08/27/2016): CKD (chronic kidney disease) stage 3, GFR 30-59 ml/min History of tobacco use 01/03/2015 Overview (08/27/2016): History of tobacco abuse Abnormal cardiovascular stress test 01/03/2015 Overview (08/27/2016): Abnormal stress test Hypertension associated with diabetes 01/03/2015 Overview (08/27/2016): HTN (hypertension), benign Mixed diabetic hyperlipidemi a associated with type 2 diabetes mellitus ([facility]) 01/03/2015 Overview (08/27/2016): Dyslipidemia Nonexudative age-related macular degeneration Resolved Problems Problem Noted Date Diagnosed Date Resolved Date Dyslipidemia associated with type 2 diabetes mellitus ([facility]) 06/07/2019 03/20/2021 Chronic coronary artery disease 02/18/2015 [...] on file 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 Gender Identity Male 03/07/2020 6:16 PM CDT Sexual Orientation Straight 03/07/2020 6: 16 PM CDT Obstetrics History Last Filed Vital Signs Vital Sign Reading Time Taken Comments Blood Pressure 116/60 05/31/2024 12:02 PM 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 Pulse 80 05/31/2024 12:02 PM 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 Temperature 36.6 C (97.9 F) 03/30/2023 11:30 AM 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 Respiratory Rate 18 03/30/2023 11:30 AM 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 Oxygen Saturation 97% 05/31/2024 12:02 PM 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 Inhaled Oxygen Concentration - - Weight 78.9 kg (174 lb) 05/31/2024 12:02 PM 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 Height 172.7 cm (5' 8 ) 05/31/2024 12:02 PM 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 Body Mass Index 26.46 05/31/2024 12:02 PM 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 Plan of Treatment Health Maintenance Due Date Last Done Comments Albumin Creatinine Ratio, Urine 1936 Dilated Eye Exam 1936 Foot Exam 1936 Hepatitis B Screening 1953 Well Visit 65+ 2001 Zoster Vaccine (2 of 3) 10/28/2009 09/02/2009 Pneumococcal vaccine 65+ (2 of 2 - PPSV23) 08/27/2015 07/02/2015, 02/20/2005 Depression Screening 03/19/2020 03/19/2019, 03/19/20 19 Hemoglobin A1C 07/22/2023 01/21/2023, 03/19/2019 Covid-19 Vaccine (6 - 2023-2 5 season) 2024 04/02/2022, 09/11/2021, 03/19/2021, Additional history exists Lipid Panel 02/01/2024 01/31/2023, 03/23, 03/20/2021, Additional history exists eGFR 02/01/2024 01/31/2023, 05/2022, 11/14/2019, Additional history exists Fall Risk Assessment 02/02/2024 02/01/2023 Influenza Vaccine (Season Ended) 2025 04/14/2019, 04/13/2019, 02/23/2017, Additional history exists DTaP/Tdap/Td Vaccine (4 - Td or Tdap) 01/09/2029 01/09/2019, 05/05/2009, 04/22/2009 Medical Devices Implanted Type Area Torpedo Shooter Device Identifier Shelf Expiration Date Model / Serial / Lot Cardiac Stents N/A: Heart [employer] Liner Acetabular Hip Vitamin E G7 [place] Vivacit E 36mm Polyethylene Size [id number] - [id number] Implanted:Qty: 1 on 01/31/2023 by Malick Infante MD at [facility] Left: Hip [employer] 11/11/2026 [id number] / / [id number] [employer] G7 66mm Multihole Hip I Hemisphere Offset Shell Acetabular [id number] - [id number] Implanted:Qty: 1 on 01/31/2023 by Malick Infante MD at [facility] Left: Hip [employer] [id number] 08/30/2030 [id number] / / [id number] [employer] Trilogy 6.5mm 40mm Self Tap Hip Acetabular Cortical Screw Bone [id number] - [id number] Implanted:Qty: 1 on 01/31/2023 by Malick Infante MD at [facility] Left: Hip [employer] [id number] 09/22/2032 [id number] / / [id number] [employer] Trilogy 6.5mm 15mm Self Tap Screw Bone [id number] - [id number] Implanted:Qty: 1 on 01/31/2023 by Malick Infante MD at [facility] Left: Hip [employer] [id number] 09/22/2032 [id number] / / [id number] [employer] Trilogy 6.5mm 15mm Self Tap Screw Bone [id number] - [id number] Implanted:Qty: 1 on 01/31/2023 by Malick Infante MD at [facility] Left: Hip [employer] [id number] 09/22/2032 [id number] / / [id number] [employer] Trilogy 6.5mm 20mm Self Tap Screw Bone [id number] - [id number] Implanted:Qty: 1 on 01/31/2023 by Malick Infante MD at [facility] Left: Hip [employer] [id number] 10/01/2032 [id number] / / [id number] [employer] Trilogy 6.5mm 20mm Self Tap Screw Bone [id number] - [id number] Implanted:Qty: 1 on 01/31/2023 by Malick Infante MD at [facility] Left: Hip [employer] [id number] 03/04/2032 [id number] / / [id number] [employer] Trilogy 6.5mm 40mm Self Tap Hip Acetabular Cortical Screw Bone [id number] - [id number] Implanted:Qty: 1 on 01/31/2023 by Malick Infante MD at [facility] Left: Hip [employer] [id number] 09/22/2032 [id number] / / [id number] [employer] G7 [place] 36mm Type 1 Modular Hip +9mm Offset Head Femoral Cocr [id number] - [id number] Implanted:Qty: 1 on 01/31/2023 by Malick Infante MD at [facility] Left: Hip [employer] [id number] 03/18/2032 / / [id number] Procedures Procedure Name Priority Date/Time Associated Diagnosis Comments EGFR Timed 01/31/2023 9:06 PM CDT LIPID PANEL Timed 01/31/2023 9:06 PM CDT HEMOGLOBIN A1C Routine 01/21/2023 5:45 PM CDT Preoperative testing Type 2 diabetes mellitus without complication, without long-term current use of insulin (HCC) from Last 3 Months or Most Recently Relevant to Health Maintenance Results * (ABNORMAL) eGFR (01/31/2023 9:06 PM CDT) eGFR 56(L) 90 - 130 mL/min/1. [address] [facility] Comment: Interpretive Data Reference Interval Normal [...] of Race in Diagnosing Kidney Disease, JASN 202). The CKD-EPI equation should not be used for patients with unstable renal function and has not been validated in children and those over 70. Current interpretive data was last reviewed 2021. Blood 01/31/2023 9:06 PM CDT 01/31/2023 10:07 PM CDT us Malick Infante MD LAB BLOOD ORDERABLES Final Result [facility] [place] [address] * (ABNORMAL) Lipid panel (01/31/2023 9:06 PM CDT) Cholesterol 84 30 - 199 mg/dL [facility] Comment: Interpretive Data Ages < or = [...] on 2018. Triglycerides 65 <=149 mg/dL [facility] Comment: Interpretive Data Ages < or = [...] on 2018. HDL 28(L) >=40 mg/dL [facility] Comment: Interpretive Data Ages < or = [...] on 2018. LDL, calculated 43 <=129 mg/dL [facility] Comment: Interpretive Data Ages < or = [...] revised on 2018. Non-HDL Cholesterol 56 mg/dL [facility] Comment: Interpretive Data Ages < or = [...] revised on 2018. Chol/HDL ratio [address] [facility] Blood 01/31/2023 9:06 PM CDT 01/31/2023 10:07 PM CDT us Malick Infante MD LAB BLOOD ORDERABLES Final Result [facility] [place] [address] * (ABNORMAL) Hemoglobin A1c (01/21/2023 5:45 PM CDT) Hgb A1C 5.8(H) 4.0 - 5.6 % [facility] Estimated Average Glucose 120 mg/dL [facility] Comment: The ADA recommends reporting an estimated Average Glucose (eAG) with all Hemoglobin A1c results using the equation derived from a study of 507 normal and diabetic adults. Minority populations were underrepresented and children were not included. (Diabetes Care 31:0478-7966, 2008). The eAG is not equivalent to a fasting glucose. The ADA recommends reporting an estimated Average Glucose (eAG) with all Hemoglobin A1c results using the equation derived from a study of 507 normal and diabetic adults. Minority populations were underrepresented and children were not included. (Diabetes Care 31:0895-4767, 2008). The eAG is not equivalent to a fasting glucose. Blood 01/21/2023 5:45 PM CDT 01/21/2023 5:57 PM CDT Bryce Tyler NP LAB BLOOD ORDERABLES Fin al Result Performing Organization Address City/State/[facility] Co de Phone Number [facility] [address] [facility]. [place] [address] from Last 3 Months or Most Recently Relevant to Health Maintenance Insurance [facility] Member Subscriber Plan / Payer (Ef fective 2022-Present) Name:Adama Tai Relation to Subscriber:Self Name:Tai, Adama Payer ID:[id number] (NAIC) Type:UHC MEDICARE Address: [place] [id number] MEDICARE ADVANTAGE Member Subscriber Plan / Payer (Ef fective 2022-Present) Name:Adama Tai Relation to Subscriber:Self Name:Adama Tai Payer ID:[id number] (NAIC) Type:UHC MEDICARE Address: [place] [id number] MEDICARE ADVANTAGE Advance Directives For more information, please contact: [phone] * Full Code (Latest Code Status on File) Date Activated Date Inactivated Comments 01/31/2023 3:20 PM 02/01/2023 10:04 PM * Full Code Date Activated Date Inactivated Comments 03/19/2019 10:01 PM 03/21/2019 1:11 AM Care Teams Dielectric Tester Relationship Specialty Start Date End Date Clemente Sommer MD PCP - General Family Medicine 04/13/19
--- OUTSIDE RECORDS SUMMARY | 2024-09-22 16:21 | XMS_ITS | Continuity of Care Document ---
Author Name [facility] Organization [facility] Care Team Providers Care Sales Representative Groceries Name Role Phone [facility] Unavailable Unavailable Problems Combined list of problems from Department of Defense and [facility] 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 It does not include entries that were removed or entered in error. 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 22 Condition [facility] Cerebral infarction Active Condition Jul 05, 2022 Entered By: FRANKLIN ONEILL I Comment: rt cva mild in 2018 [facility] Coronary atherosclerosis Active Condition [facility] Dysmetabolic Syndrome X (ICD-9-CM 277.7) Active Condition [facility] Essential hypertension (SNOMED CT 08363303) Active Condition [facility] Hearing Loss, Bilateral Active Condition [facility] Hyperlipidemia Active Condition [facility] Hypothyroidism Active Condition [facility] Rheumatoid arthritis Active Condition [facility] Type 2 diabetes mellitus Active Condition [facility] Colonoscopy Inactive Condition 03/01/2017 May 05, 2009 Entered By: John ALEXANDRE Comment: to be repeated 2008 [facility] Impaired FASTING Glucose (ICD-9-CM 790.21) Inactive Condition 03/01/2017 [facility] Diagnosis: ICD-10-CM I10 Essential (primary) hypertension Active Diagnosis [facility] Diagnosis: ICD-10-CM Z46.1 Encounter for fitting and adjustment of hearing aid Active Diagnosis [facility] Diagnosis: ICD-10-CM H90.3 Sensorineural hearing loss, bilateral Active Diagnosis [facility] Diagnosis: ICD-10-CM M05.9 Rheumatoid arthritis with rheumatoid factor, unspecified Active Diagnosis [facility] Diagnosis: ICD-10-CM Z13.5 Encounter for screening for eye and ear disorders Active Diagnosis 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 Medications Combined list of outpatient medications from Department of Defense and [facility] 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Medications provided include 1) outpatient medications from the last 15 months, and 2) patient-reported medications. Medication Details Route Status Patient Instructions Prescription Expires Prescription Number Last Dispense Date Ordering Provider Order Date Order Qty Source AMLODIPINE BESYLATE 2.5MG TAB TAKE ONE TABLET BY MOUTH ONCE A DAY ORAL ACTIVE TITI MARTEL A 2020 [facility] ASPIRIN 81MG TAB,EC TAKE ONE TABLET BY MOUTH ONCE A DAY ORAL ACTIVE MELITON ALEXANDRE 2008 [facility] ATORVASTATI N CA 80MG TAB TAKE ONE TABLET BY MOUTH EVERY MORNING ORAL ACTIVE TITI MARTEL A 2020 [facility] CLOPIDOGREL BISULFATE 75MG TAB TAKE ONE TABLET BY MOUTH ONCE A DAY ORAL ACTIVE YOHANA DURAN 2015 [facility] CYANOCOBALA MIN 1000MCG TAB TAKE ONE TABLET BY MOUTH ONCE A DAY ORAL ACTIVE Irena'TITI PANTOJA A 2020 [facility] FINASTERIDE 5MG TAB TAKE ONE TABLET BY MOUTH ONCE A DAY ORAL ACTIVE BRAIN ONEILL DHJacques 2022 [facility] IPRATROPIUM BR 0.03% SOLN,SPRAY, NASAL USE 1 SPRAY INTO NOSTRIL( S) THREE TIMES A DAY NEEDED FOR ALLERGIC RHINITIS NASAL ACTIVE 08/17/2025 [id number] 5 BRAIN ONEILL D[facility] 2024 30 [facility] LEVOTHYROXI NE NA 75MCG TAB (SYNTHROID) TAKE ONE TABLET BY MOUTH EVERY MORNING BEFORE A MEAL ORAL ACTIVE NINO,NI [facility] 2022 [facility] METOPROLOL TARTRATE 25MG TAB TAKE ONE-HALF TABLET BY MOUTH TWICE A DAY ORAL ACTIVE NINO,NI [facility] 2023 [facility] MIRABEGRON (PA-F) TAB,SA TAKE 12.5 BY MOUTH ONCE A DAY ORAL ACTIVE NINO,NI [facility] 2024 [facility] MULTIVIT/OP HTH AREDS2/LUTE IN/ZEAXANTH IN CAP/TAB TAKE 1 CAP/TAB BY MOUTH BID WM ORAL ACTIVE Irena'TITI PANTOJA A 2020 [facility] NITROGLYCER IN 0.4MG TAB,SUBLING UAL DISSOLVE ONE TABLET UNDER THE TONGUE ONE-TIME NEEDED SUBLIN GUAL ROSAS MCKEON 2016 [facility] TAMSULOSIN HCL 0.4MG CAP TAKE 1 CAPSULE BY MOUTH EVERY EVENING ORAL ACTIVE Irena'TITI PANTOJA A 2020 [facility] Immunizations Combined list of available immunizations from the Department of Defense and Veterans 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 Immunization Series Date Given Administered By Site Reaction Lot Number CVX Code Drug Provider Scribe Status Comments Source COVID-19 (MODERNA), MRNA, LNP-S, PF, 100 MCG/0.5ML DOSE OR 50 MCG/0.25ML DOSE 5 2021 207 complet ed HISTORICA L INFORMATI ON - FROM OTHER PROVIDER, Lot#: [id number] Mfr: [employer] [facility] COVID-19 (MODERNA), MRNA, LNP-S, PF, 100 MCG/0.5ML DOSE OR 50 MCG/0.25ML DOSE 4 2021 207 complet ed HISTORICA L INFORMATI ON - FROM OTHER PROVIDER, Lot#: [id number] Mfr: [employer] [facility] COVID-19 (MODERNA), MRNA, LNP-S, PF, 100 MCG/0.5ML DOSE OR 50 MCG/0.25ML DOSE 3 2020 207 complet ed HISTORICA L INFORMATI ON - FROM OTHER REGISTRY, Mfr: [employer] [facility] COVID-19 (MODERNA), MRNA, LNP-S, PF, 100 MCG/0.5 ML DOSE 2 2020 207 complet ed MOD; [id number]; 1 [facility] COVID-19 (MODERNA), MRNA, LNP-S, PF, 100 MCG/0.5 ML DOSE 1 2020 207 complet ed MOD; [id number]; 1 [facility] INFLUENZA, UNSPECIFIED FORMULATION 2018 88 complet ed [facility] INFLUENZA, HIGH DOSE SEASONAL 2018 135 complet ed HISTORICA L INFORMATI ON - FROM OTHER PROVIDER, Partner: [facility]. Administe red by: RONI FLEMING (ZRP=[id number]). Partner 4 Lot#: [id number] Mfr: [employer]; Dosage: 0.5 [facility] TDAP 2018 115 complet ed Right Deltoid [facility] INFLUENZA, UNSPECIFIED FORMULATION 2016 88 complet ed [facility] PNEUMOCOCCAL CONJUGATE PCV 13 2015 133 complet ed [facility] INFLUENZA, UNSPECIFIED FORMULATION 2014 88 complet ed [facility] INFLUENZA, UNSPECIFIED FORMULATION 2013 88 complet ed [facility] INFLUENZA, UNSPECIFIED FORMULATION 2012 88 complet ed [facility] INFLUENZA, UNSPECIFIED FORMULATION 2011 88 complet ed [facility] INFLUENZA, UNSPECIFIED FORMULATION 2010 88 complet ed [facility] INFLUENZA, UNSPECIFIED FORMULATION 2009 88 complet ed [facility] ZOSTER LIVE 2009 121 complet ed [facility] NOVEL INFLUENZA-H1N 1-09, ALL FORMULATIONS 2008 128 complet ed [facility] TD(ADULT) UNSPECIFIED FORMULATION 2008 139 complet ed Left Deltoid [facility] TDAP 2008 115 complet ed [facility] INFLUENZA, UNSPECIFIED FORMULATION 2008 88 complet ed [facility] PNEUMOCOCCAL, UNSPECIFIED FORMULATION 2004 109 complet ed [place] Results Combined list of recent chemistry, hematology and other laboratory results from Department of Defense and Veterans Affairs, ranging from 15 months to all on record, depending upon the facility. Order Name Results Value Reference Range Date Interpretation Specimen Comments Source CBC LEUKOCYTES [#/VOLUME] IN BLOOD BY AUTOMATED COUNT 4.0 10*3/u L 3.6 - 11.2 08/16 Specimen Type: BLOOD No comment entered. Ordering Provider: MARY ONEILL [place] Report Released Date/Time: Aug 01, 2024 09:27 AM Reporting Lab: [facility] [address] [place] [address] Performing Lab: [address] CBC ERYTHROCYTE S [#/VOLUME] IN BLOOD BY AUTOMATED COUNT 4.56 10*6/u L 4.10 - 5.70 08/16 Specimen Type: BLOOD No comment entered. Ordering Provider: MARY ONEILL Report Released Date/Time: Aug 01, 2024 09:27 AM Reporting Lab: [facility] [address] [place] [phone] Performing Lab: [address] CBC HEMOGLOBIN [MASS/VOLUM E] IN BLOOD 14.0 g/dL 13.1 - 16.8 08/16 Specimen Type: BLOOD No comment entered. Ordering Provider: MARY ONEILL [place] Report Released Date/Time: Aug 01, 2024 09:27 AM Reporting Lab: [facility] [address] [place] [phone] Performing Lab: [facility] [address] [facility] [address] [facility] CBC HEMATOCRIT [VOLUME FRACTION] OF BLOOD 43.3 38.2 - 48.4 08/16 Specimen Type: BLOOD No comment entered. Ordering Provider: MARY ONEILL Report Released Date/Time: Aug 01, 2024 09:27 AM Reporting Lab: [facility] [address] [place] [phone] Performing Lab: [facility] [address] [facility] [address] [facility] CBC MCV [ENTITIC VOLUME] BY AUTOMATED COUNT 95.0 fL 80.0 - 100.0 08/16 Specimen Type: BLOOD No comment entered. Ordering Provider: MARY ONEILL Report Released Date/Time: Aug 01, 2024 09:27 AM Reporting Lab: [address] [address] Performing Lab: [address] [address] [facility] CBC MCH [ENTITIC MASS] BY AUTOMATED COUNT 30.7 pg 27.0 - 34.0 08/16 Specimen Type: BLOOD No comment entered. Ordering Provider: MARY ONEILL Report Released Date/Time: Aug 01, 2024 09:27 AM Reporting Lab: [address] [address] Performing Lab: [address] [address] [facility] CBC MCHC [MASS/VOLUM E] BY AUTOMATED COUNT 32.3 g/dL 33.0 - 36.0 08/16 L Specimen Type: BLOOD No comment entered. Ordering Provider: MARY ONEILL Report Released Date/Time: Aug 01, 2024 09:27 AM Reporting Lab: [address] [phone] Performing Lab: [facility] [address] [facility] [address] [facility] CBC PLATELETS [#/VOLUME] IN BLOOD BY AUTOMATED COUNT 126 10*3/u L 150 - 400 08/16 L Specimen Type: BLOOD No comment entered. Ordering Provider: MARY ONEILL Report Released Date/Time: Aug 01, 2024 09:27 AM Reporting Lab: [facility] [address] [facility] [address] Performing Lab: [facility] [address] [facility] [address] [facility] CBC PLATELET MEAN VOLUME [ENTITIC VOLUME] IN BLOOD BY AUTOMATED COUNT 11.4 fL 7.5 - 11.2 08/16 H Specimen Type: BLOOD No comment entered. Ordering Provider: MARY ONEILL Report Released Date/Time: Aug 01, 2024 09:27 AM Reporting Lab: [facility] [address] [facility] [address] Performing Lab: [facility] [address] [facility] [address] [facility] CBC ERYTHROCYTE DISTRIBUTIO N WIDTH [RATIO] BY AUTOMATED COUNT 13.5 11.8 - 15.1 08/16 Specimen Type: BLOOD No comment entered. Ordering Provider: MARY ONEILL Report Released Date/Time: Aug 01, 2024 09:27 AM Reporting Lab: [facility] [address] [facility] [address] Performing Lab: [facility] [address] [facility] [address] [facility] CBC LYMPHOCYTES /100 LEUKOCYTES IN BLOOD BY AUTOMATED COUNT 22 08/16 Specimen Type: BLOOD No comment entered. Ordering Provider: MARY ONEILL Report Released Date/Time: Aug 01, 2024 09:27 AM Reporting Lab: [facility] [address] [facility] [address] Performing Lab: [facility] [address] [facility] [address] [facility] CBC MONOCYTES/1 00 LEUKOCYTES IN BLOOD BY AUTOMATED COUNT 17 08/16 Specimen Type: BLOOD No comment entered. Ordering Provider: MARY ONEILL Report Released Date/Time: Aug 01, 2024 09:27 AM Reporting Lab: [facility] [address] [facility] [address] Performing Lab: [facility] [address] [facility] [address] [facility] CBC NEUTROPHILS /100 LEUKOCYTES IN BLOOD BY AUTOMATED COUNT 56 08/16 Specimen Type: BLOOD No comment entered. Ordering Provider: MARY ONEILL Report Released Date/Time: Aug 01, 2024 09:27 AM Reporting Lab: [facility] [address] [facility] [address] Performing Lab: [facility] [address] [facility] [address] [facility] CBC EOSINOPHILS /100 LEUKOCYTES IN BLOOD BY AUTOMATED COUNT 4 08/16 Specimen Type: BLOOD No comment entered. Ordering Provider: MARY ONEILL Report Released Date/Time: Aug 01, 2024 09:27 AM Reporting Lab: [facility] [address] [facility] [address] Performing Lab: [facility] [address] [facility] [address] [facility] CBC BASOPHILS/1 00 LEUKOCYTES IN BLOOD BY AUTOMATED COUNT 1 08/16 Specimen Type: BLOOD No comment entered. Ordering Provider: MARY ONEILL Report Released Date/Time: Aug 01, 2024 09:27 AM Reporting Lab: [facility] [address] [facility] [address] Performing Lab: [facility] [address] [facility] [address] [facility] CBC LYMPHOCYTES [#/VOLUME] IN BLOOD BY AUTOMATED COUNT 0.90 10*3/u L 0.77 - 4.50 08/16 Specimen Type: BLOOD No comment entered. Ordering Provider: MARY ONEILL Report Released Date/Time: Aug 01, 2024 09:27 AM Reporting Lab: [facility] [address] [facility] [address] Performing Lab: [facility] [address] [place] [phone] [facility] CBC MONOCYTES [#/VOLUME] IN BLOOD BY AUTOMATED COUNT 0.70 10*3/u L 0.19 - 0.80 08/16 Specimen Type: BLOOD No comment entered. Ordering Provider: MARY ONEILL Report Released Date/Time: Aug 01, 2024 09:27 AM Reporting Lab: [address] [address] Performing Lab: [address] [address] [facility] CBC NEUTROPHILS [#/VOLUME] IN BLOOD BY AUTOMATED COUNT 2.25 10*3/u L 2.10 - 8.00 08/16 Specimen Type: BLOOD No comment entered. Ordering Provider: MARY ONEILL Report Released Date/Time: Aug 01, 2024 09:27 AM Reporting Lab: [address] [address] Performing Lab: [address] [address] [facility] CBC EOSINOPHILS [#/VOLUME] IN BLOOD BY AUTOMATED COUNT 0.16 10*3/u L 0.00 - 0.60 08/16 Specimen Type: BLOOD No comment entered. Ordering Provider: MARY ONEILL Report Released Date/Time: Aug 01, 2024 09:27 AM Reporting Lab: [address] [address] Performing Lab: [address] [address] [facility] CBC BASOPHILS [#/VOLUME] IN BLOOD BY AUTOMATED COUNT 0.02 10*3/u L 0.00 - 0.20 08/16 Specimen Type: BLOOD No comment entered. Ordering Provider: MARY ONEILL Report Released Date/Time: Aug 01, 2024 09:27 AM Reporting Lab: [address] [address] Performing Lab: [address] [address] [facility] COMPREHEN SIVE METABOLIC PANEL CREATININE [MASS/VOLUM E] IN SERUM OR PLASMA 1.41 mg/dL 0.7 - 1.3 08/16 H Specimen Type: PLASMA Comment: No hemolysis noted. Ordering Provider: MARY ONEILL Report Released Date/Time: Aug 01, 2024 09:27 AM Reporting Lab: [facility] [address] [address] Performing Lab: [facility] [address] [address] [facility] COMPREHEN SIVE METABOLIC PANEL UREA NITROGEN [MASS/VOLUM E] IN SERUM OR PLASMA 26.2 mg/dL 9.0 - 25.0 08/16 H Specimen Type: PLASMA Comment: No hemolysis noted. Ordering Provider: MARY ONEILL Report Released Date/Time: Aug 01, 2024 09:27 AM Reporting Lab: [facility] [address] [address] Performing Lab: [facility] [address] [address] [facility] COMPREHEN SIVE METABOLIC PANEL GLUCOSE [MASS/VOLUM E] IN SERUM OR PLASMA 118 mg/dL 72 - 99 08/16 H Specimen Type: PLASMA Comment: No hemolysis noted. Ordering Provider: MARY ONEILL Report Released Date/Time: Aug 01, 2024 09:27 AM Reporting Lab: [facility] [address] [address] Performing Lab: [facility] [address] [address] [facility] COMPREHEN SIVE METABOLIC PANEL SODIUM [MOLES/VOLU ME] IN SERUM OR PLASMA 142 meq/L 136 - 145 08/16 Specimen Type: PLASMA Comment: No hemolysis noted. Ordering Provider: MARY ONEILL Report Released Date/Time: Aug 01, 2024 09:27 AM Reporting Lab: [facility] [address] [address] Performing Lab: [facility] [address] [facility] [address] [facility] COMPREHEN SIVE METABOLIC PANEL POTASSIUM [MOLES/VOLU ME] IN SERUM OR PLASMA 5.1 meq/L 3.5 - 5 08/16 H Specimen Type: PLASMA Comment: No hemolysis noted. Ordering Provider: MARY ONEILL Report Released Date/Time: Aug 01, 2024 09:27 AM Reporting Lab: [facility] [address] [facility] [address] Performing Lab: [facility] [address] [facility] [address] [facility] COMPREHEN SIVE METABOLIC PANEL CHLORIDE [MOLES/VOLU ME] IN SERUM OR PLASMA 106 meq/L 98 - 107 08/16 Specimen Type: PLASMA Comment: No hemolysis noted. Ordering Provider: MARY ONEILL Report Released Date/Time: Aug 01, 2024 09:27 AM Reporting Lab: [facility] [address] [place] [phone] Performing Lab: [facility] [address] [facility] [address] [facility] COMPREHEN SIVE METABOLIC PANEL CARBON DIOXIDE, TOTAL [MOLES/VOLU ME] IN SERUM OR PLASMA 26 meq/L 22 - 31 08/16 Specimen Type: PLASMA Comment: No hemolysis noted. Ordering Provider: MARY ONEILL Report Released Date/Time: Aug 01, 2024 09:27 AM Reporting Lab: [facility] [address] [place] [phone] Performing Lab: [facility] [address] [facility] [address] [facility] COMPREHEN SIVE METABOLIC PANEL CALCIUM [MASS/VOLUM E] IN SERUM OR PLASMA 10.4 mg/dL 8.4 - 10.4 08/16 Specimen Type: PLASMA Comment: No hemolysis noted. Ordering Provider: MARY ONEILL Report Released Date/Time: Aug 01, 2024 09:27 AM Reporting Lab: [facility] [address] [facility] [address] Performing Lab: [facility] [address] [facility] [address] [facility] COMPREHEN SIVE METABOLIC PANEL PROTEIN [MASS/VOLUM E] IN SERUM OR PLASMA 7.7 g/dL 6 - 8.6 08/16 Specimen Type: PLASMA Comment: No hemolysis noted. Ordering Provider: MARY ONEILL Report Released Date/Time: Aug 01, 2024 09:27 AM Reporting Lab: [place] [address] [facility] [address] Performing Lab: [place] [address] [facility] [address] [facility] COMPREHEN SIVE METABOLIC PANEL ALBUMIN [MASS/VOLUM E] IN SERUM OR PLASMA 4.5 g/dL 3.4 - 5 08/16 Specimen Type: PLASMA Comment: No hemolysis noted. Ordering Provider: MARY ONEILL Report Released Date/Time: Aug 01, 2024 09:27 AM Reporting Lab: [place] [address] [facility] [address] Performing Lab: [place] [address] [facility] [address] [facility] COMPREHEN SIVE METABOLIC PANEL BILIRUBIN.T OTAL [MASS/VOLUM E] IN SERUM OR PLASMA 0.9 mg/dL 0.2 - 1.2 08/16 Specimen Type: PLASMA Comment: No hemolysis noted. Ordering Provider: MARY ONEILL Report Released Date/Time: Aug 01, 2024 09:27 AM Reporting Lab: [place] [address] [facility] [address] Performing Lab: [facility] [address] [facility] [address] [facility] COMPREHEN SIVE METABOLIC PANEL ALKALINE PHOSPHATASE [ENZYMATIC ACTIVITY/VO LUME] IN SERUM OR PLASMA 114 U/L 40 - 150 08/16 Specimen Type: PLASMA Comment: No hemolysis noted. Ordering Provider: MARY ONEILL Report Released Date/Time: Aug 01, 2024 09:27 AM Reporting Lab: [address] [address] Performing Lab: [place] [address] [facility] [address] [facility] COMPREHEN SIVE METABOLIC PANEL ASPARTATE AMINOTRANSF ERASE [ENZYMATIC ACTIVITY/VO LUME] IN SERUM OR PLASMA 42 U/L 5 - 34 08/16 H Specimen Type: PLASMA Comment: No hemolysis noted. Ordering Provider: MARY ONEILL Report Released Date/Time: Aug 01, 2024 09:27 AM Reporting Lab: [facility] [address] [facility] [address] Performing Lab: [facility] [address] [facility] [address] [facility] COMPREHEN SIVE METABOLIC PANEL ALANINE AMINOTRANSF ERASE [ENZYMATIC ACTIVITY/VO LUME] IN SERUM OR PLASMA 36 U/L 8 - 40 08/16 Specimen Type: PLASMA Comment: No hemolysis noted. Ordering Provider: MAYR ONEILL Report Released Date/Time: Aug 01, 2024 09:27 AM Reporting Lab: [facility] [address] [facility] [address] Performing Lab: [facility] [address] [facility] [address] [facility] COMPREHEN SIVE METABOLIC PANEL GLOMERULAR FILTRATION RATE/1.73 SQ M.PREDICTED [VOLUME RATE/AREA] IN SERUM, PLASMA OR BLOOD BY CREATININE- BASED FORMULA (CKD-EPI 2020) 47.9 60 08/16 Specimen Type: PLASMA Comment: No hemolysis noted. Ordering Provider: MARY ONEILL Report Released Date/Time: Aug 01, 2024 09:27 AM Reporting Lab: [facility] [address] [facility] [address] Performing Lab: [facility] [address] [facility] [address] [facility] HGA1C HEMOGLOBIN A1C/HEMOGLO BIN.TOTAL IN BLOOD 6.2 4.0 - 6.0 08/16 H Specimen Type: BLOOD No comment entered. Ordering Provider: MARY ONEILL Report Released Date/Time: Aug 01, 2024 09:27 AM Reporting Lab: [facility] [address] [place] [phone] Performing Lab: [facility] [address] [address] [facility] LIPID PANEL (STL) CHOLESTEROL [MASS/VOLUM E] IN SERUM OR PLASMA 134 mg/dL 0 - 200 08/16 Specimen Type: PLASMA Comment: No hemolysis noted. Ordering Provider: MARY ONEILL Report Released Date/Time: Aug 01, 2024 09:27 AM Reporting Lab: [facility] [address] [address] Performing Lab: [facility] [address] [address] [facility] LIPID PANEL (STL) TRIGLYCERID E [MASS/VOLUM E] IN SERUM OR PLASMA 159 mg/dL 0 - 150 08/16 H Specimen Type: PLASMA Comment: No hemolysis noted. Ordering Provider: MARY ONEILL Report Released Date/Time: Aug 01, 2024 09:27 AM Reporting Lab: [facility] [address] [facility] [id number] Performing Lab: [facility] [address] [facility] [address] [facility] LIPID PANEL (STL) CHOLESTEROL IN LDL [MASS/VOLUM E] IN SERUM OR PLASMA BY CALCULATION 65 mg/dL 08/16 Specimen Type: PLASMA Comment: No hemolysis noted. Ordering Provider: MARY ONEILL Report Released Date/Time: Aug 01, 2024 09:27 AM Reporting Lab: [facility] [address] [facility] [address] Performing Lab: [facility] [address] [facility] [address] [facility] LIPID PANEL (STL) CHOLESTEROL IN HDL [MASS/VOLUM E] IN SERUM OR PLASMA 37 mg/dL 40 08/16 L Specimen Type: PLASMA Comment: No hemolysis noted. Ordering Provider: MARY ONEILL Report Released Date/Time: Aug 01, 2024 09:27 AM Reporting Lab: [facility] [address] [facility] [address] Performing Lab: [facility] [address] [facility] [address] [facility] MICRAL/CR EAT PROFILE (STL) ALBUMIN [MASS/VOLUM E] IN URINE 13.0 mg/L 08/16 Specimen Type: URINE No comment entered. Ordering Provider: MARY ONEILL Report Released Date/Time: Aug 01, 2024 09:27 AM Reporting Lab: [facility] [address] [facility] [address] Performing Lab: [place] [address] [facility] [address] [facility] MICRAL/CR EAT PROFILE (STL) ALBUMIN/CRE ATININE [MASS RATIO] IN URINE 10 mg/g 0 - 29 08/16 Specimen Type: URINE No comment entered. Ordering Provider: MARY ONEILL Report Released Date/Time: Aug 01, 2024 09:27 AM Reporting Lab: [place] [address] [facility] [address] Performing Lab: [place] [address] [facility] [address] [facility] MICRAL/CR EAT PROFILE (STL) CREATININE [MASS/VOLUM E] IN URINE 124.7 mg/dL 63 - 166 08/16 Specimen Type: URINE No comment entered. Ordering Provider: MARY ONEILL Report Released Date/Time: Aug 01, 2024 09:27 AM Reporting Lab: [place] [address] [facility] [address] Performing Lab: [place] [address] [facility] [address] [facility] TSH (MA-PB) THYROTROPIN [UNITS/VOLU ME] IN SERUM OR PLASMA 1.319 u[IU]/ mL 0.47 - 5 08/16 Specimen Type: SERUM No comment entered. Ordering Provider: MARY ONEILL Report Released Date/Time: Aug 01, 2024 09:27 AM Reporting Lab: [place] [address] [facility] [address] Performing Lab: [facility] [address] [facility] [address] [facility] VITAMIN D, 25-HYDROX Y 25-HYDROXYV ITAMIN D3 [MASS/VOLUM E] IN SERUM OR PLASMA 70.5 ng/mL 30 - 96 08/16 Specimen Type: SERUM No comment entered. Ordering Provider: MARY ONEILL Report Released Date/Time: Aug 01, 2024 09:27 AM Reporting Lab: [facility] [address] [facility] [address] Performing Lab: [facility] [address] [facility] [address] [facility] Vital Signs Combined list of inpatient and outpatient Vital Signs from Department of Defense and Veterans Affairs, ranging from 12 months to all on record, depending upon the facility. Vital Sign Value Date Comments Source SYSTOLIC BLOOD PRESSURE 138 08/17/19 25 10:06:41 [facility] DIASTOLIC BLOOD PRESSURE 83 025 10:06:41 [facility] PULSE OXIMETRY 98 08/16/2024 10:06:41 [facility] WEIGHT 175.1 08/16/2024 10:06:41 [facility] BMI 26 kg/m2 08/16/2024 10:06:41 [facility] PAIN 0 08/16/2024 10:06:41 [facility] HEIGHT 69 08/16/2024 10:06:41 [facility] TEMPERATURE 98 08/16/2024 10:06:41 [facility] PULSE 76 08/16/2024 10:06:41 [facility] RESPIRATION 16 08/16/2024 10:06:41 [facility] SYSTOLIC BLOOD PRESSURE 135 09/07/19 24 09:55:26 [facility] DIASTOLIC BLOOD PRESSURE 77 024 09:55:26 [facility] PULSE OXIMETRY 96 09/07/2023 09:55:26 [facility] WEIGHT 171 09/07/2023 09:55:26 [facility] BMI 25 kg/m2 09/07/2023 09:55:26 [facility] PAIN 3 09/07/2023 09:55:26 [facility] TEMPERATURE 98.2 09/07/2023 09:55:26 [facility] PULSE 74 09/07/2023 09:55:26 [facility] RESPIRATION 16 09/07/2023 09:55:26 [facility] Encounters Combined list of: 1) Encounters from Department of [facility] Affairs facilities going backup to the last 18 months, not all VA inpatient encounters are included; 2) Encounters from the Department of [facility] facilities going backup to 280 months. 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, unspeci fied site ALBERTO MEJÍA 03/09 [facility] HC PRO PHONE CALL 5-10 MIN [id number] Diagnos is: ICD-10- CM H90.3 Sensori neural hearing loss, bilater al KIERRA CHAPMAN K 04/20 [facility] HEARING AID REPAIR/MOD IFYING [id number] Diagnos is: ICD-10- CM H90.A32 Mix cndct/s nrl hear loss,un i,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 CLEVELANDAUDREY E M 05/09 [facility] N [facility] TYMPANOMET RY & REFLEX THRESH [id number] Diagnos is: ICD-10- CM H90.A21 Snsrnrl hear loss, uni, r ear, with rstrcd hear cntra side AUDREY GARCIA E M 05/09 [facility] Outpatient Encounter [id number] 05/10 [facility] HEARING SERVICE [id number] Diagnos is: ICD-10- CM H90.3 Sensori neural hearing loss, KIERRA Cullen 07/04 [facility] IMG RTA DETCJ/MNTR DS STAFF [id number] Diagnos is: ICD-10- CM Z13.5 Encount er for screeni ng for eye and ear disorde rs MARY ONEILL HI 08/16 [facility] Outpatient Encounter [id number] 08/16 [facility] IMG RTA DETCJ/MNTR DS STAFF [id number] Diagnos is: ICD-10- CM Z13.5 Encount er for screeni ng for eye and ear disorde rs KERON BRADY 08/16 [facility] OFFICE O/P EST MOD 30 MIN [id number] Diagnos is: ICD-10- CM I10 Essenti al (primar y) hyperte nsion NINONID HI 08/16 [facility] Outpatient Encounter [id number] Diagnos is: ICD-10- CM Z13.5 Encount er for screeni ng for eye and ear disorde rs TIFFANI BANUELOS 08/17 [facility] OFFICE O/P EST HI 40 MIN [id number] Diagnos is: ICD-10- CM 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, unspeci ALBERTO Solomon 09/06 [facility] N [facility] Outpatient Encounter [id number] GROVER MARCUM M 01/03 [facility] N [facility] Outpatient Encounter [id number] JUNEPARISA SILVANA Serrato 01/04 [facility] HEARING AID REPAIR/MOD IFYING [id number] Diagnos is: ICD-10- CM H90.3 Sensori neural hearing loss, AUDREY Tian 04/23 [facility] Outpatient Encounter [id number] 07/06 [facility] Outpatient Encounter [id number] 07/11 [facility] Outpatient Encounter [id number] MARY ONEILL HI 08/01 [facility] EAR IMPRESSION [id number] Diagnos is: ICD-10- CM Z46.1 Encount er for fitting and adjustm ent of hearing aid KIERRA CHAPMAN 08/13 [facility] OFFICE O/P EST MOD 30 MIN [id number] Diagnos is: ICD-10- CM I10 Essenti al (primar y) hyperte nsion MARY ONEILL HI 08/16 [facility] Outpatient Encounter [id number] 08/27 [facility] Social History Combined list of available smoking, tobacco, and other social history from Department of Defense and Veterans 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 Social History Type Response Date Comment Sourc e Tobacco smoking status NHIS VA-TOBACCO USE FORMER CIGARETTES 08/16/2024 [facility] History of tobacco use VA-TOBACCO NEVER USED OTHER TYPE 08/16/2024 [facility] History of tobacco use VA-TOBACCO FORMER USER 08/17/2023 [facility] History of tobacco use VA-TOBACCO NEVER USED 07/05/2022 [facility] History of tobacco use [place]-TOBACCO QUIT 15 YRS OR MORE 06/05/2020 [facility] History of tobacco use VA-TOBACCO QUIT 15 YRS OR MORE 12/19/2018 [facility] History of tobacco use QUIT TOBACCO >7 YEARS AGO 03/01/2017 [facility] History of tobacco use QUIT TOBACCO >7 YEARS AGO 08/30/2016 [facility] History of tobacco use QUIT TOBACCO >7 YEARS AGO 07/02/2015 [facility] History of tobacco use QUIT TOBACCO >7 YEARS AGO 03/14/2014 [facility] History of tobacco use QUIT TOBACCO >7 YEARS AGO 05/05/2009 [facility] Advance Directives List of completed, amended, or rescinded Advance Directives on record at Department of Veterans 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 An actual copy of the Directive is not included. Date Advance Directive Provider Source 01/15/2016 ADVANCE DIRECTIVE DISCUSSION BILL TURK [facility]
--- OUTSIDE RECORDS SUMMARY | 2024-09-22 16:21 | XMS_ITS | Clinical Summary ---
Author Organization [facility] Jana Hicks Address [address] [place] [address] Care Team Providers Care Real Estate Account Executive Name Role Phone Clemente Sommer MD Primary Care Provider [phone] Allergies No known active allergies Medications tamsulosin (FLOMAX) 0.4 mg capsule Take 0.4 mg by mouth. Active fluticasone propionate (FLONASE) 50 mcg/spray [place], Suspension nasal inhaler INSTILL 2 SPRAYS IN [...] Take 75 mcg by mouth. 3 Active coenzyme Q10 200 mg Capsule Take 200 mg by mouth daily. Active mirabegron (Myrbetriq) 25 mg Extended Release 24 hour tablet Take 25 mg by mouth daily. 4 Active Cholecalciferol , Vitamin D3, 50 mcg (2,000 unit) Capsule Take 2,000 Units by mouth daily. Active folic acid (FOLVITE) 1 mg tablet Take 1 tablet by mouth once daily 90 Tablet 3 5 Active Active Problems Problem Noted Date Diagnosed Date Chronic anemia 05/06/2020 Other dietary vitamin B12 deficiency anemia 04/22 Encounters Date Type Department Care Team Description 08/15/2024 Refill [facility] Oncology and Hematology - [place] [address] [place] [address] Philip Del Rio MD 08/08/2024 External Device Data STL ABSTRACTION Provider, Abstract 07/28/2024 External Device Data STL ABSTRACTION Provider, Abstract 07/27/2024 External Device Data STL ABSTRACTION Provider, Abstract 07/13/2024 Orders Only [facility] Oncology and Hematology [facility] [address] [place] [address] Philip Del Rio MD 07/12/2024 2:15 PM CHISEL GRINDER Office Visit [facility] Oncology and Hematology [facility] [address] [place] [address] Philip Del Rio MD Chronic anemia (Primary Dx) 07/10/2024 External Device Data STL ABSTRACTION Provider, Abstract from Last 3 Months Family History Medical [...] Sexual Orientation Straight 07/09/2023 1: 09 PM CHISEL GRINDER Last Filed Vital Signs Vital Sign Reading Time Taken Comments Blood Pressure 122/84 07/12/2024 1:20 PM [facility] GR[facility] Pulse 87 07/12/2024 1:20 PM [facility] Temperature 36.4 C (97.5 F) 07/12/2024 1:20 PM [facility]EL GR[facility] Respiratory Rate 15 07/12/2024 1:20 PM [facility]ISEL GRINDER Oxygen Saturation 94% 07/12/2024 1:20 PM [facility]EL GR[facility]ER Inhaled Oxygen Concentration - - Weight 81.1 kg (178 lb 12.8 oz) 07/12/2024 1:20 PM [facility]EL GR[facility] Height 177.8 cm (5' 10 ) 11/04/2020 10: 15 AM CDT Body Mass Index 25.66 11/04/2020 10:15 AM CDT Plan of Treatment Upcoming Encounters Date Type Department Care Team (Late st Contact Info) Description 01/09/2025 11:00 AM CDT Office Visit [facility] Oncology and Hematology - [place] [address] [facility] [address] [place] [address] Philip Del Rio MD [address] [facility] [address] [place] [address] Health Maintenance Due Date Last Done Comments DIABETES ANNUAL FOOT EXAM 1954 DIABETES MICROALBUMIN ANNUAL SCREEN 1953 LDL CHOLESTEROL ANNUAL 1954 ZOSTER VACCINE (2 of 3) 10/28/2009 09/02/2009 RSV VACCINE (60+ or ) (1 - 1-dose 75+ series) 2011 PNEUMOCOCCAL VACCINE 50+ YEA RS (2 of 2 - PPSV23) 08/27/2015 07/02/2015, 02/20/2005 DIABETES HBA1C Q 6 MONTHS 07/22/2023 01/21/2023 INFLUENZA VACCINE (#1) 2023 , 04/13/2019, 02/21/2018, Additional history exists DIABETES ANNUAL RETINAL EXAM 04/13/2025, 04/13/2024, 08/17/2023, Additional history exists DTAP/TDAP/TD VACCINES (4 - T d or Tdap) 01/09/2029 01/09/2019, 05/05/2009, 04/22/2009 Procedures Procedure Name Priority Date/Time Associated Diagnosis Comments CBC WITH AUTODIFFERENTIAL Routine 07/12/2024 11:35 AM CHISEL GRINDER VITAMIN B12 AND FOLATE Routine 10:48 AM CHISEL GRINDER Chronic anemia IRON, TIBC, AND PERCENT SATURATION Routine 07/11/2024 10:48 AM CHISEL GRINDER Chronic anemia FERRITIN Routine 07/11/2024 10:48 AM CHISEL GRINDER Chronic anemia from Last 3 Months Results * CBC WITH AUTODIFFERENTIAL (07/12/2024 11:35 AM CHISEL GRINDER) Blood Philip Del Rio MD HEMATOLOGY ORDERABLES Final Res ult * (ABNORMAL) VITAMIN B12 AND FOLATE (07/11/2024 10:48 AM CHISEL GRINDER) VITAMIN B12 1161(H) 200 - 1100 pg/mL [facility] FOLATE, SERUM >24.0 ng/mL [facility] Comment: Reference Range Low: <3.4 Borderline: 3.4-5.4 Normal: >5.4 Test Performed at: [facility] [address] [place] [address] Lazaro Godoy MD Blood 07/11/2024 10:4 8 AM [facility]EL GRINDER 07/11/2024 10:48 AM CHISEL GRINDER Philip Del Rio MD CHEMISTRY ORDERABLES Final Resu lt [facility] [phone] [facility] [address] [place] [address] * (ABNORMAL) IRON, TIBC, AND PERCENT SATURATION (07/11/2024 10:48 AM CHISEL GRINDER) IRON 48(L) 50 - 180 mcg/dL [facility] TIBC 240(L) 250 - 425 mcg/dL (calc) [facility] IRON % SATURATION 20 20 - 48 % (calc) [facility] Comment: Test Performed at: [facility] [address] [place] [address] Lazaro Godoy MD Blood 07/11/2024 10:4 8 AM [facility]EL GR[facility]ER 07/11/2024 10:48 AM CHISEL GRINDER Philip Del Rio MD CHEMISTRY ORDERABLES Final Resu lt [facility] [phone] [facility] [address] * FERRITIN (07/11/2024 10:48 AM CHISEL GRINDER) FERRITIN 140 24 - 380 ng/mL [facility] Comment: Test Performed at: [facility] [place] [address] Lazaro Godoy MD Blood 07/11/2024 10:4 8 AM CHISEL GRINDER 07/11/2024 10:48 AM CHISEL GRINDER Philip Del Rio MD CHEMISTRY ORDERABLES Final Resu lt [facility] [phone] [facility] [address] from Last [address] [facility] [id number] Member Subscriber Plan / Payer (Ef fective 2020-Present) Name:Adama Tai Relation to Subscriber:Self Name:Tai, Adama Payer ID:[id number] (NAIC) Type:HMO Address: [place] [phone] Care Teams Real Estate Account Executive Relationship Specialty Start Date End Date Clemente Sommer MD [address] [place] [address] PCP - General Family Practice 12/21/19
--- OUTSIDE RECORDS SUMMARY | 2024-09-22 16:21 | XMS_ITS | Referral Summary ---
Author Organization [facility] [address] Address [address] [place] [address] Care Team Providers Care Optomechanical Technician Name Role Phone Clemente Sommer MD Primary Care Provider + [phone] Allergies No known active allergies Medications tamsulosin (FLOMAX) 0.4 mg extended release capsule Take 1 capsule (0.4 mg total) by mouth 2 (two) times a day 0 Active levothyroxine (SYNTHROID) 75 mcg tablet Take 1 tablet (75 mcg total) by mouth transit planning director before breakfast Active ferrous sulfate 325 mg [...] 75 mg tabletIndicatio ns:Coronary artery disease of [place] artery of [place] heart with stable angina pectoris Take 1 tablet by mouth once daily 90 tablet 2 5 Active metoprolol tartrate (LOPRESSOR) 25 mg immediate release tabletIndicatio ns:Coronary artery disease involving [place] coronary artery of [place] heart without angina pectoris Take 0.5 tablets (12.5 mg total) by mouth 2 (two) times a day 180 tablet 2 5 Active metoprolol tartrate (LOPRESSOR) 25 mg immediate release tabletIndicatio ns:Coronary artery disease involving [place] coronary artery of [place] heart without angina pectoris Take 0.5 tablets [...] placement 11/02/2016 Coronary artery disease invo lving [place] coronary artery of [place] heart without angina pectoris 09/22/2016 Overview (10/15/2016): Coronary artery disease involving [place] coronary artery of [place] heart with other form of angina pectoris [...] a associated with type 2 diabetes mellitus ([facility]) 01/03/2015 Overview (08/27/2016): Dyslipidemia Nonexudative age-related macular degeneration Resolved Problems Problem Noted Date Diagnosed Date Resolved Date Dyslipidemia associated with type 2 diabetes mellitus ([facility]) 06/07/2019 03/20/2021 Chronic coronary artery [...] on file Legal Sex Male 3:46 AM WOUND CARE NURSE Gender Identity Male 03/07/2020 6:16 PM CDT Sexual Orientation Straight 03/07/2020 6: 16 PM CDT Last Filed Vital Signs Vital Sign Reading Time Taken Comments Blood Pressure 116/60 05/31/2024 12:02 PM WOUND CARE NURSE Pulse 80 05/31/2024 12:02 PM WOUND CARE NURSE Temperature 36.6 C (97.9 F) 03/30/2023 11:30 AM WOUND CARE NURSE Respiratory Rate 18 03/30/2023 11:30 AM WOUND CARE NURSE Oxygen Saturation 97% 05/31/2024 12:02 PM WOUND CARE NURSE Inhaled Oxygen Concentration - - Weight 78.9 kg (174 lb) 05/31/2024 12:02 PM WOUND CARE NURSE Height 172.7 cm (5' 8 ) 05/31/2024 12:02 PM WOUND CARE NURSE Body Mass Index 26.46 05/31/2024 12:02 PM WOUND CARE NURSE Plan of Treatment Not on file Medical Devices Implanted Type Area Internal Combustion Engine Assembler Device Identifier Shelf Expiration Date Model / Serial / Lot Cardiac Stents N/A: Heart [employer] Liner Acetabular Hip Vitamin E G7 Harmony Vivacit E 36mm Polyethylene Size I [id number] - [id number] Implanted:Qty: 1 on 01/31/2023 by Malick Infante MD at [facility] Left: Hip [employer] 11/11/2026 [id number] / / [id number] [employer] G7 66mm Multihole Hip I Hemisphere Offset Shell Acetabular [id number] - [id number] Implanted:Qty: 1 on 01/31/2023 by Malick Infante MD at [facility] Left: Hip [employer] [id number] 08/30/2030 [id number] / / [id number] [employer] Trilogy 6.5mm 40mm Self Tap Hip Acetabular Cortical Screw Bone [id number] - [id number] Implanted:Qty: 1 on 01/31/2023 by Malick Infante MD at [facility] Left: Hip [employer] [id number] 09/22/2032 [id number] / / [id number] [employer] Trilogy 6.5mm 15mm Self Tap Screw Bone [id number] - [id number] Implanted:Qty: 1 on 01/31/2023 by Malick Infante MD at [facility] Left: Hip [employer] [id number] 09/22/2032 [id number] / / [id number] [employer] Trilogy 6.5mm 15mm Self Tap Screw Bone [id number] - [id number] Implanted:Qty: 1 on 01/31/2023 by Malick Infante MD at [facility] Left: Hip [employer] [id number] 09/22/2032 [id number] / / [id number] [employer] Trilogy 6.5mm 20mm Self Tap Screw Bone [id number] - [id number] Implanted:Qty: 1 on 01/31/2023 by Malick Infante MD at [facility] Left: Hip [employer] [id number] 10/01/2032 [id number] / / [id number] [employer] Trilogy 6.5mm 20mm Self Tap Screw Bone [id number] - [id number] Implanted:Qty: 1 on 01/31/2023 by Malick Infante MD at [facility] Left: Hip [employer] [id number] 03/04/2032 [id number] / / [id number] [employer] Trilogy 6.5mm 40mm Self Tap Hip Acetabular Cortical Screw Bone [id number] - [id number] Implanted:Qty: 1 on 01/31/2023 by Malick Infante MD at [facility] Left: Hip [employer] [id number] 09/22/2032 [id number] / / [id number] [employer] G7 Harmony 36mm Type 1 Modular Hip +9mm Offset Head Femoral Cocr [id number] - [id number] Implanted:Qty: 1 on 01/31/2023 by Malick Infante MD at [facility] Left: Hip [employer] [id number] 03/18/2032960528 / / [id number] Procedures Procedure Name Priority Date/Time Associated Diagnosis Comments EGFR Timed 01/31/2023 9:06 PM CDT LIPID PANEL Timed 01/31/2023 9:06 PM CDT HEMOGLOBIN A1C Routine 01/21/2023 5:45 PM CDT Preoperative testing Type 2 diabetes mellitus without complication, without long-term current use of insulin (HCC) from Last 3 Months or Most Recently Relevant to Health Maintenance Results * (ABNORMAL) eGFR (01/31/2023 9:06 PM CDT) Pathologist [facility] eGFR 56(L) 90 - 130 mL/min/1. [address] [facility] Comment: Interpretive Data Reference Interval Normal [...] BLOOD ORDERABLES Final Result [facility] Department [place] [address] * (ABNORMAL) Lipid panel (01/31/2023 9:06 PM [...] on 2018. Triglycerides 65 <=149 mg/dL [facility] Comment: Interpretive Data Ages < or [...] on 2018. HDL 28(L) >=40 mg/dL [facility] Comment: Interpretive Data Ages < or [...] on 2018. LDL, calculated 43 <=129 mg/dL [facility] Comment: Interpretive Data Ages < [...] revised on 2018. Non-HDL Cholesterol 56 mg/dL [facility] Comment: Interpretive Data Ages < [...] last revised on 2018. Chol/HDL ratio 3 [facility] Blood 01/31/2023 9:06 PM CDT 01/31/2023 10:07 PM CDT us Malick Infante MD LAB BLOOD ORDERABLES Final Result [facility] Department [place] [address] * (ABNORMAL) Hemoglobin A1c (01/21/2023 5:45 PM CDT) Hgb A1C 5.8(H) 4.0 - 5.6 % [facility] Estimated Average Glucose 120 mg/dL [facility] Comment: The ADA recommends reporting an estimated Average Glucose (eAG) with all Hemoglobin A1c results using the equation derived from a study of 507 normal and diabetic adults. Minority populations were underrepresented and children were not included. (Diabetes Care 31:0395-2855, 2008). The eAG is not equivalent to a fasting glucose. The ADA recommends reporting an estimated Average Glucose (eAG) with all Hemoglobin A1c results using the equation derived from a study of 507 normal and diabetic adults. Minority populations were underrepresented and children were not included. (Diabetes Care 31:0993-4289, 2008). The eAG is not equivalent to a fasting glucose. Blood 01/21/2023 5:45 PM CDT 01/21/2023 5:57 PM CDT Bryce Tyler NP LAB BLOOD ORDERABLES Fin al Result [facility] [id number] [facility]. Department [place] [address] from Last 3 Months or Most Recently Relevant to Health Maintenance Insurance [facility] [place] [address] [facility] MEDICARE ADVANTAGE Member Subscriber Plan / Payer (Ef fective 2022-Present) Name:Adama Tai Relation to Subscriber:Self Name:Tai, Adama Payer ID:[id number] (NAIC) Type:[facility] MEDICARE Address: [place] [id number] MEDICARE ADVANTAGE MEDICARE ADVANTAGE Advance Directives For more information, please contact: [phone] * Full Code (Latest Code Status on File) Date Activated Date Inactivated Comments 01/31/2023 3:20 PM 02/01/2023 10:04 PM * Full Code Date Activated Date Inactivated Comments 03/19/2019 10:01 PM 03/21/2019 1:11 AM Care Teams Optomechanical Technician Relationship Specialty Start Date End Date Clemente Sommer MD PCP - General Family Medicine 04/13/19
--- OUTSIDE RECORDS SUMMARY | 2024-09-22 16:21 | XMS_ITS | Continuity of Care Document ---
Author Organization [employer] [facility] Address [address]ks [address] [place] [address] Phone Care Team Providers Care Form Block Maker Name Role Phone Tai JOY, Connie Unavailable [...] Counseling For Antioxidant Supplements F Office/outpatient Visit, [facility] Advance Directives Directive Yes / No [...] Diagnoses Date Provider Providers Copied on Encounter [facility], [address], [place], [place], [address], tel:[phone] SEC [place] Professional diabetic eye exam (chief complaint) PrediabetesNe xdtve age-related mclr degn, bilateral, early dry stageMechanic al ectropion of lower eyelids of both eyesDry eye syndrome, bilateralOthe r secondary cataract, bilateralVitr eomacular adhesion of both eyes 4 Tai Rosales. [facility] [address], [address], [place], [place], [address], . tel:[phone] Referring Provider: Connie Lujan OD L, [address], [place], [address] . tel:[phone] [facility] [employer], [address], [place], [place], [address], tel:[phone] SEC [place] Professional Complete Exam (chief complaint) Type 2 diab with mild nonp rtnop without mclr edema, r eyeNexdtve age-related mclr degn, bilateral, early dry stagePresence of intraocular lens 3 Tai OD Connie. [address], [address], [place], [place], [address], [place]. tel:[phone] Referring Provider: [place], [address], [place], [address] . tel:[phone] [facility], [address] [place], [place] [address] [address], [place], [place], [address], [place] tel:[phone] SEC [place] Professional Complete Exam (chief complaint) Drusen (degenerative ) of macula, bilateralPres ence of intraocular lensPrediabet esDry eye syndrome, bilateral 2 Jonah Burgos. [address], [address], [place], [place], [address], [place]. tel:[phone] Referring Provider: Aubrey Celaya, [address], [place], [address] . tel:[phone] [facility], [facility] [address], [place], [place], [address], [place] tel:[phone] SEC [place] Professional Complete Exam (chief complaint) PrediabetesDr usen (degenerative ) of macula, bilateralPres ence of intraocular lensPunctate keratitis, bilateralMech anical ectropion of lower eyelids of both eyesMechanica l ectropion of left lower eyelid 1 Jonah Burgos. [address], [address], [place], [place], [address], [place]. tel:[phone] Referring Provider: Aubrey Celaya, [address], [place], [address] . tel:[phone] [facility], [address] [employer] [address] [address], [place], [place], [address], [place] tel:[phone] SEC [place] Professional Complete Exam (chief complaint) Presence of intraocular lensRPE mottling of maculaPunctat e keratitis, bilateralDrus en (degenerative ) of macula, right eye Nov-0 9-202 0 Jonah Burgos. [address] [facility], [address], [place], [place], [address], [place]. tel:[phone] Referring Provider: Aubrey Celaya, [address], [place], [address] . tel:[phone] [facility], [address] [place] [address] [address], [place], [place], [address], [place] tel:[phone] SEC [facility] Jonathon No Information Oct-2 0 Laura Ziegler. [facility] [address], [address], [place], [place], [address], [place]. tel:[phone] [facility], [address] [place] [address] [address], [place], [place], [address], tel:[phone] SEC [place] Professional Complete Exam (chief complaint) Presence of intraocular lensHistory of strokeRPE mottling of macula 9 Jonah Burgos. [address] [facility], [address], [place], [place], [address], [place]. tel:[phone] Referring Provider: Aubrey Celaya, [address] [facility] [address], [place], [address] . tel:[phone] Office/outpa tient Visit, Est [facility], [address] [place] [address] [address], [place], [place], [address], [place] tel:[phone] SEC [place] Professional cornea check (chief complaint) Corneal edema of right eye 0 9 Jonah Burgos. [address], [address], [place], [place], [address], [place]. tel:[phone] Referring Provider: Aubrey Celaya, [address] [facility] [address], [place], [address] . tel:[phone] Office/outpa tient Visit, Est [facility], [address], [place], [place], [address], [place] tel:[phone] SEC [place] Professional Follow up visit (chief complaint) Corneal edema of right eye 9 Jonah Burgos. [address], [place], [place], [address], [place]. tel:[phone] Referring Provider: Aubrey Celaya, [address], [place], [address] . tel:[phone] [facility], [address], [place], [place], [address], [place] tel:[phone] SEC [place] Professional Cornea edema f/u (chief complaint) Encounter for examination following surgery 9 Jonah Burgos. [address], [place], [place], [address], [place]. tel:[phone] Referring Provider: Aubrey Celaya, [address], [place], [address] . tel:[phone] [facility], [address], [place], [place], [address], [place] tel:[phone] SEC [place] BARRI[place] Professional 2 wk Cornea check (chief complaint) Encounter for examination following surgery 9 Jonah Burgos. [address], [place], [place], [address], [place]. tel:[phone] Referring Provider: Aubrey Celaya, [address], [place], [address] . tel:[phone] [facility], [address], [place], [place], [address], [place] tel:[phone] SEC [place] Professional Post-Op (chief complaint) No Information 0 9 Jordan OD Osmar. [address] [facility], [address] [facility], [place], [address], [place]. tel:[phone] Referring Provider: Aubrey Celaya, [address] [facility] [address], [place], [address] . tel:[phone] [facility], [address] [place] [address] [address], [place], [place], [address], tel:[phone] SEC [place] Professional 2 wk CE PO (chief complaint) No Information 8 Jonah Burgos. [address] [facility] A, [place], [place], [address], [place]. tel:[phone] Referring Provider: Aubrey Celaya, [address] [facility] A, [place], [address] . tel:[phone] [facility], [address] [place] [address] [address], [place], [place], [address], [place] tel:[phone] SEC [place] Professional 1 week s/p PCIOL (chief complaint) No Information 8 Jordan OD Osmar. [address] [facility], [address] [place] [address], [place], [address], [place]. tel:[phone] Referring Provider: Aubrey Celaya, [address] [address], [place], [address] . tel:[phone] [facility], [address] [place] [address] [address], [place], [place], [address], [place] tel:[phone] SEC [place] Professional 1 day s/p PCIOL (chief complaint) No Information 8 Jordan OD Osmar. [address] [facility], [address] [place] [address], [place], [address], [place]. tel:[phone] Referring Provider: Aubrey Celaya, [address] [facility] [address], [place], [address] . tel:[phone] [facility], [address], [place], [place], [address], [place] tel:[phone] [facility] No Information 8 Jonah Burgos. [address], [place], [place], [address], [place]. tel:[phone] Referring Provider: Aubrey Celaya, [address], [place], [address] . tel:[phone] [facility], [address], [place], [place], [address], tel:[phone] SEC Tellerphillip Holt No Information 8 Jonah Burgos. [address], [place], [address], [place]. tel:[phone] Referring Provider: Aubrey Celaya, [address], [place], [address] . tel:[phone] [facility], [address], [place], [place], [address], [place] tel:[phone] SEC [place] Professional Post-Op (chief complaint) No Information 8 Jordan Prasad. [address] [place] [address], [address], [place]. tel:[phone] Referring Provider: Aubrey Celaya, [address], [place], [address] . tel:[phone] [facility], [address], [place], [place], [address], [place] tel:[phone] SEC [place] Professional 1 week p/o PCIOL (chief complaint) No Information 8 Jordan Cashic. [facility], [address] [place] [address], [address], [place]. tel:[phone] Referring Provider: Aubrey Celaya, [address] [facility] [address], [place], [address] . tel:[phone] [facility], [address], [place], [place], [address], [place] tel:[phone] SEC [place] Professional Post-Op (chief complaint) No Information 0 - 8 Jordan Prasad. [address] [facility], [address] [facility], [place], [address], [place]. tel:[phone] Referring Provider: Aubrey Celaya, [address] [facility] [address], [place], [address] . tel:[phone] [facility], [address], [place], [place], [address], [place] tel:[phone] [facility] No Information 3 8 Jonah Burgos. [address] [facility], [address], [place], [place], [address], [place]. tel:[phone] Referring Provider: Aubrey Celaya, [address] [facility] [address], [place], [address] . tel:[phone] [facility], [address], [place], [place], [address], [place] tel:[phone] SEC Antione Reyes No Information 3 0 8 Jonah Burgos. [address] [facility], [address], [place], [place], [address], [place]. tel:[phone] Referring Provider: Aubrey Celaya, [address] [facility] [address], [place], [address] . tel:[phone] Office/outpa tient Visit, Est [facility], [address], [place], [place], [address], [place] tel:[phone] SEC [place] Professional 6 mo CAT check (chief complaint) No Information 8 Jonah Burgos. [address] [facility] [place], [place], [address], [place]. tel:[phone] Referring Provider: Aubrey Celaya, [address] [facility] [address], [place], [address] . tel:[phone] [facility], [address] [place] [address] [address], [place], [place], [address], [place] tel:[phone] SEC [place] Professional Complete Exam (chief complaint) No Information 8 Seven Collier. [address] [place], [place], [facility], . tel:[phone] Referring Provider: Paul Lopez, [address] [facility] A, [place], [address] . tel:[phone] [facility], [address] [place] [address] [address], [place], [place], [address], [place] tel:[phone] SEC [place] Professional No Information 8 Seven Collier. [address] [place], [place], [facility], . tel:[phone] [facility], [address] [place] [address] [address], [place], [place], [address], [place] tel:[phone] SEC [place] Professional Complete Exam (chief complaint) No Information 7 Batsheva Miller. [address] [facility] [place], [place], [address], [place]. tel:[phone] Referring Provider: Paul Lopez, [address] [facility] [place], [address] . tel:[phone] [facility], [address] [place] [address] [address], [place], [place], [address], [place] tel:[phone] SEC [place] BARRIOS Professional No Information 6 Mckenzie Aubrey. [address], [place], [place], [address], [place]. tel:[phone] [facility], [address] [place] [address] [address], [place], [place], [address], [place] tel:[phone] SEC [place]OP[place] Professional Difficulty reading (chief complaint) No Information 5 Wankum Paul. [address], [address], [place], [place], [address], [place]. tel:[phone] [facility], [address] [place] [address] [address], [place], [place], [address], [place] tel:[phone] [place] SOPHIE Professional Dry eyes (chief complaint) No Information 4 Wankum Paul. [address], [address], [place], [place], [address], [place]. tel:[phone] [facility], [address] [place] [address] [address], [place], [place], [address], [place] tel:[phone] SEC [place] Professional No Information 3 Wankum Paul. [address], [address], [place], [place], [address], [place]. tel:[phone] [facility], [address] [place] [address] [address], [place], [place], [address], [place] tel:[phone] SEC [place] BARRIOS Professional No Information 0 Wankum Paul. [address], [place], [place], [address], [place]. tel:[phone] Office/outpa tient Visit, [place] [facility], [address] [place], [place] [address], [place], [place], [address], [place] tel:[phone] SEC [place] BARRIOS Professional No Information Batsheva Miller. [address], [address], [place], [place], [address], [place]. tel:[phone] Family History Family Member Type Diagnosis Age At Onset Maternal grandmother Problem (finding) Diabetes mellit Payers Payer name Insurance type Covered republican ID Laxmi burciaga(s) [facility] Medicare Complete CI [id number] Social History Type Description Quantity Date Captured [...]
--- OUTSIDE RECORDS SUMMARY | 2024-09-22 16:21 | XMS_ITS | Clinical Summary ---
Author Organization [facility] Lilo caraballo Address [address] [place] [address] Phone Care Team Providers Care Sports Team Marketing Intern Name Role Phone Unavailable Primary Care Provider Unavailabl e Medications simvastatin (ZOCOR) 40 MG tablet 06/02/2013 Active multivitamin, adult, (CENTRUM) tablet 06/02/2013 Active levothyroxine (SYNTHROID, LEVOTHROID) 50 MCG tablet 06/02/2013 Active Multiple Vitamins-Minerals (PRESERVISION AREDS) capsule 06/02/2013 Acti ve lisinopril (PRINIVIL,ZESTRIL) 20 MG tablet 06/02/2013 Active aspirin 81 MG chewable tablet 06/02/2013 Act verenice fenofibrate (TRIGLIDE) 160 MG tablet 06/02/2013 Active [...] at Not on file Legal Sex Male 9:25 AM MST Gender Identity Not on file Sexual Orientation [...]
--- OUTSIDE RECORDS SUMMARY | 2024-09-22 16:21 | XMS_ITS | Clinical Summary ---
Author Organization [facility] Address [address] [place] [address] Care Team Providers Care Preschool Teacher'S Assistant Name Role Phone Clemente Sommer MD Primary Care Provider Source Comments [facility],non-owned Affiliates and Associated Physician Practices is amultiple site organization consisting of ambulatory clinics and hospital sitesin [place], [place], [place] and [place]. This disclosure is being madepursuant to the Care Everywhere program and may not contain all information available regarding this patient. Last updated 18.[facility] Allergies No known active allergies Immunizations Immunization Administration Dates Next Due INFLUENZA VACCINE, HIGH-DOSE , QUADR. (FLUZONE HIGH-DOSE QUADRIVALENT; 65Y+), 0.7 ML (HD-IIV4) 02/21/2018,02/23/2017 Social History Tobacco Use Types Packs/Day Years Used Date Smoking Tobacco: Never Assessed Sex and Gender Information Value Date Recorded Sex Assigned at Not on file Legal Sex Male 1:53 PM CDT Gender Identity Not on file Sexual Orientation Not on file Plan of Treatment Health Maintenance Due Date Last Done Comments DTAP/TDAP/TD VACCINES (1 - Tdap) 1955 PNEUMOCOCCAL VACCINE 50+ (1 of 1 - PCV) 1986 ZOSTER VACCINE (1 of 2) 1986 Respiratory Syncytial Virus (RSV) Vaccine Pt: or over 60 yrs (1 - 1-dose 75+ series) 2011 COVID-19 VACCINE ( - 2023-2 5 season) 2024 DEPRESSION SCREENING 05/23/2024 INFLUENZA VACCINE (Season Ended) 2025 02/21/2018, 02/23/2017 HEPATITIS B VACCINE Aged Out No longe r eligible based on patient's age to complete this topic HIB VACCINE Aged Out No longer eligi ble based on patient's age to complete this topic HPV VACCINE Aged Out No longer eligi ble based on patient's age to complete this topic MENINGOCOCCAL (Group B) VACCINE SHARED DECISION-MAKING Aged Out No longer eligible based on patient's age to complete this topic MENINGOCOCCAL GROUPS A/C/Y/W VACCINE Aged Out No longer eligible b ased on patient's age to complete this topic Insurance MEDICARE Care Teams Preschool Teacher'S Assistant Relationship Specialty Start Date End Date Clemente Sommer MD [address] [place] [address] PCP - General Family Medicine 02/23/17
== END 2024-09-22 10:41 | disposition home or self-care (01) ==
PROVIDERS: PCP Family Medicine; Visit Provider Physician Assistant Medical
DX: M79.652 Pain in left thigh (principal); Z96.642 Presence of left artificial hip joint
CPT/HCPCS: 73718

== ENCOUNTER 2024-10-16 14:50 | Outpatient (CLI) | payer MEDICARE, SELFPAY ==
--- NOTE | ~2024-10-16 | XR_ITS ---
Lumbosacral Spine: AP and lateral views Clinical History: Pain Findings: The normal lordotic curve is maintained. No fracture. There is grade 1 anterolisthesis of L 3 over L4. There is grade 1 retrolisthesis of L1 over L2. There is severe facet arthropathy throughou t the lumbar spine. There is moderate degenerative disc narrowing at L1-L2 and L2-L3. The sacroiliac joints are normally outlined. Impression: Advanced degenerative spondylosis overall, as detailed above. Grade 1 anterolisthesis of L3 over L4. Retrolisthesis of L1 over L2. Reviewed, dictated and finalized at location M. Impression: Advanced degenerative spondylosis overall, as detailed above. Grade 1 anterolisthesis of L3 over L4. Retrolisthesis of L1 over L2.
--- OUTSIDE RECORDS SUMMARY | 2024-10-16 14:54 | XMS_ITS | Clinical Summary ---
Author Organization [facility] (Former[facility]3] Jana Hicks Address [address] [place] [address] Care Team Providers Care Travel Assistant Name Role Phone Clemente Sommer MD Primary Care Provider [phone] Allergies No known active allergies Medications tamsulosin (FLOMAX) 0.4 mg capsule Take 0.4 mg by mouth. Active fluticasone propionate (FLONASE) 50 mcg/spray [place], Suspension nasal inhaler INSTILL 2 SPRAYS IN [...] Encounters Date Type Department Care Team Description 10/11/2024 External Device Data ST[facility] ABSTRACTION Provider, Abstract 10/09/2024 External Device Data [facility] ABSTRACTION Provider, Abstract 08/15/2024 Refill [facility] ([facility]3] Oncology and Hematology - [place] [address] [place] [address] Philip Del Rio MD 08/08/2024 External Device [...] Sexual Orientation Straight 07/09/2023 1: 09 PM ALUM OPERATOR Last Filed Vital Signs Vital Sign Reading Time Taken Comments Blood Pressure 122/84 07/12/2024 1:20 PM ALUM OPERATOR Pulse 87 07/12/2024 1:20 PM ALUM OPERATOR Temperature 36.4 C (97.5 F) 07/12/2024 1:20 PM ALUM OPERATOR Respiratory Rate 15 07/12/2024 1:20 PM ALUM OPERATOR Oxygen Saturation 94% 07/12/2024 1:20 PM ALUM OPERATOR Inhaled Oxygen Concentration - - Weight 81.1 kg (178 lb 12.8 oz) 07/12/2024 1:20 PM ALUM OPERATOR Height 177.8 cm (5' 10) 11/04/2020 10: 15 AM CDT Body Mass Index 25.66 11/04/2020 10:15 AM CDT Plan of Treatment Upcoming Encounters Date Type Department Care Team (Late st Contact Info) Description 01/09/2025 11:00 AM CDT Office Visit [facility] ([facility]3] Oncology and Hematology - [place] [address] [facility] [address] [place] [address] Philip Del Rio MD [address] [place] [address] Health Maintenance Due Date Last [...] d or Tdap) 01/09/2029 01/09/2019, 05/05/2009, 04/22/2009 Insurance [facility] [id number] Care Teams Travel Assistant Relationship Specialty Start Date End Date Clemente Sommer MD [address] [place] [address] PCP - General Family Practice 12/21/19
--- OUTSIDE RECORDS SUMMARY | 2024-10-16 14:54 | XMS_ITS | Clinical Summary ---
Author Organization [facility] [address] Address [address] [place] [address] Care Team Providers Care Chemical Blender Name Role Phone Clemente Sommer MD Primary Care Provider [phone] Allergies No known active allergies Medications tamsulosin (FLOMAX) 0.4 mg extended release capsule Take 1 capsule (0.4 mg total) by mouth 2 (two) times a day 0 Active levothyroxine (SYNTHROID) 75 mcg tablet Take 1 tablet (75 mcg total) by mouth bottle cleaner before breakfast Active ferrous sulfate 325 mg [...] 75 mg tabletIndicatio ns:Coronary artery disease of [place] artery of [place] heart with stable angina pectoris Take 1 tablet by mouth once daily 90 tablet 2 5 Active metoprolol tartrate (LOPRESSOR) 25 mg immediate release tabletIndicatio ns:Coronary artery disease involving [place] coronary artery of [place] heart without angina pectoris Take 0.5 tablets (12.5 mg total) by mouth 2 (two) times a day 180 tablet 2 5 Active Active Problems Problem Noted Date [...] placement 11/02/2016 Coronary artery disease invo lving [place] coronary artery of [place] heart without angina pectoris 09/22/2016 Overview (10/15/2016): Coronary artery disease involving [place]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 [...] a associated with type 2 diabetes mellitus ([facility]) 01/03/2015 Overview (08/27/2016): Dyslipidemia Nonexudative age-related macular degeneration Resolved Problems Problem Noted Date Diagnosed Date Resolved Date Dyslipidemia associated with type 2 diabetes mellitus ([facility]) 06/07/2019 03/20/2021 Chronic coronary artery disease 02/18/2015 [...] on file Legal Sex Male 3:46 AM 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 Gender Identity Male 03/07/2020 6:16 PM CDT Sexual Orientation Straight 03/07/2020 6: 16 PM CDT Obstetrics History Last Filed Vital Signs Vital Sign Reading Time Taken Comments Blood Pressure 116/60 05/31/2024 12:02 PM 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 Pulse 80 05/31/2024 12:02 PM 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 Temperature 36.6 C (97.9 F) 03/30/2023 11:30 AM 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 Respiratory Rate 18 03/30/2023 11:30 AM 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 Oxygen Saturation 97% 05/31/2024 12:02 PM 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 Inhaled Oxygen Concentration - - Weight 78.9 kg (174 lb) 05/31/2024 12:02 PM 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 Height 172.7 cm (5' 8) 05/31/2024 12:02 PM 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 Body Mass Index 26.46 05/31/2024 12:02 PM 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 Plan of Treatment Health Maintenance Due Date Last Done Comments Albumin Creatinine Ratio, Urine 1936 Dilated Eye Exam 1936 Foot Exam 1936 Hepatitis B Screening 1954 Well Visit 65+ 2001 Zoster Vaccine (2 of 3) 10/28/2009 09/02/2009 Pneumococcal vaccine 65+ (2 of 2 - PPSV23) 08/27/2015 07/02/2015, 02/20/2005 Depression Screening 03/19/2020 03/19/2019, 03/19/20 19 Hemoglobin A1C 07/22/2023 01/21/2023, 03/19/2019 Covid-19 Vaccine (6 - 4-2 5 season) 2024 04/02/2022, 09/11/2021, 03/19/2021, Additional history exists Lipid Panel 02/01/2024 01/31/2023, 03/23, 03/20/2021, Additional history exists eGFR 02/01/2024 01/31/2023, 05/2022, 11/14/2019, Additional history exists Fall Risk Assessment 02/02/2024 02/01/2023 Influenza Vaccine (Season Ended) 2025 04/14/2019, 04/13/2019, 02/23/2017, Additional history exists DTaP/Tdap/Td Vaccine (4 - Td or Tdap) 01/09/2029 01/09/2019, 05/05/2009, 04/22/2009 Medical Devices Implanted Type Area Fiscal Accounting Clerk Device Identifier Shelf Expiration Date Model / Serial / Lot Cardiac Stents N/A: Heart [employer] Liner Acetabular Hip Vitamin E G7 [place] Vivacit E 36mm Polyethylene Size I [id number] - [id number] Implanted:Qty: 1 on 01/31/2023 by Malick Infante MD at [facility] Left: Hip [employer] 11/11/2026 [id number] / / [id number] [employer] G7 66mm Multihole Hip I Hemisphere Offset Shell Acetabular [id number] - [id number] Implanted:Qty: 1 on 01/31/2023 by Malick Infante MD at [facility] Left: Hip [employer] [id number] 08/30/2030 [id number] / / [id number] [employer] Trilogy 6.5mm 40mm Self Tap Hip Acetabular Cortical Screw Bone [id number] - [id number] Implanted:Qty: 1 on 01/31/2023 by Malick Infante MD at [facility] Left: Hip [employer] [id number] 09/22/2032 [id number] / / [id number] [employer] Trilogy 6.5mm 15mm Self Tap Screw Bone [id number] - [id number] Implanted:Qty: 1 on 01/31/2023 by Malick Infante MD at [facility] Left: Hip [employer] [id number] 09/22/2032 [id number] / / [id number] [employer] Trilogy 6.5mm 15mm Self Tap Screw Bone [id number] - [id number] Implanted:Qty: 1 on 01/31/2023 by Malick Infante MD at [facility] Left: Hip [employer] [id number] 09/22/2032 [id number] / / [id number] [employer] Trilogy 6.5mm 20mm Self Tap Screw Bone [id number] - [id number] Implanted:Qty: 1 on 01/31/2023 by Malick Infante MD at [facility] Left: Hip [employer] [id number] 10/01/2032 [id number] / / [id number] [employer] Trilogy 6.5mm 20mm Self Tap Screw Bone [id number] - [id number] Implanted:Qty: 1 on 01/31/2023 by Malick Infante MD at [facility] Left: Hip [employer] [id number] 03/04/2032 [id number] / / [id number] [employer] Trilogy 6.5mm 40mm Self Tap Hip Acetabular Cortical Screw Bone [id number] - [id number] Implanted:Qty: 1 on 01/31/2023 by Malick Infante MD at [facility] Left: Hip [employer] [id number] 09/22/2032 [id number] / / [id number] [employer] G7 [place] 36mm Type 1 Modular Hip +9mm Offset Head Femoral Cocr [id number] - [id number] Implanted:Qty: 1 on 01/31/2023 by Malick Infante MD at [facility] Left: Hip [employer] [id number] 03/18/2032021 / / [id number] Procedures Procedure Name Priority Date/Time Associated Diagnosis [...] 90 - 130 mL/min/1. 73 m2 [facility] Comment: Interpretive Data Reference Interval Normal >/= [...] ORDERABLES Final Result [facility] Department [place] [address] * (ABNORMAL) Lipid panel (01/31/2023 9:06 PM CDT) Cholesterol 84 30 - 199 mg/dL [facility] Comment: Interpretive Data Ages < or = [...] revised on 2018. Triglycerides 65 <=149 mg/dL [facility] Comment: Interpretive Data Ages < or = [...] revised on 2018. HDL 28(L) >=40 mg/dL [facility] Comment: Interpretive Data Ages < or = [...] on 2018. LDL, calculated 43 <=129 mg/dL [facility] Comment: Interpretive Data Ages < or = [...] revised on 2018. Non-HDL Cholesterol 56 mg/dL [facility] Comment: Interpretive Data Ages < or = [...] last revised on 2018. Chol/HDL ratio 3 [facility] Blood 01/31/2023 9:06 PM CDT 01/31/2023 10:07 PM CDT Malick Infante MD LAB BLOOD ORDERABLES Final Result [facility] [address] [facility] Department [place] [address] * (ABNORMAL) Hemoglobin A1c (01/21/2023 5:45 PM CDT) Hgb A1C 5.8(H) 4.0 - 5.6 % [facility] Estimated Average Glucose 120 mg/dL [facility] Comment: The ADA recommends reporting an estimated Average Glucose (eAG) with all Hemoglobin A1c results using the equation derived from a study of 507 normal and diabetic adults. Minority populations were underrepresented and children were not included. (Diabetes Care 31:5775-0788, 2008). The eAG is not equivalent to a fasting glucose. The ADA recommends reporting an estimated Average Glucose (eAG) with all Hemoglobin A1c results using the equation derived from a study of 507 normal and diabetic adults. Minority populations were underrepresented and children were not included. (Diabetes Care 31:9803-3613, 2008). The eAG is not equivalent to a fasting glucose. Blood 01/21/2023 5:45 PM CDT 01/21/2023 5:57 PM CDT Bryce Tyler NP LAB BLOOD ORDERABLES Fin al Result Performing Organization Address City/State/[facility] Co ar Phone Number [facility] [address] [facility] [address] from Last 3 Months or Most Recently Relevant to Health Maintenance Insurance UHC MEDICARE ADVANTAGE UHC MEDICARE ADVANTAGE MEDICARE ADVANTAGE MEDICARE ADVANTAGE [place] [id number] Advance Directives For more information, please contact: [phone] * Full Code (Latest Code Status on File) Date Activated Date Inactivated Comments 01/31/2023 3:20 PM 02/01/2023 10:04 PM * Full Code Date Activated Date Inactivated Comments 03/19/2019 10:01 PM 03/21/2019 1:11 AM Care Teams Chemical Blender Relationship Specialty Start Date End Date Clemente Sommer MD PCP - General Family Medicine 04/13/19
--- OUTSIDE RECORDS SUMMARY | 2024-10-16 14:54 | XMS_ITS | Clinical Summary ---
Author Organization [facility] caraballo Address [address] [place] [address] Phone Care Team Providers Care International Trade Specialist Name Role Phone Unavailable Primary Care Provider [...] 12:01 AM CDT Height 180.3 cm (5' 11) 11/05/2013 12:01 AM CDT Body Mass Index 25.52 11/05/2013 12:01 AM CDT Plan of Treatment Not on file
--- OUTSIDE RECORDS SUMMARY | 2024-10-16 14:54 | XMS_ITS | Encounter Summary ---
Author Organization [facility] Address [address] [place] [address] Phone Care Team Providers Care Property Field Adjuster Name Role Phone Clemente Sommer MD Primary Care Provider [phone] Encounter Details Date Type Department Care Team (Late st Contact Info) Description 02/09/2023 Telephone [facility] Orthopaedic Surgery [address] [facility] [address] [place] [address] Malick Infante MD [address] [facility] [address] [place] [address] Social History Tobacco Use Types Packs/Day Years [...] on file Legal 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
--- OUTSIDE RECORDS SUMMARY | 2024-10-16 14:54 | XMS_ITS | Continuity of Care Document ---
Author Name [facility] Organization [facility] Care Team Providers Care Systems Analysis Manager Name Role Phone [facility] Unavailable Unavailable Problems Combined list of problems from Department of Defense and [facility] 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 It does not include entries that were removed or entered in error. 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 22 Condition [facility] Cerebral infarction Active Condition Jul 05, 2022 Entered By: FRANKLIN ONEILL I Comment: rt cva mild in 2018 [facility] Coronary atherosclerosis Active Condition [facility] Dysmetabolic Syndrome X (ICD-9-CM 277.7) Active Condition [facility] Essential hypertension (SNOMED CT 64192575) Active Condition [facility] Hearing Loss, Bilateral Active Condition [facility] Hyperlipidemia Active Condition [facility] Hypothyroidism Active Condition [facility] Rheumatoid arthritis Active Condition [facility] Type 2 diabetes mellitus Active Condition [facility] Colonoscopy Inactive Condition 03/01/2017 May 05, 2009 Entered By: John ALEXANDRE Comment: to be repeated 2008 [facility] Impaired FASTING Glucose (ICD-9-CM 790.21) Inactive Condition 03/01/2017 [facility] Diagnosis: ICD-10-CM Z46.1 Encounter for fitting and adjustment of hearing aid Active Diagnosis [facility] Diagnosis: ICD-10-CM I10 Essential (primary) hypertension Active Diagnosis [facility] Diagnosis: ICD-10-CM H90.3 Sensorineural hearing loss, bilateral Active Diagnosis [facility] Diagnosis: ICD-10-CM M05.9 Rheumatoid arthritis with rheumatoid factor, unspecified Active Diagnosis 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 Medication Details Route Status Patient Instructions Prescription Expires Prescription Number Last Dispense Date Ordering Provider Order Date Order Qty Source AMLODIPINE BESYLATE 2.5MG TAB TAKE ONE TABLET BY MOUTH ONCE A DAY ORAL ACTIVE TITI MARTEL 2020 [facility] ASPIRIN 81MG TAB,EC TAKE ONE TABLET BY MOUTH ONCE A DAY ORAL ACTIVE MELITON ALEXANDRE 2008 [facility] ATORVASTATI N [place] 80MG TAB TAKE ONE TABLET BY MOUTH EVERY MORNING ORAL ACTIVE TITI MARTEL 2020 [facility] CLOPIDOGREL BISULFATE 75MG TAB TAKE ONE TABLET BY MOUTH ONCE A DAY ORAL ACTIVE SILVERSTE YOHANA JENKINS 2015 [facility] CYANOCOBALA MIN 1000MCG TAB TAKE ONE TABLET BY MOUTH ONCE A DAY ORAL ACTIVE TITI MARTEL 2020 [facility] FINASTERIDE 5MG TAB TAKE ONE TABLET BY MOUTH ONCE A DAY ORAL ACTIVE NINONI DHI 2022 [facility] IPRATROPIUM BR 0.03% SOLN,SPRAY, NASAL USE 1 SPRAY INTO NOSTRIL( S) THREE TIMES A DAY NEEDED FOR ALLERGIC RHINITIS NASAL ACTIVE 08/17/2025 [id number] 5 NINONI DHI 2024 30 [facility] LEVOTHYROXI NE NA 75MCG TAB (SYNTHROID) TAKE ONE TABLET BY MOUTH EVERY MORNING BEFORE A MEAL ORAL ACTIVE NINO,NI DHI 2022 [facility] METOPROLOL TARTRATE 25MG TAB TAKE ONE-HALF TABLET BY MOUTH TWICE A DAY ORAL ACTIVE NINO,NI I 2023 [facility] MIRABEGRON (PA-F) TAB,SA TAKE 12.5 BY MOUTH ONCE A DAY ORAL ACTIVE NINO,NI I 2024 [facility] MULTIVIT/OP HTH AREDS2/LUTE IN/ZEAXANTH IN CAP/TAB TAKE 1 CAP/TAB BY MOUTH BID WM ORAL ACTIVE O'SCARLETTTITI RICHARD A 2020 [facility] NITROGLYCER IN 0.4MG TAB,SUBLING UAL DISSOLVE ONE TABLET UNDER THE TONGUE ONE-TIME NEEDED SUBLIN GUROSAS GUAMAN 2016 [facility] TAMSULOSIN HCL 0.4MG CAP TAKE 1 CAPSULE BY MOUTH EVERY EVENING ORAL ACTIVE O'SCARLETTTITI RICHARD A 2020 [facility] Immunizations Combined list of available immunizations from the Department of Defense and Veterans 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 [facility] COVID-19 (MODERNA), MRNA, LNP-S, PF, 100 MCG/0.5ML DOSE OR 50 MCG/0.25ML DOSE 4 2021 207 complet ed HISTORICA L INFORMATI ON - FROM OTHER PROVIDER, Lot#: [id number] Mfr: [employer]. [facility] COVID-19 (MODERNA), MRNA, LNP-S, PF, 100 MCG/0.5ML DOSE OR 50 MCG/0.25ML DOSE 3 2020 207 complet ed HISTORICA L INFORMATI ON - FROM OTHER REGISTRY, [facility] (MODERNA), MRNA, LNP-S, PF, 100 MCG/0.5 ML DOSE 2 2020 207 complet ed MOD; [id number]; 1 [facility] COVID-19 (MODERNA), MRNA, LNP-S, PF, 100 MCG/0.5 ML DOSE 1 2020 207 complet ed MOD; [id number]; 1 [facility] INFLUENZA, UNSPECIFIED FORMULATION 2018 88 complet ed [facility] INFLUENZA, HIGH DOSE SEASONAL 2018 135 complet ed HISTORICA L INFORMATI ON - FROM OTHER PROVIDER, Partner: [facility]. Administe red by: RONI FLEMING (BGB=[phone]). Partner 4 Lot#: [id number] Mfr: [employer]; [facility]osage: 0.5 [facility] TDAP 2018 115 complet ed Right Deltoid [facility] INFLUENZA, UNSPECIFIED FORMULATION 2016 88 complet ed [facility] PNEUMOCOCCAL CONJUGATE PCV 13 2015 133 complet ed [facility] INFLUENZA, UNSPECIFIED FORMULATION 2014 88 complet ed [facility] INFLUENZA, UNSPECIFIED FORMULATION 2013 88 complet ed [facility] INFLUENZA, UNSPECIFIED FORMULATION 2012 88 complet ed [facility] INFLUENZA, UNSPECIFIED FORMULATION 2011 88 complet ed [facility] INFLUENZA, UNSPECIFIED FORMULATION 2010 88 complet ed [facility] INFLUENZA, UNSPECIFIED FORMULATION 2009 88 complet ed [facility] ZOSTER LIVE 2009 121 complet ed [facility] NOVEL INFLUENZA-H1N 1-09, ALL FORMULATIONS 2008 128 complet ed [facility] TD(ADULT) UNSPECIFIED FORMULATION 2008 139 complet ed Left Deltoid [facility] TDAP 2008 115 complet ed [facility] INFLUENZA, UNSPECIFIED FORMULATION 2008 88 complet ed [facility] PNEUMOCOCCAL, UNSPECIFIED FORMULATION 2004 109 [...] Aug 01, 2024 09:27 AM Reporting Lab: [address] [address] Performing Lab: [address] [address] [facility] CBC ERYTHROCYTE S [#/VOLUME] IN BLOOD BY AUTOMATED COUNT 4.56 10*6/u L 4.10 - 5.70 08/16 Specimen Type: BLOOD No comment entered. Ordering Provider: MARY ONEILL Report Released Date/Time: Aug 01, 2024 09:27 AM Reporting Lab: [address] [address] Performing Lab: [address] [phone] [facility] CBC HEMOGLOBIN [MASS/VOLUM E] IN BLOOD 14.0 g/dL 13.1 - 16.8 08/16 Specimen Type: BLOOD No comment entered. Ordering Provider: MARY ONEILL Report Released Date/Time: Aug 01, 2024 09:27 AM Reporting Lab: [address] [address] Performing Lab: [address] [address] [facility] CBC HEMATOCRIT [VOLUME FRACTION] OF BLOOD 43.3 38.2 - 48.4 08/16 Specimen Type: BLOOD No comment entered. Ordering Provider: MARY ONEILL Report Released Date/Time: Aug 01, 2024 09:27 AM Reporting Lab: [facility] [address] [place] [phone] Performing Lab: [address] [phone] [place] [address] CBC MCV [ENTITIC VOLUME] BY AUTOMATED COUNT 95.0 fL 80.0 - 100.0 08/16 Specimen Type: BLOOD No comment entered. Ordering Provider: MARY ONEILL Report Released Date/Time: Aug 01, 2024 09:27 AM Reporting Lab: [address] [address] Performing Lab: [address] [phone] [place] [address] CBC MCH [ENTITIC MASS] BY AUTOMATED COUNT 30.7 pg 27.0 - 34.0 08/16 Specimen Type: BLOOD No comment entered. Ordering Provider: MARY ONEILL Report Released Date/Time: Aug 01, 2024 09:27 AM Reporting Lab: [facility] [address] [place] [phone] Performing Lab: [address] [phone] [place] [address] CBC MCHC [MASS/VOLUM E] BY AUTOMATED COUNT 32.3 g/dL 33.0 - 36.0 08/16 L Specimen Type: BLOOD No comment entered. Ordering Provider: MARY ONEILL Report Released Date/Time: Aug 01, 2024 09:27 AM Reporting Lab: [address] [address] Performing Lab: [address] [address] [facility] CBC PLATELETS [#/VOLUME] IN BLOOD BY AUTOMATED COUNT 126 10*3/u L 150 - 400 08/16 L Specimen Type: BLOOD No comment entered. Ordering Provider: MARY ONEILL Report Released Date/Time: Aug 01, 2024 09:27 AM Reporting Lab: [facility] [address] [facility] [address] Performing Lab: [facility] [address] [facility] [address] [facility] CBC PLATELET MEAN VOLUME [ENTITIC VOLUME] IN BLOOD BY AUTOMATED COUNT 11.4 fL 7.5 - 11.2 08/16 H Specimen Type: BLOOD No comment entered. Ordering Provider: MARY ONEILL Report Released Date/Time: Aug 01, 2024 09:27 AM Reporting Lab: [facility] [address] [facility] [address] Performing Lab: [facility] [address] [facility] [address] [facility] CBC ERYTHROCYTE DISTRIBUTIO N WIDTH [RATIO] BY AUTOMATED COUNT 13.5 11.8 - 15.1 08/16 Specimen Type: BLOOD No comment entered. Ordering Provider: MARY ONEILL Report Released Date/Time: Aug 01, 2024 09:27 AM Reporting Lab: [facility] [address] [facility] [address] Performing Lab: [facility] [address] [facility] [address] [facility] CBC LYMPHOCYTES /100 LEUKOCYTES IN BLOOD BY AUTOMATED COUNT 22 08/16 Specimen Type: BLOOD No comment entered. Ordering Provider: MARY ONEILL Report Released Date/Time: Aug 01, 2024 09:27 AM Reporting Lab: [facility] [address] [facility] [address] Performing Lab: [facility] [address] [facility] [address] [facility] CBC MONOCYTES/1 00 LEUKOCYTES IN BLOOD BY AUTOMATED COUNT 17 08/16 Specimen Type: BLOOD No comment entered. Ordering Provider: MARY ONEILL Report Released Date/Time: Aug 01, 2024 09:27 AM Reporting Lab: [facility] [address] [facility] [address] Performing Lab: [facility] [address] [facility] [address] [facility] CBC NEUTROPHILS /100 LEUKOCYTES IN BLOOD BY AUTOMATED COUNT 56 08/16 Specimen Type: BLOOD No comment entered. Ordering Provider: MARY ONEILL Report Released Date/Time: Aug 01, 2024 09:27 AM Reporting Lab: [facility] [address] [facility] [address] Performing Lab: [facility] [address] [facility] [address] [facility] CBC EOSINOPHILS /100 LEUKOCYTES IN BLOOD BY AUTOMATED COUNT 4 08/16 Specimen Type: BLOOD No comment entered. Ordering Provider: MARY ONEILL Report Released Date/Time: Aug 01, 2024 09:27 AM Reporting Lab: [facility] [address] [place] [phone] Performing Lab: [facility] [address] [facility] [address] [facility] CBC BASOPHILS/1 00 LEUKOCYTES IN BLOOD BY AUTOMATED COUNT 1 08/16 Specimen Type: BLOOD No comment entered. Ordering Provider: MARY ONEILL Report Released Date/Time: Aug 01, 2024 09:27 AM Reporting Lab: [facility] [address] [place] [phone] Performing Lab: [facility] [address] [place] [phone] [facility] CBC LYMPHOCYTES [#/VOLUME] IN BLOOD BY AUTOMATED COUNT 0.90 10*3/u L 0.77 - 4.50 08/16 Specimen Type: BLOOD No comment entered. Ordering Provider: MARY ONEILL Report Released Date/Time: Aug 01, 2024 09:27 AM Reporting Lab: [facility] [address] [facility] [address] Performing Lab: [facility] [address] [facility] [address] [facility] CBC MONOCYTES [#/VOLUME] IN BLOOD BY AUTOMATED COUNT 0.70 10*3/u L 0.19 - 0.80 08/16 Specimen Type: BLOOD No comment entered. Ordering Provider: MARY ONEILL Report Released Date/Time: Aug 01, 2024 09:27 AM Reporting Lab: [facility] [address] [facility] [address] Performing Lab: [facility] [address] [place] [phone] [place] [address] CBC NEUTROPHILS [#/VOLUME] IN BLOOD BY AUTOMATED COUNT 2.25 10*3/u L 2.10 - 8.00 08/16 Specimen Type: BLOOD No comment entered. Ordering Provider: MARY ONEILL Report Released Date/Time: Aug 01, 2024 09:27 AM Reporting Lab: [facility] [address] [place] [phone] Performing Lab: [address] [phone] [place] [address] CBC EOSINOPHILS [#/VOLUME] IN BLOOD BY AUTOMATED COUNT 0.16 10*3/u L 0.00 - 0.60 08/16 Specimen Type: BLOOD No comment entered. Ordering Provider: MARY ONEILL Report Released Date/Time: Aug 01, 2024 09:27 AM Reporting Lab: [facility] [address] [place] [phone] Performing Lab: [address] [phone] [place] [address] CBC BASOPHILS [#/VOLUME] IN BLOOD BY AUTOMATED COUNT 0.02 10*3/u L 0.00 - 0.20 08/16 Specimen Type: BLOOD No comment entered. Ordering Provider: MARY ONEILL Report Released Date/Time: Aug 01, 2024 09:27 AM Reporting Lab: [facility] [address] [place] [phone] Performing Lab: [address] [phone] [place] [address] COMPREHEN SIVE METABOLIC PANEL CREATININE [MASS/VOLUM E] IN SERUM OR PLASMA 1.41 mg/dL 0.7 - 1.3 08/16 H Specimen Type: PLASMA Comment: No hemolysis noted. Ordering Provider: MARY ONEILL Report Released Date/Time: Aug 01, 2024 09:27 AM Reporting Lab: [facility] [address] [facility] [address] Performing Lab: [facility] [address] [facility] [address] [facility] COMPREHEN SIVE METABOLIC PANEL UREA NITROGEN [MASS/VOLUM E] IN SERUM OR PLASMA 26.2 mg/dL 9.0 - 25.0 08/16 H Specimen Type: PLASMA Comment: No hemolysis noted. Ordering Provider: MARY ONEILL Report Released Date/Time: Aug 01, 2024 09:27 AM Reporting Lab: [facility] [address] [facility] [address] Performing Lab: [facility] [address] [facility] [address] [facility] COMPREHEN SIVE METABOLIC PANEL GLUCOSE [MASS/VOLUM E] IN SERUM OR PLASMA 118 mg/dL 72 - 99 08/16 H Specimen Type: PLASMA Comment: No hemolysis noted. Ordering Provider: MARY ONEILL Report Released Date/Time: Aug 01, 2024 09:27 AM Reporting Lab: [facility] [address] [facility] [address] Performing Lab: [facility] [address] [facility] [phone] [facility] COMPREHEN SIVE METABOLIC PANEL SODIUM [MOLES/VOLU ME] IN SERUM OR PLASMA 142 meq/L 136 - 145 08/16 Specimen Type: PLASMA Comment: No hemolysis noted. Ordering Provider: MARY ONEILL Report Released Date/Time: Aug 01, 2024 09:27 AM Reporting Lab: [facility] [address] [facility] [address] Performing Lab: [facility] [address] [facility] [address] [facility] COMPREHEN SIVE METABOLIC PANEL POTASSIUM [MOLES/VOLU ME] IN SERUM OR PLASMA 5.1 meq/L 3.5 - 5 08/16 H Specimen Type: PLASMA Comment: No hemolysis noted. Ordering Provider: MARY ONEILL Report Released Date/Time: Aug 01, 2024 09:27 AM Reporting Lab: [facility] [address] [facility] [address] Performing Lab: [facility] [address] [facility] [address] [facility] COMPREHEN SIVE METABOLIC PANEL CHLORIDE [MOLES/VOLU ME] IN SERUM OR PLASMA 106 meq/L 98 - 107 08/16 Specimen Type: PLASMA Comment: No hemolysis noted. Ordering Provider: MARY ONEILL Report Released Date/Time: Aug 01, 2024 09:27 AM Reporting Lab: [facility] [address] [facility] [address] Performing Lab: [facility] [address] [facility] [address] [facility] COMPREHEN SIVE METABOLIC PANEL CARBON DIOXIDE, TOTAL [MOLES/VOLU ME] IN SERUM OR PLASMA 26 meq/L 22 - 31 08/16 Specimen Type: PLASMA Comment: No hemolysis noted. Ordering Provider: MARY ONEILL Report Released Date/Time: Aug 01, 2024 09:27 AM Reporting Lab: [facility] [address] [facility] [address] Performing Lab: [facility] [address] [facility] [address] [facility] COMPREHEN SIVE METABOLIC PANEL CALCIUM [MASS/VOLUM E] IN SERUM OR PLASMA 10.4 mg/dL 8.4 - 10.4 08/16 Specimen Type: PLASMA Comment: No hemolysis noted. Ordering Provider: MARY ONEILL Report Released Date/Time: Aug 01, 2024 09:27 AM Reporting Lab: [facility] [address] [facility] [address] Performing Lab: [facility] [address] [facility] [phone] [facility] COMPREHEN SIVE METABOLIC PANEL PROTEIN [MASS/VOLUM E] IN SERUM OR PLASMA 7.7 g/dL 6 - 8.6 08/16 Specimen Type: PLASMA Comment: No hemolysis noted. Ordering Provider: MARY ONEILL Report Released Date/Time: Aug 01, 2024 09:27 AM Reporting Lab: [facility] [address] [facility] [address] Performing Lab: [facility] [address] [facility] [address] [facility] COMPREHEN SIVE METABOLIC PANEL ALBUMIN [MASS/VOLUM E] IN SERUM OR PLASMA 4.5 g/dL 3.4 - 5 08/16 Specimen Type: PLASMA Comment: No hemolysis noted. Ordering Provider: MARY ONEILL Report Released Date/Time: Aug 01, 2024 09:27 AM Reporting Lab: [facility] [address] [facility] [address] Performing Lab: [facility] [address] [facility] [address] [facility] COMPREHEN SIVE METABOLIC PANEL BILIRUBIN.T OTAL [MASS/VOLUM E] IN SERUM OR PLASMA 0.9 mg/dL 0.2 - 1.2 08/16 Specimen Type: PLASMA Comment: No hemolysis noted. Ordering Provider: MARY ONEILL Report Released Date/Time: Aug 01, 2024 09:27 AM Reporting Lab: [facility] [address] [facility] [address] Performing Lab: [facility] [address] [facility] [address] [facility] COMPREHEN SIVE METABOLIC PANEL ALKALINE PHOSPHATASE [ENZYMATIC ACTIVITY/VO LUME] IN SERUM OR PLASMA 114 U/L 40 - 150 08/16 Specimen Type: PLASMA Comment: No hemolysis noted. Ordering Provider: MARY ONEILL Report Released Date/Time: Aug 01, 2024 09:27 AM Reporting Lab: [facility] [address] [facility] [address] Performing Lab: [facility] [address] [facility] [address] [facility] COMPREHEN SIVE METABOLIC PANEL ASPARTATE AMINOTRANSF ERASE [ENZYMATIC ACTIVITY/VO LUME] IN SERUM OR PLASMA 42 U/L 5 - 34 08/16 H Specimen Type: PLASMA Comment: No hemolysis noted. Ordering Provider: MARY ONEILL Report Released Date/Time: Aug 01, 2024 09:27 AM Reporting Lab: [facility] [address] [facility] [address] Performing Lab: [facility] [address] [facility] [address] [facility] COMPREHEN SIVE METABOLIC PANEL ALANINE AMINOTRANSF ERASE [ENZYMATIC ACTIVITY/VO LUME] IN SERUM OR PLASMA 36 U/L 8 - 40 08/16 Specimen Type: PLASMA Comment: No hemolysis noted. Ordering Provider: MARY ONEILL Report Released Date/Time: Aug 01, 2024 09:27 AM Reporting Lab: [facility] [address] [facility] [address] Performing Lab: [facility] [address] [facility] [address] [facility] COMPREHEN SIVE METABOLIC PANEL GLOMERULAR FILTRATION RATE/1.73 SQ M.PREDICTED [VOLUME RATE/AREA] IN SERUM, PLASMA OR BLOOD BY CREATININE- BASED FORMULA (CKD-EPI 2020) 47.9 60 08/16 Specimen Type: PLASMA Comment: No hemolysis noted. Ordering Provider: MARY ONEILL Report Released Date/Time: Aug 01, 2024 09:27 AM Reporting Lab: [facility] [address] [place] [phone] Performing Lab: [facility] [address] [facility] [address] [facility] HGA1C HEMOGLOBIN A1C/HEMOGLO BIN.TOTAL IN BLOOD 6.2 4.0 - 6.0 08/16 H Specimen Type: BLOOD No comment entered. Ordering Provider: MARY ONEILL Report Released Date/Time: Aug 01, 2024 09:27 AM Reporting Lab: [facility] [address] [facility] [address] Performing Lab: [facility] [address] [facility] [address] [facility] LIPID PANEL (STL) CHOLESTEROL [MASS/VOLUM E] IN SERUM OR PLASMA 134 mg/dL 0 - 200 08/16 Specimen Type: PLASMA Comment: No hemolysis noted. Ordering Provider: MARY ONEILL Report Released Date/Time: Aug 01, 2024 09:27 AM Reporting Lab: [place] [address] [facility] [address] Performing Lab: [facility] [address] [place] [phone] [facility] LIPID PANEL (STL) TRIGLYCERID E [MASS/VOLUM E] IN SERUM OR PLASMA 159 mg/dL 0 - 150 08/16 H Specimen Type: PLASMA Comment: No hemolysis noted. Ordering Provider: MARY ONEILL Report Released Date/Time: Aug 01, 2024 09:27 AM Reporting Lab: [address] [address] Performing Lab: [address] [address] [facility] LIPID PANEL (STL) CHOLESTEROL IN LDL [MASS/VOLUM E] IN SERUM OR PLASMA BY CALCULATION 65 mg/dL 08/16 Specimen Type: PLASMA Comment: No hemolysis noted. Ordering Provider: MARY ONEILL Report Released Date/Time: Aug 01, 2024 09:27 AM Reporting Lab: [address] [address] Performing Lab: [address] [address] [facility] LIPID PANEL (STL) CHOLESTEROL IN HDL [MASS/VOLUM E] IN SERUM OR PLASMA 37 mg/dL 40 08/16 L Specimen Type: PLASMA Comment: No hemolysis noted. Ordering Provider: MRAY ONEILL Report Released Date/Time: Aug 01, 2024 09:27 AM Reporting Lab: [address] [phone] Performing Lab: [address] [address] [facility] MICRAL/CR EAT PROFILE (STL) ALBUMIN [MASS/VOLUM E] IN URINE 13.0 mg/L 08/16 Specimen Type: URINE No comment entered. Ordering Provider: MARY ONEILL Report Released Date/Time: Aug 01, 2024 09:27 AM Reporting Lab: [facility] [address] [place] [id number] Performing Lab: [address] [phone] [facility] MICRAL/CR EAT PROFILE (STL) ALBUMIN/CRE ATININE [MASS RATIO] IN URINE 10 mg/g 0 - 29 08/16 Specimen Type: URINE No comment entered. Ordering Provider: MARY ONEILL Report Released Date/Time: Aug 01, 2024 09:27 AM Reporting Lab: [address] [address] Performing Lab: [address] [address] [facility] MICRAL/CR EAT PROFILE (STL) CREATININE [MASS/VOLUM E] IN URINE 124.7 mg/dL 63 - 166 08/16 Specimen Type: URINE No comment entered. Ordering Provider: MARY ONEILL Report Released Date/Time: Aug 01, 2024 09:27 AM Reporting Lab: [address] [address] Performing Lab: [address] [address] [facility] TSH (MA-PB) THYROTROPIN [UNITS/VOLU ME] IN SERUM OR PLASMA 1.319 u[IU]/ mL 0.47 - 5 08/16 Specimen Type: SERUM No comment entered. Ordering Provider: MARY ONEILL Report Released Date/Time: Aug 01, 2024 09:27 AM Reporting Lab: [address] [address] Performing Lab: [address] [address] [facility] VITAMIN D, 25-HYDROX Y 25-HYDROXYV ITAMIN D3 [MASS/VOLUM E] IN SERUM OR PLASMA 70.5 ng/mL 30 - 96 08/16 Specimen Type: SERUM No comment entered. Ordering Provider: MARY ONEILL Report Released Date/Time: Aug 01, 2024 09:27 AM Reporting Lab: [facility] [address] [facility] [address] Performing Lab: [place] [id number] [facility] [address] [facility] Vital Signs Combined list of inpatient and outpatient Vital Signs from Department of [facility] and Veterans Affairs, ranging from 12 months to all on record, depending upon the facility. Vital Sign Value Date Comments Source SYSTOLIC BLOOD PRESSURE 138 08/17/19 25 10:06:41 [facility] DIASTOLIC BLOOD PRESSURE 83 025 10:06:41 [facility] PULSE OXIMETRY 98 08/16/2024 10:06:41 [facility] WEIGHT 175.1 08/16/2024 10:06:41 [facility] BMI 26 kg/m2 08/16/2024 10:06:41 [facility] PAIN 0 08/16/2024 10:06:41 [facility] HEIGHT 69 08/16/2024 10:06:41 [facility] TEMPERATURE 98 08/16/2024 10:06:41 [facility] PULSE 76 08/16/2024 10:06:41 [facility] RESPIRATION 16 08/16/2024 10:06:41 [facility] Encounters Combined list of: 1) Encounters from Department of Veterans Affairs facilities going backup to the last 18 months, not all [place] inpatient encounters are included; 2) Encounters from the Department of [facility] facilities going backup to 280 months. 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 UADREY GARCIA M 05/09 [facility] N [facility] TYMPANOMET RY & REFLEX THRESH [id number] Diagnos is: ICD-10- CM H90.A21 Snsrnrl hear loss, uni, r ear, with rstrcd hear cntra side AUDREY GARCIA M 05/09 [facility] Outpatient Encounter [id number] 05/10 [facility] HEARING SERVICE [id number] Diagnos is: ICD-10- CM H90.3 Sensori neural hearing loss, bilater al KIERRA CHAPMAN 07/04 [facility] IMG RTA DETCJ/MNTR DS STAFF [id number] Diagnos is: ICD-10- CM Z13.5 Encount er for screeni ng for eye and ear disorde rs NINONID HI 08/16 [facility] Outpatient Encounter [id number] 08/16 [facility] IMG RTA DETCJ/MNTR DS STAFF [id number] Diagnos is: ICD-10- CM Z13.5 Encount er for screeni ng for eye and ear disorde rs KERON BRADY 08/16 [facility] OFFICE O/P EST MOD 30 MIN [id number] Diagnos is: ICD-10- CM I10 Essenti al (primar y) hyperte nsion MARY ONEILL HI 08/16 [facility] Outpatient Encounter [id number] Diagnos is: ICD-10- CM Z13.5 Encount er for screeni ng for eye and ear disorde TIFFANI Smith R 08/17 [facility] OFFICE O/P EST HI 40 MIN [id number] Diagnos is: ICD-10- CM 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, unspeci ALBERTO Solomon M 09/06 [facility] Outpatient Encounter [id number] GROVER MARCUM M 01/03 [facility] Outpatient Encounter [id number] PARISA WATKINS R 01/04 [facility] HEARING AID REPAIR/MOD IFYING [id number] Diagnos is: ICD-10- CM H90.3 Sensori neural hearing loss, bilater al AUDREY GARCIA M 04/23 [facility] Outpatient Encounter [id number] 07/06 [facility] Outpatient Encounter [id number] 07/11 [facility] Outpatient Encounter [id number] MARY ONEILL HI 08/01 [facility] [place] [facility] EAR IMPRESSION [id number] Diagnos is: ICD-10- CM Z46.1 Encount er for fitting and adjustm ent of hearing aid KIERRA CHAPMAN 08/13 [facility] N [facility] OFFICE O/P EST MOD 30 MIN [id number] Diagnos is: ICD-10- CM I10 Essenti al (primar y) hyperte nsion NINO,NID HI 08/16 [facility] Outpatient Encounter [id number] 08/27 [facility] N [facility] HEARING AID CHECK BINAURAL [id number] Diagnos is: ICD-10- CM Z46.1 Encount er for fitting and adjustm ent of hearing aid KIERRA CHAPMAN 09/26 [facility] Social History Combined list of available smoking, tobacco, and other social history from Department of Defense and Veterans 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 Social History Type Response Date Comment Sourc e Tobacco smoking status NHIS VA-TOBACCO USE FORMER CIGARETTES 08/16/2024 [facility] History of tobacco use VA-TOBACCO NEVER USED OTHER TYPE 08/16/2024 [facility] History of tobacco use VA-TOBACCO FORMER USER 08/17/2023 [facility] History of tobacco use VA-TOBACCO NEVER USED 07/05/2022 [facility] History of tobacco use VA-TOBACCO FORMER USER 06/05/2020 [facility] History of tobacco use VA-TOBACCO QUIT 15 YRS OR MORE 12/19/2018 [facility] History of tobacco use QUIT TOBACCO >7 YEARS AGO 03/01/2017 [facility] History of tobacco use QUIT TOBACCO >7 YEARS AGO 08/30/2016 [facility] History of tobacco use QUIT TOBACCO >7 YEARS AGO 07/02/2015 [facility] History of tobacco use QUIT TOBACCO >7 YEARS AGO 03/14/2014 [facility] History of tobacco use QUIT TOBACCO >7 YEARS AGO 05/05/2009 [facility] Advance Directives List of completed, amended, or rescinded Advance Directives on record at Department of Veterans 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 An actual copy of the Directive is not included. Date Advance Directive Provider Source 01/15/2016 ADVANCE DIRECTIVE DISCUSSION BILL [facility]
--- OUTSIDE RECORDS SUMMARY | 2024-10-16 14:54 | XMS_ITS | Encounter Summary ---
Author Organization [facility] Address [address] [place] [address] Care Team Providers Care Director Translational Name Role Phone Clemente Sommer MD Primary Care Provider + [phone] Unknown, Notinfile Primary Care Provider Unavail able Clemente Sommer MD Primary Care Provider + [phone] Encounter Details Date Type Department Care Team (Late st Contact Info) Description 09/30/2016 Orders Only [facility] ProviderHusam MD [address] [place] [address] Social History Tobacco Use Types Packs/Day Years Used Date Smoking Tobacco: Former Alcohol Use Standard Drinks/Week Comments Yes 0 (1 standard drink = 0.6 oz pur e alcohol) Sex and Gender Information Value Date Recorded Sex Assigned at Not on file Legal Sex Male 3:46 AM [employer]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
--- OUTSIDE RECORDS SUMMARY | 2024-10-16 14:54 | XMS_ITS | Continuity of Care Document ---
Author Organization [facility] Address [address] [place] [address] Phone Care Team Providers Care Computer Processing Scheduler Name Role Phone Tai JOY, Connie Unavailable [...] Counseling For Antioxidant Supplements F Office/outpatient Visit, [facility] Advance Directives Directive Yes / No [...] Diagnoses Date Provider Providers Copied on Encounter [facility] [employer] [facility], [address], [place], [place], [address], tel:[phone] [place] Professional diabetic eye exam (chief complaint) PrediabetesNe xdtve age-related mclr degn, bilateral, early dry stageMechanic al ectropion of lower eyelids of both eyesDry eye syndrome, bilateralOthe r secondary cataract, bilateralVitr eomacular adhesion of both eyes 4 Tai Rosales. [facility] [employer], [address], [place], [place], [address], . tel:[phone] Referring Provider: Connie Lujan OD L, [address] [address], [place], [address] . tel:[phone] [facility], [address], [place], [place], [address], tel:[phone] [place] Complete Exam (chief complaint) Type 2 diab with mild nonp rtnop without mclr edema, r eyeNexdtve age-related mclr degn, bilateral, early dry stagePresence of intraocular lens 3 Tai OD Connie. [address] [employer], [address], [place], [place], [address], [place]. tel:[phone] Referring Provider: [place], [address] [address], [place], [address] . tel:[phone] [facility], [address] [place], [place] [address] [address], [place], [place], [address], [place] tel:[phone] [place] Professional Complete Exam (chief complaint) Drusen (degenerative ) of macula, bilateralPres ence of intraocular lensPrediabet esDry eye syndrome, bilateral 2 Jonah Burgos. [address] [employer], [address], [place], [place], [address], [place]. tel:[phone] Referring Provider: Aubrey Celaya, [address], [place], [address] . tel:[phone] [facility], [facility] [address], [place], [place], [address], [place] tel:[phone] [place] Professional Complete Exam (chief complaint) PrediabetesDr usen (degenerative ) of macula, bilateralPres ence of intraocular lensPunctate keratitis, bilateralMech anical ectropion of lower eyelids of both eyesMechanica l ectropion of left lower eyelid 1 Jonah Burgos. [address], [address], [place], [place], [address], [place]. tel:[phone] Referring Provider: Aubrey Celaya, [address], [place], [address] . tel:[phone] [facility], [address], [place], [place], [address], [place] tel:[phone] [place] Professional Complete Exam (chief complaint) Presence of intraocular lensRPE mottling of maculaPunctat e keratitis, bilateralDrus en (degenerative ) of macula, right eye Nov-0 9-202 0 Jonah Burgos. [address] [facility], [address], [place], [place], [address], [place]. tel:[phone] Referring Provider: Aubrey Celaya, [address], [place], [address] . tel:[phone] [facility], [address] [place] [address] [address], [place], [place], [address], [place] tel:[phone] SEC [facility] Jonathon No Information Oct-2 0 Laura Ziegler. [facility] [address], [address], [place], [place], [address], [place]. tel:[phone] [facility], [address] [place] [address] [address], [place], [place], [address], tel:[phone] SEC [place] Professional Complete Exam (chief complaint) Presence of intraocular lensHistory of strokeRPE mottling of macula 9 Jonah Burgos. [address] [facility], [address], [place], [place], [address], [place]. tel:[phone] Referring Provider: Aubrey Celaya, [address] [facility] [address] [facility] [address], [place], [address] . tel:[phone] Office/outpa tient Visit, Est [facility], [address] [place] [address] [address], [place], [place], [address], [place] tel:[phone] SEC [place] Professional cornea check (chief complaint) Corneal edema of right eye 0 9 Jonah Burgos. [address], [address], [place], [place], [address], [place]. tel:[phone] Referring Provider: Aubrey Celaya, [address] [facility] [address] [facility] [facility] [address], [place], [address] . tel:[phone] Office/outpa tient Visit, Est [facility], [address], [place], [place], [address], [place] tel:[phone] SEC [place] Professional Follow up visit (chief complaint) Corneal edema of right eye 9 Jonah Burgos. [address], [address], [place], [place], [address], [place]. tel:[phone] Referring Provider: Aubrey Celaya, [address], [place], [address] . tel:[phone] [facility], [address] [address], [place], [place], [address], [place] tel:[phone] SEC [place] Professional Cornea edema f/u (chief complaint) Encounter for examination following surgery 9 Jonah Burgos. [address], [place], [place], [address], [place]. tel:[phone] Referring Provider: Aubrey Celaya, [address], [place], [address] . tel:[phone] [facility], [address], [place], [place], [address], [place] tel:[phone] SEC [place] BARRIOS Professional 2 wk Cornea check (chief complaint) Encounter for examination following surgery 9 Jonah Burgos. [address], [place], [place], [address], [place]. tel:[phone] Referring Provider: Aubrey Celaya, [address], [place], [address] . tel:[phone] [facility], [address] [address], [place], [place], [address], [place] tel:[phone] [place] Professional Post-Op (chief complaint) No Information 0 9 Jordan OD Osmar. [address] [facility], [address] [facility], [place], [address], [place]. tel:[phone] Referring Provider: Aubrey Celaya, [address] [facility] [address], [place], [address] . tel:[phone] [facility], [address] [place] [address] [address], [place], [place], [address], tel:[phone] [place] Professional 2 wk CE PO (chief complaint) No Information 8 Jonah Burgos. [address] [facility] A, [place], [place], [address], [place]. tel:[phone] Referring Provider: Aubrey Celaya, [address] [facility] [place] [address], [place], [address] . tel:[phone] [facility], [address] [place] [address] [address], [place], [place], [address], [place] tel:[phone] [place] Professional 1 week s/p PCIOL (chief complaint) No Information 8 Jordan OD Osmar. [address] [facility], [address] [place] [address], [place], [address], [place]. tel:[phone] Referring Provider: Aubrey Celaya, [address] [employer] [facility] [address] [employer] [address], [place], [address] . tel:[phone] [facility], [address] [place] [address] [address], [place], [place], [address], [place] tel:[phone] [place] Professional 1 day s/p PCIOL (chief complaint) No Information 8 Jordan OD Osmar. [address] [facility], [address] [place] [address], [place], [address], [place]. tel:[phone] Referring Provider: Aubrey Celaya, [address] [facility] [address], [place], [address] . tel:[phone] [facility], [address] [address], [place], [place], [address], [place] tel:[phone] [facility] No Information 8 Jonah Burgos. [address], [place], [place], [address], [place]. tel:[phone] Referring Provider: Aubrey Celaya, [address], [place], [address] . tel:[phone] [facility], [address] [address], [place], [place], [address], tel:[phone] SEC Antionephillip Holt No Information 8 Jonah Burgos. [address], [address] [place], [address], [place]. tel:[phone] Referring Provider: Aubrey Celaya, [address], [place], [address] . tel:[phone] [facility], [address] [address], [place], [place], [address], [place] tel:[phone] [place] Professional Post-Op (chief complaint) No Information 8 Jordan Prasad. [address] [place] [address], [address], [place]. tel:[phone] Referring Provider: Aubrye Celaya, [address], [place], [address] . tel:[phone] [facility], [address], [place], [place], [address], [place] tel:[phone] [place] Professional 1 week p/o PCIOL (chief complaint) No Information 8 Jordan Cashic. [facility], [address] [place] [address], [address], [place]. tel:[phone] Referring Provider: Aubrey Celaya, [address] [facility] [address], [place], [address] . tel:[phone] [facility], [address] [address], [place], [place], [address], [place] tel:[phone] SEC [place] Professional Post-Op (chief complaint) No Information 0 - 8 Jordan Prasad. [address] [facility], [address] [facility], [place], [address], [place]. tel:[phone] Referring Provider: Aubrey Celaya, [address] [facility] [address], [place], [address] . tel:[phone] [facility], [address] [address], [place], [place], [address], [place] tel:[phone] [facility] No Information 3 8 Jonah Burgos. [address] [facility], [address], [place], [place], [address], [place]. tel:[phone] Referring Provider: Aubrey Celaya, [address] [facility] [address], [place], [address] . tel:[phone] [facility], [address] [address], [place], [place], [address], [place] tel:[phone] SEC Antione Reyes No Information 3 0 8 Jonah Burgos. [address] [facility], [address], [place], [place], [address], [place]. tel:[phone] Referring Provider: Aubrey Celaya, [address] [facility] [address], [place], [address] . tel:[phone] Office/outpa tient Visit, Est [facility], [address] [address], [place], [place], [address], [place] tel:[phone] [place] Professional 6 mo CAT check (chief complaint) No Information 8 Jonah Burgos. [address] [facility] [place], [address], [place]. tel:[phone] Referring Provider: Aubrey Celaya, [address] [facility] [address], [place], [address] . tel:[phone] [facility], [address] [place] [address] [address], [place], [place], [address], [place] tel:[phone] [place] Professional Complete Exam (chief complaint) No Information 8 Seven Collier. [address] [place], [facility], . tel:[phone] Referring Provider: Paul Lopez, [address] [facility], [place], [address] . tel:[phone] [facility], [address] [place] [address] [address], [place], [place], [address], [place] tel:[phone] [place] Professional No Information 8 Seven Collier. [address] [place], [facility], . tel:[phone] [facility], [address] [place] [address] [address], [place], [place], [address], [place] tel:[phone] [place] Professional Complete Exam (chief complaint) No Information 7 Batsheva Miller. [address] [facility] [place], [address], [place]. tel:[phone] Referring Provider: Paul Lopez, [address] [facility], [place], [address] . tel:[phone] [facility], [address] [place] [address] [address], [place], [place], [address], [place] tel:[phone] SEC [place] Professional No Information 6 Mckenzie Aubrey. [address], [address], [place], [place], [address], [place]. tel:[phone] [facility], [address] [place] [address] [address], [place], [place], [address], [place] tel:[phone] [place] Professional Difficulty reading (chief complaint) No Information 5 Wankum Paul. [address], [address], [place], [place], [address], [place]. tel:[phone] [facility], [address] [place] [address] [address], [place], [place], [address], [place] tel:[phone] Professional Dry eyes (chief complaint) No Information 4 Wankum Paul. [address] [employer] [employer], [address], [place], [place], [address], [place]. tel:[phone] [facility], [address] [place] [address] [address], [place], [place], [address], [place] tel:[phone] [place] Professional No Information 3 Wankum Paul. [address], [address], [place], [place], [address], [place]. tel:[phone] [facility], [address] [place] [address] [address], [place], [place], [address], [place] tel:[phone] SEC [place] Professional No Information 0 Wankum Paul. [address], [address], [place], [place], [address], [place]. tel:[phone] Office/outpa tient Visit, New [facility], [address] [place], [place] [address]crest [address], [place], [place], [address], [place] tel:[phone] SEC [place] BARRIOS Professional No Information Batsheva Miller. [address], [address], [place], [place], [address], [place]. tel:[phone] Family History Family Member Type Diagnosis Age At Onset Maternal grandmother Problem (finding) Diabetes mellit Payers Payer name Insurance type Covered republican ID Laxmi burciaga(s) [facility] Medicare Complete CI [id number] Social History Type Description Quantity Date Captured [...]
--- OUTSIDE RECORDS SUMMARY | 2024-10-16 14:54 | XMS_ITS | Clinical Summary ---
Author Organization [facility] [employer] Address [address] [place] [address] Care Team Providers Care Hothouse Worker Name Role Phone Clemente Sommer MD Primary Care Provider [phone] Source Comments [facility],non-owned Affiliates and Associated Physician Practices is amultiple site organization consisting of ambulatory clinics and hospital sitesin [place], [place], [place] and [place]. This disclosure is being madepursuant to the Care Everywhere program and may not contain all information available regarding this patient. Last updated 18.[facility] [employer] Allergies No known active allergies Immunizations Immunization [...] complete this topic Insurance MEDICARE Care Teams Hothouse Worker Relationship Specialty Start Date End Date Clemente Sommer MD [address] [place] [address] PCP - General Family Medicine 02/23/17
--- OUTSIDE RECORDS SUMMARY | 2024-10-16 14:54 | XMS_ITS | Referral Summary ---
Author Organization [facility] [address] Address [address] [place] [address] Care Team Providers Care Gas Pumping Station Helper Name Role Phone Clemente Sommer MD Primary Care Provider + [phone] Allergies No known active allergies Medications tamsulosin (FLOMAX) 0.4 mg extended release capsule Take 1 capsule (0.4 mg total) by mouth 2 (two) times a day 0 Active levothyroxine (SYNTHROID) 75 mcg tablet Take 1 tablet (75 mcg total) by mouth metallurgy laboratory technician before breakfast Active ferrous sulfate 325 mg [...] 75 mg tabletIndicatio ns: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 Take 1 tablet by mouth once daily 90 tablet 2 5 Active metoprolol tartrate (LOPRESSOR) 25 mg immediate release tabletIndicatio ns:Coronary artery disease involving augustine coronary artery of augustine heart without angina pectoris Take 0.5 tablets [...] placement 11/02/2016 Coronary artery disease invo lving augustine coronary artery of augustine heart without angina pectoris 09/22/2016 Overview (10/15/2016): 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 of angina pectoris [...] a associated with type 2 diabetes mellitus ([facility]) 01/03/2015 Overview (08/27/2016): Dyslipidemia Nonexudative age-related macular degeneration Resolved Problems Problem Noted Date Diagnosed Date Resolved Date Dyslipidemia associated with type 2 diabetes mellitus ([facility]) 06/07/2019 03/20/2021 Chronic coronary artery disease [...] on file Legal Sex Male 3:46 AM 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 Gender Identity Male 03/07/2020 6:16 PM CDT Sexual Orientation Straight 03/07/2020 6: 16 PM CDT Last Filed Vital Signs Vital Sign Reading Time Taken Comments Blood Pressure 116/60 05/31/2024 12:02 PM 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 Pulse 80 05/31/2024 12:02 PM 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 Temperature 36.6 C (97.9 F) 03/30/2023 11:30 AM 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 Respiratory Rate 18 03/30/2023 11:30 AM 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 Oxygen Saturation 97% 05/31/2024 12:02 PM 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 Inhaled Oxygen Concentration - - Weight 78.9 kg (174 lb) 05/31/2024 12:02 PM 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 Height 172.7 cm (5' 8) 05/31/2024 12:02 PM 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 Body Mass Index 26.46 05/31/2024 12:02 PM 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 Plan of Treatment Not on file Medical Devices Implanted Type Area Human Service Coordinator Device Identifier Shelf Expiration Date Model / Serial / Lot Cardiac Stents N/A: Heart [employer] Liner Acetabular Hip Vitamin E G7 [place] Vivacit E 36mm Polyethylene Size I [id number] - [id number] Implanted:Qty: 1 on 01/31/2023 by Malick Infante MD at [facility] Left: Hip [employer] 11/11/2026 [id number] / / [id number] [employer] G7 66mm Multihole Hip I Hemisphere Offset Shell Acetabular [id number] - [id number] Implanted:Qty: 1 on 01/31/2023 by Malick Infante MD at [facility] Left: Hip [employer] [id number] 08/30/2030 [id number] / / [id number] [employer] Trilogy 6.5mm 40mm Self Tap Hip Acetabular Cortical Screw Bone [id number] - [id number] Implanted:Qty: 1 on 01/31/2023 by Malick Infante MD at [facility] Left: Hip [employer] [id number] 09/22/2032 [id number] / / [id number] [employer] Trilogy 6.5mm 15mm Self Tap Screw Bone [id number] - [id number] Implanted:Qty: 1 on 01/31/2023 by Malick Infante MD at [facility] Left: Hip [employer] [id number] 09/22/2032 [id number] / / [id number] [employer] Trilogy 6.5mm 15mm Self Tap Screw Bone [id number] - [id number] Implanted:Qty: 1 on 01/31/2023 by Malick Infante MD at [facility] Left: Hip [employer] [id number] 09/22/2032 [id number] / / [id number] [employer] Trilogy 6.5mm 20mm Self Tap Screw Bone [id number] - [id number] Implanted:Qty: 1 on 01/31/2023 by Malick Infante MD at [facility] Left: Hip [employer] [id number] 10/01/2032 [id number] / / [id number] [employer] Trilogy 6.5mm 20mm Self Tap Screw Bone [id number] - [id number] Implanted:Qty: 1 on 01/31/2023 by Malick Infante MD at [facility] Left: Hip [employer] [id number] 03/04/2032 [id number] / / [id number] [employer] Trilogy 6.5mm 40mm Self Tap Hip Acetabular Cortical Screw Bone [id number] - [id number] Implanted:Qty: 1 on 01/31/2023 by Malick Infante MD at [facility] Left: Hip [employer] [id number] 09/22/2032 [id number] / / [id number] [employer] G7 [place] 36mm Type 1 Modular Hip +9mm Offset Head Femoral Cocr [id number] - [id number] Implanted:Qty: 1 on 01/31/2023 by Malick Infante MD at [facility] Left: Hip [employer] [id number] 03/18/2032021 / / [id number] Procedures Procedure Name Priority Date/Time Associated Diagnosis [...] HEALY Comment: Interpretive Data Reference Interval Normal >/= [...] BLOOD ORDERABLES Final Result [facility] Department [place] [address] * (ABNORMAL) Lipid panel (01/31/2023 9:06 PM CDT) [facility] Cholesterol 84 30 - 199 mg/dL [facility] Comment: Interpretive Data [...] revised on 2018. Triglycerides 65 <=149 mg/dL [facility] Comment: Interpretive Data [...] revised on 2018. HDL 28(L) >=40 mg/dL [facility] Comment: Interpretive Data [...] ORDERABLES Final Result [facility] Department [place] [address] * (ABNORMAL) Hemoglobin A1c (01/21/2023 5:45 PM CDT) Hgb A1C 5.8(H) 4.0 - 5.6 % [facility] Estimated Average Glucose 120 mg/dL [facility] Comment: The ADA recommends reporting an estimated Average Glucose (eAG) with all Hemoglobin A1c results using the equation derived from a study of 507 normal and diabetic adults. Minority populations were underrepresented and children were not included. (Diabetes Care 31:4865-1502, 2008). The eAG is not equivalent to a fasting glucose. The ADA recommends reporting an estimated Average Glucose (eAG) with all Hemoglobin A1c results using the equation derived from a study of 507 normal and diabetic adults. Minority populations were underrepresented and children were not included. (Diabetes Care 31:1035-9902, 2008). The eAG is not equivalent to a fasting glucose. Blood 01/21/2023 5:45 PM CDT 01/21/2023 5:57 PM CDT us Bryce Tyler NP LAB BLOOD ORDERABLES Fin al Result [facility] [id number] [facility]. Department [place] [address] from Last 3 Months or Most Recently Relevant to Health Maintenance Insurance UHC MEDICARE ADVANTAGE UHC MEDICARE ADVANTAGE MEDICARE ADVANTAGE MEDICARE ADVANTAGE Advance Directives For more information, please contact: [phone] * Full Code (Latest Code Status on File) Date Activated Date Inactivated Comments 01/31/2023 3:20 PM 02/01/2023 10:04 PM * Full Code Date Activated Date Inactivated Comments 03/19/2019 10:01 PM 03/21/2019 1:11 AM Care Teams Gas Pumping Station Helper Relationship Specialty Start Date End Date Clemente Sommer MD PCP - General Family Medicine 04/13/19
== END 2024-10-16 14:51 | disposition home or self-care (01) ==
PROVIDERS: PCP Family Medicine; Visit Provider Physician Assistant Medical
DX: M47.896 Other spondylosis, lumbar region (principal)
CPT/HCPCS: 72100

== ENCOUNTER 2024-12-05 07:02 | Outpatient (CLI) | payer MEDICARE, SELFPAY ==
--- NOTE | ~2024-12-05 | MR_ITS ---
MRI of the lumbar spine Clinical History: Left sciatica Technique: Axial T2-weighted images, and sagittal T1-weighted, T2-weighted, and T2 fat-sat images wer e acquired. Findings: No acute fracture seen. There is 5 mm retrolisthesis of T12 over L1. There is 3 mm retrolis thesis of L1 over L2. No suspicious bone marrow signal abnormality seen. At L1-L2, there is advanced degenerative disc narrowing with severe facet arthropathy and minimal dis c bulge. There is mild central canal stenosis. There is severe bilateral neural foraminal narrowing. At L2-L3, there is diffuse disc bulge with severe facet arthropathy, resulting in severe spinal canal stenosis/thecal sac compression. There is severe bilateral neural foraminal narrowing. At L3-L4, there is moderate degenerative disc narrowing. Disc bulge and severe facet arthropathy resu lt in severe spinal canal stenosis/thecal sac compression. There is severe bilateral neural foraminal compress, left worse than right. At L4-L5, there is moderate degenerative distended. There is mild disc bulge with moderate to severe facet arthropathy. No central canal stenosis. There is severe bilateral neural foraminal narrowing, l eft worse than right. At L5-S1, there is disc bulge with small disc extrusion extending inferior the central to left parace ntral region. There is advanced facet arthropathy. No central canal stenosis. There is moderate to se korina left neural foraminal narrowing, and severe right neural foraminal narrowing. Paravertebral soft tissues are unremarkable. 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 5 mm retrolisthesis of T12 over L1. 3 mm retrolisthesis of L1 over L2. Reviewed, dictated and finalized at location . Impression: Severe degenerative spondylosis throughout the lumbar spine, with multilevel sp inal canal stenosis and multilevel neural foraminal narrowing, as detailed abov e. 5 mm retrolisthesis of T12 over L1. 3 mm retrolisthesis of L1 over L2.
== END 2024-12-05 07:03 | disposition home or self-care (01) ==
LOC: MICIMG 07:03
PROVIDERS: PCP Family Medicine; Visit Provider Physician Assistant Medical
DX: M47.896 Other spondylosis, lumbar region (principal); M48.061 Spinal stenosis, lumbar region without neurogenic claudication; M43.15 Spondylolisthesis, thoracolumbar region; M43.16 Spondylolisthesis, lumbar region; M54.42 Lumbago with sciatica, left side; G89.29 Other chronic pain
CPT/HCPCS: 72148

== ENCOUNTER 2025-01-07 08:18 | Outpatient (CLI) | payer MEDICARE, SELFPAY ==
--- OUTSIDE RECORDS SUMMARY | 2025-01-07 08:29 | XMS_ITS | Clinical Summary ---
Author Organization [facility] [employer] Address [address] [place] [address] Care Team Providers Care Manufacturing Sr Engineer Name Role Phone Clemente Sommer MD Primary Care Provider [phone] Source Comments [facility],non-owned Affiliates and Associated Physician Practices is amultiple site organization consisting of ambulatory clinics and hospital sitesin [place], [place], [place] and [place]. This disclosure is being madepursuant to the Care Everywhere program and may not contain all information available regarding this patient. Last updated 18.[facility] [employer] Allergies No known active allergies Immunizations Immunization [...] season) 2024 DEPRESSION SCREENING 05/23/2024 INFLUENZA VACCINE (#1) 2025 8, 02/23/2017 HEPATITIS B VACCINE Aged Out No [...] complete this topic Insurance MEDICARE Care Teams Manufacturing Sr Engineer Relationship Specialty Start Date End Date Clemente Sommer MD [address] [place] [address] PCP - General Family Medicine 02/23/17
--- OUTSIDE RECORDS SUMMARY | 2025-01-07 08:29 | XMS_ITS | Clinical Summary ---
Author Organization [facility] [employer] Address [address] [place] [address] Care Team Providers Care Bridge Expert Name Role Phone Clemente Sommer MD Primary Care Provider [phone] Allergies No known active allergies Medications tamsulosin (FLOMAX) 0.4 mg capsule Take 0.4 mg by mouth. Active fluticasone propionate (FLONASE) 50 mcg/spray [place], Suspension nasal inhaler INSTILL 2 SPRAYS IN [...] mg by mouth 2 times daily. Active finasteride (PROSCAR) 5 mg tablet Take [...] once daily 90 Tablet 3 5 Active ferrous sulfate 325 mg (65 mg iron) tablet Take 1 tablet by mouth once daily 90 Tablet 5 Active Active Problems Problem Noted Date Diagnosed Date Chronic anemia 05/06/2020 Other dietary vitamin B12 deficiency anemia 04/22 Encounters Date Type Department Care Team Description 12/26/2024 External Device Data [facility] ABSTRACTION Provider, Abstract 12/05/2024 External Device Data [facility] Provider, Abstract 12/05/2024 External Device Data [facility] Provider, Abstract 12/05/2024 External Device Data [facility] Provider, Abstract 12/04/2024 External Device Data [facility] Provider, Abstract 11/06/2024 External Device Data [facility] Provider, Abstract 10/29/2024 Refill [facility] Oncology and Hematology - [place] [address] [place] [address] Philip Del Rio MD 10/16/2024 External Device Data [facility] Provider, Abstract 10/11/2024 External Device Data [facility] Provider, [...] Sexual Orientation Straight 07/09/2023 1: 09 PM PERSONAL CARE WORKER Last Filed Vital Signs Vital Sign Reading Time Taken Comments Blood Pressure 122/84 07/12/2024 1:20 PM PERSONAL CARE WORKER Pulse 87 07/12/2024 1:20 PM PERSONAL CARE WORKER Temperature 36.4 C (97.5 F) 07/12/2024 1:20 PM PERSONAL CARE WORKER Respiratory Rate 15 07/12/2024 1:20 PM PERSONAL CARE WORKER Oxygen Saturation 94% 07/12/2024 1:20 PM PERSONAL CARE WORKER Inhaled Oxygen Concentration - - Weight 81.1 kg (178 lb 12.8 oz) 07/12/2024 1:20 PM PERSONAL CARE WORKER Height 177.8 cm (5' 10) 11/04/2020 10: 15 AM CDT Body Mass Index 25.66 11/04/2020 10:15 AM CDT Plan of Treatment Upcoming Encounters Date Type Department Care Team (Late st Contact Info) Description 01/09/2025 11:00 AM CDT Office Visit [facility] Oncology and Hematology [facility] [address] [facility] [address] [place] [address] Philip Del Rio MD [address] [place] [address] Health Maintenance Due Date Last Done Comments DIABETES ANNUAL FOOT EXAM 1954 DIABETES MICROALBUMIN ANNUAL SCREEN 1953 LDL CHOLESTEROL ANNUAL 1954 ZOSTER VACCINE (2 of 3) 10/28/2009 09/02/2009 RSV VACCINE (60+ or ) (1 - 1-dose 75+ series) 2011 PNEUMOCOCCAL VACCINE 50+ YEA RS (2 of 2 - PPSV23, PCV20, or PCV21) 08/27/2015 07/02/2015, 02/20/2005 DIABETES HBA1C Q 6 MONTHS 07/22/2023 01/21/2023 Medicare Advantage (MD) Preventative Visit/Annual Wellness Visit 05/23/2024 INFLUENZA VACCINE (#1) 2024 , 04/13/2019, 02/21/2018, Additional history exists DIABETES ANNUAL RETINAL EXAM 04/13/2025, 04/13/2024, 08/17/2023, Additional history exists DTAP/TDAP/TD VACCINES (4 - T d or Tdap) 01/09/2029 01/09/2019, 05/05/2009, 04/22/2009 Insurance [facility] [id number] [place] [id number] Care Teams Bridge Expert Relationship Specialty Start Date End Date Clemente Sommer MD [address] [place] [address] PCP - General Family Practice 12/21/19
--- OUTSIDE RECORDS SUMMARY | 2025-01-07 08:29 | XMS_ITS | Encounter Summary ---
Author Organization [facility] [employer] Address [address] [place] [address] Care Team Providers Care Cover Seamer Name Role Phone Clemente Sommer MD Primary Care Provider + [phone] Unknown, Notinfile Primary Care Provider Unavail able Clemente Sommer MD Primary Care Provider + [phone] Encounter Details Date Type Department Care Team (Late st Contact Info) Description 09/30/2016 Orders Only [facility] ProviderHusam MD [address] [place] [address] Social History Tobacco Use Types Packs/Day Years Used Date Smoking Tobacco: Former Alcohol Use Standard Drinks/Week Comments Yes 0 (1 standard drink = 0.6 oz pur e alcohol) Sex and Gender Information Value Date Recorded Sex Assigned at Not on file Legal Sex 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
--- OUTSIDE RECORDS SUMMARY | 2025-01-07 08:29 | XMS_ITS | Continuity of Care Document ---
Author Name [facility] Organization [facility] Care Team Providers Care Charge Coordinator Name Role Phone [facility] Unavailable Unavailable Problems Combined list of problems from Department of Defense and [facility] 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 It does not include entries that were removed or entered in error. 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 22 Condition [facility] Cerebral infarction Active Condition Jul 05, 2022 Entered By: FRAKNLIN ONEILL I Comment: rt cva mild in 2018 [facility] Coronary atherosclerosis Active Condition [facility] Dysmetabolic Syndrome X (ICD-9-CM 277.7) Active Condition [facility] Essential hypertension (SNOMED CT 85268203) Active Condition [facility] Hearing Loss, Bilateral Active Condition [facility] Hyperlipidemia Active Condition [facility] Hypothyroidism Active Condition [facility] Rheumatoid arthritis Active Condition [facility] Type 2 diabetes mellitus Active Condition [facility] Colonoscopy Inactive Condition 03/01/2017 May 05, 2009 Entered By: John ALEXANDRE Comment: to be repeated 2008 [facility] Impaired FASTING Glucose (ICD-9-CM 790.21) Inactive Condition 03/01/2017 [facility] Diagnosis: ICD-10-CM Z46.1 Encounter for fitting and adjustment of hearing aid Active Diagnosis [facility] Diagnosis: ICD-10-CM I10 Essential (primary) hypertension Active Diagnosis [facility] Diagnosis: ICD-10-CM H90.3 Sensorineural hearing loss, bilateral Active Diagnosis [facility] Diagnosis: ICD-10-CM M05.9 Rheumatoid arthritis with rheumatoid factor, unspecified Active Diagnosis [facility] Diagnosis: ICD-10-CM Z13.5 Encounter for screening for eye and ear disorders Active Diagnosis [facility] Medications Combined list of outpatient medications from Department of Defense and Veterans 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Medications provided include 1) outpatient medications from the last 15 months, and 2) patient-reported medications. Medication Details Route Status Patient Instructions Prescription Expires Prescription Number Last Dispense Date Ordering Provider Order Date Order Qty Source AMLODIPINE BESYLATE 2.5MG TAB TAKE ONE TABLET BY MOUTH ONCE A DAY ORAL ACTIVE TITI MARTEL A 2020 [facility] ASPIRIN 81MG TAB,EC TAKE ONE TABLET BY MOUTH ONCE A DAY ORAL ACTIVE MELITON ALEXANDRE 2008 [facility] ATORVASTATI N CA 80MG TAB TAKE ONE TABLET BY MOUTH EVERY MORNING ORAL ACTIVE TITI MARTEL A 2020 [facility] CLOPIDOGREL BISULFATE 75MG TAB TAKE ONE TABLET BY MOUTH ONCE A DAY ORAL ACTIVE YOHANA DURAN 2015 [facility] CYANOCOBALA MIN 1000MCG TAB TAKE ONE TABLET BY MOUTH ONCE A DAY ORAL ACTIVE TITI MARTEL A 2020 [facility] FINASTERIDE 5MG TAB TAKE ONE TABLET BY MOUTH ONCE A DAY ORAL ACTIVE NINONI I 2022 [facility] IPRATROPIUM BR 0.03% SOLN,SPRAY, NASAL USE 1 SPRAY INTO NOSTRIL( S) THREE TIMES A DAY NEEDED FOR ALLERGIC RHINITIS NASAL ACTIVE 08/17/2025 [id number] 5 NINO,NI I 2024 30 [facility] LEVOTHYROXI NE NA 75MCG TAB (SYNTHROID) TAKE ONE TABLET BY MOUTH EVERY MORNING BEFORE A MEAL ORAL ACTIVE NINO,NI DHI 2022 [facility] METOPROLOL TARTRATE 25MG TAB TAKE ONE-HALF TABLET BY MOUTH TWICE A DAY ORAL ACTIVE NINO,NI DHI 2023 [facility] MIRABEGRON (PA-F) TAB,SA TAKE 12.5 BY MOUTH ONCE A DAY ORAL ACTIVE NINO,NI DHI 2024 [facility] MULTIVIT/OP HTH AREDS2/LUTE IN/ZEAXANTH IN CAP/TAB TAKE 1 CAP/TAB BY MOUTH BID WM ORAL ACTIVE TITI MARTEL A 2020 [facility] NITROGLYCER IN 0.4MG TAB,SUBLING UAL DISSOLVE ONE TABLET UNDER THE TONGUE ONE-TIME NEEDED SUBLIN GUAL ACTIVE ROSAS GERONIMO 2016 [facility] TAMSULOSIN HCL 0.4MG CAP TAKE 1 CAPSULE BY MOUTH EVERY EVENING ORAL ACTIVE Irena'TITI PANTOJA A 2020 [facility] Immunizations Combined list of available immunizations from the Department of Defense and Veterans 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 [facility] COVID-19 (MODERNA), MRNA, LNP-S, PF, 100 MCG/0.5ML DOSE OR 50 MCG/0.25ML DOSE 4 2021 207 complet ed HISTORICA L INFORMATI ON - FROM OTHER PROVIDER, Lot#: [id number] Mfr: [email or web address]. [facility] COVID-19 (MODERNA), MRNA, LNP-S, PF, 100 MCG/0.5ML DOSE OR 50 MCG/0.25ML DOSE 3 2020 207 complet ed HISTORICA L INFORMATI ON - FROM OTHER REGISTRY, Mfr: [email or web address]. [facility] COVID-19 (MODERNA), MRNA, LNP-S, PF, 100 MCG/0.5 ML DOSE 2 2020 207 complet ed MOD; [id number]; 1 [facility] COVID-19 (MODERNA), MRNA, LNP-S, PF, 100 MCG/0.5 ML DOSE 1 2020 207 complet ed MOD; [id number]; 1 [facility] INFLUENZA, UNSPECIFIED FORMULATION 2018 88 complet ed [facility] INFLUENZA, HIGH DOSE SEASONAL 2018 135 complet ed HISTORICA L INFORMATI ON - FROM OTHER PROVIDER, Partner: [facility]. Administe red by: RONI WENDIEEamon ([id number]=[phone]). Partner 4 Lot#: [id number] Mfr: [employer]; Dosage: 0.5 [facility] TDAP 2018 115 complet ed Right Deltoid [facility] INFLUENZA, UNSPECIFIED FORMULATION 2016 88 complet ed [facility] PNEUMOCOCCAL CONJUGATE PCV 13 2015 133 complet ed [facility] INFLUENZA, UNSPECIFIED FORMULATION 2014 88 complet ed [facility] INFLUENZA, UNSPECIFIED FORMULATION 2013 88 complet ed [facility] INFLUENZA, UNSPECIFIED FORMULATION 2012 88 complet ed [facility] INFLUENZA, UNSPECIFIED FORMULATION 2011 88 complet ed [facility] INFLUENZA, UNSPECIFIED FORMULATION 2010 88 complet ed [facility] INFLUENZA, UNSPECIFIED FORMULATION 2009 88 complet ed [facility] ZOSTER LIVE [address] [facility] NOVEL INFLUENZA-H1N 1-09, ALL FORMULATIONS 2008 128 complet ed [facility] TD(ADULT) UNSPECIFIED FORMULATION 2008 139 complet ed Left Deltoid [facility] TDAP 2008 115 complet ed [facility] INFLUENZA, UNSPECIFIED FORMULATION 2008 88 complet ed [facility] PNEUMOCOCCAL, UNSPECIFIED FORMULATION 2004 109 complet ed [facility] S Results Combined list of recent chemistry, hematology and other laboratory results from Department of Defense and Veterans Affairs, ranging from 15 months to all on record, depending upon the facility. Order Name Results Value Reference Range Date Interpretation Specimen Comments Source TSH (MA-PB) THYROTROPIN [UNITS/VOLU ME] IN SERUM OR PLASMA 1.319 u[IU]/ mL 0.47 - 5 08/16 Specimen Type: SERUM No comment entered. Ordering Provider: MARY ONEILL Report Released Date/Time: Aug 01, 2024 09:27 AM Reporting Lab: [facility] [address] [facility] [address] Performing Lab: [facility] [address] [place] [address] [facility] VITAMIN D, 25-HYDROX Y 25-HYDROXYV ITAMIN D3 [MASS/VOLUM E] IN SERUM OR PLASMA 70.5 ng/mL 30 - 96 08/16 Specimen Type: SERUM No comment entered. Ordering Provider: MARY ONEILL Report Released Date/Time: Aug 01, 2024 09:27 AM Reporting Lab: [facility] [address] [facility] [address] Performing Lab: [facility] [address] [facility] [address] [facility] MICRAL/CR EAT PROFILE (STL) ALBUMIN [MASS/VOLUM E] IN URINE 13.0 mg/L 08/16 Specimen Type: URINE No comment entered. Ordering Provider: MARY ONEILL Report Released Date/Time: Aug 01, 2024 09:27 AM Reporting Lab: [facility] [address] [facility] [address] Performing Lab: [facility] [address] [facility] [address] [facility] MICRAL/CR EAT PROFILE (STL) ALBUMIN/CRE ATININE [MASS RATIO] IN URINE 10 mg/g 0 - 29 08/16 Specimen Type: URINE No comment entered. Ordering Provider: MARY ONEILL Report Released Date/Time: Aug 01, 2024 09:27 AM Reporting Lab: [facility] [address] [facility] [address] Performing Lab: [facility] [address] [facility] [address] [facility] MICRAL/CR EAT PROFILE (STL) CREATININE [MASS/VOLUM E] IN URINE 124.7 mg/dL 63 - 166 08/16 Specimen Type: URINE No comment entered. Ordering Provider: MARY ONEILL Report Released Date/Time: Aug 01, 2024 09:27 AM Reporting Lab: [facility] [address] [facility] [address] Performing Lab: [facility] [address] [place] [phone] [facility] LIPID PANEL (STL) CHOLESTEROL [MASS/VOLUM E] IN SERUM OR PLASMA 134 mg/dL 0 - 200 08/16 Specimen Type: PLASMA Comment: No hemolysis noted. Ordering Provider: MARY ONEILL Report Released Date/Time: Aug 01, 2024 09:27 AM Reporting Lab: [facility] [address] [facility] [address] Performing Lab: [facility] [address] [facility] [address] [facility] LIPID PANEL (STL) TRIGLYCERID E [MASS/VOLUM E] IN SERUM OR PLASMA 159 mg/dL 0 - 150 08/16 H Specimen Type: PLASMA Comment: No hemolysis noted. Ordering Provider: MARY ONEILL Report Released Date/Time: Aug 01, 2024 09:27 AM Reporting Lab: [facility] [address] [facility] [address] Performing Lab: [facility] [address] [facility] [address] [facility] LIPID PANEL (STL) CHOLESTEROL IN LDL [MASS/VOLUM E] IN SERUM OR PLASMA BY CALCULATION 65 mg/dL 08/16 Specimen Type: PLASMA Comment: No hemolysis noted. Ordering Provider: MARY ONEILL Report Released Date/Time: Aug 01, 2024 09:27 AM Reporting Lab: [facility] [address] [facility] [address] Performing Lab: [place] [address] [facility] [address] [facility] LIPID PANEL (STL) CHOLESTEROL IN HDL [MASS/VOLUM E] IN SERUM OR PLASMA 37 mg/dL 40 08/16 L Specimen Type: PLASMA Comment: No hemolysis noted. Ordering Provider: MARY ONEILL Report Released Date/Time: Aug 01, 2024 09:27 AM Reporting Lab: [place] [address] [facility] [address] Performing Lab: [place] [address] [facility] [phone] [place] [address] HGA1C HEMOGLOBIN A1C/HEMOGLO BIN.TOTAL IN BLOOD 6.2 4.0 - 6.0 08/16 H Specimen Type: BLOOD No comment entered. Ordering Provider: MARY ONEILL Report Released Date/Time: Aug 01, 2024 09:27 AM Reporting Lab: [place] [address] [facility] [address] Performing Lab: [place] [address] [facility] [address] [facility] CBC LEUKOCYTES [#/VOLUME] IN BLOOD BY AUTOMATED COUNT 4.0 10*3/u L 3.6 - 11.2 08/16 Specimen Type: BLOOD No comment entered. Ordering Provider: MARY ONEILL Report Released Date/Time: Aug 01, 2024 09:27 AM Reporting Lab: [place] [address] [facility] [address] Performing Lab: [place] [address] [facility] [address] [facility] CBC ERYTHROCYTE S [#/VOLUME] IN BLOOD BY AUTOMATED COUNT 4.56 10*6/u L 4.10 - 5.70 08/16 Specimen Type: BLOOD No comment entered. Ordering Provider: MARY ONEILL Report Released Date/Time: Aug 01, 2024 09:27 AM Reporting Lab: [place] [address] [facility] [address] Performing Lab: [facility] [address] [facility] [address] [facility] CBC HEMOGLOBIN [MASS/VOLUM E] IN BLOOD 14.0 g/dL 13.1 - 16.8 08/16 Specimen Type: BLOOD No comment entered. Ordering Provider: MARY ONEILL Report Released Date/Time: Aug 01, 2024 09:27 AM Reporting Lab: [address] [address] Performing Lab: [address] [address] [facility] CBC HEMATOCRIT [VOLUME FRACTION] OF BLOOD 43.3 38.2 - 48.4 08/16 Specimen Type: BLOOD No comment entered. Ordering Provider: MARY ONEILL Report Released Date/Time: Aug 01, 2024 09:27 AM Reporting Lab: [address] [address] Performing Lab: [address] [address] [facility] CBC MCV [ENTITIC VOLUME] BY AUTOMATED COUNT 95.0 fL 80.0 - 100.0 08/16 Specimen Type: BLOOD No comment entered. Ordering Provider: MARY ONEILL Report Released Date/Time: Aug 01, 2024 09:27 AM Reporting Lab: [address] [address] Performing Lab: [address] [address] [facility] CBC MCH [ENTITIC MASS] BY AUTOMATED COUNT 30.7 pg 27.0 - 34.0 08/16 Specimen Type: BLOOD No comment entered. Ordering Provider: MARY ONEILL Report Released Date/Time: Aug 01, 2024 09:27 AM Reporting Lab: [address] [address] Performing Lab: [place] [address] [facility] [address] [facility] CBC MCHC [MASS/VOLUM E] BY AUTOMATED COUNT 32.3 g/dL 33.0 - 36.0 08/16 L Specimen Type: BLOOD No comment entered. Ordering Provider: MARY ONEILL Report Released Date/Time: Aug 01, 2024 09:27 AM Reporting Lab: [facility] [address] [facility] [address] Performing Lab: [facility] [address] [place] [phone] [place] [address] CBC PLATELETS [#/VOLUME] IN BLOOD BY AUTOMATED COUNT 126 10*3/u L 150 - 400 08/16 L Specimen Type: BLOOD No comment entered. Ordering Provider: MARY ONEILL Report Released Date/Time: Aug 01, 2024 09:27 AM Reporting Lab: [facility] [address] [place] [phone] Performing Lab: [address] [phone] [place] [address] CBC PLATELET MEAN VOLUME [ENTITIC VOLUME] IN BLOOD BY AUTOMATED COUNT 11.4 fL 7.5 - 11.2 08/16 H Specimen Type: BLOOD No comment entered. Ordering Provider: MARY ONEILL Report Released Date/Time: Aug 01, 2024 09:27 AM Reporting Lab: [facility] [address] [place] [phone] Performing Lab: [facility] [address] [place] [phone] [facility] CBC ERYTHROCYTE DISTRIBUTIO N WIDTH [RATIO] BY AUTOMATED COUNT 13.5 11.8 - 15.1 08/16 Specimen Type: BLOOD No comment entered. Ordering Provider: MARY ONEILL Report Released Date/Time: Aug 01, 2024 09:27 AM Reporting Lab: [facility] [address] [place] [address] Performing Lab: [facility] [address] [place] [phone] [facility] CBC LYMPHOCYTES /100 LEUKOCYTES IN BLOOD BY AUTOMATED COUNT 22 08/16 Specimen Type: BLOOD No comment entered. Ordering Provider: MARY ONEILL Report Released Date/Time: Aug 01, 2024 09:27 AM Reporting Lab: [facility] [address] [facility] [address] Performing Lab: [facility] [address] [facility] [address] [facility] CBC MONOCYTES/1 00 LEUKOCYTES IN BLOOD BY AUTOMATED COUNT 17 08/16 Specimen Type: BLOOD No comment entered. Ordering Provider: MARY ONEILL Report Released Date/Time: Aug 01, 2024 09:27 AM Reporting Lab: [facility] [address] [facility] [address] Performing Lab: [facility] [address] [facility] [address] [facility] CBC NEUTROPHILS /100 LEUKOCYTES IN BLOOD BY AUTOMATED COUNT 56 08/16 Specimen Type: BLOOD No comment entered. Ordering Provider: MARY ONEILL Report Released Date/Time: Aug 01, 2024 09:27 AM Reporting Lab: [facility] [address] [facility] [address] Performing Lab: [facility] [address] [facility] [address] [facility] CBC EOSINOPHILS /100 LEUKOCYTES IN BLOOD BY AUTOMATED COUNT 4 08/16 Specimen Type: BLOOD No comment entered. Ordering Provider: MARY ONEILL Report Released Date/Time: Aug 01, 2024 09:27 AM Reporting Lab: [facility] [address] [facility] [address] Performing Lab: [facility] [address] [facility] [address] [facility] CBC BASOPHILS/1 00 LEUKOCYTES IN BLOOD BY AUTOMATED COUNT 1 08/16 Specimen Type: BLOOD No comment entered. Ordering Provider: MARY ONEILL Report Released Date/Time: Aug 01, 2024 09:27 AM Reporting Lab: . [facility] [address] [facility] [address] Performing Lab: [facility] [address] [facility] [address] [facility] CBC LYMPHOCYTES [#/VOLUME] IN BLOOD BY AUTOMATED COUNT 0.90 10*3/u L 0.77 - 4.50 08/16 Specimen Type: BLOOD No comment entered. Ordering Provider: MARY ONEILL Report Released Date/Time: Aug 01, 2024 09:27 AM Reporting Lab: [address] [address] Performing Lab: [address] [address] [facility] CBC MONOCYTES [#/VOLUME] IN BLOOD BY AUTOMATED COUNT 0.70 10*3/u L 0.19 - 0.80 08/16 Specimen Type: BLOOD No comment entered. Ordering Provider: MARY ONEILL Report Released Date/Time: Aug 01, 2024 09:27 AM Reporting Lab: [address] [address] Performing Lab: [address] [address] [facility] CBC NEUTROPHILS [#/VOLUME] IN BLOOD BY AUTOMATED COUNT 2.25 10*3/u L 2.10 - 8.00 08/16 Specimen Type: BLOOD No comment entered. Ordering Provider: MARY ONEILL Report Released Date/Time: Aug 01, 2024 09:27 AM Reporting Lab: [address] [address] Performing Lab: [address] [address] [facility] CBC EOSINOPHILS [#/VOLUME] IN BLOOD BY AUTOMATED COUNT 0.16 10*3/u L 0.00 - 0.60 08/16 Specimen Type: BLOOD No comment entered. Ordering Provider: MARY ONEILL Report Released Date/Time: Aug 01, 2024 09:27 AM Reporting Lab: [address] [address] Performing Lab: [address] [address] [facility] CBC BASOPHILS [#/VOLUME] IN BLOOD BY AUTOMATED COUNT 0.02 10*3/u L 0.00 - 0.20 08/16 Specimen Type: BLOOD No comment entered. Ordering Provider: MARY ONEILL Report Released Date/Time: Aug 01, 2024 09:27 AM Reporting Lab: [facility] [address] [place] [phone] Performing Lab: [facility] [address] [place] [phone] [facility] COMPREHEN SIVE METABOLIC PANEL CREATININE [MASS/VOLUM E] IN SERUM OR PLASMA 1.41 mg/dL 0.7 - 1.3 08/16 H Specimen Type: PLASMA Comment: No hemolysis noted. Ordering Provider: MARY ONEILL Report Released Date/Time: Aug 01, 2024 09:27 AM Reporting Lab: [address] [address] Performing Lab: [facility] [address] [place] [phone] [facility] COMPREHEN SIVE METABOLIC PANEL UREA NITROGEN [MASS/VOLUM E] IN SERUM OR PLASMA 26.2 mg/dL 9.0 - 25.0 08/16 H Specimen Type: PLASMA Comment: No hemolysis noted. Ordering Provider: MARY ONEILL Report Released Date/Time: Aug 01, 2024 09:27 AM Reporting Lab: [address] [address] Performing Lab: [facility] [address] [facility] [address] [facility] COMPREHEN SIVE METABOLIC PANEL GLUCOSE [MASS/VOLUM E] IN SERUM OR PLASMA 118 mg/dL 72 - 99 08/16 H Specimen Type: PLASMA Comment: No hemolysis noted. Ordering Provider: MARY ONEILL Report Released Date/Time: Aug 01, 2024 09:27 AM Reporting Lab: [address] [address] Performing Lab: [address] [address] [facility] COMPREHEN SIVE METABOLIC PANEL SODIUM [MOLES/VOLU ME] IN SERUM OR PLASMA 142 meq/L 136 - 145 08/16 Specimen Type: PLASMA Comment: No hemolysis noted. Ordering Provider: MARY ONEILL Report Released Date/Time: Aug 01, 2024 09:27 AM Reporting Lab: [facility] [address] [facility] [address] Performing Lab: [facility] [address] [facility] [address] [facility] COMPREHEN SIVE METABOLIC PANEL POTASSIUM [MOLES/VOLU ME] IN SERUM OR PLASMA 5.1 meq/L 3.5 - 5 08/16 H Specimen Type: PLASMA Comment: No hemolysis noted. Ordering Provider: MRAY ONEILL Report Released Date/Time: Aug 01, 2024 09:27 AM Reporting Lab: [facility] [address] [facility] [address] Performing Lab: [facility] [address] [facility] [address] [facility] COMPREHEN SIVE METABOLIC PANEL CHLORIDE [MOLES/VOLU ME] IN SERUM OR PLASMA 106 meq/L 98 - 107 08/16 Specimen Type: PLASMA Comment: No hemolysis noted. Ordering Provider: MARY ONEILL Report Released Date/Time: Aug 01, 2024 09:27 AM Reporting Lab: [facility] [address] [facility] [address] Performing Lab: [facility] [address] [facility] [address] [facility] COMPREHEN SIVE METABOLIC PANEL CARBON DIOXIDE, TOTAL [MOLES/VOLU ME] IN SERUM OR PLASMA 26 meq/L 22 - 31 08/16 Specimen Type: PLASMA Comment: No hemolysis noted. Ordering Provider: MARY ONEILL Report Released Date/Time: Aug 01, 2024 09:27 AM Reporting Lab: [facility] [address] [facility] [address] Performing Lab: [facility] [address] [facility] [address] [facility] COMPREHEN SIVE METABOLIC PANEL CALCIUM [MASS/VOLUM E] IN SERUM OR PLASMA 10.4 mg/dL 8.4 - 10.4 08/16 Specimen Type: PLASMA Comment: No hemolysis noted. Ordering Provider: MARY ONEILL Report Released Date/Time: Aug 01, 2024 09:27 AM Reporting Lab: [facility] [address] [facility] [address] Performing Lab: [facility] [address] [facility] [address] [facility] COMPREHEN SIVE METABOLIC PANEL PROTEIN [MASS/VOLUM E] IN SERUM OR PLASMA 7.7 g/dL 6 - 8.6 08/16 Specimen Type: PLASMA Comment: No hemolysis noted. Ordering Provider: MARY ONEILL Report Released Date/Time: Aug 01, 2024 09:27 AM Reporting Lab: [place] [address] [facility] [address] Performing Lab: [facility] [address] [facility] [address] [facility] COMPREH[facility] SIVE METABOLIC PANEL ALBUMIN [MASS/VOLUM E] IN SERUM OR PLASMA 4.5 g/dL 3.4 - 5 08/16 Specimen Type: PLASMA Comment: No hemolysis noted. Ordering Provider: MARY ONEILL Report Released Date/Time: Aug 01, 2024 09:27 AM Reporting Lab: [place] [address] [facility] [id number] Performing Lab: [facility] [address] [facility] [address] [facility] COMPREHEN SIVE METABOLIC PANEL BILIRUBIN.T OTAL [MASS/VOLUM E] IN SERUM OR PLASMA 0.9 mg/dL 0.2 - 1.2 08/16 Specimen Type: PLASMA Comment: No hemolysis noted. Ordering Provider: MARY ONEILL Report Released Date/Time: Aug 01, 2024 09:27 AM Reporting Lab: [facility] [address] [facility] [id number] Performing Lab: [facility] [address] [facility] [address] [facility] COMPREHEN SIVE METABOLIC PANEL ALKALINE PHOSPHATASE [ENZYMATIC ACTIVITY/VO LUME] IN SERUM OR PLASMA 114 U/L 40 - 150 08/16 Specimen Type: PLASMA Comment: No hemolysis noted. Ordering Provider: MARY ONEILL Report Released Date/Time: Aug 01, 2024 09:27 AM Reporting Lab: [place] [address] [facility] [address] Performing Lab: [facility] [address] [facility] [address] [facility] COMPREHEN SIVE METABOLIC PANEL ASPARTATE AMINOTRANSF ERASE [ENZYMATIC ACTIVITY/VO LUME] IN SERUM OR PLASMA 42 U/L 5 - 34 08/16 H Specimen Type: PLASMA Comment: No hemolysis noted. Ordering Provider: MARY ONEILL Report Released Date/Time: Aug 01, 2024 09:27 AM Reporting Lab: [place] [address] [facility] [address] Performing Lab: [place] [id number] [facility] [address] [facility] COMPREHEN SIVE METABOLIC PANEL ALANINE AMINOTRANSF ERASE [ENZYMATIC ACTIVITY/VO LUME] IN SERUM OR PLASMA 36 U/L 8 - 40 08/16 Specimen Type: PLASMA Comment: No hemolysis noted. Ordering Provider: MARY ONEILL Report Released Date/Time: Aug 01, 2024 09:27 AM Reporting Lab: [place] [address] [facility] [address] Performing Lab: [place] [address] [facility] [address] [facility] COMPREHEN SIVE METABOLIC PANEL GLOMERULAR FILTRATION RATE/1.73 SQ M.PREDICTED [VOLUME RATE/AREA] IN SERUM, PLASMA OR BLOOD BY CREATININE- BASED FORMULA (CKD-EPI 2020) 47.9 60 08/16 Specimen Type: PLASMA Comment: No hemolysis noted. Ordering Provider: MARY ONEILL Report Released Date/Time: Aug 01, 2024 09:27 AM Reporting Lab: [place] [id number] [facility] [address] Performing Lab: [facility] [address] [facility] [address] [facility] Vital Signs Combined list of inpatient and outpatient Vital Signs from Department of [facility] and Veterans Affairs, ranging from 12 months to all on record, depending upon the facility. Vital Sign Value Date Comments Source SYSTOLIC BLOOD PRESSURE 138 08/17/19 25 10:06:41 [facility] DIASTOLIC BLOOD PRESSURE 83 025 10:06:41 [facility] PULSE OXIMETRY 98 08/16/2024 10:06:41 [facility] WEIGHT 175.1 08/16/2024 10:06:41 [facility] BMI 26 kg/m2 08/16/2024 10:06:41 [facility] PAIN 0 08/16/2024 10:06:41 [facility] HEIGHT 69 08/16/2024 10:06:41 [facility] TEMPERATURE 98 08/16/2024 10:06:41 [facility] PULSE 76 08/16/2024 10:06:41 [facility] RESPIRATION 16 08/16/2024 10:06:41 [facility] Encounters Combined list of: 1) Encounters from Department of Veterans Affairs facilities going backup to the last 18 months, not all [place] inpatient encounters are included; 2) Encounters from the Department of [facility] facilities going backup to 280 months. Location Location Details Encounter Type Encounter Number Reason For Visit Attending Provider ADM Date DC Date Status Disposition Source [facility] IMG RTA DETCJ/MNTR DS STAFF [id number] Diagnos is: ICD-10- CM Z13.5 Encount er for screeni ng for eye and ear disorde MARY Balderas 08/16 [facility] N [facility] Outpatient Encounter [id number] 08/16 [facility] IMG RTA DETCJ/MNTR DS STAFF [id number] Diagnos is: ICD-10- CM Z13.5 Encount er for screeni ng for eye and ear disorde rs KERON BRADY Yuko C 08/16 [facility] N [facility] OFFICE O/P EST MOD 30 MIN [id number] Diagnos is: ICD-10- CM I10 Essenti al (primar y) hyperte nsion NINO,NID HI 08/16 [facility] Outpatient Encounter [id number] Diagnos is: ICD-10- CM Z13.5 Encount er for screeni ng for eye and ear disorde rs TIFFANI BANUELOS SAYRA R 08/17 [facility] OFFICE O/P EST HI 40 MIN [id number] Diagnos is: ICD-10- CM 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, unspeci ALBERTO Solomon M 09/06 [facility] Outpatient Encounter [id number] GROVER MARCUM M 01/03 [facility] Outpatient Encounter [id number] PARISA WATKINS R 01/04 [facility] HEARING AID REPAIR/MOD IFYING [id number] Diagnos is: ICD-10- CM H90.3 Sensori neural hearing loss, bilater al AUDREY GARCIA M 04/23 [facility] Outpatient Encounter [id number] 07/06 [facility] Outpatient Encounter [id number] 07/11 [facility] N [facility] Outpatient Encounter [id number] NINOMARY HI 08/01 [facility] E[facility]PRESSION [id number] Diagnos is: ICD-10- CM Z46.1 Encount er for fitting and adjustm ent of hearing aid KIERRA CHAPMAN Carissa 08/13 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 Social History Type Response Date Comment Sourc e Tobacco smoking status [place] VA-TOBACCO USE FORMER CIGARETTES 08/16/2024 [facility] History of tobacco use VA-TOBACCO NEVER USED OTHER TYPE 08/16/2024 [facility] History of tobacco use VA-TOBACCO FORMER USER 08/17/2023 [facility] History of tobacco use VA-TOBACCO NEVER USED 07/05/2022 [facility] History of tobacco use VA-TOBACCO FORMER USER 06/05/2020 [facility] History of tobacco use VA-TOBACCO QUIT 15 YRS OR MORE 12/19/2018 [facility] History of tobacco use QUIT TOBACCO >7 YEARS AGO 03/01/2017 [facility] History of tobacco use QUIT TOBACCO >7 YEARS AGO 08/30/2016 [facility] History of tobacco use QUIT TOBACCO >7 YEARS AGO 07/02/2015 [facility] History of tobacco use QUIT TOBACCO >7 YEARS AGO 03/14/2014 [facility] History of tobacco use QUIT TOBACCO >7 YEARS AGO 05/05/2009 [facility] Advance Directives List of completed, amended, or rescinded Advance Directives on record at Department of Veterans 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 An actual copy of the Directive is not included. Date Advance Directive Provider Source 01/15/2016 ADVANCE DIRECTIVE DISCUSSION BILL TURK [facility]
--- OUTSIDE RECORDS SUMMARY | 2025-01-07 08:29 | XMS_ITS | Clinical Summary ---
Author Organization [facility] [place] [address] Address [address] [place] [address] Care Team Providers Care Senior Center Director Name Role Phone Clemente Sommer MD Primary Care Provider + [phone] Allergies No known active allergies Medications tamsulosin (FLOMAX) 0.4 mg extended release capsule Take 1 capsule (0.4 mg total) by mouth 2 (two) times a day 0 Active levothyroxine (SYNTHROID) 75 mcg tablet Take 1 tablet (75 mcg total) by mouth position classification specialist before breakfast Active ferrous sulfate 325 mg [...] mg total) by mouth daily 3 Active Myrbetriq 25 mg tablet extended release [...] 75 mg tabletIndicatio ns:Coronary artery disease of [place] artery of [place] heart with stable angina pectoris Take 1 tablet by mouth once daily 90 tablet 2 5 Active metoprolol tartrate (LOPRESSOR) 25 mg immediate release tabletIndicatio ns:Coronary artery disease involving [place] coronary artery of [place] heart without angina pectoris Take 0.5 tablets (12.5 mg total) by mouth 2 (two) times a day 180 tablet 2 5 Active atorvastatin (LIPITOR) 80 mg tablet Take 1 tablet by mouth once daily 90 tablet 5 Active Active Problems Problem Noted Date [...] placement 11/02/2016 Coronary artery disease invo lving [place] coronary artery of [place] heart without angina pectoris 09/22/2016 Overview (10/15/2016): Coronary artery disease involving [place] coronary artery of [place] heart with other form of angina pectoris [...] with type 2 diabetes mellitus ([facility]) 01/03/2015 Overview (08/27/2016): Dyslipidemia Nonexudative age-related macular degeneration Resolved Problems Problem Noted Date Diagnosed Date Resolved Date Dyslipidemia associated with type 2 diabetes mellitus ([facility]) 06/07/2019 03/20/2021 Chronic coronary artery [...] on file Legal Sex Male 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 Gender Identity Male 03/07/2020 6:16 PM CDT Sexual Orientation Straight 03/07/2020 6: 16 PM CDT Obstetrics History Last Filed Vital Signs Vital Sign Reading Time Taken Comments Blood Pressure 116/60 05/31/2024 12:02 PM COMPUTER PATTERNMAKER Pulse 80 05/31/2024 12:02 PM COMPUTER PATTERNMAKER Temperature 36.6 C (97.9 F) 03/30/2023 11:30 AM COMPUTER PATTERNMAKER Respiratory Rate 18 03/30/2023 11:30 AM COMPUTER PATTERNMAKER Oxygen Saturation 97% 05/31/2024 12:02 PM COMPUTER PATTERNMAKER Inhaled Oxygen Concentration - - Weight 78.9 kg (174 lb) 05/31/2024 12:02 PM COMPUTER PATTERNMAKER Height 172.7 cm (5' 8) 05/31/2024 12:02 PM COMPUTER PATTERNMAKER Body Mass Index 26.46 05/31/2024 12:02 PM COMPUTER PATTERNMAKER Plan of Treatment Health Maintenance Due Date Last Done Comments Albumin Creatinine Ratio, Urine 1936 Dilated Eye Exam 1936 Foot Exam 1936 Hepatitis B Screening 1954 Well Visit 65+ 2001 Zoster Vaccine (2 of 3) 10/28/2009 09/02/2009 Pneumococcal vaccine 65+ (2 of 2 - PPSV23, PCV20, or PCV21) 08/27/2015 07/02/2015, 02/20/2005 Depression Screening 03/19/2020 03/19/2019, 03/19/20 19 Hemoglobin A1C 07/22/2023 01/21/2023, 03/19/2019 Covid-19 Vaccine (6 - 4-2 5 season) 2024 04/02/2022, 09/11/2021, 03/19/2021, Additional history exists Lipid Panel 02/01/2024 01/31/2023, 03/23, 03/20/2021, Additional history exists eGFR 02/01/2024 01/31/2023, 05/2022, 11/14/2019, Additional history exists Fall Risk Assessment 02/02/2024 02/01/2023 Influenza Vaccine (#1) 2025 9, 04/13/2019, 02/23/2017, Additional history exists DTaP/Tdap/Td Vaccine (4 - Td or Tdap) 01/09/2029 01/09/2019, 05/05/2009, 04/22/2009 Medical Devices Implanted Type Area Supervisor Doping Device Identifier Shelf Expiration Date Model / Serial / Lot Cardiac Stents N/A: Heart [employer] Liner Acetabular Hip Vitamin E G7 [place] Vivacit E 36mm Polyethylene Size [id number] - [id number] Implanted:Qty: 1 on 01/31/2023 by Malick Infante MD at [facility] Left: Hip [employer] 11/11/2026 [id number] / / [id number] [employer] G7 66mm Multihole Hip I Hemisphere Offset Shell Acetabular [id number] - [id number] Implanted:Qty: 1 on 01/31/2023 by Malick Infante MD at [facility] Left: Hip [employer] [id number] 08/30/2030 [id number] / / [id number] [employer] Trilogy 6.5mm 40mm Self Tap Hip Acetabular Cortical Screw Bone [id number] - [id number] Implanted:Qty: 1 on 01/31/2023 by Malick Infante MD at [facility] Left: Hip [employer] [id number] 09/22/2032 [id number] / / [id number] [employer] Trilogy 6.5mm 15mm Self Tap Screw Bone [id number] - [id number] Implanted:Qty: 1 on 01/31/2023 by Malick Infante MD at [facility] Left: Hip [employer] [id number] 09/22/2032 [id number] / / [id number] [employer] Trilogy 6.5mm 15mm Self Tap Screw Bone [id number] - [id number] Implanted:Qty: 1 on 01/31/2023 by Malick Infante MD at [facility] Left: Hip [employer] [id number] 09/22/2032 [id number] / / [id number] [employer] Trilogy 6.5mm 20mm Self Tap Screw Bone [id number] - [id number] Implanted:Qty: 1 on 01/31/2023 by Malick Infante MD at [facility] Left: Hip [employer] [id number] 10/01/2032 [id number] / / [id number] [employer] Trilogy 6.5mm 20mm Self Tap Screw Bone [id number] - [id number] Implanted:Qty: 1 on 01/31/2023 by Malick Infante MD at [facility] Left: Hip [employer] [id number] 03/04/2032 [id number] / / [id number] [employer] Trilogy 6.5mm 40mm Self Tap Hip Acetabular Cortical Screw Bone [id number] - [id number] Implanted:Qty: 1 on 01/31/2023 by Malick Infante MD at [facility] Left: Hip [employer] [id number] 09/22/2032 [id number] / / [id number] [employer] G7 [place] 36mm Type 1 Modular Hip +9mm Offset Head Femoral Cocr [id number] - [id number] Implanted:Qty: 1 on 01/31/2023 by Malick Infante MD at [facility] Left: Hip [employer] [id number] 03/18/2032021 / / [id number] Procedures Procedure Name Priority Date/Time Associated Diagnosis [...] BLOOD ORDERABLES Final Result [facility] Department [place] [address] * (ABNORMAL) Lipid panel (01/31/2023 9:06 PM CDT) [facility] Cholesterol 84 30 - 199 mg/dL [facility] Comment: Interpretive Data Ages < or [...] revised on 2018. Triglycerides 65 <=149 mg/dL [facility] Comment: Interpretive Data Ages < or [...] revised on 2018. HDL 28(L) >=40 mg/dL [facility] Comment: Interpretive Data Ages < or [...] on 2018. LDL, calculated 43 <=129 mg/dL [facility] Comment: Interpretive Data Ages < or [...] revised on 2018. Non-HDL Cholesterol 56 mg/dL [facility] Comment: Interpretive Data Ages < or [...] last revised on 2018. Chol/HDL ratio 3 [facility] Blood 01/31/2023 9:06 PM CDT 01/31/2023 10:07 PM CDT Malick Infante MD LAB BLOOD ORDERABLES Final Result [facility] [place] [address] * (ABNORMAL) Hemoglobin A1c (01/21/2023 5:45 PM CDT) Hgb A1C 5.8(H) 4.0 - 5.6 % [facility] Estimated Average Glucose 120 mg/dL [facility] Comment: The ADA recommends reporting an estimated Average Glucose (eAG) with all Hemoglobin A1c results using the equation derived from a study of 507 normal and diabetic adults. Minority populations were underrepresented and children were not included. (Diabetes Care 31:5661-1295, 2008). The eAG is not equivalent to a fasting glucose. The ADA recommends reporting an estimated Average Glucose (eAG) with all Hemoglobin A1c results using the equation derived from a study of 507 normal and diabetic adults. Minority populations were underrepresented and children were not included. (Diabetes Care 31:8868-4425, 2008). The eAG is not equivalent to a fasting glucose. Blood 01/21/2023 5:45 PM CDT 01/21/2023 5:57 PM CDT us Bryce Tyler NP LAB BLOOD ORDERABLES Fin al Result [facility] [id number] [facility]. [place] [address] from Last 3 Months or Most Recently Relevant to Health Maintenance Insurance [employer]ARE [facility] Address: [place] [id number] [place] [address] [employer] [facility] MEDICARE Address: [address] [address] [place] [address] MEDICARE ADVANTAGE MEDICARE [facility] MEDIC[facility] Address: [address] [place] [address] Advance Directives For more information, please contact: [phone] * Full Code (Latest Code Status on File) Date Activated Date Inactivated Comments 01/31/2023 3:20 PM 02/01/2023 10:04 PM * Full Code Date Activated Date Inactivated Comments 03/19/2019 10:01 PM 03/21/2019 1:11 AM Care Teams Senior Center Director Relationship Specialty Start Date End Date Clemente Sommer MD PCP - General Family Medicine 04/13/19
--- OUTSIDE RECORDS SUMMARY | 2025-01-07 08:29 | XMS_ITS | Clinical Summary ---
Author Organization [facility] Address [address] [place] [address] Phone Care Team Providers Care Bottom Stainer Name Role Phone Unavailable Primary Care Provider [...]
--- OUTSIDE RECORDS SUMMARY | 2025-01-07 08:29 | XMS_ITS | Encounter Summary ---
Author Organization [facility] Address [address] [place] [address] Phone Care Team Providers Care Team Assembly Line Machine Operator Name Role Phone Clemente Sommer MD Primary Care Provider [phone] Encounter Details Date Type Department Care Team (Late st Contact Info) Description 02/09/2023 Telephone [facility] Orthopaedic Surgery [address] [facility] [address] [place] [address] Malick Infante MD [address] [facility] [place] [address] Social History Tobacco Use Types Packs/Day Years [...] on file 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
[2025-01-07 08:48] LABS: Hematocrit 37.3 % (42.0-52.0); Hemoglobin 12.5 g/dL (14.0-18.0); Immature Platelet Fraction Pct 4.1 % (0.9-11.2); Mean Corpuscular HGB Conc 33.5 g/dl (32-36); Mean Corpuscular Hemoglobin 31.6 pg (26-34); Mean Corpuscular Volume 94.2 fl (80-100); Platelet Count Result 122 k/mm3 (150-375); Red Blood Count 3.96 M/mm3 (4.6-6.20); White Blood Count 5.7 K/mm3 (4.5-10.0)
[2025-01-07 09:54] LABS: Iron 100 ug/dL (49-181)
[2025-01-07 10:08] LABS: Percent Iron Saturation 38 % (20-50)
[2025-01-07 10:35] LABS: Ferritin 131.00 ng/mL (11.1-264)
[2025-01-07 10:57] LABS: Vitamin B12 999.0 pg/mL (239-931)
[2025-01-07 16:15] LABS: Anion Gap 9 mmol/L (4-12); Blood Urea Nitrogen 28 mg/dL (9-20); Calcium 9.6 mg/dL (8.4-10.2); Carbon Dioxide 22 mmol/L (22-30); Chloride 108 mmol/L (98-107); Estimated Glomerular Filt Rate 53; Glucose 105 mg/dL (65-110); Potassium 4.3 mmol/L (3.4-5.0); Sodium 139 mmol/L (137-145)
== END 2025-01-07 08:19 | disposition home or self-care (01) ==
PROVIDERS: PCP Family Medicine; Visit Provider Internal Medicine Hematology & Oncology
DX: D64.9 Anemia, unspecified (principal)
CPT/HCPCS: 36415; 80048; 82607; 82728; 82746; 83540; 83550; 85027; 85055